=== PATIENT | male | born 1955 | race Caucasian/White ===

== ENCOUNTER → 2019-03-31 | Outpatient (CLI) | payer MEDICARE ==
--- NOTE | 2019-03-31 09:51 | NM ---
EXAMINATION TYPE: NM hepatobiliary w EF DATE OF EXAM: 03/31/2019 COMPARISON: NONE HISTORY: Cholecystitis TECHNIQUE: After the intravenous administration of 4.8 mCi Tc 99m Mebrofenin hepatobiliary scintigrap hy is performed. Immediate images post injection. FINDINGS: There is satisfactory initial accumulation of tracer by the liver. The gallbladder is visualized wit hin 4 minutes. The small bowel activity is noted within 20 minutes. At one hour 8 ounces of oral en sure plus is given to mimic CCK and gallbladder ejection fraction is calculated at 87 %, just above t he upper limit of the normal range. Therefore there is no scintigraphic evidence of cystic or common bile duct obstruction to suggest acute cholecystitis. IMPRESSION: Gallbladder may be slightly hypokinetic.
== END | disposition home or self-care (01) ==
LOC: RADNMMAIN 06:43
PROVIDERS: ATTEND Surgery
DX: K81.9 Cholecystitis, unspecified (principal)
CPT/HCPCS: 78226; A9537

== ENCOUNTER 2021-02-08 06:22 | Day surgery (SDC) | payer MEDICARE ==
[2021-02-05 15:59] VITALS: BMI 34.7
[~2021-02-08 06:22] MED LIST: LACTATED RINGERS 1,000 ML IV SCH; LIDOCAINE 1% (10MG/ML) FOR IV START INTRADERMA PRN
[2021-02-08 06:43] VITALS: RESP 16; TEMP 96.8
[2021-02-08] MEDS ORDERED: PROPOFOL 10 MG/ML 20 ML VIAL IV ONE (07:03)
[2021-02-08] MEDS ORDERED: fentaNYL (PF) 50 MCG/ML 2 ML AMP ONE (07:03)
[2021-02-08 07:50] VITALS: BP 143/83; PULSE 65
[2021-02-08 08:15] LABS: Basophils # (A) 0.1 k/uL (0-0.2); Basophils % (A) 1 %; Eosinophils # (A) 0.3 k/uL (0-0.7); Eosinophils % (A) 5 %; HCT 52.2 % (39.0-53.0); HGB 18.1 gm/dL (13.0-17.5); Lymphocytes # (A) 1.9 k/uL (1.0-4.8); Lymphocytes % (A) 28 %; MCH 31.1 pg (25.0-35.0); MCHC 34.7 g/dL (31.0-37.0); MCV 89.5 fL (80.0-100.0); Mean Platelet Volume 8.7; Monocytes # (A) 0.5 k/uL (0-1.0); Monocytes % (A) 7 %; Neutrophils # (A) 3.8 k/uL (1.3-7.7); Neutrophils % (A) 56 %; Platelet Count 265 k/uL (150-450); RBC 5.83 m/uL (4.30-5.90); RDW 12.8 % (11.5-15.5); WBC 6.8 k/uL (3.8-10.6)
[2021-02-08 08:20] LABS: Reticulocyte % 1.8 % (0.5-2.0)
--- NOTE | 2021-02-08 08:33 | PCN ---
PROCEDURE NOTE DATE OF PROCEDURE: 02/08/2021. PREOPERATIVE DIAGNOSIS: Erythrocytosis. POSTOPERATIVE DIAGNOSIS: Erythrocytosis. PROCEDURE: Bone marrow aspirate and biopsy. SITE: Right iliac crest. ANESTHESIA: Local with IV systemic sedation. DETAILS: The patient was lying in a left lateral position. The skin overlying the right iliac crest was prepared with Betadine and alcohol. After adequate sterile draping, local anesthesia with 1% lidocaine and IV systemic sedation, size 11, 4-inch Jamshidi needle was utilized to access the periosteum with ease. A total of 15 mL of aspirate and 7 mm bone core biopsy were obtained. The patient tolerated the procedure very well. There was no immediate procedure related complication. TOTAL BLOOD LOSS: Less than 1 mL. RESULTS: Pending, DAVID / LAMONTN: [id number] /
== END 2021-02-08 08:07 | disposition home or self-care (01) ==
LOC: OR 06:22
PROVIDERS: ATTEND Internal Medicine Hematology & Oncology
DX: D75.1 Secondary polycythemia (principal); Z79.1 Long term (current) use of non-steroidal anti-inflammatories (NSAID); Z79.891 Long term (current) use of opiate analgesic; Z88.2 Allergy status to sulfonamides; Z80.0 Family history of malignant neoplasm of digestive organs; Z86.19 Personal history of other infectious and parasitic diseases; Z87.891 Personal history of nicotine dependence
CPT/HCPCS: 85025; 85045; 38222; J3010; J2704

== ENCOUNTER 2021-10-26 19:01 | Inpatient (IN) | payer MEDICARE ==
[2021-10-26] MEDS ORDERED: SODIUM CHLORIDE 0.9% 500 ML 500 ML IV STA (19:20)
[2021-10-26] MEDS ORDERED: HYDROmorphone 0.5 MG/0.5 ML SYRINGE IVP STA ×2 (19:20→20:29)
--- NOTE | 2021-10-26 19:32 | ED ---
General Adult HPI - General Chief complaint: Shortness of Breath Stated complaint: Covid+, weakness, SOB Time Seen by Provider: 10/26/21 19:10 Source: patient, RN notes reviewed, old records reviewed Mode of arrival: wheelchair Limitations: no limitations - History of Present Illness Initial comments: This is a 66-year-old male who presents emergency Department complaining of sudden onset of abdominal pain on the right side. Patient states he has been vaccinated against COVID and he started having cold-like symptoms on the he was tested positive for COVID on the first or second hand on the 60 received monoclonal antibodies. states since then he's been getting better and all of a sudden at 4:00 today he started having severe right-sided abdominal pain to the point he asked to go to the emergency department immediately. Patient stat es he does feel somewhat short of breath but mostly he is here because the pain is severe in the right side abdomen. Patient denies any vomiting but states he has been having diarrhea since he's had COVID. Patient denies any chest pain or palpitations. Patient denies any lightheadedness or dizziness. Patient denies any numbness or weakness. Patient denies any back pain. - Related Data Home Medications Medication Instructions Recorded Confirmed Celecoxib [CeleBREX] 200 mg PO BID 02/05/21 10/26/21 HYDROcodone/APAP 5-325MG [[place] 1 tab PO BID PRN 02/05/21 10/26/21 5-325] Ascorbic Acid [Vitamin C] 500 mg PO DAILY 10/26/21 10/26/21 Cholecalciferol [Vitamin D3 (25 25 mcg PO DAILY 10/26/21 10/26/21 Mcg = 1000 Iu)] guaiFENesin [Mucinex] 600 mg PO BID PRN 10/26/21 10/26/21 Allergies Allergy/AdvReac Type Severity Reaction Status Date / Time Sulfa (Sulfonamide Allergy Unknown Verified 10/26/21 20:20 Antibiotics) Review of Systems ROS Statement: Those systems with pertinent positive or pertinent negative responses have been documented in the HPI. ROS Other: All systems not noted in ROS Statement are negative. Past Medical History Past Medical History: Osteoarthritis (OA) Additional Past Medical History / Comment(s): back pain, elevated rbc History of Any Multi-Drug Resistant Organisms: None Reported Past Surgical History: No Surgical Hx Reported Additional Past Surgical History / Comment(s): colonoscopy Past Anesthesia/Blood Transfusion Reactions: No Reported Reaction Past Psychological History: No Psychological Hx Reported Smoking Status: Former smoker Past Alcohol Use History: Rare Past Drug Use History: None Reported General Exam - General Exam Comments Initial Comments: GENERAL: Patient is well-developed and well-nourished. Patient is nontoxic and well- hydrated and is in moderate distress. Patient is diaphoretic ENT: Neck is soft and supple. No significant lymphadenopathy is noted. Oropharynx is clear. Moist mucous membranes. Neck has full range of motion without el iciting any pain. EYES: The sclera were anicteric and conjunctiva were pink and moist. Extraocular movements were intact and pupils were equal round and reactive to light. Eyelids were unremarkable. PULMONARY: Unlabored respirations. Good breath sounds bilaterally. No audible rales rhonchi or wheezing was noted. CARDIOVASCULAR: Patient is tachycardic at 120 beats a minute ABDOMEN: Patient has an acute abdomen. Patient has rebound tenderness in the right mid and upper abdomen SKIN: Skin is clear with no lesions or rashes and otherwise unremarkable. NEUROLOGIC: Patient is alert and oriented x3. Cranial nerves II through XII are grossly intact. Motor and sensory are also intact. Normal speech, volume and content. Symmetrical smile. MUSCULOSKELETAL: Normal extremities with adequate strength and full range of motion. No lower extremity swelling or edema. No calf tenderness. LYMPHATICS: No significant lymphadenopathy is noted PSYCHIATRIC: Normal psychiatric evaluation. Limitations: no limitations Course Vital Signs 10/26/21 10/26/21 10/26/21 19:09 19:27 19:58 Temperature 98.1 F Pulse Rate 116 H 124 H 121 H Respiratory 24 25 H 30 H Rate Blood Pressure 163/83 188/96 172/98 O2 Sat by Pulse 87 L 94 L 93 L Oximetry Medical Decision Making - Medical Decision Making EKG shows sinus tachycardia with occasional PVCs at 125 bpm ID interval 232 QRS is 88 QT interval 342 QTC is 493. Patient's EKG is of poor quality but shows no ST segment elevations. Chest CT showed no pole but extensive infiltrates consistent with clinical pneumonia. Patient received Decadron at this time. CAT scan was read as normal however believed CAT scan had. I started the patient on Zosyn. Patient fluid bolus of 0.9 normal saline 1 L. I then spoke with the radiologist and he agreed that there wasn't any free air. I spoke with Dr. Anni Frank states she will come in and see the patient take the patient to the OR. Patient remains on a nonrebreather secondary to the extensive COVID pneumonia - Lab Data Result diagrams: 10/26/21 19:34 10/26/21 19:34 Lab Results 10/26/21 10/26/21 10/26/21 Range/Units 19:34 19:34 19:34 WBC 13.6 H (3.8-10.6) k/uL RBC 5.12 (4.30-5.90) m/uL Hgb 15.7 (13.0-17.5) gm/dL Hct 45.9 (39.0-53.0) % MCV 89.7 (80.0-100.0) fL MCH 30.8 (25.0-35.0) pg MCHC 34.3 (31.0-37.0) g/dL RDW 13.7 (11.5-15.5) % Plt Count 572 H (150-450) k/uL MPV 8.3 Neutrophils % 82 % Lymphocytes % 10 % Monocytes % 4 % Eosinophils % 1 % Basophils % 1 % Neutrophils # 11.0 H (1.3-7.7) k/uL Lymphocytes # 1.4 (1.0-4.8) k/uL Monocytes # 0.6 (0-1.0) k/uL Eosinophils # 0.2 (0-0.7) k/uL Basophils # 0.1 (0-0.2) k/uL PT 16.9 H (9.0-12.0) sec INR 1.7 H (<1.2) APTT 31.8 H (22.0-30.0) sec Sodium 136 L (137-145) mmol/L Potassium 3.5 (3.5-5.1) mmol/L Chloride 98 (98-107) mmol/L Carbon Dioxide 25 (22-30) mmol/L Anion Gap 13 mmol/L BUN 16 (9-20) mg/dL Creatinine 0.87 (0.66-1.25) mg/dL Est GFR (CKD-EPI)AfAm >90 (>60 ml/min/1.73 sqM) Est GFR (CKD-EPI)NonAf 90 (>60 ml/min/1.73 sqM) Glucose 160 H (74-99) mg/dL Plasma Lactic Acid Demetri (0.7-2.0) mmol/L Calcium 9.8 (8.4-10.2) mg/dL Total Bilirubin 0.8 (0.2-1.3) mg/dL AST 83 H (17-59) U/L ALT 119 H (4-49) U/L Alkaline Phosphatase 136 H (38-126) U/L Total Protein 7.3 (6.3-8.2) g/dL Albumin 3.3 L (3.5-5.0) g/dL Amylase 84 (30-110) U/L Lipase 544 H (23-300) U/L Blood Type Blood Type Recheck Bld Type Recheck Status Antibody Screen Spec Expiration Date 10/26/21 10/26/21 Range/Units 19:34 19:34 WBC (3.8-10.6) k/uL RBC (4.30-5.90) m/uL Hgb (13.0-17.5) gm/dL Hct (39.0-53.0) % MCV (80.0-100.0) fL MCH (25.0-35.0) pg MCHC (31.0-37.0) g/dL RDW (11.5-15.5) % Plt Count (150-450) k/uL MPV Neutrophils % % Lymphocytes % % Monocytes % % Eosinophils % % Basophils % % Neutrophils # (1.3-7.7) k/uL Lymphocytes # (1.0-4.8) k/uL Monocytes # (0-1.0) k/uL Eosinophils # (0-0.7) k/uL Basophils # (0-0.2) k/uL PT (9.0-12.0) sec INR (<1.2) APTT (22.0-30.0) sec Sodium (137-145) mmol/L Potassium (3.5-5.1) mmol/L Chloride (98-107) mmol/L Carbon Dioxide (22-30) mmol/L Anion Gap mmol/L BUN (9-20) mg/dL Creatinine (0.66-1.25) mg/dL Est GFR (CKD-EPI)AfAm (>60 ml/min/1.73 sqM) Est GFR (CKD-EPI)NonAf (>60 ml/min/1.73 sqM) Glucose (74-99) mg/dL Plasma Lactic Acid Demetri 3.0 H* (0.7-2.0) mmol/L Calcium (8.4-10.2) mg/dL Total Bilirubin (0.2-1.3) mg/dL AST (17-59) U/L ALT (4-49) U/L Alkaline Phosphatase (38-126) U/L Total Protein (6.3-8.2) g/dL Albumin (3.5-5.0) g/dL Amylase (30-110) U/L Lipase (23-300) U/L Blood Type B Negative Blood Type Recheck No Previous Record Bld Type Recheck Status CABO Indicated Antibody Screen NEGATIVE Spec Expiration Date 10/29/20212333 Critical Care Time Critical Care Time: Yes Total Critical Care Time: 35 Disposition Clinical Impression: Pneumonia due to COVID-19 virus, Hypoxia, Intra-abdominal free air of unknown etiology Disposition: ADMITTED IP TO THIS HOSP Referrals: Robin Alegria MD [Primary Care Provider] - 1-2 days Time of Disposition: 20:57
[2021-10-26 19:44] LABS: Basophils # (A) 0.1 k/uL (0-0.2); Basophils % (A) 1 %; Eosinophils # (A) 0.2 k/uL (0-0.7); Eosinophils % (A) 1 %; HCT 45.9 % (39.0-53.0); HGB 15.7 gm/dL (13.0-17.5); Lymphocytes # (A) 1.4 k/uL (1.0-4.8); Lymphocytes % (A) 10 %; MCH 30.8 pg (25.0-35.0); MCHC 34.3 g/dL (31.0-37.0); MCV 89.7 fL (80.0-100.0); Mean Platelet Volume 8.3; Monocytes # (A) 0.6 k/uL (0-1.0); Monocytes % (A) 4 %; Neutrophils % (A) 82 %; Platelet Count 572 k/uL (150-450); RBC 5.12 m/uL (4.30-5.90); RDW 13.7 % (11.5-15.5); WBC 13.6 k/uL (3.8-10.6)
[2021-10-26 19:57] LABS: INR 1.7 (<1.2); Partial Thromboplastin Time 31.8 sec (22.0-30.0); Prothrombin Time 16.9 sec (9.0-12.0)
[2021-10-26 19:58] LABS: ALT 119 U/L (4-49); AST 83 U/L (17-59); African American GFR (CKD) >90 (>60 ml/min/1.73 sqM); Albumin 3.3 g/dL (3.5-5.0); Alkaline Phosphatase 136 U/L (38-126); Amylase 84 U/L (30-110); Anion Gap 13 mmol/L; Blood Urea Nitrogen 16 mg/dL (9-20); Calcium 9.8 mg/dL (8.4-10.2); Carbon Dioxide 25 mmol/L (22-30); Chloride 98 mmol/L (98-107); Glucose 160 mg/dL (74-99); Lipase 544 U/L (23-300); Non-African American GFR(CKD) 90 (>60 ml/min/1.73 sqM); Potassium 3.5 mmol/L (3.5-5.1); Sodium 136 mmol/L (137-145); Total Bilirubin 0.8 mg/dL (0.2-1.3); Total Protein 7.3 g/dL (6.3-8.2)
--- NOTE | 2021-10-26 20:17 | CT ---
EXAMINATION TYPE: CT chest angio for PE DATE OF EXAM: 10/26/2021 COMPARISON: None HISTORY: SOB CT DLP: 2695.7 mGycm Automated exposure control for dose reduction was used. CONTRAST: Performed with IV Contrast, patient injected with 100 mL of Isovue 300. There are 3-D post processed images. There is extensive patchy interstitial and airspace infiltrate in both lungs. There is no pneumothora x. Heart size is fairly normal. There is no pericardial effusion. There is no pleural effusion. There are a few bronchial lymph nodes up to 1 cm. I see no evidence of filling defect in the pulmonar y arteries. The thoracic spine is intact. There is no evidence of focal bone destruction. Sternum is intact. Thor acic aorta is intact. There is no aneurysm or dissection. IMPRESSION: Extensive bilateral pulmonary infiltrates consistent with multifocal pneumonia. No evidence of pulmonary embolism.
--- NOTE | 2021-10-26 20:21 | CT ---
EXAMINATION TYPE: CT abdomen pelvis w con DATE OF EXAM: 10/26/2021 COMPARISON: None HISTORY: abd pain CT DLP: mGycm Automated exposure control for dose reduction was used. CONTRAST: Performed with IV Contrast, patient injected with 100 mL of Isovue 300. Images obtained from the diaphragm to the floor the pelvis with IV contrast Isovue 100 mL. There is patchy interstitial and airspace infiltrate in both lower lobes. Stomach is intact. Liver an d spleen are intact. Gallbladder is intact. The bile ducts are not dilated. There is no evidence of p ancreatic mass. There is abdominal ascites with fluid in the paracolic gutters. There is mild ascites fluid in the pe lvis. There is no adrenal mass. Kidneys show satisfactory contrast opacification. There is no hydronephrosi s. Delayed images show normal renal excretion. There is no retroperitoneal adenopathy. There is 3 cm fat-containing umbilical hernia. There is no mesenteric edema. There is no free air. Th ere is no sign of a bowel obstruction. Appendix is medial and posterior and appears normal. The lumbar vertebra have fairly normal alignment. There is 20% anterior wedging of L1 and 15% mild we dging of T12. Fractures appear old. The bony pelvis is intact. There is slight depression of 10% of t he superior endplate of L5. Hip joints are intact. IMPRESSION: There is abdominal ascites. No dilated ducts. Infiltrates in both lower lobes. Mild compression fractures in the spine as above appear old.
[2021-10-26] MEDS ORDERED: PIPERACILLIN-TAZOBACTAM 3.375 GM in SODIUM CHLORIDE 0.9% 100 ML IVPB STA (20:24)
[2021-10-26] MEDS ORDERED: DEXAMETHASONE SOD PHOSPHATE 10 MG/ML 1 ML VIAL IVP STA (20:25)
[2021-10-26] MEDS ORDERED: LORazepam 2 MG/ML INJ IV STA (20:29)
[2021-10-26 21:33] LABS: Appearance,Urine Cloudy (Clear); Bacteria,Urine Rare /hpf; Bilirubin,Urine Negative (Negative); Blood,Urine Trace (Negative); Color,Urine Yellow; Glucose,Urine (UA) Negative (Negative); Hyaline Casts,Urine 9 /lpf (0-2); Ketones,Urine Trace (Negative); Leukocyte Esterase,Urine Negative (Negative); Mucus,Urine Many /hpf; Nitrite,Urine Negative (Negative); Protein,Urine 3+ (Negative); RBC,Urine 5 /hpf (0-5); Specific Gravity,Urine 1.039 (1.001-1.035); Squamous Epithelial Cell,Urine 1 /hpf (0-4); WBC,Urine 10 /hpf (0-5)
--- NOTE | 2021-10-26 21:54 | P.GSHP ---
History of Present Illness H&P Date: 10/26/21 This is a 66-year-old male that presented to the emergency department with significant right upper quadrant pain that began approximately at 4 PM. According to his , she brought a minute 6 PM based on the fact that the pain was not improving. He has recently tested positive for COVID-19 and has had some coughing. She states that he has had an increased amount of coughing this morning and into this afternoon. He has received the COVID-19 vaccine. On workup, patient did have CT of the chest and CT of the abdomen and pelvis. CT of the chest revealed multifocal pneumonia of bilateral lungs. CT of the abdomen and pelvis did reveal pneumoperitoneum of unknown etiology. Patient's denies any history of peptic ulcer disease. He has not had previous abdominal surgery. The patient does have a history of erythrocytosis for which she follows with hematology. He has had bone marrow biopsy for this previously. - Review of Systems All systems: negative Past Medical History Past Medical History: Osteoarthritis (OA) Additional Past Medical History / Comment(s): back pain, elevated rbc History of Any Multi-Drug Resistant Organisms: None Reported Past Surgical History: No Surgical Hx Reported Additional Past Surgical History / Comment(s): colonoscopy Past Anesthesia/Blood Transfusion Reactions: No Reported Reaction Past Psychological History: No Psychological Hx Reported Smoking Status: Former smoker Past Alcohol Use History: Rare Past Drug Use History: None Reported Medications and Allergies Home Medications Medication Instructions Recorded Confirmed Type Celecoxib [CeleBREX] 200 mg PO BID 02/05/21 10/26/21 History HYDROcodone/APAP 5-325MG [[place] 1 tab PO BID PRN 02/05/21 10/26/21 History 5-325] Ascorbic Acid [Vitamin C] 500 mg PO DAILY 10/26/21 10/26/21 History Cholecalciferol [Vitamin D3 (25 25 mcg PO DAILY 10/26/21 10/26/21 History Mcg = 1000 Iu)] guaiFENesin [Mucinex] 600 mg PO BID PRN 10/26/21 10/26/21 History Allergies Allergy/AdvReac Type Severity Reaction Status Date / Time Sulfa (Sulfonamide Allergy Unknown Verified 10/26/21 20:20 Antibiotics) Surgical - Exam Osteopathic Statement: *. No significant issues noted on an osteopathic structural exam other than those noted in the History and Physical/Consult. Vital Signs Temp Pulse Resp BP Pulse Ox 98.1 F 116 H 24 163/83 87 L 10/26/21 19:09 10/26/21 19:09 10/26/21 19:09 10/26/21 19:09 10/26/21 19:09 - General severe distress - Neck trachea midline, no venous distension - Respiratory Patient is on nonrebreather mask with some difficulty with deep inhalation - Abdomen Tender to palpation and distended, positive rebound tenderness - Psychiatric Unable to answer questions at this time due to significant pain and distress Results - Labs 10/26/21 19:34 10/26/21 19:34 Abnormal Lab Results - Last 24 Hours (Table) 10/26/21 10/26/21 10/26/21 Range/Units 19:34 19:34 19:34 WBC 13.6 H (3.8-10.6) k/uL Plt Count 572 H (150-450) k/uL Neutrophils # 11.0 H (1.3-7.7) k/uL PT 16.9 H (9.0-12.0) sec INR 1.7 H (<1.2) APTT 31.8 H (22.0-30.0) sec Sodium 136 L (137-145) mmol/L Glucose 160 H (74-99) mg/dL Plasma Lactic Acid Demetri (0.7-2.0) mmol/L AST 83 H (17-59) U/L ALT 119 H (4-49) U/L Alkaline Phosphatase 136 H (38-126) U/L Albumin 3.3 L (3.5-5.0) g/dL Lipase 544 H (23-300) U/L Ur Specific [place] (1.001-1.035) Urine Protein (Negative) Urine Ketones (Negative) Urine Blood (Negative) Urine WBC (0-5) /hpf Urine Bacteria (None) /hpf Hyaline Casts (0-2) /lpf Urine Mucus (None) /hpf 10/26/21 10/26/21 Range/Units 19:34 21:13 WBC (3.8-10.6) k/uL Plt Count (150-450) k/uL Neutrophils # (1.3-7.7) k/uL PT (9.0-12.0) sec INR (<1.2) APTT (22.0-30.0) sec Sodium (137-145) mmol/L Glucose (74-99) mg/dL Plasma Lactic Acid Demetri 3.0 H* (0.7-2.0) mmol/L AST (17-59) U/L ALT (4-49) U/L Alkaline Phosphatase (38-126) U/L Albumin (3.5-5.0) g/dL Lipase (23-300) U/L Ur Specific [place] 1.039 H (1.001-1.035) Urine Protein 3+ H (Negative) Urine Ketones Trace H (Negative) Urine Blood Trace H (Negative) Urine WBC 10 H (0-5) /hpf Urine Bacteria Rare H (None) /hpf Hyaline Casts 9 H (0-2) /lpf Urine Mucus Many H (None) /hpf Diabetes panel 10/26/21 Range/Units 19:34 Sodium 136 L (137-145) mmol/L Potassium 3.5 (3.5-5.1) mmol/L Chloride 98 (98-107) mmol/L Carbon Dioxide 25 (22-30) mmol/L BUN 16 (9-20) mg/dL Creatinine 0.87 (0.66-1.25) mg/dL Glucose 160 H (74-99) mg/dL Calcium 9.8 (8.4-10.2) mg/dL AST 83 H (17-59) U/L ALT 119 H (4-49) U/L Alkaline Phosphatase 136 H (38-126) U/L Total Protein 7.3 (6.3-8.2) g/dL Albumin 3.3 L (3.5-5.0) g/dL Calcium panel 10/26/21 Range/Units 19:34 Calcium 9.8 (8.4-10.2) mg/dL Albumin 3.3 L (3.5-5.0) g/dL Pituitary panel 10/26/21 Range/Units 19:34 Sodium 136 L (137-145) mmol/L Potassium 3.5 (3.5-5.1) mmol/L Chloride 98 (98-107) mmol/L Carbon Dioxide 25 (22-30) mmol/L BUN 16 (9-20) mg/dL Creatinine 0.87 (0.66-1.25) mg/dL Glucose 160 H (74-99) mg/dL Calcium 9.8 (8.4-10.2) mg/dL Adrenal panel 10/26/21 Range/Units 19:34 Sodium 136 L (137-145) mmol/L Potassium 3.5 (3.5-5.1) mmol/L Chloride 98 (98-107) mmol/L Carbon Dioxide 25 (22-30) mmol/L BUN 16 (9-20) mg/dL Creatinine 0.87 (0.66-1.25) mg/dL Glucose 160 H (74-99) mg/dL Calcium 9.8 (8.4-10.2) mg/dL Total Bilirubin 0.8 (0.2-1.3) mg/dL AST 83 H (17-59) U/L ALT 119 H (4-49) U/L Alkaline Phosphatase 136 H (38-126) U/L Total Protein 7.3 (6.3-8.2) g/dL Albumin 3.3 L (3.5-5.0) g/dL Assessment and Plan Plan: 66-year-old male with pneumoperitoneum and COVID-19 pneumonia. Patient had significant amount of family members at bedside and case was discussed in depth with the family. At this point, patient does have significant signs of sepsis likely multifactorial secondary to covid pneumonia and perforated viscus. The patient's family has stated that they would like all measures taken including life-saving measures for the patient's survival. We will plan for an exploratory laparotomy. Patient's family is aware that patient is unlikely to be extubated after the procedure and will require ICU admission. Prognosis is extremely guarded due to the current presentation and this was explained to the patient's family in depth. We will make further recommendations after procedure.
[2021-10-26] MEDS ORDERED: PROPOFOL 10 MG/ML 20 ML VIAL IV ONE (22:03)
[2021-10-26] MEDS ORDERED: LIDOCAINE 1% INJ 10MG/ML (20 ML MDV) ONE (22:03)
[2021-10-26] MEDS ORDERED: ROCURONIUM 10 MG/ML (5 ML VIAL) IV ONE (22:03)
[2021-10-26] MEDS ORDERED: SUCCINYLCHOLINE CHLORIDE 100 MG/5 ML SYR IV ONE (22:03)
[2021-10-26] MEDS ORDERED: LACTATED RINGERS 1,000 ML IV ONE (22:03)
[2021-10-26] MEDS ORDERED: fentaNYL (PF) 50 MCG/ML 2 ML AMP ONE (22:03)
[2021-10-26] MEDS ORDERED: MIDAZOLAM 2 MG/2 ML VIAL ONE (22:03)
[2021-10-26] MEDS ORDERED: HEPARIN SODIUM,PORCINE 5,000 UNIT/ML 1 ML VIAL ONE (22:03)
--- NOTE | 2021-10-26 22:45 | P.ANPRN ---
Procedure Note - Anesthesia - Invasive Line Right Central Line Time Out Performed: Yes (intraop after induction) Date of Procedure: 10/26/21 Time of Procedure: 10:08 Location of Patient: PreOp Preparation: Sterile Prep, Sterile Dressing Ultrasound Used: Yes Purpose - Visualization and Identification of Vasculature: Yes Needle Guage: 18g angio Image Stored and Saved: No (Emergent procedure. Equipment malfuction.) Narrative: Central line placement per sterile protocol utilized. Sterile protocol. +angio +jwire +cvp +uneventful dilation and introduction right ij tlc
[2021-10-27] MEDS ORDERED: NALOXONE 0.4 MG/ML 1 ML VIAL IV PRN (00:01)
[2021-10-27] MEDS ORDERED: propofoL 100 ML IV ONE ×2 (00:01→03:07)
[2021-10-27] MEDS ORDERED: ONDANSETRON 4 MG/2 ML VIAL IVP PRN (00:01)
--- NOTE | 2021-10-27 00:16 | P.OP ---
Date of Procedure: 10/27/21 Preoperative Diagnosis: Pneumoperitoneum COVID-19 pneumonia Postoperative Diagnosis: Perforated gastric ulcer Pneumoperitoneum COVID-19 pneumonia Procedure(s) Performed: Exploratory laparotomy Partial gastrectomy Billroth II reconstruction Anesthesia: ANDRÉS Surgeon: Sidney Hutton Pathology: other (Partial gastrectomy) Condition: critical Disposition: ICU Indications for Procedure: 66-year-old male presented to the emergency department with complaints of abdominal pain that was quite severe. Patient was noted to be significantly tachycardic, diaphoretic and hypoxic. On workup, he was found to have pneumoperitoneum. He is also found to have Covid pneumonia. Due to pneumoperitoneum and concern for perforated viscus, surgery was consult it. Case was discussed in depth with the patient's family. The patient did have significant number of family members at bedside. They did request that all means were used for survival. Plan is for exploratory laparotomy. Patient's did provide consent for the patient. Operative Findings: 3 cm perforation of gastric ulcer prepyloric Description of Procedure: The patient was brought to the operating suite and placed on the operating table. Sedation was provided by anesthesia and the patient underwent endotracheal intubation. The patient was then prepped and draped in regular sterile fashion. A vertical midline incision was made at the epigastrium beginning at the xiphoid and extending inferiorly. Dissection was carried to the fascia and the fascia was incised along the length of the incision. Immediate turbid fluid was noted. Multiple cultures were taken. Turbid fluid was suctioned. Bookwalter retractor was placed and the stomach was examined. A large 3 cm perforation was noted approximately 6 cm proximal to the pylorus. Initially, attempt was made and a Tevin patch repair, however the tissue surrounding the ulcer site was significantly friable and the sutures were not holding. Secondary to this, decision was made for partial gastrectomy with Billroth II reconstruction. Billroth II reconstruction was decided upon based on the patient's concerning hemodynamics. Window was created into the lesser sac and both proximal and distal points of transection were decided upon a for the stomach. Multiple firings of a black staple load from an Endo CRISTY stapler were fired to transect this portion of the stomach and this was handed off as specimen. The small bowel was run and a loop of small bowel just distal to the ligament of Treitz was elevated towards the stomach. Enterotomy and gastrotomy were created and a stapler was fired to create anastomosis. The resulting enterotomy was closed with a TX 60 loaded stapler. Nasogastric tube was then placed by anesthesia and was guided into the stomach, safely away from the anastomosis site. At this point copious muss irrigation was placed and suctioned from the abdomen. A RUPINDER drain was placed along the anastomosis site and exited the abdomen from the left upper quadrant. This was secured with a 2- 0 nylon suture. Wound was then closed with a running looped PDS suture. Skin josh were placed and sterile dressing was applied. Patient was then transferred to the ICU in critical condition. Case was discussed with the setter out after procedure.
[2021-10-27 00:38] LABS: ABG Base Excess -2.6 mmol/L; ABG HCO3 26 mmol/L (21-25); ABG Oxygen Saturation 95.6 % (94-97); ABG PO2 103 mmHg (83-108); ABG TCO2 28 mmol/L (19-24); Allen Test Performed? Yes
[2021-10-27 00:40] LABS: ABG PCO2 71 mmHg (35-45); ABG PH 7.17 (7.35-7.45)
--- NOTE | 2021-10-27 01:17 | XR ---
EXAMINATION TYPE: XR chest 1V portable DATE OF EXAM: 10/27/2021 COMPARISON: NONE HISTORY: Tube placement TECHNIQUE: Single view FINDINGS: Endotracheal tube is 6 cm from the shaun. There is nasogastric tube in the stomach. There is patchy pulmonary interstitial and airspace edema. There are chest leads. Heart appears enlarged. T here is blunting left costophrenic angle. IMPRESSION: Pulmonary edema. Tubing in fairly good position.
[2021-10-27] MEDS: LACTATED RINGERS 1,000 ML IV SCH ×3 (02:01→17:07)
--- NOTE | 2021-10-27 03:45 | P.CONS ---
History of Present Illness - Reason for Consult Consult date: 10/27/21 - History of Present Illness Patient is a 66-year-old male with no known PMH who presented to the emergency room with complaints of abdominal pain. History obtained from the chart as the patient was intubated at the time of evaluation. The patient was reportedly diagnosed with Covid roughly 10 days ago and had received monoclonal antibodies at that time. He was noted to have been gradually improving until yesterday at 4 PM when he suddenly developed right-sided abdominal pain. In the emergency room, the patient was noted to have pneumoperitoneum on abdominal CT with CT chest angiogram showing multifocal pneumonia. The patient was admitted to the surgery service and was taken to the OR and underwent an exploratory laparotomy where he was noted to have a perforated gastric ulcer. A partial gastrectomy was performed and the patient was admitted to the medical ICU where he was seen and evaluated. The patient's laboratory evaluation was reviewed and was remarkable for leukocytosis of 13.6, INR 1.7, pH 7.17, lactic acid 3.0. Review of systems: Unable to obtain as patient is intubated. Physical examination: General: non toxic, no distress, appears at stated age, obese Derm: no unusual rashes/lesions no unusual ecchymoses, warm, dry Head: atraumatic, normocephalic, symmetric Eyes: Anicteric sclera, pupils equal round reactive to light ENT: Nose and ears atraumatic Neck: No thyromegaly, no cervical lymphadenopathy, trachea midline, supple Mouth: no lip lesion, ET tube in place Cardiovascular: S1S2 reg, no murmur, positive posterior tibial pulse bilateral, no edema, capillary refill less than 2 seconds Lungs: Bilateral rhonchi and rales, no accessory muscle use Abdominal: Firm and distended, hypoactive bowel sounds, drain in place draining serosanguinous material Ext: no gross muscle atrophy Neuro: Unable to assess, unresponsive to stimuli Assessment/plan COVID-19 pneumonia with acute hypoxic respiratory failure -Continue with mechanical ventilation -Continue Decadron -Infectious disease consulted Sepsis secondary to Perforated gastric ulcer status post expiratory laparotomy and gastrectomy -Defer management to the primary surgical service Elevated INR -Suspected due to sepsis upon presentation -Monitor for now Lactic acidosis -Monitor for resolution DVT prophylaxis -Heparin subq Past Medical History Past Medical History: Osteoarthritis (OA) Additional Past Medical History / Comment(s): back pain, elevated rbc History of Any Multi-Drug Resistant Organisms: None Reported Past Surgical History: No Surgical Hx Reported Additional Past Surgical History / Comment(s): colonoscopy Past Anesthesia/Blood Transfusion Reactions: No Reported Reaction Past Psychological History: No Psychological Hx Reported Smoking Status: Former smoker Past Alcohol Use History: Rare Past Drug Use History: None Reported - Past Family History Father Family Medical History: Cancer Additional Family Medical History / Comment(s): Colon Cancer Medications and Allergies Home Medications Medication Instructions Recorded Confirmed Type Celecoxib [CeleBREX] 200 mg PO BID 02/05/21 10/26/21 History HYDROcodone/APAP 5-325MG [[place] 1 tab PO BID PRN 02/05/21 10/26/21 History 5-325] Ascorbic Acid [Vitamin C] 500 mg PO DAILY 10/26/21 10/26/21 History Cholecalciferol [Vitamin D3 (25 25 mcg PO DAILY 10/26/21 10/26/21 History Mcg = 1000 Iu)] guaiFENesin [Mucinex] 600 mg PO BID PRN 10/26/21 10/26/21 History Allergies Allergy/AdvReac Type Severity Reaction Status Date / Time Sulfa (Sulfonamide Allergy Unknown Verified 10/26/21 20:20 Antibiotics) Physical Exam Vitals: Vital Signs Temp Pulse Pulse Resp BP BP Pulse Ox 10/27/21 02:30 80 30 H 125/67 95 10/27/21 02:00 83 30 H 128/72 93 L 10/27/21 01:30 91 30 H 160/84 93 L 10/27/21 01:10 97 30 H 160/84 92 L 10/27/21 01:00 99 30 H 135/61 93 L 10/27/21 00:50 97 22 135/61 96 10/27/21 00:40 94 20 135/61 97 10/27/21 00:30 94 21 135/61 97 10/27/21 00:20 93 20 135/61 97 10/27/21 00:10 95 19 135/61 94 L 10/27/21 00:00 98.7 F 96 18 135/61 96 10/26/21 23:58 97 10/26/21 22:25 133 H 35 H 173/100 94 L 10/26/21 21:53 98.4 F 94 18 135/61 100 10/26/21 21:13 137 H 30 H 183/108 95 10/26/21 19:58 121 H 30 H 172/98 93 L 10/26/21 19:27 124 H 25 H 188/96 94 L 10/26/21 19:09 98.1 F 116 H 24 163/83 87 L Intake and Output 10/26/21 10/26/21 10/27/21 14:59 22:59 06:59 Intake Total 600 500 Output Total 410 Balance 600 90 Intake: IV 600 500 Lactated Ringers 1,000 ml 500 @ 125 mls/hr IV .Q8H [facility] Rx#:[id number] Output: Urine 310 Estimated Blood Loss 100 Other: Weight 104.326 kg Results CBC & Chem 7: 10/26/21 19:34 10/26/21 19:34 Labs: Abnormal Lab Results - Last 24 Hours (Table) 10/26/21 10/26/21 10/26/21 Range/Units 01:53 19:34 19:34 WBC 13.6 H (3.8-10.6) k/uL Plt Count 572 H (150-450) k/uL Neutrophils # 11.0 H (1.3-7.7) k/uL PT 16.9 H (9.0-12.0) sec INR 1.7 H (<1.2) APTT 31.8 H (22.0-30.0) sec ABG pH (7.35-7.45) ABG pCO2 (35-45) mmHg ABG HCO3 (21-25) mmol/L ABG Total CO2 (19-24) mmol/L Sodium (137-145) mmol/L Glucose (74-99) mg/dL Plasma Lactic Acid Demetri 2.3 H* (0.7-2.0) mmol/L AST (17-59) U/L ALT (4-49) U/L Alkaline Phosphatase (38-126) U/L Albumin (3.5-5.0) g/dL Lipase (23-300) U/L Ur Specific [place] (1.001-1.035) Urine Protein (Negative) Urine Ketones (Negative) Urine Blood (Negative) Urine WBC (0-5) /hpf Urine Bacteria (None) /hpf Hyaline Casts (0-2) /lpf Urine Mucus (None) /hpf 1210/26/21 10/26/21 Range/Units 19:34 19:34 21:13 WBC (3.8-10.6) k/uL Plt Count (150-450) k/uL Neutrophils # (1.3-7.7) k/uL PT (9.0-12.0) sec INR (<1.2) APTT (22.0-30.0) sec ABG pH (7.35-7.45) ABG pCO2 (35-45) mmHg ABG HCO3 (21-25) mmol/L ABG Total CO2 (19-24) mmol/L Sodium 136 L (137-145) mmol/L Glucose 160 H (74-99) mg/dL Plasma Lactic Acid Demetri 3.0 H* (0.7-2.0) mmol/L AST 83 H (17-59) U/L ALT 119 H (4-49) U/L Alkaline Phosphatase 136 H (38-126) U/L Albumin 3.3 L (3.5-5.0) g/dL Lipase 544 H (23-300) U/L Ur Specific [place] 1.039 H (1.001-1.035) Urine Protein 3+ H (Negative) Urine Ketones Trace H (Negative) Urine Blood Trace H (Negative) Urine WBC 10 H (0-5) /hpf Urine Bacteria Rare H (None) /hpf Hyaline Casts 9 H (0-2) /lpf Urine Mucus Many H (None) /hpf 10/27/21 Range/Units 00:35 WBC (3.8-10.6) k/uL Plt Count (150-450) k/uL Neutrophils # (1.3-7.7) k/uL PT (9.0-12.0) sec INR (<1.2) APTT (22.0-30.0) sec ABG pH 7.17 L* (7.35-7.45) ABG pCO2 71 H* (35-45) mmHg ABG HCO3 26 H (21-25) mmol/L ABG Total CO2 28 H (19-24) mmol/L Sodium (137-145) mmol/L Glucose (74-99) mg/dL Plasma Lactic Acid Demetri (0.7-2.0) mmol/L AST (17-59) U/L ALT (4-49) U/L Alkaline Phosphatase (38-126) U/L Albumin (3.5-5.0) g/dL Lipase (23-300) U/L Ur Specific [place] (1.001-1.035) Urine Protein (Negative) Urine Ketones (Negative) Urine Blood (Negative) Urine WBC (0-5) /hpf Urine Bacteria (None) /hpf Hyaline Casts (0-2) /lpf Urine Mucus (None) /hpf
[2021-10-27] MEDS: PIPERACILLIN-TAZOBACTAM 3.375 GM in SODIUM CHLORIDE 0.9% 100 ML IVPB SCH ×3 (04:50→20:12)
[2021-10-27 05:50] LABS: HCT 43.1 % (39.0-53.0); HGB 14.3 gm/dL (13.0-17.5); MCH 29.9 pg (25.0-35.0); MCHC 33.1 g/dL (31.0-37.0); MCV 90.3 fL (80.0-100.0); Mean Platelet Volume 8.2; Platelet Count 343 k/uL (150-450); RBC 4.78 m/uL (4.30-5.90); RDW 13.7 % (11.5-15.5); WBC 10.6 k/uL (3.8-10.6)
[2021-10-27 05:58] LABS: INR 1.3 (<1.2); Prothrombin Time 12.9 sec (9.0-12.0)
[2021-10-27 06:02] LABS: Calcium 8.5 mg/dL (8.4-10.2); Potassium 4.3 mmol/L (3.5-5.1)
[2021-10-27 06:18] LABS: ABG Base Excess 0.5 mmol/L; ABG HCO3 26 mmol/L (21-25); ABG Oxygen Saturation 98.7 % (94-97); ABG PCO2 48 mmHg (35-45); ABG PH 7.34 (7.35-7.45); ABG PO2 128 mmHg (83-108); ABG TCO2 28 mmol/L (19-24); Allen Test Performed? Yes
[2021-10-27] MEDS: fentaNYL (PF). 1,000 MCG in SODIUM CHLORIDE 0.9% 80 ML IV SCH ×2 (06:34→18:48)
[2021-10-27] MEDS: CHLORHEXIDINE GLUCONATE 15 ML CUP MUCOUS MEM SCH ×2 (09:51→20:13)
[2021-10-27] MEDS: PANTOPRAZOLE 40 MG/10 ML VIAL IV SCH (09:51)
[2021-10-27] MEDS: dexAMETHasone 2 MG TAB NG-TUBE SCH (09:54)
[2021-10-27] MEDS: FLUCONAZOLE IN NACL,ISO-OSM 200 MG in SALINE 1 100ML.BAG IVPB SCH (10:34)
[2021-10-27] MEDS: HEPARIN SODIUM,PORCINE/PF 5,000 UNIT/0.5 ML SYRINGE SQ SCH ×2 (10:37→17:05)
--- NOTE | 2021-10-27 12:23 | P.PN ---
Subjective Progress Note Date: 10/27/21 Patient seen and examined at bedside with ICU team. Vented and sedated. NG tube in place. Acuna in place. Objective - Vital Signs Vital signs: Vital Signs Temp 98.7 F 10/27/21 00:00 Pulse 57 L 10/27/21 11:30 Resp 32 H 10/27/21 11:30 BP 101/57 10/27/21 11:30 Pulse Ox 97 10/27/21 11:30 Intake & Output 10/26/21 10/27/21 10/27/21 18:59 06:59 18:59 Intake Total 600 1036.514 188.486 Output Total 560 420 Balance 600 476.514 -231.514 Weight 108 kg Intake: IV 600 1000 125 Lactated Ringers 1,000 ml 1000 125 @ 125 mls/hr IV .Q8H [facility] Rx#:[id number] Intake, IV Titration 36.514 63.486 Amount propofoL 1,000 mg In 36.514 63.486 Empty Bag 1 bag @ Titrate IV .Q0M [facility] Rx#: [id number] Output: Gastric Drainage 300 Drainage 20 Medial Abdomen 20 Urine 460 100 Estimated Blood Loss 100 Other: Voiding Method Indwelling Catheter - Constitutional General appearance: Present: no acute distress - Respiratory Details: On vent - Gastrointestinal Gastrointestinal Comment(s): soft, midline incision C/D/I with surgical dressing in place, RUPINDER with serosanguinous output - Labs CBC & Chem 7: 10/27/21 05:19 10/27/21 05:19 Labs: Abnormal Lab Results - Last 24 Hours (Table) 10/26/21 10/26/21 10/26/21 Range/Units 01:53 19:34 19:34 WBC 13.6 H (3.8-10.6) k/uL Plt Count 572 H (150-450) k/uL Neutrophils # 11.0 H (1.3-7.7) k/uL PT 16.9 H (9.0-12.0) sec INR 1.7 H (<1.2) APTT 31.8 H (22.0-30.0) sec ABG pH (7.35-7.45) ABG pCO2 (35-45) mmHg ABG pO2 (83-108) mmHg ABG HCO3 (21-25) mmol/L ABG Total CO2 (19-24) mmol/L ABG O2 Saturation (94-97) % Sodium (137-145) mmol/L Glucose (74-99) mg/dL Plasma Lactic Acid Demetri 2.3 H* (0.7-2.0) mmol/L AST (17-59) U/L ALT (4-49) U/L Alkaline Phosphatase (38-126) U/L Albumin (3.5-5.0) g/dL Lipase (23-300) U/L Ur Specific [place] (1.001-1.035) Urine Protein (Negative) Urine Ketones (Negative) Urine Blood (Negative) Urine WBC (0-5) /hpf Urine Bacteria (None) /hpf Hyaline Casts (0-2) /lpf Urine Mucus (None) /hpf 10/26/21 10/26/21 10/26/21 Range/Units 19:34 19:34 21:13 WBC (3.8-10.6) k/uL Plt Count (150-450) k/uL Neutrophils # (1.3-7.7) k/uL PT (9.0-12.0) sec INR (<1.2) APTT (22.0-30.0) sec ABG pH (7.35-7.45) ABG pCO2 (35-45) mmHg ABG pO2 (83-108) mmHg ABG HCO3 (21-25) mmol/L ABG Total CO2 (19-24) mmol/L ABG O2 Saturation (94-97) % Sodium 136 L (137-145) mmol/L Glucose 160 H (74-99) mg/dL Plasma Lactic Acid Demetri 3.0 H* (0.7-2.0) mmol/L AST 83 H (17-59) U/L ALT 119 H (4-49) U/L Alkaline Phosphatase 136 H (38-126) U/L Albumin 3.3 L (3.5-5.0) g/dL Lipase 544 H (23-300) U/L Ur Specific [place] 1.039 H (1.001-1.035) Urine Protein 3+ H (Negative) Urine Ketones Trace H (Negative) Urine Blood Trace H (Negative) Urine WBC 10 H (0-5) /hpf Urine Bacteria Rare H (None) /hpf Hyaline Casts 9 H (0-2) /lpf Urine Mucus Many H (None) /hpf 10/27/21 10/27/21 10/27/21 Range/Units 00:35 05:19 05:19 WBC (3.8-10.6) k/uL Plt Count (150-450) k/uL Neutrophils # (1.3-7.7) k/uL PT 12.9 H (9.0-12.0) sec INR 1.3 H (<1.2) APTT (22.0-30.0) sec ABG pH 7.17 L* (7.35-7.45) ABG pCO2 71 H* (35-45) mmHg ABG pO2 (83-108) mmHg ABG HCO3 26 H (21-25) mmol/L ABG Total CO2 28 H (19-24) mmol/L ABG O2 Saturation (94-97) % Sodium 136 L (137-145) mmol/L Glucose 150 H (74-99) mg/dL Plasma Lactic Acid Demetri (0.7-2.0) mmol/L AST (17-59) U/L ALT (4-49) U/L Alkaline Phosphatase (38-126) U/L Albumin (3.5-5.0) g/dL Lipase (23-300) U/L Ur Specific [place] (1.001-1.035) Urine Protein (Negative) Urine Ketones (Negative) Urine Blood (Negative) Urine WBC (0-5) /hpf Urine Bacteria (None) /hpf Hyaline Casts (0-2) /lpf Urine Mucus (None) /hpf 10/27/21 Range/Units 06:16 WBC (3.8-10.6) k/uL Plt Count (150-450) k/uL Neutrophils # (1.3-7.7) k/uL PT (9.0-12.0) sec INR (<1.2) APTT (22.0-30.0) sec ABG pH 7.34 L (7.35-7.45) ABG pCO2 48 H (35-45) mmHg ABG pO2 128 H (83-108) mmHg ABG HCO3 26 H (21-25) mmol/L ABG Total CO2 28 H (19-24) mmol/L ABG O2 Saturation 98.7 H (94-97) % Sodium (137-145) mmol/L Glucose (74-99) mg/dL Plasma Lactic Acid Demetri (0.7-2.0) mmol/L AST (17-59) U/L ALT (4-49) U/L Alkaline Phosphatase (38-126) U/L Albumin (3.5-5.0) g/dL Lipase (23-300) U/L Ur Specific [place] (1.001-1.035) Urine Protein (Negative) Urine Ketones (Negative) Urine Blood (Negative) Urine WBC (0-5) /hpf Urine Bacteria (None) /hpf Hyaline Casts (0-2) /lpf Urine Mucus (None) /hpf Assessment and Plan Plan: POD #1, ex lap with Billroth 2 reconstruction for perforated gastric ulcer - Continue vent mgmt per ICU - Currently on zosyn and diflucan, awaiting ID recommendations - Continue RUPINDER drain - Aged Or Disabled Carer consult placed to begin TPN due to anticipated prolonged NPO status - NGT instructions were discussed with nursing. No manipulation of the NGT and no input through the NGT. Continue NGT to LIS. - Case was discussed in depth with family. Patient has a very guarded prognosis.
--- NOTE | 2021-10-27 12:46 | P.CNPUL ---
History of Present Illness Consult date: 10/27/21 Requesting physician: Sidney Hutton Reason for consult: pneumonia, other (Status post expiratory laparotomy, partial gastrectomy and Billroth type II in construction.) Chief complaint: Severe abdominal pain History of present illness: This is a 66-year-old white male presented to the emergency last night with acute onset of abdominal pain. Patient recently tested positive for COVID-19 and he had symptoms of COVID-19 pneumonia. Patient has been experiencing severe cough and according to the chart, the patient did receive COVID-19 vaccination. And apparently when he was initially diagnosed, the patient received monoclonal antibody infusion. Upon presentation to the ER, patient was found to have multifocal pneumonia, and his CT of the abdomen and pelvis revealed area of pneumoperitoneum. Patient has no previous history of peptic ulcer disease, no previous abdominal surgery. Seen by surgery foreign law consultant, and the patient underwent exploratory laparotomy, he was found to have stomach perforation, underwent expiratory laparotomy, Billroth type II reconstruction. Patient was started on antibiotics in the form of Zosyn and on Diflucan. Infectious disease consultation is pending. Patient was brought up to the ICU on mechanical ventilation, he is now on tidal volume 450 rate of 30 FiO2 70% and I cut it down to 50% and PEEP at 10. ABG showed a pO2 of 128 pCO2 of 48 pH of 7.34. Patient is on propofol at 40 mcg/kg/m fentanyl 0.5 mcg/kg/h he is on a lactated Ringer's at 1 25 mL/h, and he will be started on TPN. Patient does have a right IJ central line placed by surgery prior to his exploratory laparotomy. WBC count today is 10.6 hemoglobin 14.3. Electrodes are normal renal profile is normal. Review of Systems ROS unobtainable: due to endotracheal tube Past Medical History Past Medical History: Osteoarthritis (OA) Additional Past Medical History / Comment(s): back pain, elevated rbc History of Any Multi-Drug Resistant Organisms: None Reported Past Surgical History: No Surgical Hx Reported Additional Past Surgical History / Comment(s): colonoscopy Past Anesthesia/Blood Transfusion Reactions: No Reported Reaction Past Psychological History: No Psychological Hx Reported Smoking Status: Former smoker Past Alcohol Use History: Rare Past Drug Use History: None Reported - Past Family History Father Family Medical History: Cancer Additional Family Medical History / Comment(s): Colon Cancer Medications and Allergies Home Medications Medication Instructions Recorded Confirmed Type Celecoxib [CeleBREX] 200 mg PO BID 02/05/21 10/26/21 History HYDROcodone/APAP 5-325MG [[place] 1 tab PO BID PRN 02/05/21 10/26/21 History 5-325] Ascorbic Acid [Vitamin C] 500 mg PO DAILY 10/26/21 10/26/21 History Cholecalciferol [Vitamin D3 (25 25 mcg PO DAILY 10/26/21 10/26/21 History Mcg = 1000 Iu)] guaiFENesin [Mucinex] 600 mg PO BID PRN 10/26/21 10/26/21 History Allergies Allergy/AdvReac Type Severity Reaction Status Date / Time Sulfa (Sulfonamide Allergy Unknown Verified 10/26/21 20:20 Antibiotics) Physical Exam Vitals: Vital Signs Temp Pulse Pulse Resp BP BP Pulse Ox 10/27/21 11:30 57 L 32 H 101/57 97 10/27/21 11:00 57 L 30 H 103/55 96 10/27/21 10:30 58 L 33 H 98/61 95 10/27/21 10:00 59 L 32 H 104/59 95 10/27/21 09:30 60 30 H 102/60 97 10/27/21 09:00 62 26 H 97 10/27/21 08:30 65 32 H 102/63 97 10/27/21 08:00 66 26 H 104/62 97 10/27/21 07:30 68 26 H 107/67 97 10/27/21 07:00 68 26 H 107/86 96 10/27/21 06:30 66 30 H 104/63 94 L 10/27/21 06:00 68 28 H 100/67 97 10/27/21 05:30 71 33 H 106/66 97 10/27/21 05:00 71 30 H 106/66 96 10/27/21 04:30 74 32 H 101/64 97 10/27/21 04:00 74 32 H 107/68 97 10/27/21 03:30 76 30 H 103/64 97 10/27/21 03:00 74 20 110/67 96 10/27/21 02:30 80 30 H 125/67 95 10/27/21 02:00 83 30 H 128/72 93 L 10/27/21 01:30 91 30 H 160/84 93 L 10/27/21 01:10 97 30 H 160/84 92 L 10/27/21 01:00 99 30 H 135/61 93 L 10/27/21 00:50 97 22 135/61 96 10/27/21 00:40 94 20 135/61 97 10/27/21 00:30 94 21 135/61 97 10/27/21 00:20 93 20 135/61 97 10/27/21 00:10 95 19 135/61 94 L 10/27/21 00:00 98.7 F 96 18 135/61 96 10/26/21 23:58 97 10/26/21 22:25 133 H 35 H 173/100 94 L 10/26/21 21:53 98.4 F 94 18 135/61 100 10/26/21 21:13 137 H 30 H 183/108 95 10/26/21 19:58 121 H 30 H 172/98 93 L 10/26/21 19:27 124 H 25 H 188/96 94 L 10/26/21 19:09 98.1 F 116 H 24 163/83 87 L Intake and Output 10/26/21 10/27/21 10/27/21 22:59 06:59 14:59 Intake Total 1036.514 563.486 Output Total 560 535 Balance 476.514 28.486 Intake: IV 1000 500 Lactated Ringers 1,000 ml 1000 500 @ 125 mls/hr IV .Q8H [facility] Rx#:[id number] Intake, IV Titration 36.514 63.486 Amount propofoL 1,000 mg In 36.514 63.486 Empty Bag 1 bag @ Titrate IV .Q0M [facility] Rx#: [id number] Output: Gastric Drainage 300 Drainage 20 Medial Abdomen 20 Urine 460 215 Estimated Blood Loss 100 Other: Voiding Method Indwelling Catheter Weight 104.326 kg 108 kg Physical Exam revealed a 66-year-old white male sedated, intubated, mechanically ventilated, in no distress. Head: Atraumatic normocephalic. Endotracheal tube is intact. HEENT:[Neck is supple.] [No neck masses.] [No thyromegaly.] [No JVD.] Right IJ central line is noted. Chest: Symmetrical chest expansion, crackles at the bases bilaterally.] Cardiac Exam: [Normal S1 and S2, no S3 gallop, no murmur.] Abdomen: Postsurgical soft nontender negative bowel sounds. RUPINDER drains noted. Extremities: [No clubbing, no edema, no cyanosis.] Neurological Exam: Cannot asses patient is fully sedated. Psychiatric: Could not assess patient is sedated. Results - Laboratory Findings CBC and BMP: 10/27/21 05:19 10/27/21 05:19 ABG ABG pH 7.34 (7.35-7.45) L 10/27/21 06:16 ABG pCO2 48 mmHg (35-45) H 10/27/21 06:16 ABG pO2 128 mmHg (83-108) H 10/27/21 06:16 ABG O2 Saturation 98.7 % (94-97) H 10/27/21 06:16 PT/INR, D-dimer PT 12.9 sec (9.0-12.0) H 10/27/21 05:19 INR 1.3 (<1.2) H 10/27/21 05:19 Abnormal lab findings: Abnormal Labs 10/26/21 10/26/21 10/26/21 01:53 19:34 19:34 WBC 13.6 H Plt Count 572 H Neutrophils # 11.0 H PT 16.9 H INR 1.7 H APTT 31.8 H ABG pH ABG pCO2 ABG pO2 ABG HCO3 ABG Total CO2 ABG O2 Saturation Sodium Glucose Plasma Lactic Acid Demetri 2.3 H* AST ALT Alkaline Phosphatase Albumin Lipase Ur Specific [place] Urine Protein Urine Ketones Urine Blood Urine WBC Urine Bacteria Hyaline Casts Urine Mucus 10/26/21 10/26/21 10/26/21 19:34 19:34 21:13 WBC Plt Count Neutrophils # PT INR APTT ABG pH ABG pCO2 ABG pO2 ABG HCO3 ABG Total CO2 ABG O2 Saturation Sodium 136 L Glucose 160 H Plasma Lactic Acid Demetri 3.0 H* AST 83 H ALT 119 H Alkaline Phosphatase 136 H Albumin 3.3 L Lipase 544 H Ur Specific [place] 1.039 H Urine Protein 3+ H Urine Ketones Trace H Urine Blood Trace H Urine WBC 10 H Urine Bacteria Rare H Hyaline Casts 9 H Urine Mucus Many H 10/27/21 10/27/21 10/27/21 00:35 05:19 05:19 WBC Plt Count Neutrophils # PT 12.9 H INR 1.3 H APTT ABG pH 7.17 L* ABG pCO2 71 H* ABG pO2 ABG HCO3 26 H ABG Total CO2 28 H ABG O2 Saturation Sodium 136 L Glucose 150 H Plasma Lactic Acid Demetri AST ALT Alkaline Phosphatase Albumin Lipase Ur Specific [place] Urine Protein Urine Ketones Urine Blood Urine WBC Urine Bacteria Hyaline Casts Urine Mucus 10/27/21 06:16 WBC Plt Count Neutrophils # PT INR APTT ABG pH 7.34 L ABG pCO2 48 H ABG pO2 128 H ABG HCO3 26 H ABG Total CO2 28 H ABG O2 Saturation 98.7 H Sodium Glucose Plasma Lactic Acid Demetri AST ALT Alkaline Phosphatase Albumin Lipase Ur Specific [place] Urine Protein Urine Ketones Urine Blood Urine WBC Urine Bacteria Hyaline Casts Urine Mucus - Diagnostic Findings Chest x-ray: image reviewed (Chest x-ray showed bilateral infiltrates consistent with COVID-19 pneumonia) Assessment and Plan Assessment: Impression: Acute hypoxic respiratory failure secondary to COVID-19 pneumonia and secondary to abdominal sepsis secondary to stomach perforation requiring exploratory laparotomy, Billroth type II and reconstruction, postoperative day #0. Acute abdominal sepsis Lactic acidosis secondary to abdominal sepsis History of degenerative joint disease Recommendation: Continue ventilatory support. Continue COVID-19 cocktail. Patient is not a candidate for remdesivir, not a candidate for baricitinib Will use low-dose Decadron. We continue antibiotics and antifungal, infectious disease consultation is pending. GI and DVT prophylaxis. Prognosis is relatively guarded patient is critically ill. Critical care time is over 30 minutes not including time on procedures Time with Patient: Greater than 30
[2021-10-27 15:46] LABS: Ionized Calcium 4.7 mg/dL (4.5-5.3)
[2021-10-27 15:49] LABS: Albumin 2.5 g/dL (3.5-5.0)
[2021-10-27 17:58] LABS: Glucose,Whole Blood 126 mg/dL (75-99)
[2021-10-27] MEDS ORDERED: PARENTERAL ELECTROLYTES 20 ML, MVI, ADULT NO.4 WITH VIT K 10 ML, TRACE (CONC-1ML/DOSE) ... IV SCH ×4 (18:00)
--- NOTE | 2021-10-27 18:33 | PCN ---
PROCEDURE NOTE OPERATIVE REPORT: Placement of a right radial arterial line. PREOPERATIVE DIAGNOSES: Acute hypoxic respiratory failure secondary to Covid 19 pneumonia and abdominal sepsis. POSTOPERATIVE DIAGNOSES: Acute hypoxic respiratory failure secondary to Covid 19 pneumonia and abdominal sepsis. ANESTHESIA: Used none deployed. PROCEDURE: Patient was placed in a supine position, right wrist was prepared in a sterile fashion and drapes were applied. The right radial artery was palpated, cannulated, a guidewire was placed. A Cook's catheter was inserted over the guidewire, the guidewire was removed. Good blood flow, good waveform, no evidence of complications. The line was secured using 3.0 silk sutures. MMODL / IJN: [id number] /
[2021-10-27] MEDS: INSULIN ASPART (NovoLOG) 100 UNIT/ML VIAL SQ SCH ×2 (18:47→23:41)
[2021-10-27 23:28] LABS: Glucose,Whole Blood 112 mg/dL (75-99)
[2021-10-28] MEDS: LACTATED RINGERS 1,000 ML IV SCH ×4 (00:07→20:03)
[2021-10-28] MEDS: HEPARIN SODIUM,PORCINE/PF 5,000 UNIT/0.5 ML SYRINGE SQ SCH ×3 (00:07→17:05)
[2021-10-28 04:29] LABS: Basophils % (A) 0 %; Eosinophils % (A) 0 %; HCT 39.1 % (39.0-53.0); HGB 12.6 gm/dL (13.0-17.5); Lymphocytes # (A) 0.5 k/uL (1.0-4.8); Lymphocytes % (A) 5 %; MCH 29.5 pg (25.0-35.0); MCHC 32.2 g/dL (31.0-37.0); MCV 91.4 fL (80.0-100.0); Mean Platelet Volume 9.2; Monocytes # (A) 0.5 k/uL (0-1.0); Monocytes % (A) 5 %; Neutrophils # (A) 9.8 k/uL (1.3-7.7); Neutrophils % (A) 87 %; Platelet Count 348 k/uL (150-450); RBC 4.28 m/uL (4.30-5.90); WBC 11.2 k/uL (3.8-10.6)
[2021-10-28 04:42] LABS: Magnesium 2.3 mg/dL (1.6-2.3); Phosphorus 5.7 mg/dL (2.5-4.5)
[2021-10-28 04:57] LABS: Albumin 2.3 g/dL (3.5-5.0); Calcium 7.9 mg/dL (8.4-10.2); Potassium 4.1 mmol/L (3.5-5.1); Total Bilirubin 0.5 mg/dL (0.2-1.3); Total Protein 5.4 g/dL (6.3-8.2)
[2021-10-28] MEDS: PIPERACILLIN-TAZOBACTAM 3.375 GM in SODIUM CHLORIDE 0.9% 100 ML IVPB SCH ×3 (05:00→20:01)
[2021-10-28 05:15] LABS: Glucose,Whole Blood 128 mg/dL (75-99)
[2021-10-28 05:15] LABS: Glucose,Whole Blood 63 mg/dL (75-99)
[2021-10-28] MEDS: INSULIN ASPART (NovoLOG) 100 UNIT/ML VIAL SQ SCH ×3 (05:15→18:55)
[2021-10-28 06:13] LABS: ABG Base Excess -3.6 mmol/L; ABG HCO3 21 mmol/L (21-25); ABG Oxygen Saturation 99.4 % (94-97); ABG PCO2 30 mmHg (35-45); ABG PH 7.44 (7.35-7.45); ABG PO2 150 mmHg (83-108); ABG TCO2 21 mmol/L (19-24)
[2021-10-28 06:38] LABS: Allen Test Performed? No
--- NOTE | 2021-10-28 07:10 | XR ---
EXAMINATION TYPE: XR chest 1V portable DATE OF EXAM: 10/28/2021 5:47 AM COMPARISON:Chest radiograph from one day prior. CLINICAL INDICATION:Male, 66 years old with history of Tube placement; [facility], TECHNIQUE: Portable AP radiograph of the chest.. FINDINGS: Lungs/Pleura: There is no evidence of pleural effusion, focal consolidation, or pneumothorax. Pulmonary vascularity: Unremarkable. Heart/mediastinum: Cardiomediastinal silhouette is unremarkable. Musculoskeletal: No acute osseous pathology. Lines/Tubes: Endotracheal tube with distal tip 7.5 cm above the shaun Nasogastric tube with its distal tip and side-port projecting under the diaphragm. Coiling of the right internal jugular central venous catheter with tip extending towards the right up per extremity laterally layering within the right subclavian vein. IMPRESSION: 1. Persistent abnormal placement of the right IJ central venous catheter now with coiling in the righ t lower neck distal tip extending laterally. 2. Similar multifocal airspace opacities.
[2021-10-28] MEDS: FLUCONAZOLE IN NACL,ISO-OSM 200 MG in SALINE 1 100ML.BAG IVPB SCH (08:48)
[2021-10-28] MEDS: CHLORHEXIDINE GLUCONATE 15 ML CUP MUCOUS MEM SCH ×2 (08:48→20:01)
[2021-10-28] MEDS: dexAMETHasone 2 MG TAB NG-TUBE SCH (08:48)
[2021-10-28] MEDS: PANTOPRAZOLE 40 MG/10 ML VIAL IV SCH (08:48)
--- NOTE | 2021-10-28 09:56 | P.CONS ---
History of Present Illness - Reason for Consult Consult date: 10/27/21 perforated peptic ulcer and covid Requesting physician: Sidney Hutton - Chief Complaint abd pain x 1 day - History of Present Illness History of present illness : Patient is 66-year-old male presenting to the ER last evening for evaluation of sudden onset of right-sided abdominal pain pain has been mostly in the right lower quadrant area sharp and severe in i ntensity no reported history of any vomiting or diarrhea apparently the patient also have a cold symptoms started around 24 September 2021 patient was tested positive on October 17 and has received monoclonal antibody subsequently there is no history of any chest pain palpitations or shortness of breath or cough patient on presentation to the hospital was afebrile did have low-grade fever of 99.8 today patient did have white count of 13.6 down to 10.6 today did have elevated BUN/creatinine ALT mildly elevated patient did have a CT angiogram of the chest extensive bilateral pulmonary infiltrate consistent multifocal pneumonia no evidence of PE patient also have a CT of abdominal pelvis with evidence of pneumoperitoneum air on the anterior upper abdominal anterior to the anterior wall of the stomach patient was subsequently taken to the OR and the patient was noticed to have a perforated gastric ulcer status post exploratory protamine partial gastrectomy and Billroth II reconstruction patient has been in the ICU since surgery on the vent he is hemodynamically stable not any pressor support no significant purulent secretion through the ET or diarrhea and any other change reported by nursing staff most information has been obtained from review the chart as the patient is currently on the vent Review of system: Positive point has been mentioned in HPI complete review could not be obtained because of underlying mental status Past medical history : Reviewed, documented below Past surgical history : Reviewed, documented below Social history: Reviewed, documented below Medications: Reviewed, as documented below EXAMINATION: Vital sigans= Reviewed and documented below GENERAL DESCRIPTION: Elderly male lying in bed, no distress. No tachypnea or accessory muscle of respiration use. HEENT: Shows Pallor , no scleral icterus. Oral mucous membrane is dry. NECK: Trachea central, no thyromegaly. LUNGS: Unlabored breathing. Decrease intensity of breath sounds. No wheeze or crackle. HEART: S1, S2, regular rate and rhythm. ABDOMEN: Soft, no tenderness , guarding or rigidity EXTREMITIES: No edema of feet. SKIN: No rash, no masses palpable. NEUROLOGICAL: The patient is sedated on the vent LABS AND RADIOLOGY: Reviewed results see below Assessment :1-patient presented to hospital with acute abdomen with perforated peptic ulcer disease status post laparotomy and surgical repair of his perforation the likely origin record will be the enteric gram-negative and Annia 2-patient to COVID-19 symptoms started on October 16 and has received monoclonal antibody CT angiogram which shows extensive bilateral pulmonary infiltrate currently out of the therapeutic window for remdesivir Plan: 1-patient is adequately covered with Zosyn and Diflucan which will be continued and antibiotic adjusted further on the basis of culture report 2-Heparin and dexamethasone has been added for the COVID-19 infection 3-gentle IV fluid We will follow on clinical condition and cultures to further adjust medication if needed Thank you for this consultation we will follow the patient along with you Past Medical History Past Medical History: Osteoarthritis (OA) Additional Past Medical History / Comment(s): back pain, elevated rbc History of Any Multi-Drug Resistant Organisms: None Reported Past Surgical History: No Surgical Hx Reported Additional Past Surgical History / Comment(s): colonoscopy Past Anesthesia/Blood Transfusion Reactions: No Reported Reaction Past Psychological History: No Psychological Hx Reported Smoking Status: Former smoker Past Alcohol Use History: Rare Past Drug Use History: None Reported - Past Family History Father Family Medical History: Cancer Additional Family Medical History / Comment(s): Colon Cancer Medications and Allergies Home Medications Medication Instructions Recorded Confirmed Type Celecoxib [CeleBREX] 200 mg PO BID 02/05/21 10/26/21 History HYDROcodone/APAP 5-325MG [[place] 1 tab PO BID PRN 02/05/21 10/26/21 History 5-325] Ascorbic Acid [Vitamin C] 500 mg PO DAILY 10/26/21 10/26/21 History Cholecalciferol [Vitamin D3 (25 25 mcg PO DAILY 10/26/21 10/26/21 History Mcg = 1000 Iu)] guaiFENesin [Mucinex] 600 mg PO BID PRN 10/26/21 10/26/21 History Allergies Allergy/AdvReac Type Severity Reaction Status Date / Time Sulfa (Sulfonamide Allergy Unknown Verified 10/26/21 20:20 Antibiotics) Physical Exam Vitals: Vital Signs Temp Pulse Pulse Resp BP BP Pulse Ox 10/27/21 14:00 58 L 30 H 105/57 96 10/27/21 13:30 59 L 30 H 93/60 95 10/27/21 13:00 56 L 30 H 98/57 96 10/27/21 12:30 57 L 33 H 98/61 96 10/27/21 12:00 56 L 36 H 94/57 97 10/27/21 11:30 57 L 32 H 101/57 97 10/27/21 11:00 57 L 30 H 103/55 96 10/27/21 10:30 58 L 33 H 98/61 95 10/27/21 10:00 59 L 32 H 104/59 95 10/27/21 09:30 60 30 H 102/60 97 10/27/21 09:00 62 26 H 97 10/27/21 08:30 65 32 H 102/63 97 10/27/21 08:00 66 32 H 104/62 97 10/27/21 07:30 68 26 H 107/67 97 10/27/21 07:00 68 26 H 107/86 96 10/27/21 06:30 66 30 H 104/63 94 L 10/27/21 06:00 68 28 H 100/67 97 10/27/21 05:30 71 33 H 106/66 97 10/27/21 05:00 71 30 H 106/66 96 10/27/21 04:30 74 32 H 101/64 97 10/27/21 04:00 74 32 H 107/68 97 10/27/21 03:30 76 30 H 103/64 97 10/27/21 03:00 74 20 110/67 96 10/27/21 02:30 80 30 H 125/67 95 10/27/21 02:00 83 30 H 128/72 93 L 10/27/21 01:30 91 30 H 160/84 93 L 10/27/21 01:10 97 30 H 160/84 92 L 10/27/21 01:00 99 30 H 135/61 93 L 10/27/21 00:50 97 22 135/61 96 10/27/21 00:40 94 20 135/61 97 10/27/21 00:30 94 21 135/61 97 10/27/21 00:20 93 20 135/61 97 10/27/21 00:10 95 19 135/61 94 L 10/27/21 00:00 98.7 F 96 18 135/61 96 10/26/21 23:58 97 10/26/21 22:25 133 H 35 H 173/100 94 L 10/26/21 21:53 98.4 F 94 18 135/61 100 10/26/21 21:13 137 H 30 H 183/108 95 10/26/21 19:58 121 H 30 H 172/98 93 L 10/26/21 19:27 124 H 25 H 188/96 94 L 10/26/21 19:09 98.1 F 116 H 24 163/83 87 L Intake and Output 10/27/21 10/27/21 10/27/21 06:59 14:59 22:59 Intake Total 1036.514 903.342 Output Total 560 625 Balance 476.514 278.342 Intake: IV 1000 750 Lactated Ringers 1,000 ml 1000 750 @ 125 mls/hr IV .Q8H RIANNA Rx#:[id number] Intake, IV Titration 36.514 153.342 Amount propofoL 1,000 mg In 36.514 153.342 Empty Bag 1 bag @ Titrate IV .Q0M RIANNA Rx#: [id number] Output: Gastric Drainage 300 Drainage 20 Medial Abdomen 20 Urine 460 305 Estimated Blood Loss 100 Other: Voiding Method Indwelling Catheter Indwelling Catheter Weight 108 kg 108 kg Results CBC & Chem 7: 10/28/21 04:15 10/28/21 04:15 Labs: Abnormal Lab Results - Last 24 Hours (Table) 10/26/21 10/26/21 10/26/21 Range/Units 01:53 19:34 19:34 WBC 13.6 H (3.8-10.6) k/uL Plt Count 572 H (150-450) k/uL Neutrophils # 11.0 H (1.3-7.7) k/uL PT 16.9 H (9.0-12.0) sec INR 1.7 H (<1.2) APTT 31.8 H (22.0-30.0) sec ABG pH (7.35-7.45) ABG pCO2 (35-45) mmHg ABG pO2 (83-108) mmHg ABG HCO3 (21-25) mmol/L ABG Total CO2 (19-24) mmol/L ABG O2 Saturation (94-97) % Sodium (137-145) mmol/L Glucose (74-99) mg/dL Plasma Lactic Acid Demetri 2.3 H* (0.7-2.0) mmol/L Phosphorus (2.5-4.5) mg/dL AST (17-59) U/L ALT (4-49) U/L Alkaline Phosphatase (38-126) U/L Albumin (3.5-5.0) g/dL Lipase (23-300) U/L Ur Specific Norman (1.001-1.035) Urine Protein (Negative) Urine Ketones (Negative) Urine Blood (Negative) Urine WBC (0-5) /hpf Urine Bacteria (None) /hpf Hyaline Casts (0-2) /lpf Urine Mucus (None) /hpf 10/26/21 10/26/21 10/26/21 Range/Units 19:34 19:34 21:13 WBC (3.8-10.6) k/uL Plt Count (150-450) k/uL Neutrophils # (1.3-7.7) k/uL PT (9.0-12.0) sec INR (<1.2) APTT (22.0-30.0) sec ABG pH (7.35-7.45) ABG pCO2 (35-45) mmHg ABG pO2 (83-108) mmHg ABG HCO3 (21-25) mmol/L ABG Total CO2 (19-24) mmol/L ABG O2 Saturation (94-97) % Sodium 136 L (137-145) mmol/L Glucose 160 H (74-99) mg/dL Plasma Lactic Acid Demetri 3.0 H* (0.7-2.0) mmol/L Phosphorus (2.5-4.5) mg/dL AST 83 H (17-59) U/L ALT 119 H (4-49) U/L Alkaline Phosphatase 136 H (38-126) U/L Albumin 3.3 L (3.5-5.0) g/dL Lipase 544 H (23-300) U/L Ur Specific Norman 1.039 H (1.001-1.035) Urine Protein 3+ H (Negative) Urine Ketones Trace H (Negative) Urine Blood Trace H (Negative) Urine WBC 10 H (0-5) /hpf Urine Bacteria Rare H (None) /hpf Hyaline Casts 9 H (0-2) /lpf Urine Mucus Many H (None) /hpf 12/10/0710/27/21 10/27/21 Range/Units 00:35 05:19 05:19 WBC (3.8-10.6) k/uL Plt Count (150-450) k/uL Neutrophils # (1.3-7.7) k/uL PT 12.9 H (9.0-12.0) sec INR 1.3 H (<1.2) APTT (22.0-30.0) sec ABG pH 7.17 L* (7.35-7.45) ABG pCO2 71 H* (35-45) mmHg ABG pO2 (83-108) mmHg ABG HCO3 26 H (21-25) mmol/L ABG Total CO2 28 H (19-24) mmol/L ABG O2 Saturation (94-97) % Sodium 136 L (137-145) mmol/L Glucose 150 H (74-99) mg/dL Plasma Lactic Acid Demetri (0.7-2.0) mmol/L Phosphorus (2.5-4.5) mg/dL AST (17-59) U/L ALT (4-49) U/L Alkaline Phosphatase (38-126) U/L Albumin (3.5-5.0) g/dL Lipase (23-300) U/L Ur Specific Norman (1.001-1.035) Urine Protein (Negative) Urine Ketones (Negative) Urine Blood (Negative) Urine WBC (0-5) /hpf Urine Bacteria (None) /hpf Hyaline Casts (0-2) /lpf Urine Mucus (None) /hpf 10/27/21 10/27/21 Range/Units 06:16 15:19 WBC (3.8-10.6) k/uL Plt Count (150-450) k/uL Neutrophils # (1.3-7.7) k/uL PT (9.0-12.0) sec INR (<1.2) APTT (22.0-30.0) sec ABG pH 7.34 L (7.35-7.45) ABG pCO2 48 H (35-45) mmHg ABG pO2 128 H (83-108) mmHg ABG HCO3 26 H (21-25) mmol/L ABG Total CO2 28 H (19-24) mmol/L ABG O2 Saturation 98.7 H (94-97) % Sodium (137-145) mmol/L Glucose (74-99) mg/dL Plasma Lactic Acid Demetri (0.7-2.0) mmol/L Phosphorus 7.0 H (2.5-4.5) mg/dL AST (17-59) U/L ALT (4-49) U/L Alkaline Phosphatase (38-126) U/L Albumin 2.5 L (3.5-5.0) g/dL Lipase (23-300) U/L Ur Specific Norman (1.001-1.035) Urine Protein (Negative) Urine Ketones (Negative) Urine Blood (Negative) Urine WBC (0-5) /hpf Urine Bacteria (None) /hpf Hyaline Casts (0-2) /lpf Urine Mucus (None) /hpf
--- NOTE | 2021-10-28 10:30 | P.PN ---
Subjective Progress Note Date: 10/28/21 Patient seen and examined at bedside. No acute events. Currently on vent, with decreased FiO2 after material damage appraiser rounds. Not requiring pressor support. Continued on antibiotics. Continued nasogastric tube. Continued Acuna catheter. Objective - Vital Signs Vital signs: Vital Signs Temp 98.4 F 10/28/21 04:00 Pulse 72 10/28/21 09:00 Resp 30 H 10/28/21 09:00 BP 104/66 10/28/21 09:00 Pulse Ox 94 L 10/28/21 09:00 Intake & Output 10/27/21 10/28/21 10/28/21 18:59 06:59 18:59 Intake Total 3528.784 2182.216 225 Output Total 750 545 60 Balance 757.109 3669.216 165 Weight 108 kg 110 kg Intake: IV 1250 1500 125 Lactated Ringers 1,000 ml 1250 1500 125 @ 125 mls/hr IV .Q8H RIANNA Rx#:[id number] Intake, IV Titration 314.351 381.216 100 Amount Piperacillin-Tazobactam 3 100 .375 gm In Sodium Chloride 0.9% 100 ml @ 25 mls/hr IVPB Q8H RIANNA Rx#: [id number] fentaNYL (PF). 1,000 mcg 63.809 In Sodium Chloride 0.9% 80 ml @ 0.5 MCG/KG/HR 5. 216 mls/hr IV .[id number] RIANNA Rx#:[id number] propofoL 1,000 mg In 250.542 281.216 100 Empty Bag 1 bag @ Titrate IV .Q0M RIANNA Rx#: [id number] Output: Gastric Drainage 300 Drainage 20 20 Medial Abdomen 20 20 Urine 430 525 60 Other: Voiding Method Indwelling Catheter Indwelling Catheter ABP, PAP, CO, CI - Last Documented Arterial Blood Pressure 127/58 - Constitutional Constitutional Comment(s): Vented and sedated - Respiratory Details: Vented - Gastrointestinal Gastrointestinal Comment(s): Soft, incision site with surgical dressing, RUPINDER drain in place with serosanguineous output - Neurologic Neurologic Comment(s): Sedated - Labs CBC & Chem 7: 10/28/21 04:15 10/28/21 04:15 Labs: Abnormal Lab Results - Last 24 Hours (Table) 10/27/21 10/27/21 10/27/21 Range/Units 15:19 17:56 23:26 WBC (3.8-10.6) k/uL RBC (4.30-5.90) m/uL Hgb (13.0-17.5) gm/dL Neutrophils # (1.3-7.7) k/uL Lymphocytes # (1.0-4.8) k/uL ABG pCO2 (35-45) mmHg ABG pO2 (83-108) mmHg ABG O2 Saturation (94-97) % BUN (9-20) mg/dL Creatinine (0.66-1.25) mg/dL Glucose (74-99) mg/dL POC Glucose (mg/dL) 126 H 112 H (75-99) mg/dL Calcium (8.4-10.2) mg/dL Phosphorus 7.0 H (2.5-4.5) mg/dL ALT (4-49) U/L Total Protein (6.3-8.2) g/dL Albumin 2.5 L (3.5-5.0) g/dL 10/28/21 10/28/21 10/28/21 Range/Units 04:15 04:15 04:15 WBC 11.2 H (3.8-10.6) k/uL RBC 4.28 L (4.30-5.90) m/uL Hgb 12.6 L (13.0-17.5) gm/dL Neutrophils # 9.8 H (1.3-7.7) k/uL Lymphocytes # 0.5 L (1.0-4.8) k/uL ABG pCO2 (35-45) mmHg ABG pO2 (83-108) mmHg ABG O2 Saturation (94-97) % BUN 39 H (9-20) mg/dL Creatinine 1.47 H (0.66-1.25) mg/dL Glucose 141 H (74-99) mg/dL POC Glucose (mg/dL) (75-99) mg/dL Calcium 7.9 L (8.4-10.2) mg/dL Phosphorus 5.7 H (2.5-4.5) mg/dL ALT 52 H (4-49) U/L Total Protein 5.4 L (6.3-8.2) g/dL Albumin 2.3 L (3.5-5.0) g/dL 10/28/21 10/28/21 10/28/21 Range/Units 05:10 05:13 05:33 WBC (3.8-10.6) k/uL RBC (4.30-5.90) m/uL Hgb (13.0-17.5) gm/dL Neutrophils # (1.3-7.7) k/uL Lymphocytes # (1.0-4.8) k/uL ABG pCO2 30 L (35-45) mmHg ABG pO2 150 H (83-108) mmHg ABG O2 Saturation 99.4 H (94-97) % BUN (9-20) mg/dL Creatinine (0.66-1.25) mg/dL Glucose (74-99) mg/dL POC Glucose (mg/dL) 63 L 128 H (75-99) mg/dL Calcium (8.4-10.2) mg/dL Phosphorus (2.5-4.5) mg/dL ALT (4-49) U/L Total Protein (6.3-8.2) g/dL Albumin (3.5-5.0) g/dL Microbiology - Last 24 Hours (Table) 10/27/21 16:30 Urine Culture - Preliminary Urine,Catheterized 10/26/21 23:43 Gram Stain - Preliminary Abdomen Wound Culture - Preliminary Annia albicans 10/26/21 23:43 Gram Stain - Preliminary Abdomen Wound Culture - Preliminary Annia albicans 10/26/21 20:48 Blood Culture - Preliminary Blood No Growth after 24 hours 10/26/21 20:48 Blood Culture - Preliminary Blood No Growth after 24 hours 10/26/21 23:43 Anaerobic Culture - Preliminary Abdomen 10/26/21 23:43 Anaerobic Culture - Preliminary Abdomen Assessment and Plan Plan: POD #2, ex lap with Billroth 2 reconstruction for perforated gastric ulcer - Continue vent mgmt per ICU - Currently on zosyn and diflucan, appreciate ID recommendations - Continue RUPINDER drain - Continue TPN due to anticipated prolonged NPO status - NGT instructions were discussed with nursing. No manipulation of the NGT and no input through the NGT. Continue NGT to LIS. - Case was discussed in depth with family. Patient has a very guarded prognosis.
[2021-10-28 12:01] LABS: Glucose,Whole Blood 119 mg/dL (75-99)
[2021-10-28] MEDS: DEXAMETHASONE SOD PHOSPHATE 10 MG/ML 1 ML VIAL IVP SCH (13:01)
[2021-10-28] MEDS: fentaNYL (PF). 1,000 MCG in SODIUM CHLORIDE 0.9% 80 ML IV SCH (13:15)
--- NOTE | 2021-10-28 13:30 | P.PN ---
Subjective Progress Note Date: 10/28/21 Principal diagnosis: Acute hypoxic respiratory failure secondary to COVID-19 pneumonia and abdominal sepsis with gastric perforation. This is a 66-year-old white male presented to the emergency last night with acute onset of abdominal pain. Patient recently tested positive for COVID-19 and he had symptoms of COVID-19 pneumonia. Patient has been experiencing severe cough and according to the chart, the patient did receive COVID-19 vaccination. And apparently when he was initially diagnosed, the patient received monoclonal antibody infusion. Upon presentation to the ER, patient was found to have multifocal pneumonia, and his CT of the abdomen and pelvis revealed area of pneumoperitoneum. Patient has no previous history of peptic ulcer disease, no previous abdominal surgery. 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 Patient was started on antibiotics in the form of Zosyn and on Diflucan. Infectious disease consultation is pending. Patient was brought up to the ICU on mechanical ventilation, he is now on tidal volume 450 rate of 30 FiO2 70% and I cut it down to 50% and PEEP at 10. ABG showed a pO2 of 128 pCO2 of 48 pH of 7.34. Patient is on propofol at 40 mcg/kg/m fentanyl 0.5 mcg/kg/h he is on a lactated Ringer's at 1 25 mL/h, and he will be started on TPN. Patient does have a right IJ central line placed by surgery prior to his exploratory laparotomy. WBC count today is 10.6 hemoglobin 14.3. Electrodes are normal renal profile is normal. Reevaluated today on 10/28/2021, patient remains in the ICU, intubated and mechanically ventilated. Patient is now on assist control rate is 30 tidal volume 450 FiO2 50% PEEP is 10 and I cut it down to 8. ABG earlier today showed a pO2 of 150 pCO2 of 30 pH of 7.44. Patient is on fentanyl at 0.5 mcg/kg/h propofol 40 mcg/kg/m. He is not requiring any paralytics. Patient is on IV fluid at 1 50 mL/h using it lactated Ringer's. He is also on TPN. Renal profi le showed some worsening with a creatinine up to 1.47 from 1.03 on admission. Otherwise his electrolytes are normal. WBC count is 11.2 hemoglobin is 12.6. Endotracheal tube was noted to be sitting proximally in the trachea and this was advanced to 3 cm already. Chest x-ray clearly shows bilateral infiltrates. Consistent with COVID-19 pneumonia. Patient was seen by infectious disease on consultation, and he is now on fluconazole 200 mg IV piggyback daily. He is also on Zosyn. For his COVID-19 infection, patient is on Decadron 6 mg IV push daily, patient is also on Protonix, and subcu heparin 5000 units subcu every 8 hours. Objective - Vital Signs Vital signs: Vital Signs Temp 98.4 F 10/28/21 04:00 Pulse 72 10/28/21 09:00 Resp 30 H 10/28/21 09:00 BP 104/66 10/28/21 09:00 Pulse Ox 94 L 10/28/21 09:00 Intake & Output 10/27/21 10/28/21 10/28/21 18:59 06:59 18:59 Intake Total 9777.617 9068.216 910.555 Output Total 750 545 195 Balance 539.009 1579.216 715.555 Weight 108 kg 110 kg Intake: IV 1250 1500 625 Lactated Ringers 1,000 ml 1250 1500 625 @ 125 mls/hr IV .Q8H RIANNA Rx#:[id number] Intake, IV Titration 314.351 381.216 285.555 Amount Piperacillin-Tazobactam 3 100 .375 gm In Sodium Chloride 0.9% 100 ml @ 25 mls/hr IVPB Q8H RIANNA Rx#: [id number] fentaNYL (PF). 1,000 mcg 63.809 96.235 In Sodium Chloride 0.9% 80 ml @ 0.5 MCG/KG/HR 5. 216 mls/hr IV .[id number] RIANNA Rx#:[id number] propofoL 1,000 mg In 250.542 281.216 189.32 Empty Bag 1 bag @ Titrate IV .Q0M RIANNA Rx#: [id number] Output: Gastric Drainage 300 Drainage 20 20 Medial Abdomen 20 20 Urine 430 525 195 Other: Voiding Method Indwelling Catheter Indwelling Catheter ABP, PAP, CO, CI - Last Documented Arterial Blood Pressure 127/58 - Exam Physical Exam revealed a 66-year-old white male sedated, intubated, mechanically ventilated, in no distress. Head: Atraumatic normocephalic. Endotracheal tube is intact. Orogastric tube is intact. HEENT:[Neck is supple.] [No neck masses.] [No thyromegaly.] [No JVD.] Right IJ central line is noted. Chest: Symmetrical chest expansion, crackles at the bases bilaterally.] Cardiac Exam: [Normal S1 and S2, no S3 gallop, no murmur.] Abdomen: Postsurgical soft nontender negative bowel sounds. RUPINDER drains noted. Extremities: [No clubbing, no edema, no cyanosis.] Neurological Exam: Cannot asses patient is fully sedated. Psychiatric: Could not assess patient is sedated. - Labs CBC & Chem 7: 10/28/21 04:15 10/28/21 04:15 Labs: Abnormal Lab Results - Last 24 Hours (Table) 10/27/21 10/27/21 10/27/21 Range/Units 15:19 17:56 23:26 WBC (3.8-10.6) k/uL RBC (4.30-5.90) m/uL Hgb (13.0-17.5) gm/dL Neutrophils # (1.3-7.7) k/uL Lymphocytes # (1.0-4.8) k/uL ABG pCO2 (35-45) mmHg ABG pO2 (83-108) mmHg ABG O2 Saturation (94-97) % BUN (9-20) mg/dL Creatinine (0.66-1.25) mg/dL Glucose (74-99) mg/dL POC Glucose (mg/dL) 126 H 112 H (75-99) mg/dL Calcium (8.4-10.2) mg/dL Phosphorus 7.0 H (2.5-4.5) mg/dL ALT (4-49) U/L Total Protein (6.3-8.2) g/dL Albumin 2.5 L (3.5-5.0) g/dL 10/28/21 10/28/21 10/28/21 Range/Units 04:15 04:15 04:15 WBC 11.2 H (3.8-10.6) k/uL RBC 4.28 L (4.30-5.90) m/uL Hgb 12.6 L (13.0-17.5) gm/dL Neutrophils # 9.8 H (1.3-7.7) k/uL Lymphocytes # 0.5 L (1.0-4.8) k/uL ABG pCO2 (35-45) mmHg ABG pO2 (83-108) mmHg ABG O2 Saturation (94-97) % BUN 39 H (9-20) mg/dL Creatinine 1.47 H (0.66-1.25) mg/dL Glucose 141 H (74-99) mg/dL POC Glucose (mg/dL) (75-99) mg/dL Calcium 7.9 L (8.4-10.2) mg/dL Phosphorus 5.7 H (2.5-4.5) mg/dL ALT 52 H (4-49) U/L Total Protein 5.4 L (6.3-8.2) g/dL Albumin 2.3 L (3.5-5.0) g/dL 10/28/21 10/28/21 10/28/21 Range/Units 05:10 05:13 05:33 WBC (3.8-10.6) k/uL RBC (4.30-5.90) m/uL Hgb (13.0-17.5) gm/dL Neutrophils # (1.3-7.7) k/uL Lymphocytes # (1.0-4.8) k/uL ABG pCO2 30 L (35-45) mmHg ABG pO2 150 H (83-108) mmHg ABG O2 Saturation 99.4 H (94-97) % BUN (9-20) mg/dL Creatinine (0.66-1.25) mg/dL Glucose (74-99) mg/dL POC Glucose (mg/dL) 63 L 128 H (75-99) mg/dL Calcium (8.4-10.2) mg/dL Phosphorus (2.5-4.5) mg/dL ALT (4-49) U/L Total Protein (6.3-8.2) g/dL Albumin (3.5-5.0) g/dL 10/28/21 Range/Units 11:59 WBC (3.8-10.6) k/uL RBC (4.30-5.90) m/uL Hgb (13.0-17.5) gm/dL Neutrophils # (1.3-7.7) k/uL Lymphocytes # (1.0-4.8) k/uL ABG pCO2 (35-45) mmHg ABG pO2 (83-108) mmHg ABG O2 Saturation (94-97) % BUN (9-20) mg/dL Creatinine (0.66-1.25) mg/dL Glucose (74-99) mg/dL POC Glucose (mg/dL) 119 H (75-99) mg/dL Calcium (8.4-10.2) mg/dL Phosphorus (2.5-4.5) mg/dL ALT (4-49) U/L Total Protein (6.3-8.2) g/dL Albumin (3.5-5.0) g/dL Microbiology - Last 24 Hours (Table) 10/27/21 16:30 Urine Culture - Preliminary Urine,Catheterized 10/26/21 23:43 Gram Stain - Preliminary Abdomen Wound Culture - Preliminary Annia albicans 10/26/21 23:43 Gram Stain - Preliminary Abdomen Wound Culture - Preliminary Annia albicans 10/26/21 20:48 Blood Culture - Preliminary Blood No Growth after 24 hours 10/26/21 20:48 Blood Culture - Preliminary Blood No Growth after 24 hours 10/26/21 23:43 Anaerobic Culture - Preliminary Abdomen 10/26/21 23:43 Anaerobic Culture - Preliminary Abdomen Assessment and Plan Assessment: Impression: Acute hypoxic respiratory failure secondary to COVID-19 pneumonia and secondary to abdominal sepsis secondary to stomach perforation requiring exploratory laparotomy, Billroth type II and reconstruction, postoperative day #1 Acute abdominal sepsis Lactic acidosis secondary to abdominal sepsis History of degenerative joint disease Acute kidney injury could be prerenal/second to intravascular depletion hence we'll continue IV fluids and continue to monitor renal profile on a daily basis. Recommendation: Continue ventilatory support. Tidal volume 450 rate 30 FiO2 50% and I am cutting down the PEEP from 10-8. Continue COVID-19 cocktail. Patient is not a candidate for remdesivir, not a candidate for baricitinib Will use low-dose Decadron. We continue antibiotics and antifungal, infectious disease consultation is pending. GI and DVT prophylaxis. Prognosis is relatively guarded patient is critically ill. If the patient tolerates lower PEEP, could be considered for weaning trials and weaning molds possibly in the next 24 hours. Critical care time is over 30 minutes not including time on procedures Time with Patient: Greater than 30
--- NOTE | 2021-10-28 14:06 | P.PN ---
Subjective Progress Note Date: 10/28/21 Patient's FiO2 remains at 50%, tidal volume remains at 450, PEEP was down titrated from 10-8. NG tube continues to low intermittent suction. Final drip and 0.5, propofol at 50, lactated Ringer's at 150 Objective - Vital Signs Vital signs: Vital Signs Temp 98.4 F 10/28/21 04:00 Pulse 70 10/28/21 13:00 Resp 30 H 10/28/21 13:00 BP 113/64 10/28/21 13:00 Pulse Ox 94 L 10/28/21 13:00 Intake & Output 10/27/21 10/28/21 10/28/21 18:59 06:59 18:59 Intake Total 6092.046 3974.216 1210.555 Output Total 750 545 420 Balance 452.382 4106.216 790.555 Weight 108 kg 110 kg Intake: IV 1250 1500 925 Lactated Ringers 1,000 ml 1250 1500 925 @ 125 mls/hr IV .Q8H [facility] Rx#:[id number] Intake, IV Titration 314.351 381.216 285.555 Amount Piperacillin-Tazobactam 3 100 .375 gm In Sodium Chloride 0.9% 100 ml @ 25 mls/hr IVPB Q8H [facility] Rx#: [id number] fentaNYL (PF). 1,000 mcg 63.809 96.235 In Sodium Chloride 0.9% 80 ml @ 0.5 MCG/KG/HR 5. 216 mls/hr IV .[id number] R[facility] Rx#:[id number] propofoL 1,000 mg In 250.542 281.216 189.32 Empty Bag 1 bag @ Titrate IV .Q0M R[facility]NA Rx#: [id number] Output: Gastric Drainage 300 Drainage 20 20 Medial Abdomen 20 20 Urine 430 525 420 Other: Voiding Method Indwelling Catheter Indwelling Catheter Indwelling Catheter ABP, PAP, CO, CI - Last Documented Arterial Blood Pressure 124/55 - Exam Gen: Intubated, sedated HEENT: normocephalic, atraumatic, good hearing acuity, moist mucous membranes Resp: Ventilator on volume control, FiO2 50%, 450, PEEP of 8, peak pressure is 28 CVS: good distal perfusion x 4, GI: soft, NTTP, ND : no SPT, no CVAT, person catheter is present MSK: Bilateral pitting edema, no clubbing Neuro: non-focal, sedated at the time of my exam - Labs CBC & Chem 7: 10/28/21 04:15 10/28/21 04:15 Labs: Abnormal Lab Results - Last 24 Hours (Table) 10/27/21 10/27/21 10/27/21 Range/Units 15:19 17:56 23:26 WBC (3.8-10.6) k/uL RBC (4.30-5.90) m/uL Hgb (13.0-17.5) gm/dL Neutrophils # (1.3-7.7) k/uL Lymphocytes # (1.0-4.8) k/uL ABG pCO2 (35-45) mmHg ABG pO2 (83-108) mmHg ABG O2 Saturation (94-97) % BUN (9-20) mg/dL Creatinine (0.66-1.25) mg/dL Glucose (74-99) mg/dL POC Glucose (mg/dL) 126 H 112 H (75-99) mg/dL Calcium (8.4-10.2) mg/dL Phosphorus 7.0 H (2.5-4.5) mg/dL ALT (4-49) U/L Total Protein (6.3-8.2) g/dL Albumin 2.5 L (3.5-5.0) g/dL 10/28/21 10/28/21 10/28/21 Range/Units 04:15 04:15 04:15 WBC 11.2 H (3.8-10.6) k/uL RBC 4.28 L (4.30-5.90) m/uL Hgb 12.6 L (13.0-17.5) gm/dL Neutrophils # 9.8 H (1.3-7.7) k/uL Lymphocytes # 0.5 L (1.0-4.8) k/uL ABG pCO2 (35-45) mmHg ABG pO2 (83-108) mmHg ABG O2 Saturation (94-97) % BUN 39 H (9-20) mg/dL Creatinine 1.47 H (0.66-1.25) mg/dL Glucose 141 H (74-99) mg/dL POC Glucose (mg/dL) (75-99) mg/dL Calcium 7.9 L (8.4-10.2) mg/dL Phosphorus 5.7 H (2.5-4.5) mg/dL ALT 52 H (4-49) U/L Total Protein 5.4 L (6.3-8.2) g/dL Albumin 2.3 L (3.5-5.0) g/dL 10/28/21 10/28/21 10/28/21 Range/Units 05:10 05:13 05:33 WBC (3.8-10.6) k/uL RBC (4.30-5.90) m/uL Hgb (13.0-17.5) gm/dL Neutrophils # (1.3-7.7) k/uL Lymphocytes # (1.0-4.8) k/uL ABG pCO2 30 L (35-45) mmHg ABG pO2 150 H (83-108) mmHg ABG O2 Saturation 99.4 H (94-97) % BUN (9-20) mg/dL Creatinine (0.66-1.25) mg/dL Glucose (74-99) mg/dL POC Glucose (mg/dL) 63 L 128 H (75-99) mg/dL Calcium (8.4-10.2) mg/dL Phosphorus (2.5-4.5) mg/dL ALT (4-49) U/L Total Protein (6.3-8.2) g/dL Albumin (3.5-5.0) g/dL 10/28/21 Range/Units 11:59 WBC (3.8-10.6) k/uL RBC (4.30-5.90) m/uL Hgb (13.0-17.5) gm/dL Neutrophils # (1.3-7.7) k/uL Lymphocytes # (1.0-4.8) k/uL ABG pCO2 (35-45) mmHg ABG pO2 (83-108) mmHg ABG O2 Saturation (94-97) % BUN (9-20) mg/dL Creatinine (0.66-1.25) mg/dL Glucose (74-99) mg/dL POC Glucose (mg/dL) 119 H (75-99) mg/dL Calcium (8.4-10.2) mg/dL Phosphorus (2.5-4.5) mg/dL ALT (4-49) U/L Total Protein (6.3-8.2) g/dL Albumin (3.5-5.0) g/dL Microbiology - Last 24 Hours (Table) 10/27/21 16:30 Urine Culture - Preliminary Urine,Catheterized 10/26/21 23:43 Gram Stain - Preliminary Abdomen Wound Culture - Preliminary Annia albicans 10/26/21 23:43 Gram Stain - Preliminary Abdomen Wound Culture - Preliminary Annia albicans 10/26/21 20:48 Blood Culture - Preliminary Blood No Growth after 24 hours 10/26/21 20:48 Blood Culture - Preliminary Blood No Growth after 24 hours 10/26/21 23:43 Anaerobic Culture - Preliminary Abdomen 10/26/21 23:43 Anaerobic Culture - Preliminary Abdomen Assessment and Plan Assessment: COVID-19 pneumonia with acute hypoxic respiratory failure -Continue with mechanical ventilation, propofol, fentanyl, IV fluids -Continue Decadron -Infectious disease consulted: Presently on fluconazole, Zosyn Sepsis secondary to Perforated gastric ulcer status post expiratory laparotomy and gastrectomy -Defer management to the primary surgical service -On TPN, on PPI IV Elevated INR -Suspected due to sepsis upon presentation -Monitor for now Lactic acidosis -Monitor for resolution DVT prophylaxis -Heparin subq
[2021-10-28 18:37] LABS: Glucose,Whole Blood 139 mg/dL (75-99)
[2021-10-28] MEDS: 1: PARENTERAL ELECTROLYTES 20 ML in AMINO ACID 4.25%-D10W 1,000 ML 2: PARENTERAL ELECTR IV SCH ×4 (18:48)
--- NOTE | 2021-10-28 22:31 | PN ---
PROGRESS NOTE DATE OF SERVICE: 10/28/2021 REASON FOR FOLLOWUP: 1. Secondary peritonitis from perforated peptic ulcer disease. 2. COVID-19 infection. INTERVAL HISTORY: The patient is afebrile. The patient is currently hemodynamically stable, not on any pressor support. The patient remains intubated on the vent. FiO2 is currently 50%. No significant purulent secretions in the ET, diarrhea or any other changes reported by nursing staff. PHYSICAL EXAMINATION: Blood pressure 145/57 with a pulse of 69, temperature of 99.3. He is 94% on 50% FiO2. General description is an elderly male intubated on the vent. Respiratory system: Unlabored breathing, decreased intensity of breath sounds. No wheeze. Heart S1, S2. Regular rate and rhythm. Abdomen soft. Mild distention. No guarding or rigidity. LABS: Hemoglobin is 12, white count of 11, creatinine 1.47. Abdominal cultures with Annia albicans. DIAGNOSTIC IMPRESSION AND PLAN: Patient with secondary peritonitis from perforated peptic ulcer disease, status post operative repair. Abdominal culture with Annia. Patient is covered with Zosyn and Diflucan; to continue while monitoring his clinical course closely. Continue with supportive care. MMODL / IJN: [id number] /
[2021-10-28 23:08] LABS: Glucose,Whole Blood 148 mg/dL (75-99)
[2021-10-29] MEDS: INSULIN ASPART (NovoLOG) 100 UNIT/ML VIAL SQ SCH ×5 (00:05→23:18)
[2021-10-29] MEDS: HEPARIN SODIUM,PORCINE/PF 5,000 UNIT/0.5 ML SYRINGE SQ SCH ×4 (00:05→23:18)
[2021-10-29 05:35] LABS: Glucose,Whole Blood 162 mg/dL (75-99)
[2021-10-29] MEDS: LACTATED RINGERS 1,000 ML IV SCH ×2 (05:42→14:09)
[2021-10-29] MEDS: PIPERACILLIN-TAZOBACTAM 3.375 GM in SODIUM CHLORIDE 0.9% 100 ML IVPB SCH ×3 (05:42→20:02)
[2021-10-29 05:49] LABS: Basophils % (A) 0 %; Eosinophils % (A) 0 %; HCT 34.3 % (39.0-53.0); Lymphocytes # (A) 0.5 k/uL (1.0-4.8); Lymphocytes % (A) 4 %; MCH 29.4 pg (25.0-35.0); MCHC 32.1 g/dL (31.0-37.0); MCV 91.7 fL (80.0-100.0); Mean Platelet Volume 8.3; Monocytes # (A) 0.6 k/uL (0-1.0); Monocytes % (A) 6 %; Neutrophils # (A) 9.3 k/uL (1.3-7.7); Neutrophils % (A) 88 %; Platelet Count 415 k/uL (150-450); RBC 3.74 m/uL (4.30-5.90); WBC 10.7 k/uL (3.8-10.6)
[2021-10-29 05:55] LABS: ABG Base Excess 7.1 mmol/L; ABG HCO3 32 mmol/L (21-25); ABG Oxygen Saturation 97.6 % (94-97); ABG PCO2 49 mmHg (35-45); ABG PH 7.42 (7.35-7.45); ABG PO2 92 mmHg (83-108); ABG TCO2 33 mmol/L (19-24)
[2021-10-29 06:04] LABS: Allen Test Performed? No
[2021-10-29 06:07] LABS: ALT 33 U/L (4-49); AST 25 U/L (17-59); African American GFR (CKD) >90 (>60 ml/min/1.73 sqM); Albumin 2.2 g/dL (3.5-5.0); Alkaline Phosphatase 57 U/L (38-126); Anion Gap 6 mmol/L; Bilirubin, Delta 0.2 mg/dL (0.0-0.2); Bilirubin,Unconjugated 0.1 mg/dL (0.0-1.1); Blood Urea Nitrogen 27 mg/dL (9-20); Calcium 7.9 mg/dL (8.4-10.2); Carbon Dioxide 28 mmol/L (22-30); Chloride 103 mmol/L (98-107); Glucose 158 mg/dL (74-99); LDH 539 U/L (313-618); Magnesium 2.6 mg/dL (1.6-2.3); Non-African American GFR(CKD) 90 (>60 ml/min/1.73 sqM); Phosphorus 3.1 mg/dL (2.5-4.5); Potassium 4.2 mmol/L (3.5-5.1); Sodium 137 mmol/L (137-145); Total Bilirubin 0.3 mg/dL (0.2-1.3); Total Protein 5.4 g/dL (6.3-8.2)
[2021-10-29 06:58] LABS: C Reactive Protein 32.6 mg/dL (<1.0)
--- NOTE | 2021-10-29 08:00 | XR ---
EXAMINATION TYPE: XR chest 1V portable DATE OF EXAM: 10/29/2021 COMPARISON: Chest x-ray 10/28/2021 HISTORY: Intubated TECHNIQUE: Single frontal view of the chest is obtained. FINDINGS: Endotracheal tube, NG tube are overlying appropriate positions as on prior exam, patient i s rotated and there are overlying leads. The right jugular central venous catheter shows a stable oliver earance, distal tip is overlying the region of the right axillary or subclavian vein. Bilateral airsp trev disease is present and may progressed in the interval. Cardiac mediastinal silhouette shows a sim ilar appearance accounting for differences in technique. The aorta is dense. No evident pneumothorax or pleural effusion. IMPRESSION: Correlate for pneumonia, ARDS, central venous catheter is described
[2021-10-29] MEDS: fentaNYL (PF). 1,000 MCG in SODIUM CHLORIDE 0.9% 80 ML IV SCH (08:20)
[2021-10-29] MEDS: 1: PARENTERAL ELECTROLYTES 20 ML in AMINO ACID 4.25%-D10W 1,000 ML 2: PARENTERAL ELECTR IV SCH ×4 (08:20)
[2021-10-29] MEDS: DEXAMETHASONE SOD PHOSPHATE 10 MG/ML 1 ML VIAL IVP SCH (08:21)
[2021-10-29] MEDS: FLUCONAZOLE IN NACL,ISO-OSM 200 MG in SALINE 1 100ML.BAG IVPB SCH (08:21)
[2021-10-29] MEDS: CHLORHEXIDINE GLUCONATE 15 ML CUP MUCOUS MEM SCH ×2 (08:21→20:02)
[2021-10-29] MEDS: PANTOPRAZOLE 40 MG/10 ML VIAL IV SCH (08:21)
[2021-10-29] MEDS ORDERED: FUROSEMIDE 10 MG/ML 4 ML VIAL IV STA (09:20)
--- NOTE | 2021-10-29 09:56 | P.PN ---
Subjective Progress Note Date: 10/29/21 Patient seen and examined at bedside. Overnight, approximately 500 cc of bilious material from nasogastric tube. Otherwise, no acute events. Objective - Vital Signs Vital signs: Vital Signs Temp 98.1 F 10/29/21 04:00 Pulse 55 L 10/29/21 09:00 Resp 30 H 10/29/21 09:00 BP 111/61 10/29/21 09:00 Pulse Ox 96 10/29/21 09:00 Intake & Output 10/28/21 10/29/21 10/29/21 18:59 06:59 18:59 Intake Total 2060.555 2179.52 549.539 Output Total 770 1312 195 Balance 1290.555 867.52 354.539 Weight 109.3 kg Intake: IV 1225 Lactated Ringers 1,000 ml 1225 @ 125 mls/hr IV .Q8H [facility] Rx#:[id number] Intake, IV Titration 504.468 2307.52 549.539 Amount Calcium Gluconate 1 gm 300 Sodium Chloride 4Meq/ml Vial 50 meq Potassium Chloride 10 meq Potassium Phosphate 6 mmol In Amino Acid 4.25%-D10w 1, 000 ml @ 70 mls/hr IV .BY DURATION [facility] Rx#: [id number] Lactated Ringers 1,000 ml 450 1800 150 @ 150 mls/hr IV .Q6H40M [facility] Rx#:[id number] Piperacillin-Tazobactam 3 100 .375 gm In Sodium Chloride 0.9% 100 ml @ 25 mls/hr IVPB Q8H [facility] Rx#: [id number] fentaNYL (PF). 1,000 mcg 96.235 99.539 In Sodium Chloride 0.9% 80 ml @ 0.5 MCG/KG/HR 5. 216 mls/hr IV .[id number] [facility] Rx#:[id number] propofoL 1,000 mg In 289.32 279.52 Empty Bag 1 bag @ Titrate IV .Q0M [facility] Rx#: [id number] Output: Gastric Drainage 500 Drainage 7 10 Medial Abdomen 7 10 Urine 770 805 185 Other: Voiding Method Indwelling Catheter Indwelling Catheter ABP, PAP, CO, CI - Last Documented Arterial Blood Pressure 128/55 - Constitutional Constitutional Comment(s): Vented and sedated - Gastrointestinal Gastrointestinal Comment(s): Soft, RUPINDER drain in place, mild distention, midline incision with surgical dressing in place - Labs CBC & Chem 7: 10/29/21 05:30 10/29/21 05:30 Labs: Abnormal Lab Results - Last 24 Hours (Table) 10/28/21 10/28/21 10/28/21 Range/Units 11:59 18:35 23:06 WBC (3.8-10.6) k/uL RBC (4.30-5.90) m/uL Hgb (13.0-17.5) gm/dL Hct (39.0-53.0) % Neutrophils # (1.3-7.7) k/uL Lymphocytes # (1.0-4.8) k/uL ABG pCO2 (35-45) mmHg ABG HCO3 (21-25) mmol/L ABG Total CO2 (19-24) mmol/L ABG O2 Saturation (94-97) % BUN (9-20) mg/dL Glucose (74-99) mg/dL POC Glucose (mg/dL) 119 H 139 H 148 H (75-99) mg/dL Calcium (8.4-10.2) mg/dL Magnesium (1.6-2.3) mg/dL C-Reactive Protein (<1.0) mg/dL Total Protein (6.3-8.2) g/dL Albumin (3.5-5.0) g/dL 10/29/21 10/29/21 10/29/21 Range/Units 05:25 05:30 05:30 WBC 10.7 H (3.8-10.6) k/uL RBC 3.74 L (4.30-5.90) m/uL Hgb 11.0 L (13.0-17.5) gm/dL Hct 34.3 L (39.0-53.0) % Neutrophils # 9.3 H (1.3-7.7) k/uL Lymphocytes # 0.5 L (1.0-4.8) k/uL ABG pCO2 49 H (35-45) mmHg ABG HCO3 32 H (21-25) mmol/L ABG Total CO2 33 H (19-24) mmol/L ABG O2 Saturation 97.6 H (94-97) % BUN 27 H (9-20) mg/dL Glucose 158 H (74-99) mg/dL POC Glucose (mg/dL) (75-99) mg/dL Calcium 7.9 L (8.4-10.2) mg/dL Magnesium 2.6 H (1.6-2.3) mg/dL C-Reactive Protein 32.6 H (<1.0) mg/dL Total Protein 5.4 L (6.3-8.2) g/dL Albumin 2.2 L (3.5-5.0) g/dL 10/29/21 Range/Units 05:33 WBC (3.8-10.6) k/uL RBC (4.30-5.90) m/uL Hgb (13.0-17.5) gm/dL Hct (39.0-53.0) % Neutrophils # (1.3-7.7) k/uL Lymphocytes # (1.0-4.8) k/uL ABG pCO2 (35-45) mmHg ABG HCO3 (21-25) mmol/L ABG Total CO2 (19-24) mmol/L ABG O2 Saturation (94-97) % BUN (9-20) mg/dL Glucose (74-99) mg/dL POC Glucose (mg/dL) 162 H (75-99) mg/dL Calcium (8.4-10.2) mg/dL Magnesium (1.6-2.3) mg/dL C-Reactive Protein (<1.0) mg/dL Total Protein (6.3-8.2) g/dL Albumin (3.5-5.0) g/dL Microbiology - Last 24 Hours (Table) 10/27/21 16:30 Urine Culture - Final Urine,Catheterized 10/26/21 20:48 Blood Culture - Preliminary Blood No Growth after 48 hours 10/26/21 20:48 Blood Culture - Preliminary Blood No Growth after 48 hours 10/26/21 23:43 Gram Stain - Preliminary Abdomen Wound Culture - Preliminary Annia albicans 10/26/21 23:43 Gram Stain - Preliminary Abdomen Wound Culture - Preliminary Annia albicans Assessment and Plan Plan: POD #3, ex lap with Billroth 2 reconstruction for perforated gastric ulcer - Continue vent mgmt per ICU - Currently on zosyn and diflucan, appreciate ID recommendations - COVID Pneumonia, Requiring prolonged ventilation and steroid therapy - Continue RUPINDER drain - Continue TPN due to anticipated prolonged NPO status - NGT instructions were discussed with nursing. No manipulation of the NGT and no input through the NGT. Continue NGT to LIS. - Case was discussed in depth with family. Patient has a very guarded prognosis.
--- NOTE | 2021-10-29 10:11 | P.PN ---
Subjective Progress Note Date: 10/29/21 Patient's FiO2 remains at 50%, tidal volume remains at 450, PEEP remains at 8. NG tube continues to low intermittent suction with approximately 500cc of dark bilious output. Fentanyl gtt 0.5, propofol gtt at 40, lactated Ringer's at 150. BPs and saturation remain stable. Objective - Vital Signs Vital signs: Vital Signs Temp 98.1 F 10/29/21 04:00 Pulse 55 L 10/29/21 09:00 Resp 30 H 10/29/21 09:00 BP 111/61 10/29/21 09:00 Pulse Ox 96 10/29/21 09:00 Intake & Output 10/28/21 10/29/21 10/29/21 18:59 06:59 18:59 Intake Total 2060.555 2179.52 549.539 Output Total 770 1312 195 Balance 1290.555 867.52 354.539 Weight 109.3 kg Intake: IV 1225 Lactated Ringers 1,000 ml 1225 @ 125 mls/hr IV .Q8H [facility] Rx#:[id number] Intake, IV Titration 019.147 4977.52 549.539 Amount Calcium Gluconate 1 gm 300 Sodium Chloride 4Meq/ml Vial 50 meq Potassium Chloride 10 meq Potassium Phosphate 6 mmol In Amino Acid 4.25%-D10w 1, 000 ml @ 70 mls/hr IV .BY DURATION [facility] Rx#: [id number] Lactated Ringers 1,000 ml 450 1800 150 @ 150 mls/hr IV .Q6H40M [facility] Rx#:[id number] Piperacillin-Tazobactam 3 100 .375 gm In Sodium Chloride 0.9% 100 ml @ 25 mls/hr IVPB Q8H [facility] Rx#: [id number] fentaNYL (PF). 1,000 mcg 96.235 99.539 In Sodium Chloride 0.9% 80 ml @ 0.5 MCG/KG/HR 5. 216 mls/hr IV .[id number] [facility] Rx#:[id number] propofoL 1,000 mg In 289.32 279.52 Empty Bag 1 bag @ Titrate IV .Q0M [facility] Rx#: [id number] Output: Gastric Drainage 500 Drainage 7 10 Medial Abdomen 7 10 Urine 770 805 185 Other: Voiding Method Indwelling Catheter Indwelling Catheter ABP, PAP, CO, CI - Last Documented Arterial Blood Pressure 128/55 - Exam Gen: Intubated, sedated HEENT: normocephalic, atraumatic, good hearing acuity, moist mucous membranes Resp: Ventilator on volume control, FiO2 50%, 450, PEEP of 8, peak pressure is 28 CVS: good distal perfusion x 4, GI: soft, NTTP, ND : no SPT, no CVAT, person catheter is present MSK: Bilateral pitting edema, no clubbing Neuro: non-focal, sedated at the time of my exam - Labs CBC & Chem 7: 10/29/21 05:30 10/29/21 05:30 Labs: Abnormal Lab Results - Last 24 Hours (Table) 10/28/21 10/28/21 10/28/21 Range/Units 11:59 18:35 23:06 WBC (3.8-10.6) k/uL RBC (4.30-5.90) m/uL Hgb (13.0-17.5) gm/dL Hct (39.0-53.0) % Neutrophils # (1.3-7.7) k/uL Lymphocytes # (1.0-4.8) k/uL ABG pCO2 (35-45) mmHg ABG HCO3 (21-25) mmol/L ABG Total CO2 (19-24) mmol/L ABG O2 Saturation (94-97) % BUN (9-20) mg/dL Glucose (74-99) mg/dL POC Glucose (mg/dL) 119 H 139 H 148 H (75-99) mg/dL Calcium (8.4-10.2) mg/dL Magnesium (1.6-2.3) mg/dL C-Reactive Protein (<1.0) mg/dL Total Protein (6.3-8.2) g/dL Albumin (3.5-5.0) g/dL 10/29/21 10/29/21 10/29/21 Range/Units 05:25 05:30 05:30 WBC 10.7 H (3.8-10.6) k/uL RBC 3.74 L (4.30-5.90) m/uL Hgb 11.0 L (13.0-17.5) gm/dL Hct 34.3 L (39.0-53.0) % Neutrophils # 9.3 H (1.3-7.7) k/uL Lymphocytes # 0.5 L (1.0-4.8) k/uL ABG pCO2 49 H (35-45) mmHg ABG HCO3 32 H (21-25) mmol/L ABG Total CO2 33 H (19-24) mmol/L ABG O2 Saturation 97.6 H (94-97) % BUN 27 H (9-20) mg/dL Glucose 158 H (74-99) mg/dL POC Glucose (mg/dL) (75-99) mg/dL Calcium 7.9 L (8.4-10.2) mg/dL Magnesium 2.6 H (1.6-2.3) mg/dL C-Reactive Protein 32.6 H (<1.0) mg/dL Total Protein 5.4 L (6.3-8.2) g/dL Albumin 2.2 L (3.5-5.0) g/dL 10/29/21 Range/Units 05:33 WBC (3.8-10.6) k/uL RBC (4.30-5.90) m/uL Hgb (13.0-17.5) gm/dL Hct (39.0-53.0) % Neutrophils # (1.3-7.7) k/uL Lymphocytes # (1.0-4.8) k/uL ABG pCO2 (35-45) mmHg ABG HCO3 (21-25) mmol/L ABG Total CO2 (19-24) mmol/L ABG O2 Saturation (94-97) % BUN (9-20) mg/dL Glucose (74-99) mg/dL POC Glucose (mg/dL) 162 H (75-99) mg/dL Calcium (8.4-10.2) mg/dL Magnesium (1.6-2.3) mg/dL C-Reactive Protein (<1.0) mg/dL Total Protein (6.3-8.2) g/dL Albumin (3.5-5.0) g/dL Microbiology - Last 24 Hours (Table) 10/27/21 16:30 Urine Culture - Final Urine,Catheterized 10/26/21 20:48 Blood Culture - Preliminary Blood No Growth after 48 hours 10/26/21 20:48 Blood Culture - Preliminary Blood No Growth after 48 hours 10/26/21 23:43 Gram Stain - Preliminary Abdomen Wound Culture - Preliminary Annia albicans 10/26/21 23:43 Gram Stain - Preliminary Abdomen Wound Culture - Preliminary Annia albicans Assessment and Plan Assessment: COVID-19 pneumonia with acute hypoxic respiratory failure -Continue with mechanical ventilation, propofol, fentanyl, IV fluids -Continue Decadron -Infectious disease consulted: Presently on fluconazole, Zosyn Sepsis secondary to Perforated gastric ulcer status post expiratory laparotomy and gastrectomy -Defer management to the primary surgical service -On TPN, on PPI IV Elevated INR -Suspected due to sepsis upon presentation -Monitor for now DVT prophylaxis -Heparin subq
[2021-10-29 11:39] LABS: Glucose,Whole Blood 146 mg/dL (75-99)
--- NOTE | 2021-10-29 12:00 | P.PN ---
Subjective Progress Note Date: 10/29/21 Principal diagnosis: Coronavirus associated pneumonia. Acute hypoxic respiratory failure secondary to COVID-19 pneumonia and abdominal sepsis with gastric perforation. This is a 66-year-old white male presented to the emergency last night with acute onset of abdominal pain. Patient recently tested positive for COVID-19 and he had symptoms of COVID-19 pneumonia. Patient has been experiencing severe cough and according to the chart, the patient did receive COVID-19 vaccination. And apparently when he was initially diagnosed, the patient received monoclonal antibody infusion. Upon presentation to the ER, patient was found to have multifocal pneumonia, and his CT of the abdomen and pelvis revealed area of pneumoperitoneum. Patient has no previous history of peptic ulcer disease, no previous abdominal surgery. 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 Patient was started on antibiotics in the form of Zosyn and on Diflucan. Infectious disease consultation is pending. Patient was brought up to the ICU on mechanical venti lation, he is now on tidal volume 450 rate of 30 FiO2 70% and I cut it down to 50% and PEEP at 10. ABG showed a pO2 of 128 pCO2 of 48 pH of 7.34. Patient is on propofol at 40 mcg/kg/m fentanyl 0.5 mcg/kg/h he is on a lactated Ringer's at 1 25 mL/h, and he will be started on TPN. Patient does have a right IJ central line placed by surgery prior to his exploratory laparotomy. WBC count today is 10.6 hemoglobin 14.3. Electrodes are normal renal profile is normal. Reevaluated today on 10/28/2021, patient remains in the ICU, intubated and mechanically ventilated. Patient is now on assist control rate is 30 tidal volume 450 FiO2 50% PEEP is 10 and I cut it down to 8. ABG earlier today showed a pO2 of 150 pCO2 of 30 pH of 7.44. Patient is on fentanyl at 0.5 mcg/kg/h propofol 40 mcg/kg/m. He is not requiring any paralytics. Patient is on IV fluid at 1 50 mL/h using it lactated Ringer's. He is also on TPN. Renal profile showed some worsening with a creatinine up to 1.47 from 1.03 on admission. Otherwise his electrolytes are normal. WBC count is 11.2 hemoglobin is 12.6. Endotracheal tube was noted to be sitting proximally in the trachea and this was advanced to 3 cm already. Chest x-ray clearly shows bilateral infiltrates. Consistent with COVID-19 pneumonia. Patient was seen by infectious disease on consultation, and he is now on fluconazole 200 mg IV piggyback daily. He is also on Zosyn. For his COVID-19 infection, patient is on Decadron 6 mg IV push daily, patient is also on Protonix, and subcu heparin 5000 units subcu every 8 hours. Progress note dated 10/29/2021. This is a 66-year-old gentleman who was admitted to the hospital on October 26. He came in with a diagnosis of abdominal pain, and coronavirus associated pneumonia. The patient came to the intensive care unit on October 26. He was intubated on October 26 after having surgery for perforated gastric ulcer. Currently, he remains on the ventilator. He is on the volume assist control mod e, rate 30, tidal volume 450, FiO2 50%, PEEP of 8. Blood gases show a PaO2 of 92, pCO2 49, and a pH is 7.42. The patient is ahead on fluids, and we will see if some IV Lasix. Currently, he's on propofol at 40 mcg/kg/m and fentanyl at 0.5 mcg/kg per hour. He is getting TPN at 79 mL an hour, and lactated Ringer's at 150 mL an hour. The lactated Ringer's to be turned down to 50 mL an hour. The patient's sedation will be held, and we will attempt a spontaneous breathing trial with a pressure support of 8 and CPAP of 5. White count 10.7, hemoglobin 11, hematocrit 34.3, and platelet count 415,000. Sodium 137, potassium 4.2, chlorides 103, CO2 28, anion gap 6, BUN 27, creatinine 0.86. Albumin is 2.2. Microbiology is only positive for Annia in the wound cultures. Chest x-ray shows diffuse bilateral infiltrates, consistent with coronavirus associated pneumonia. Objective - Vital Signs Vital signs: Vital Signs Temp 98.1 F 10/29/21 04:00 Pulse 55 L 10/29/21 09:00 Resp 30 H 10/29/21 09:00 BP 111/61 10/29/21 09:00 Pulse Ox 96 10/29/21 09:00 Intake & Output 10/28/21 10/29/21 10/29/21 18:59 06:59 18:59 Intake Total 2060.555 2179.52 699.539 Output Total 770 1312 235 Balance 1290.555 867.52 464.539 Weight 109.3 kg Intake: IV 1225 Lactated Ringers 1,000 ml 1225 @ 125 mls/hr IV .Q8H RIANNA Rx#:[id number] Intake, IV Titration 173.577 2435.52 699.539 Amount Calcium Gluconate 1 gm 300 Sodium Chloride 4Meq/ml Vial 50 meq Potassium Chloride 10 meq Potassium Phosphate 6 mmol In Amino Acid 4.25%-D10w 1, 000 ml @ 70 mls/hr IV .BY DURATION RIANNA Rx#: [id number] Lactated Ringers 1,000 ml 450 1800 300 @ 50 mls/hr IV .Q20H RIANNA Rx#:[id number] Piperacillin-Tazobactam 3 100 .375 gm In Sodium Chloride 0.9% 100 ml @ 25 mls/hr IVPB Q8H RIANNA Rx#: [id number] fentaNYL (PF). 1,000 mcg 96.235 99.539 In Sodium Chloride 0.9% 80 ml @ 0.5 MCG/KG/HR 5. 216 mls/hr IV .[id number] RIANNA Rx#:[id number] propofoL 1,000 mg In 289.32 279.52 Empty Bag 1 bag @ Titrate IV .Q0M RIANNA Rx#: [id number] Output: Gastric Drainage 500 Drainage 7 10 Medial Abdomen 7 10 Urine 770 805 225 Other: Voiding Method Indwelling Catheter Indwelling Catheter Indwelling Catheter ABP, PAP, CO, CI - Last Documented Arterial Blood Pressure 128/55 - Exam No acute distress, sedated, currently with an orally placed endotracheal tube and NG tube. HEENT examination is grossly unremarkable. Neck supple. Full range of motion. No adenopathy thyromegaly or neck vein distention. Cardiovascular examination reveals regular rhythm rate. S1-S2 normal. No S3 or S4. No discernible murmur noted. Heart sounds are distant. Heart rate 55 bpm. Lungs reveal bilateral scattered rhonchi. No wheezes or crackles. Breath sounds equal bilaterally. Abdomen soft, without masses. Postsurgical abdomen noted. Drains are noted. Extremities are intact. No cyanosis clubbing or edema. Skin is without rash or lesion. Neurologic examination cannot be adequately assessed as the patient's currently sedated. - Labs CBC & Chem 7: 10/29/21 05:30 10/29/21 05:30 Labs: Abnormal Lab Results - Last 24 Hours (Table) 10/28/21 10/28/21 10/28/21 Range/Units 11:59 18:35 23:06 WBC (3.8-10.6) k/uL RBC (4.30-5.90) m/uL Hgb (13.0-17.5) gm/dL Hct (39.0-53.0) % Neutrophils # (1.3-7.7) k/uL Lymphocytes # (1.0-4.8) k/uL ABG pCO2 (35-45) mmHg ABG HCO3 (21-25) mmol/L ABG Total CO2 (19-24) mmol/L ABG O2 Saturation (94-97) % BUN (9-20) mg/dL Glucose (74-99) mg/dL POC Glucose (mg/dL) 119 H 139 H 148 H (75-99) mg/dL Calcium (8.4-10.2) mg/dL Magnesium (1.6-2.3) mg/dL C-Reactive Protein (<1.0) mg/dL Total Protein (6.3-8.2) g/dL Albumin (3.5-5.0) g/dL 10/29/21 10/29/21 10/29/21 Range/Units 05:25 05:30 05:30 WBC 10.7 H (3.8-10.6) k/uL RBC 3.74 L (4.30-5.90) m/uL Hgb 11.0 L (13.0-17.5) gm/dL Hct 34.3 L (39.0-53.0) % Neutrophils # 9.3 H (1.3-7.7) k/uL Lymphocytes # 0.5 L (1.0-4.8) k/uL ABG pCO2 49 H (35-45) mmHg ABG HCO3 32 H (21-25) mmol/L ABG Total CO2 33 H (19-24) mmol/L ABG O2 Saturation 97.6 H (94-97) % BUN 27 H (9-20) mg/dL Glucose 158 H (74-99) mg/dL POC Glucose (mg/dL) (75-99) mg/dL Calcium 7.9 L (8.4-10.2) mg/dL Magnesium 2.6 H (1.6-2.3) mg/dL C-Reactive Protein 32.6 H (<1.0) mg/dL Total Protein 5.4 L (6.3-8.2) g/dL Albumin 2.2 L (3.5-5.0) g/dL 10/29/21 10/29/21 Range/Units 05:33 11:36 WBC (3.8-10.6) k/uL RBC (4.30-5.90) m/uL Hgb (13.0-17.5) gm/dL Hct (39.0-53.0) % Neutrophils # (1.3-7.7) k/uL Lymphocytes # (1.0-4.8) k/uL ABG pCO2 (35-45) mmHg ABG HCO3 (21-25) mmol/L ABG Total CO2 (19-24) mmol/L ABG O2 Saturation (94-97) % BUN (9-20) mg/dL Glucose (74-99) mg/dL POC Glucose (mg/dL) 162 H 146 H (75-99) mg/dL Calcium (8.4-10.2) mg/dL Magnesium (1.6-2.3) mg/dL C-Reactive Protein (<1.0) mg/dL Total Protein (6.3-8.2) g/dL Albumin (3.5-5.0) g/dL Microbiology - Last 24 Hours (Table) 10/26/21 23:43 Gram Stain - Final Abdomen Wound Culture - Final Annia albicans 10/26/21 23:43 Gram Stain - Final Abdomen Wound Culture - Final Annia albicans 10/27/21 16:30 Urine Culture - Final Urine,Catheterized 10/26/21 20:48 Blood Culture - Preliminary Blood No Growth after 48 hours 10/26/21 20:48 Blood Culture - Preliminary Blood No Growth after 48 hours Assessment and Plan Assessment: Acute hypoxemic respiratory failure secondary to coronavirus associated pneumonia, status post hospital admission on October 26, and surgery for perforated gastric ulcer on October 26. Routine postoperative ventilator management. Postop day #2, status post exploratory laparotomy, Billroth type II, and reconstruction of a gastric perforation. Acute abdominal sepsis. Lactic acidosis secondary to abdominal sepsis. History of degenerative joint disease. Acute kidney injury, likely secondary to sepsis and ATN. Plan: Plan dated 10/29/2021. The patient is way ahead on fluids, will get some Lasix 60 mg IV push. In addition, the lactated Ringer's will be turned back from 150 mL down to 50 mL an hour. Patient continues on propofol and fentanyl. The patient's also receiving TPN. We will attempt a daily interruption of sedation and a spontaneous breathing trial with pressure support of 8 and CPAP of 5. Prognosis is guarded. Additional recommendations and suggestions are coming. We will continue to follow make recommendations where appropriate. The patient continues on fluconazole, and Zosyn. Time with Patient: Greater than 30
--- NOTE | 2021-10-29 12:52 | CDI ---
Documentation Clarification Form Date: 10/29/2021 12:17:15 PM From: Zeenat Corey RN CCDS Admit Date: 10/26/2021 09:15:00 PM Patient Name: Jose Salas Visit Number: [id number] Discharge Date: ATTENTION: The Clinical Documentation Specialists (CDI) and [facility] Coding Staff appreciate your assistance in clarifying documentation. Please respond to the clarification below the line at the bottom and electronically sign. The CDI & [facility] Coding staff will review the response and follow-up if needed. Please note: Queries are made part of the Legal Health Record. If you have any questions, please contact the author of this message via ITS. Dr. Sidney Hutton, Sepsis is documented H&P, 10/26, but is not noted in subsequent documentation by the attending. Clarification is requested. History/Risk Factors: 66-year-old male presents to the ED with significant right upper quadrant abdominal pain. The patient recently tested positive for COVID 19 and has had some coughing. Medical History: Erythrocytosis. Clinical Indicators: VSS: 10/26 B/P163/83, HR 116, Temp 98.1F, RR 24, SpO2 87% room air. CT ABD: 10/26 Pneumoperitoneum of unknown etiology. Labs: 10/26 Wbc 13.6, Neutrophils 11.0 Gram Stain Wound Culture 10/26: Annia albicans. ID Consult: 10/27 acute abdomen with perforated peptic ulcer disease s/p laparotomy and surgical repair of his perforation the likely origin record will be the enteric gram negative and Annia. H&P 10/26 At this point, patient does have significant signs of sepsis likely multifactorial secondary to COVID pneumonia and perforated viscus. Medicine notes 10/27 thru 10/29 Sepsis secondary to perforated gastric ulcer Surgical Note: 10/27 Patient was noted to be significantly tachycardic, diaphoretic and hypoxic. Operative findings: 3cm perforation of gastric ulcer prepyloric. the fascia was incised along the length of the incision. Immediate turbid fluid was noted. Treatment: 10/26 0.9NS 500cc bolus x 1; 10/26 Zosyn 3.75gm IVPB x 1; 10/27 to current Zosyn 3.375gm IVPB Q8HR; 10/27 to current Fluconazole/Sodium Chloride 200mg IVPB daily; 10/27 Exploratory Lap with partial gastrectomy with Billroth II reconstruction. Please clarify if the [insert diagnosis] is: [ x ] Sepsis confirmed, remains under treatment [ ] Sepsis confirmed, resolved [ ] Other condition, please specify [ ] Unable to determine (Template Last Revised: January 2021) MTDD
[2021-10-29 17:44] LABS: Glucose,Whole Blood 156 mg/dL (75-99)
[2021-10-29] MEDS ORDERED: ATROPINE SULFATE 0.1 MG/ML 10ML SYRINGE ONE (19:54)
--- NOTE | 2021-10-29 22:05 | PN ---
PROGRESS NOTE DATE OF SERVICE: 10/29/2021 REASON FOR FOLLOWUP: Secondary peritonitis from perforated peptic ulcer disease. INTERVAL HISTORY: Patient is afebrile. The patient is hemodynamically stable. FiO2 is currently stable. No significant purulent secretions thru the ET, diarrhea or any other changes reported by the nursing staff. PHYSICAL EXAMINATION: Blood pressure is 104/70 with a pulse of 50, temperature 98.9. He is 94% on 50% FiO2. General description is an elderly male intubated on the vent. Respiratory system: Unlabored breathing, decreased intensity of breath sounds. No wheeze. Heart S1, S2. Regular rate and rhythm. Abdomen: Soft, mildly distended. No guarding. No rigidity. LABS: Hemoglobin is 11.9, white count of 10.7, creatinine 0.86. DIAGNOSTIC IMPRESSION AND PLAN: Patient with secondary peritonitis from perforated peptic ulcer disease, status post operative repair in this patient who also has a COVID-19 infection. Abdominal cultures with Annia. The patient is covered with Zosyn and Diflucan; to continue while monitoring clinical course closely. Continue supportive care. MMODL / IJN: [id number] /
[2021-10-29 23:11] LABS: Glucose,Whole Blood 162 mg/dL (75-99)
[2021-10-29] MEDS: CALCIUM GLUCONATE IV SCH ×7 (23:21)
[2021-10-29] MEDS: SODIUM CHLORIDE IV SCH ×7 (23:21)
[2021-10-29] MEDS: [UNRECOGNIZED DRUG - OTHER] IV SCH ×7 (23:21)
[2021-10-30] MEDS: fentaNYL (PF). 1,000 MCG in SODIUM CHLORIDE 0.9% 80 ML IV SCH ×2 (03:27→21:22)
[2021-10-30] MEDS: LACTATED RINGERS 1,000 ML IV SCH (03:27)
[2021-10-30 05:17] LABS: Glucose,Whole Blood 161 mg/dL (75-99)
[2021-10-30] MEDS: PIPERACILLIN-TAZOBACTAM 3.375 GM in SODIUM CHLORIDE 0.9% 100 ML IVPB SCH ×3 (05:23→20:37)
[2021-10-30] MEDS: INSULIN ASPART (NovoLOG) 100 UNIT/ML VIAL SQ SCH ×4 (05:23→23:17)
[2021-10-30 05:51] LABS: ABG Base Excess 10.5 mmol/L; ABG HCO3 34 mmol/L (21-25); ABG Oxygen Saturation 96.7 % (94-97); ABG PCO2 48 mmHg (35-45); ABG PH 7.46 (7.35-7.45); ABG PO2 82 mmHg (83-108); ABG TCO2 36 mmol/L (19-24); Allen Test Performed? Yes
[2021-10-30 06:05] LABS: African American GFR (CKD) >90 (>60 ml/min/1.73 sqM); Anion Gap 5 mmol/L; Blood Urea Nitrogen 32 mg/dL (9-20); Calcium 8.1 mg/dL (8.4-10.2); Carbon Dioxide 31 mmol/L (22-30); Chloride 102 mmol/L (98-107); Glucose 162 mg/dL (74-99); Magnesium 2.4 mg/dL (1.6-2.3); Non-African American GFR(CKD) >90 (>60 ml/min/1.73 sqM); Phosphorus 3.6 mg/dL (2.5-4.5); Potassium 4.5 mmol/L (3.5-5.1); Sodium 138 mmol/L (137-145)
[2021-10-30] MEDS: CHLORHEXIDINE GLUCONATE 15 ML CUP MUCOUS MEM SCH ×2 (07:59→20:37)
[2021-10-30] MEDS: PANTOPRAZOLE 40 MG/10 ML VIAL IV SCH (07:59)
[2021-10-30] MEDS: HEPARIN SODIUM,PORCINE/PF 5,000 UNIT/0.5 ML SYRINGE SQ SCH ×3 (07:59→20:37)
[2021-10-30] MEDS: DEXAMETHASONE SOD PHOSPHATE 10 MG/ML 1 ML VIAL IVP SCH (07:59)
[2021-10-30] MEDS: FLUCONAZOLE IN NACL,ISO-OSM 200 MG in SALINE 1 100ML.BAG IVPB SCH (08:00)
--- NOTE | 2021-10-30 08:57 | XR ---
EXAMINATION TYPE: XR chest 1V portable DATE OF EXAM: 10/30/2021 COMPARISON: Chest x-ray 10/29/2021 HISTORY: Intubated TECHNIQUE: Single frontal view of the chest is obtained. FINDINGS: Endotracheal tube and NG tube, right jugular central venous catheter show a stable appeara nce, distal tip the catheter overlying the right axillary vein in a retrograde fashion as on prior. B ilateral airspace disease is again noted. There are overlying artifacts. Cardiac mediastinal sweat is stable. No evident pneumothorax or sizable effusion. IMPRESSION: Findings consistent with pneumonia, consider Covid infection, ARDS, additional findings above.
--- NOTE | 2021-10-30 09:16 | P.PN ---
Subjective Progress Note Date: 10/30/21 Principal diagnosis: Patient is intubated Physical exam stable on vent Chest no accessory muscle usage Patient is sedated on vent Psych sedated Respiratory necessary muscle usage COVID-19 pneumonia with acute hypoxic respiratory failure -Continue with mechanical ventilation, propofol, fentanyl, IV fluids -Continue Decadron -Infectious disease consulted: Sepsis secondary to Perforated gastric ulcer status post expiratory laparotomy and gastrectomy -Defer management to the primary surgical service -On TPN, on PPI IV Elevated INR -Suspected due to sepsis upon presentation -Monitor for now Continue to wean as better respiratory protocol and pulmonology Objective - Vital Signs Vital signs: Vital Signs Temp 99.2 F 10/30/21 04:00 Pulse 42 L 10/30/21 07:00 Resp 30 H 10/30/21 07:00 BP 135/74 10/30/21 07:00 Pulse Ox 94 L 10/30/21 07:00 Intake & Output 10/29/21 10/30/21 10/30/21 18:59 06:59 18:59 Intake Total 1299.539 974.953 100 Output Total 3520 1344 380 Balance -2220.461 -369.047 -280 Weight 107 kg Intake: IV 50 Lactated Ringers 1,000 ml 50 @ 50 mls/hr IV .Q20H RIANNA Rx#:[id number] Intake, IV Titration 1299.539 974.953 50 Amount Calcium Gluconate 1 gm 300 Sodium Chloride 4Meq/ml Vial 50 meq Potassium Chloride 10 meq Potassium Phosphate 6 mmol In Amino Acid 4.25%-D10w 1, 000 ml @ 70 mls/hr IV .BY DURATION RIANNA Rx#: [id number] Lactated Ringers 1,000 ml 700 600 50 @ 50 mls/hr IV .Q20H RIANNA Rx#:[id number] fentaNYL (PF). 1,000 mcg 99.539 99.713 In Sodium Chloride 0.9% 80 ml @ 0.5 MCG/KG/HR 5. 216 mls/hr IV .[id number] RIANNA Rx#:[id number] propofoL 1,000 mg In 200 275.24 Empty Bag 1 bag @ Titrate IV .Q0M RIANNA Rx#: [id number] Output: Gastric Drainage 500 150 Drainage 10 19 0 Medial Abdomen 10 19 0 Urine 3510 825 230 Other: Voiding Method Indwelling Catheter Indwelling Catheter ABP, PAP, CO, CI - Last Documented Arterial Blood Pressure 150/63 - Labs CBC & Chem 7: 10/29/21 05:30 10/30/21 05:15 Labs: Abnormal Lab Results - Last 24 Hours (Table) 10/29/21 10/29/21 10/29/21 Range/Units 11:36 17:43 23:09 ABG pH (7.35-7.45) ABG pCO2 (35-45) mmHg ABG pO2 (83-108) mmHg ABG HCO3 (21-25) mmol/L ABG Total CO2 (19-24) mmol/L Carbon Dioxide (22-30) mmol/L BUN (9-20) mg/dL Glucose (74-99) mg/dL POC Glucose (mg/dL) 146 H 156 H 162 H (75-99) mg/dL Calcium (8.4-10.2) mg/dL Magnesium (1.6-2.3) mg/dL 10/30/21 10/30/21 10/30/21 Range/Units 04:57 05:15 05:16 ABG pH 7.46 H (7.35-7.45) ABG pCO2 48 H (35-45) mmHg ABG pO2 82 L (83-108) mmHg ABG HCO3 34 H (21-25) mmol/L ABG Total CO2 36 H (19-24) mmol/L Carbon Dioxide 31 H (22-30) mmol/L BUN 32 H (9-20) mg/dL Glucose 162 H (74-99) mg/dL POC Glucose (mg/dL) 161 H (75-99) mg/dL Calcium 8.1 L (8.4-10.2) mg/dL Magnesium 2.4 H (1.6-2.3) mg/dL Microbiology - Last 24 Hours (Table) 10/26/21 20:48 Blood Culture - Preliminary Blood No Growth after 72 hours 10/26/21 20:48 Blood Culture - Preliminary Blood No Growth after 72 hours 10/26/21 23:43 Anaerobic Culture - Preliminary Abdomen 10/26/21 23:43 Gram Stain - Final Abdomen Wound Culture - Final Annia albicans 10/26/21 23:43 Gram Stain - Final Abdomen Wound Culture - Final Annia albicans 10/27/21 16:30 Urine Culture - Final Urine,Catheterized
--- NOTE | 2021-10-30 09:58 | P.PN ---
Subjective Progress Note Date: 10/30/21 Principal diagnosis: Coronavirus associated pneumonia. Acute hypoxic respiratory failure secondary to COVID-19 pneumonia and abdominal sepsis with gastric perforation. This is a 66-year-old white male presented to the emergency last night with acute onset of abdominal pain. Patient recently tested positive for COVID-19 and he had symptoms of COVID-19 pneumonia. Patient has been experiencing severe cough and according to the chart, the patient did receive COVID-19 vaccination. And apparently when he was initially diagnosed, the patient received monoclonal antibody infusion. Upon presentation to the ER, patient was found to have multifocal pneumonia, and his CT of the abdomen and pelvis revealed area of pneumoperitoneum. Patient has no previous history of peptic ulcer disease, no previous abdominal surgery. Seen by surgery inspector outside production, and the patient underwent exploratory laparotomy, he was found to have stomach perforation, underwent expiratory laparotomy, Billroth type II reconstruction. Patient was started on antibiotics in the form of Zosyn and on Diflucan. Infectious disease consultation is pending. Patient was brought up to the ICU on mechanical venti lation, he is now on tidal volume 450 rate of 30 FiO2 70% and I cut it down to 50% and PEEP at 10. ABG showed a pO2 of 128 pCO2 of 48 pH of 7.34. Patient is on propofol at 40 mcg/kg/m fentanyl 0.5 mcg/kg/h he is on a lactated Ringer's at 1 25 mL/h, and he will be started on TPN. Patient does have a right IJ central line placed by surgery prior to his exploratory laparotomy. WBC count today is 10.6 hemoglobin 14.3. Electrodes are normal renal profile is normal. Reevaluated today on 10/28/2021, patient remains in the ICU, intubated and mechanically ventilated. Patient is now on assist control rate is 30 tidal volume 450 FiO2 50% PEEP is 10 and I cut it down to 8. ABG earlier today showed a pO2 of 150 pCO2 of 30 pH of 7.44. Patient is on fentanyl at 0.5 mcg/kg/h propofol 40 mcg/kg/m. He is not requiring any paralytics. Patient is on IV fluid at 1 50 mL/h using it lactated Ringer's. He is also on TPN. Renal profile showed some worsening with a creatinine up to 1.47 from 1.03 on admission. Otherwise his electrolytes are normal. WBC count is 11.2 hemoglobin is 12.6. Endotracheal tube was noted to be sitting proximally in the trachea and this was advanced to 3 cm already. Chest x-ray clearly shows bilateral infiltrates. Consistent with COVID-19 pneumonia. Patient was seen by infectious disease on consultation, and he is now on fluconazole 200 mg IV piggyback daily. He is also on Zosyn. For his COVID-19 infection, patient is on Decadron 6 mg IV push daily, patient is also on Protonix, and subcu heparin 5000 units subcu every 8 hours. Progress note dated 10/29/2021. This is a 66-year-old gentleman who was admitted to the hospital on October 26. He came in with a diagnosis of abdominal pain, and coronavirus associated pneumonia. The patient came to the intensive care unit on October 26. He was intubated on October 26 after having surgery for perforated gastric ulcer. Currently, he remains on the ventilator. He is on the volume assist control mod e, rate 30, tidal volume 450, FiO2 50%, PEEP of 8. Blood gases show a PaO2 of 92, pCO2 49, and a pH is 7.42. The patient is ahead on fluids, and we will see if some IV Lasix. Currently, he's on propofol at 40 mcg/kg/m and fentanyl at 0.5 mcg/kg per hour. He is getting TPN at 79 mL an hour, and lactated Ringer's at 150 mL an hour. The lactated Ringer's to be turned down to 50 mL an hour. The patient's sedation will be held, and we will attempt a spontaneous breathing trial with a pressure support of 8 and CPAP of 5. White count 10.7, hemoglobin 11, hematocrit 34.3, and platelet count 415,000. Sodium 137, potassium 4.2, chlorides 103, CO2 28, anion gap 6, BUN 27, creatinine 0.86. Albumin is 2.2. Microbiology is only positive for Annia in the wound cultures. Chest x-ray shows diffuse bilateral infiltrates, consistent with coronavirus associated pneumonia. Progress note dated 10/30/2021. 66-year-old male, who was admitted to the hospital on October 26. He came in with a diagnosis of abdominal pain, and coronavirus associated pneumonia. He came to the intensive care unit on October 26. He was intubated on October 26, after having surgery for perforated gastric ulcer. He remains on the ventilator. He is on the volume assist control mode, rate 30, tidal volume 450, FiO2 50%, and PEEP of 8. Blood gases show pO2 of 82, a pCO2 of 48, and pH of 7.46. The patient is on TPN at 70 mL an hour, fentanyl 0.5 mcg/kg/h, and propofol at 40 mcg/kg/m. The patient's getting lactated Ringer's at 50 mL an hour. The patient will have a daily interruption of sedation today, and hopefully, a spontaneous breathing trial, on pressure support of 8, and CPAP of 5. I'm hoping we can get the patient extubated today. Current sodium is 138, potassium 4.5, chlorides 102, CO2 31, anion gap 5, BUN 32, and creatinine 0.79. Magnesium is 2.4. Chest x-ray shows diffuse bilateral infiltrates, consistent with coronavirus associated pneumonia. Objective - Vital Signs Vital signs: Vital Signs Temp 98.4 F 10/30/21 08:00 Pulse 40 L 10/30/21 09:00 Resp 30 H 10/30/21 09:00 BP 131/71 10/30/21 09:00 Pulse Ox 95 10/30/21 09:00 Intake & Output 10/29/21 10/30/21 10/30/21 18:59 06:59 18:59 Intake Total 1299.539 974.953 200 Output Total 3520 1344 380 Balance -2220.461 -369.047 -180 Weight 107 kg 107 kg Intake: IV 50 Lactated Ringers 1,000 ml 50 @ 50 mls/hr IV .Q20H RIANNA Rx#:[id number] Intake, IV Titration 1299.539 974.953 150 Amount Calcium Gluconate 1 gm 300 Sodium Chloride 4Meq/ml Vial 50 meq Potassium Chloride 10 meq Potassium Phosphate 6 mmol In Amino Acid 4.25%-D10w 1, 000 ml @ 70 mls/hr IV .BY DURATION RIANNA Rx#: [id number] Lactated Ringers 1,000 ml 700 600 50 @ 50 mls/hr IV .Q20H RIANNA Rx#:[id number] fentaNYL (PF). 1,000 mcg 99.539 99.713 In Sodium Chloride 0.9% 80 ml @ 0.5 MCG/KG/HR 5. 216 mls/hr IV .[id number] RIANNA Rx#:[id number] propofoL 1,000 mg In 200 275.24 100 Empty Bag 1 bag @ Titrate IV .Q0M RIANNA Rx#: [id number] Output: Gastric Drainage 500 150 Drainage 10 19 0 Medial Abdomen 10 19 0 Urine 3510 825 230 Other: Voiding Method Indwelling Catheter Indwelling Catheter Indwelling Catheter ABP, PAP, CO, CI - Last Documented Arterial Blood Pressure 154/66 - Exam No acute distress, sedated, currently with an orally placed endotracheal tube and NG tube. HEENT examination is grossly unremarkable. Neck supple. Full range of motion. No adenopathy thyromegaly or neck vein distention. Cardiovascular examination reveals regular rhythm rate. S1-S2 normal. No S3 or S4. No discernible murmur noted. Heart sounds are distant. Heart rate 40 bpm. Lungs reveal bilateral scattered rhonchi. No wheezes or crackles. Breath sounds equal bilaterally. Abdomen soft, without masses. Postsurgical abdomen noted. Drains are noted. Extremities are intact. No cyanosis clubbing or edema. Skin is without rash or lesion. Neurologic examination cannot be adequately assessed as the patient's currently sedated. - Labs CBC & Chem 7: 10/29/21 05:30 10/30/21 05:15 Labs: Abnormal Lab Results - Last 24 Hours (Table) 10/29/21 10/29/21 10/29/21 Range/Units 11:36 17:43 23:09 ABG pH (7.35-7.45) ABG pCO2 (35-45) mmHg ABG pO2 (83-108) mmHg ABG HCO3 (21-25) mmol/L ABG Total CO2 (19-24) mmol/L Carbon Dioxide (22-30) mmol/L BUN (9-20) mg/dL Glucose (74-99) mg/dL POC Glucose (mg/dL) 146 H 156 H 162 H (75-99) mg/dL Calcium (8.4-10.2) mg/dL Magnesium (1.6-2.3) mg/dL 10/30/21 10/30/21 10/30/21 Range/Units 04:57 05:15 05:16 ABG pH 7.46 H (7.35-7.45) ABG pCO2 48 H (35-45) mmHg ABG pO2 82 L (83-108) mmHg ABG HCO3 34 H (21-25) mmol/L ABG Total CO2 36 H (19-24) mmol/L Carbon Dioxide 31 H (22-30) mmol/L BUN 32 H (9-20) mg/dL Glucose 162 H (74-99) mg/dL POC Glucose (mg/dL) 161 H (75-99) mg/dL Calcium 8.1 L (8.4-10.2) mg/dL Magnesium 2.4 H (1.6-2.3) mg/dL Microbiology - Last 24 Hours (Table) 10/26/21 20:48 Blood Culture - Preliminary Blood No Growth after 72 hours 10/26/21 20:48 Blood Culture - Preliminary Blood No Growth after 72 hours 10/26/21 23:43 Anaerobic Culture - Preliminary Abdomen 10/26/21 23:43 Gram Stain - Final Abdomen Wound Culture - Final Annia albicans 10/26/21 23:43 Gram Stain - Final Abdomen Wound Culture - Final Annia albicans 10/27/21 16:30 Urine Culture - Final Urine,Catheterized Assessment and Plan Assessment: Acute hypoxemic respiratory failure secondary to coronavirus associated pneumonia, status post hospital admission on October 26, and surgery for perforated gastric ulcer on October 26, 2021. Routine postoperative ventilator management. Postop day #2, status post exploratory laparotomy, Billroth type II, and reconstruction of a gastric perforation. Acute abdominal sepsis. Lactic acidosis secondary to abdominal sepsis. History of degenerative joint disease. Acute kidney injury, likely secondary to sepsis and ATN. Plan: Plan dated 10/29/2021. The patient is way ahead on fluids, will get some Lasix 60 mg IV push. In addition, the lactated Ringer's will be turned back from 150 mL down to 50 mL an hour. Patient continues on propofol and fentanyl. The patient's also receiving TPN. We will attempt a daily interruption of sedation and a spontaneous breathing trial with pressure support of 8 and CPAP of 5. Prognosis is guarded. Additional recommendations and suggestions are coming. We will continue to follow make recommendations where appropriate. The patient continues on fluconazole, and Zosyn. Plan dated 10/30/2021. The patient will be given a daily interruption of sedation, and potentially a spontaneous breathing trial today. The patient will be placed on pressure support of 8, and CPAP of 5. The patient remains on fentanyl and propofol. Also be weaned off for the spontaneous breathing trial. Blood gases are reasonable. The patient's getting TPN at 70 mL an hour. Currently, microbiology is negative. The patient remains on Zosyn, and fluconazole. The patient also remains on Decadron, and subcu heparin. Additional recommendations and suggestions are forthcoming. Prognosis is guarded. We will continue to follow the patient make recommendations where appropriate. Time with Patient: Greater than 30
[2021-10-30] MEDS: CLEVIDIPINE BUTYRATE 25 MG in EMPTY BAG 1 BAG IV SCH ×2 (10:34→16:59)
[2021-10-30] MEDS: DEXMEDETOMIDINE/0.9% NACL(PMX) 400 MCG in EMPTY BAG 1 BAG IV SCH (11:30)
[2021-10-30 12:57] LABS: Glucose,Whole Blood 147 mg/dL (75-99)
--- NOTE | 2021-10-30 12:58 | P.PN ---
Subjective Progress Note Date: 10/30/21 Patient seen and examined at bedside. Continues to have nasogastric tube output of bilious material. RUPINDER drain with minimal output. Patient did not tolerate weaning trial yesterday. Attempting to wean patient today per ICU nurse. Objective - Vital Signs Vital signs: Vital Signs Temp 98.4 F 10/30/21 08:00 Pulse 64 10/30/21 11:00 Resp 31 H 10/30/21 11:00 BP 146/81 10/30/21 11:00 Pulse Ox 88 L 10/30/21 11:00 Intake & Output 10/29/21 10/30/21 10/30/21 18:59 06:59 18:59 Intake Total 1299.539 974.953 448.214 Output Total 3520 1344 545 Balance -2220.461 -369.047 -96.786 Weight 107 kg 107 kg Intake: IV 239 .9 NS 39 Lactated Ringers 1,000 ml 200 @ 50 mls/hr IV .Q20H RIANNA Rx#:[id number] Intake, IV Titration 1299.539 974.953 209.214 Amount Calcium Gluconate 1 gm 300 Sodium Chloride 4Meq/ml Vial 50 meq Potassium Chloride 10 meq Potassium Phosphate 6 mmol In Amino Acid 4.25%-D10w 1, 000 ml @ 70 mls/hr IV .BY DURATION RIANNA Rx#: [id number] Clevidipine Butyrate 25 16.467 mg In Empty Bag 1 bag @ 1 MG/HR 2 mls/hr IV .Q24H RIANNA Rx#:[id number] Dexmedetomidine/0.9% NaCl 1.873 (Pmx) 400 mcg In Empty Bag 1 bag @ 0.2 MCG/KG/HR 5.35 mls/hr IV .[id number] RIANNA Rx#:[id number] Lactated Ringers 1,000 ml 700 600 50 @ 50 mls/hr IV .Q20H RIANNA Rx#:[id number] fentaNYL (PF). 1,000 mcg 99.539 99.713 In Sodium Chloride 0.9% 80 ml @ 0.5 MCG/KG/HR 5. 216 mls/hr IV .[id number] RIANNA Rx#:[id number] propofoL 1,000 mg In 200 275.24 140.874 Empty Bag 1 bag @ Titrate IV .Q0M RIANNA Rx#: [id number] Output: Gastric Drainage 500 150 Drainage 10 19 0 Medial Abdomen 10 19 0 Urine 3510 825 395 Other: Voiding Method Indwelling Catheter Indwelling Catheter Indwelling Catheter ABP, PAP, CO, CI - Last Documented Arterial Blood Pressure 137/64 - Constitutional General appearance: Present: no acute distress - Respiratory Details: Vented and sedated - Gastrointestinal Gastrointestinal Comment(s): Soft, midline incision site clean, dry and intact with surgical dressing in place, RUPINDER drain in place with no significant output - Labs CBC & Chem 7: 10/29/21 05:30 10/30/21 05:15 Labs: Abnormal Lab Results - Last 24 Hours (Table) 10/29/21 10/29/21 10/30/21 Range/Units 17:43 23:09 04:57 ABG pH 7.46 H (7.35-7.45) ABG pCO2 48 H (35-45) mmHg ABG pO2 82 L (83-108) mmHg ABG HCO3 34 H (21-25) mmol/L ABG Total CO2 36 H (19-24) mmol/L Carbon Dioxide (22-30) mmol/L BUN (9-20) mg/dL Glucose (74-99) mg/dL POC Glucose (mg/dL) 156 H 162 H (75-99) mg/dL Calcium (8.4-10.2) mg/dL Magnesium (1.6-2.3) mg/dL Triglycerides (0.00-149.00) mg/dL 10/30/21 10/30/21 Range/Units 05:15 05:16 ABG pH (7.35-7.45) ABG pCO2 (35-45) mmHg ABG pO2 (83-108) mmHg ABG HCO3 (21-25) mmol/L ABG Total CO2 (19-24) mmol/L Carbon Dioxide 31 H (22-30) mmol/L BUN 32 H (9-20) mg/dL Glucose 162 H (74-99) mg/dL POC Glucose (mg/dL) 161 H (75-99) mg/dL Calcium 8.1 L (8.4-10.2) mg/dL Magnesium 2.4 H (1.6-2.3) mg/dL Triglycerides 184.00 H (0.00-149.00) mg/dL Microbiology - Last 24 Hours (Table) 10/26/21 20:48 Blood Culture - Preliminary Blood No Growth after 72 hours 10/26/21 20:48 Blood Culture - Preliminary Blood No Growth after 72 hours 10/26/21 23:43 Anaerobic Culture - Preliminary Abdomen 10/26/21 23:43 Gram Stain - Final Abdomen Wound Culture - Final Annia albicans 10/26/21 23:43 Gram Stain - Final Abdomen Wound Culture - Final Annia albicans 10/27/21 16:30 Urine Culture - Final Urine,Catheterized Assessment and Plan Plan: POD #4, ex lap with Billroth 2 reconstruction for perforated gastric ulcer - Continue vent mgmt per ICU, weaning trials per ICU - Currently on zosyn and diflucan, appreciate ID recommendations - COVID Pneumonia, Requiring prolonged ventilation and steroid therapy - Continue RUPINDER drain - Continue TPN due to anticipated prolonged NPO status - NGT instructions were discussed with nursing. No manipulation of the NGT and no input through the NGT. Continue NGT to LIS. - Case was discussed in depth with family. Patient has a very guarded prognosis.
[2021-10-30 13:24] LABS: Hypochromasia Slight; MCH 29.4 pg (25.0-35.0); MCHC 31.4 g/dL (31.0-37.0); MCV 93.9 fL (80.0-100.0); Mean Platelet Volume 9.2; Platelet Count 419 k/uL (150-450); RBC 3.73 m/uL (4.30-5.90); RDW 13.7 % (11.5-15.5); WBC 11.5 k/uL (3.8-10.6)
[2021-10-30] MEDS: SODIUM CHLORIDE IV SCH ×7 (15:03)
[2021-10-30] MEDS: CALCIUM GLUCONATE IV SCH ×7 (15:03)
[2021-10-30] MEDS: [UNRECOGNIZED DRUG - OTHER] IV SCH ×7 (15:03)
[2021-10-30 17:29] LABS: Glucose,Whole Blood 153 mg/dL (75-99)
--- NOTE | 2021-10-30 22:52 | PN ---
PROGRESS NOTE DATE OF SERVICE: 10/30/2021 REASON FOR FOLLOWUP: Secondary peritonitis from perforated peptic ulcer disease. INTERVAL HISTORY: The patient is afebrile. The patient remains intubated on the vent. The patient is hemodynamically stable, not on any pressor support. No significant purulent secretions through the ET or diarrhea reported by the nursing staff. PHYSICAL EXAMINATION: Blood pressure 146/80 with a pulse of 54, temperature 98.4. General description is an elderly male intubated on the vent. Respiratory system: Unlabored breathing, decreased intensity of breath sounds. No wheeze. Heart S1, S2. Regular rate and rhythm. Abdomen soft, mildly distended. No guarding or rigidity. LABS: Hemoglobin is 11, white count 11.5, creatinine 0.59. Abdominal culture with Annia. DIAGNOSTIC IMPRESSION AND PLAN: Patient with secondary peritonitis from perforated peptic ulcer disease, status post surgical repair. Abdominal culture with Annia. Patient is covered with Zosyn and Diflucan; to continue while monitoring his clinical course closely. Continue supportive care. MMODL / IJN: [id number] /
[2021-10-30 23:11] LABS: Glucose,Whole Blood 151 mg/dL (75-99)
[2021-10-31] MEDS: CLEVIDIPINE BUTYRATE 25 MG in EMPTY BAG 1 BAG IV SCH ×6 (00:02→20:44)
[2021-10-31 05:03] LABS: HCT 37.2 % (39.0-53.0); HGB 11.6 gm/dL (13.0-17.5); Hypochromasia Slight; MCH 29.1 pg (25.0-35.0); MCV 93.7 fL (80.0-100.0); Mean Platelet Volume 8.2; Platelet Count 414 k/uL (150-450); RBC 3.97 m/uL (4.30-5.90); RDW 14.3 % (11.5-15.5); WBC 10.3 k/uL (3.8-10.6)
[2021-10-31 05:18] LABS: ALT 50 U/L (4-49); AST 65 U/L (17-59); African American GFR (CKD) >90 (>60 ml/min/1.73 sqM); Albumin 2.3 g/dL (3.5-5.0); Alkaline Phosphatase 65 U/L (38-126); Anion Gap 5 mmol/L; Blood Urea Nitrogen 30 mg/dL (9-20); Carbon Dioxide 31 mmol/L (22-30); Chloride 102 mmol/L (98-107); Glucose 151 mg/dL (74-99); Magnesium 2.1 mg/dL (1.6-2.3); Non-African American GFR(CKD) >90 (>60 ml/min/1.73 sqM); Phosphorus 3.9 mg/dL (2.5-4.5); Potassium 4.3 mmol/L (3.5-5.1); Sodium 138 mmol/L (137-145); Total Bilirubin 0.6 mg/dL (0.2-1.3); Total Protein 5.9 g/dL (6.3-8.2)
[2021-10-31 05:36] LABS: Band Neutrophils % 5 %; Eosinophils # (M) 0.21 k/uL (0-0.7); Lymphocytes # (M) 0.93 k/uL (1.0-4.8); Metamyelocytes # (M) 0.62 k/uL (0); Metamyelocytes % 6 %; Monocytes # (M) 1.13 k/uL (0-1.0); Myelocytes % 1 %; Neutrophils % (M) 66 %; Nucleated Red Blood Cells 0 /100 WBC (0-0); Total Cells Counted 200
[2021-10-31 05:37] LABS: Toxic Granulation Present
[2021-10-31] MEDS: DEXMEDETOMIDINE/0.9% NACL(PMX) 400 MCG in EMPTY BAG 1 BAG IV SCH (05:37)
[2021-10-31] MEDS: SODIUM CHLORIDE IV SCH ×14 (05:44→21:22)
[2021-10-31] MEDS: CALCIUM GLUCONATE IV SCH ×14 (05:44→21:22)
[2021-10-31] MEDS: [UNRECOGNIZED DRUG - OTHER] IV SCH ×14 (05:44→21:22)
[2021-10-31] MEDS: LACTATED RINGERS 1,000 ML IV SCH (05:45)
[2021-10-31 05:58] LABS: Glucose,Whole Blood 136 mg/dL (75-99)
[2021-10-31] MEDS: PIPERACILLIN-TAZOBACTAM 3.375 GM in SODIUM CHLORIDE 0.9% 100 ML IVPB SCH ×3 (06:02→20:32)
[2021-10-31] MEDS: INSULIN ASPART (NovoLOG) 100 UNIT/ML VIAL SQ SCH ×3 (06:02→17:50)
[2021-10-31 06:24] LABS: ABG Base Excess 9.8 mmol/L; ABG HCO3 34 mmol/L (21-25); ABG Oxygen Saturation 90.3 % (94-97); ABG PCO2 49 mmHg (35-45); ABG PH 7.45 (7.35-7.45); ABG TCO2 35 mmol/L (19-24); Allen Test Performed? Yes
[2021-10-31 06:30] LABS: ABG PO2 58 mmHg (83-108)
--- NOTE | 2021-10-31 07:46 | XR ---
EXAMINATION TYPE: XR chest 1V portable DATE OF EXAM: 10/31/2021 COMPARISON: Chest x-ray 10/30/2021 HISTORY: Intubated TECHNIQUE: Single frontal view of the chest is obtained. FINDINGS: Endotracheal tube and NG tube, right jugular central venous catheter are stable. Bilateral pleural-parenchymal changes are also unchanged. Cardiac mediastinal silhouette appears prominently a lthough the patient is rotated. No evident pneumothorax or pleural effusion. There are overlying mabel facts. IMPRESSION: No significant interval change. Correlate for Covid related pneumonia.
[2021-10-31] MEDS ORDERED: RX INFO: IV CONTRAST WAS GIVEN 1 EACH MISC MISCELLANE PRN (09:11)
[2021-10-31] MEDS: PANTOPRAZOLE 40 MG/10 ML VIAL IV SCH (09:22)
[2021-10-31] MEDS: CHLORHEXIDINE GLUCONATE 15 ML CUP MUCOUS MEM SCH ×2 (09:22→20:32)
[2021-10-31] MEDS: HEPARIN SODIUM,PORCINE/PF 5,000 UNIT/0.5 ML SYRINGE SQ SCH ×3 (09:22→20:32)
[2021-10-31] MEDS: DEXAMETHASONE SOD PHOSPHATE 10 MG/ML 1 ML VIAL IVP SCH (09:22)
--- NOTE | 2021-10-31 09:51 | P.PN ---
Subjective Progress Note Date: 10/31/21 Patient seen and examined at bedside. Currently continues to be vented and sedated. Did not tolerate trial weaning yesterday. No other significant changes. Objective - Vital Signs Vital signs: Vital Signs Temp 98.6 F 10/31/21 04:00 Pulse 42 L 10/31/21 07:00 Resp 32 H 10/31/21 07:00 BP 120/66 10/31/21 07:00 Pulse Ox 89 L 10/31/21 07:00 Intake & Output 10/30/21 10/31/21 10/31/21 18:59 06:59 18:59 Intake Total 2722.152 4452.823 169.133 Output Total 1270 1550 50 Balance 692.672 547.823 119.133 Weight 107 kg 109 kg Intake: IV 610 636 53 .9 NS 60 36 3 Lactated Ringers 1,000 ml 550 600 50 @ 50 mls/hr IV .Q20H RIANNA Rx#:[id number] Intake, IV Titration 7841.560 7949.823 116.133 Amount Calcium Gluconate 1 gm 1029.5 1027.833 Sodium Chloride 4Meq/ml Vial 50 meq Potassium Chloride 10 meq Potassium Phosphate 6 mmol In Amino Acid 4.25%-D10w 1, 000 ml @ 70 mls/hr IV .BY DURATION RIANNA Rx#: [id number] Clevidipine Butyrate 25 31.067 50.933 16.133 mg In Empty Bag 1 bag @ 1 MG/HR 2 mls/hr IV .Q24H RIANNA Rx#:[id number] Dexmedetomidine/0.9% NaCl 1.873 (Pmx) 400 mcg In Empty Bag 1 bag @ 0.2 MCG/KG/HR 5.35 mls/hr IV .[id number] RIANNA Rx#:[id number] Lactated Ringers 1,000 ml 50 @ 50 mls/hr IV .Q20H RIANNA Rx#:[id number] fentaNYL (PF). 1,000 mcg 93.453 In Sodium Chloride 0.9% 80 ml @ 0.5 MCG/KG/HR 5. 216 mls/hr IV .[id number] RIANNA Rx#:[id number] propofoL 1,000 mg In 240.232 289.604 100 Empty Bag 1 bag @ Titrate IV .Q0M RIANNA Rx#: [id number] Output: Gastric Drainage 150 350 Drainage 0 Medial Abdomen 0 Urine 1120 1200 50 Other: Voiding Method Indwelling Catheter Indwelling Catheter ABP, PAP, CO, CI - Last Documented Arterial Blood Pressure 148/51 - Constitutional General appearance: Present: no acute distress - Respiratory Details: Vented, sedated - Gastrointestinal Gastrointestinal Comment(s): Soft, midline incision with surgical dressing in place, RUPINDER drain in place - Labs CBC & Chem 7: 10/31/21 06:00 10/31/21 06:00 Labs: Abnormal Lab Results - Last 24 Hours (Table) 10/30/21 10/30/21 10/30/21 Range/Units 05:15 05:15 12:55 WBC 11.5 H (3.8-10.6) k/uL RBC 3.73 L (4.30-5.90) m/uL Hgb 11.0 L (13.0-17.5) gm/dL Hct 35.0 L (39.0-53.0) % Lymphocytes # (Manual) (1.0-4.8) k/uL Monocytes # (Manual) (0-1.0) k/uL Metamyelocytes # (Man) (0) k/uL Myelocytes # (Manual) (0) k/uL ABG pCO2 (35-45) mmHg ABG pO2 (83-108) mmHg ABG HCO3 (21-25) mmol/L ABG Total CO2 (19-24) mmol/L ABG O2 Saturation (94-97) % Carbon Dioxide (22-30) mmol/L BUN (9-20) mg/dL Glucose (74-99) mg/dL POC Glucose (mg/dL) 147 H (75-99) mg/dL Calcium (8.4-10.2) mg/dL AST (17-59) U/L ALT (4-49) U/L Total Protein (6.3-8.2) g/dL Albumin (3.5-5.0) g/dL Triglycerides 184.00 H (0.00-149.00) mg/dL 10/30/21 10/30/21 10/31/21 Range/Units 17:27 23:09 05:57 WBC (3.8-10.6) k/uL RBC (4.30-5.90) m/uL Hgb (13.0-17.5) gm/dL Hct (39.0-53.0) % Lymphocytes # (Manual) (1.0-4.8) k/uL Monocytes # (Manual) (0-1.0) k/uL Metamyelocytes # (Man) (0) k/uL Myelocytes # (Manual) (0) k/uL ABG pCO2 (35-45) mmHg ABG pO2 (83-108) mmHg ABG HCO3 (21-25) mmol/L ABG Total CO2 (19-24) mmol/L ABG O2 Saturation (94-97) % Carbon Dioxide (22-30) mmol/L BUN (9-20) mg/dL Glucose (74-99) mg/dL POC Glucose (mg/dL) 153 H 151 H 136 H (75-99) mg/dL Calcium (8.4-10.2) mg/dL AST (17-59) U/L ALT (4-49) U/L Total Protein (6.3-8.2) g/dL Albumin (3.5-5.0) g/dL Triglycerides (0.00-149.00) mg/dL 10/31/21 10/31/21 10/31/21 Range/Units 06:00 06:00 06:19 WBC (3.8-10.6) k/uL RBC 3.97 L (4.30-5.90) m/uL Hgb 11.6 L (13.0-17.5) gm/dL Hct 37.2 L (39.0-53.0) % Lymphocytes # (Manual) 0.93 L (1.0-4.8) k/uL Monocytes # (Manual) 1.13 H (0-1.0) k/uL Metamyelocytes # (Man) 0.62 H (0) k/uL Myelocytes # (Manual) 0.10 H (0) k/uL ABG pCO2 49 H (35-45) mmHg ABG pO2 58 L* (83-108) mmHg ABG HCO3 34 H (21-25) mmol/L ABG Total CO2 35 H (19-24) mmol/L ABG O2 Saturation 90.3 L (94-97) % Carbon Dioxide 31 H (22-30) mmol/L BUN 30 H (9-20) mg/dL Glucose 151 H (74-99) mg/dL POC Glucose (mg/dL) (75-99) mg/dL Calcium 8.0 L (8.4-10.2) mg/dL AST 65 H (17-59) U/L ALT 50 H (4-49) U/L Total Protein 5.9 L (6.3-8.2) g/dL Albumin 2.3 L (3.5-5.0) g/dL Triglycerides (0.00-149.00) mg/dL Microbiology - Last 24 Hours (Table) 10/26/21 20:48 Blood Culture - Preliminary Blood No Growth after 96 hours 10/26/21 20:48 Blood Culture - Preliminary Blood No Growth after 96 hours 10/26/21 23:43 Anaerobic Culture - Preliminary Abdomen Assessment and Plan Plan: POD #5, ex lap with Billroth 2 reconstruction for perforated gastric ulcer - Continue vent mgmt per ICU, weaning trials per ICU - Currently on zosyn and diflucan, appreciate ID recommendations - COVID Pneumonia, Requiring prolonged ventilation and steroid therapy - Continue RUPINDER drain - Continue TPN due to anticipated prolonged NPO status - NGT instructions were discussed with nursing. No manipulation of the NGT and no input through the NGT. Continue NGT to LIS. - Discussed PICC line placement with ICU nursing staff which will be discussed on ICU rounds - Case was discussed in depth with family. Patient has a very guarded prognosis.
[2021-10-31] MEDS: FLUCONAZOLE IN NACL,ISO-OSM 200 MG in SALINE 1 100ML.BAG IVPB SCH (10:54)
--- NOTE | 2021-10-31 11:29 | P.PN ---
Subjective Progress Note Date: 10/31/21 Patient is still intubated Physical exam stable on vent Chest no accessory muscle usage Patient is sedated on vent Psych sedated Respiratory necessary muscle usage COVID-19 pneumonia with acute hypoxic respiratory failure -Continue with mechanical ventilation, propofol, fentanyl, IV fluids -Continue Decadron -Infectious disease consulted: Sepsis secondary to Perforated gastric ulcer status post expiratory laparotomy and gastrectomy -Defer management to the primary surgical service -On TPN, on PPI IV Elevated INR -Suspected due to sepsis upon presentation -Monitor for now Continue to wean as better respiratory protocol and pulmonology Overall appears to be stable continue management as per ICU team and pulmonary Objective - Vital Signs Vital signs: Vital Signs Temp 98.6 F 10/31/21 04:00 Pulse 42 L 10/31/21 07:00 Resp 32 H 10/31/21 07:00 BP 120/66 10/31/21 07:00 Pulse Ox 89 L 10/31/21 07:00 Intake & Output 10/30/21 10/31/21 10/31/21 18:59 06:59 18:59 Intake Total 8536.208 9696.823 169.133 Output Total 1270 1550 50 Balance 692.672 547.823 119.133 Weight 107 kg 109 kg Intake: IV 610 636 53 .9 NS 60 36 3 Lactated Ringers 1,000 ml 550 600 50 @ 50 mls/hr IV .Q20H [facility] Rx#:[id number] Intake, IV Titration 5847.243 0232.823 116.133 Amount Calcium Gluconate 1 gm 1029.5 1027.833 Sodium Chloride 4Meq/ml Vial 50 meq Potassium Chloride 10 meq Potassium Phosphate 6 mmol In Amino Acid 4.25%-D10w 1, 000 ml @ 70 mls/hr IV .BY DURATION [facility] Rx#: [id number] Clevidipine Butyrate 25 31.067 50.933 16.133 mg In Empty Bag 1 bag @ 1 MG/HR 2 mls/hr IV .Q24H [facility] Rx#:[id number] Dexmedetomidine/0.9% NaCl 1.873 (Pmx) 400 mcg In Empty Bag 1 bag @ 0.2 MCG/KG/HR 5.35 mls/hr IV .[id number] [facility] Rx#:[id number] Lactated Ringers 1,000 ml 50 @ 50 mls/hr IV .Q20H [facility] Rx#:[id number] fentaNYL (PF). 1,000 mcg 93.453 In Sodium Chloride 0.9% 80 ml @ 0.5 MCG/KG/HR 5. 216 mls/hr IV .[id number] [facility] Rx#:[id number] propofoL 1,000 mg In 240.232 289.604 100 Empty Bag 1 bag @ Titrate IV .Q0M [facility] Rx#: [id number] Output: Gastric Drainage 150 350 Drainage 0 Medial Abdomen 0 Urine 1120 1200 50 Other: Voiding Method Indwelling Catheter Indwelling Catheter ABP, PAP, CO, CI - Last Documented Arterial Blood Pressure 148/51 - Labs CBC & Chem 7: 10/31/21 06:00 10/31/21 06:00 Labs: Abnormal Lab Results - Last 24 Hours (Table) 10/30/21 10/30/21 10/30/21 Range/Units 05:15 12:55 17:27 WBC 11.5 H (3.8-10.6) k/uL RBC 3.73 L (4.30-5.90) m/uL Hgb 11.0 L (13.0-17.5) gm/dL Hct 35.0 L (39.0-53.0) % Lymphocytes # (Manual) (1.0-4.8) k/uL Monocytes # (Manual) (0-1.0) k/uL Metamyelocytes # (Man) (0) k/uL Myelocytes # (Manual) (0) k/uL ABG pCO2 (35-45) mmHg ABG pO2 (83-108) mmHg ABG HCO3 (21-25) mmol/L ABG Total CO2 (19-24) mmol/L ABG O2 Saturation (94-97) % Carbon Dioxide (22-30) mmol/L BUN (9-20) mg/dL Glucose (74-99) mg/dL POC Glucose (mg/dL) 147 H 153 H (75-99) mg/dL Calcium (8.4-10.2) mg/dL AST (17-59) U/L ALT (4-49) U/L Total Protein (6.3-8.2) g/dL Albumin (3.5-5.0) g/dL 10/30/21 10/31/2121 Range/Units 23:09 05:57 06:00 WBC (3.8-10.6) k/uL RBC (4.30-5.90) m/uL Hgb (13.0-17.5) gm/dL Hct (39.0-53.0) % Lymphocytes # (Manual) (1.0-4.8) k/uL Monocytes # (Manual) (0-1.0) k/uL Metamyelocytes # (Man) (0) k/uL Myelocytes # (Manual) (0) k/uL ABG pCO2 (35-45) mmHg ABG pO2 (83-108) mmHg ABG HCO3 (21-25) mmol/L ABG Total CO2 (19-24) mmol/L ABG O2 Saturation (94-97) % Carbon Dioxide 31 H (22-30) mmol/L BUN 30 H (9-20) mg/dL Glucose 151 H (74-99) mg/dL POC Glucose (mg/dL) 151 H 136 H (75-99) mg/dL Calcium 8.0 L (8.4-10.2) mg/dL AST 65 H (17-59) U/L ALT 50 H (4-49) U/L Total Protein 5.9 L (6.3-8.2) g/dL Albumin 2.3 L (3.5-5.0) g/dL 10/31/21 10/31/21 Range/Units 06:00 06:19 WBC (3.8-10.6) k/uL RBC 3.97 L (4.30-5.90) m/uL Hgb 11.6 L (13.0-17.5) gm/dL Hct 37.2 L (39.0-53.0) % Lymphocytes # (Manual) 0.93 L (1.0-4.8) k/uL Monocytes # (Manual) 1.13 H (0-1.0) k/uL Metamyelocytes # (Man) 0.62 H (0) k/uL Myelocytes # (Manual) 0.10 H (0) k/uL ABG pCO2 49 H (35-45) mmHg ABG pO2 58 L* (83-108) mmHg ABG HCO3 34 H (21-25) mmol/L ABG Total CO2 35 H (19-24) mmol/L ABG O2 Saturation 90.3 L (94-97) % Carbon Dioxide (22-30) mmol/L BUN (9-20) mg/dL Glucose (74-99) mg/dL POC Glucose (mg/dL) (75-99) mg/dL Calcium (8.4-10.2) mg/dL AST (17-59) U/L ALT (4-49) U/L Total Protein (6.3-8.2) g/dL Albumin (3.5-5.0) g/dL Microbiology - Last 24 Hours (Table) 10/26/21 20:48 Blood Culture - Preliminary Blood No Growth after 96 hours 10/26/21 20:48 Blood Culture - Preliminary Blood No Growth after 96 hours 10/26/21 23:43 Anaerobic Culture - Preliminary Abdomen
--- NOTE | 2021-10-31 11:40 | P.PN ---
Subjective Progress Note Date: 10/31/21 Principal diagnosis: COVID-19 pneumonia On 10/31/2021 patient seen in follow-up in intensive care unit, he remains sedated, and intubated, on assist control mode of ventilation with a rate of 30, tidal volumes 450, FiO2 of 50% and PEEP of 8. This morning's blood gas shows pO2 of 58, pCO2 49, and pH of 7.45. Today's chest x-ray shows ET tube, right jugular central line in stable position, lisinopril pleural parenchymal changes that are stable in appearance, no evident pneumothorax or pleural effusion. Patient is currently on lactated Ringer's at a rate of 50 ML per hour, fentanyl infusion 0.5 mics per kilo per minute, Diprivan and is of 40 mics per kilo per minute, and Cleviprex is at 4 mg per hour. Patient is on TPN at 75 ML per hour. No vasopressors. Today's labs have been reviewed, showing a lot of blood cell count of 10.3, hemoglobin of 11.6, sodium of 138, potassium is 4.3, chloride is 102, CO2 is 31, BUN of 30 creatinine 0.71. Patient remains on a combination of fluconazole and Zosyn for recent history of gastric perforation status post surgical intervention. Yesterday he was given a daily interruption of sedation and the patient was completely unresponsive, and did not follow any commands. However patient required to be placed back on sedation related to unstable vital signs and because he was becoming more agitated. Objective - Vital Signs Vital signs: Vital Signs Temp 98.6 F 10/31/21 04:00 Pulse 42 L 10/31/21 07:00 Resp 32 H 10/31/21 07:00 BP 120/66 10/31/21 07:00 Pulse Ox 89 L 10/31/21 07:00 Intake & Output 10/30/21 10/31/21 10/31/21 18:59 06:59 18:59 Intake Total 5561.474 1874.823 169.133 Output Total 1270 1550 50 Balance 692.672 547.823 119.133 Weight 107 kg 109 kg Intake: IV 610 636 53 .9 NS 60 36 3 Lactated Ringers 1,000 ml 550 600 50 @ 50 mls/hr IV .Q20H [facility] Rx#:[id number] Intake, IV Titration 9653.538 3144.823 116.133 Amount Calcium Gluconate 1 gm 1029.5 1027.833 Sodium Chloride 4Meq/ml Vial 50 meq Potassium Chloride 10 meq Potassium Phosphate 6 mmol In Amino Acid 4.25%-D10w 1, 000 ml @ 70 mls/hr IV .BY DURATION [facility] Rx#: [id number] Clevidipine Butyrate 25 31.067 50.933 16.133 mg In Empty Bag 1 bag @ 1 MG/HR 2 mls/hr IV .Q24H [facility] Rx#:[id number] Dexmedetomidine/0.9% NaCl 1.873 (Pmx) 400 mcg In Empty Bag 1 bag @ 0.2 MCG/KG/HR 5.35 mls/hr IV .[id number] [facility] Rx#:[id number] Lactated Ringers 1,000 ml 50 @ 50 mls/hr IV .Q20H [facility] Rx#:[id number] fentaNYL (PF). 1,000 mcg 93.453 In Sodium Chloride 0.9% 80 ml @ 0.5 MCG/KG/HR 5. 216 mls/hr IV .[id number] [facility] Rx#:[id number] propofoL 1,000 mg In 240.232 289.604 100 Empty Bag 1 bag @ Titrate IV .Q0M [facility] Rx#: [id number] Output: Gastric Drainage 150 350 Drainage 0 Medial Abdomen 0 Urine 1120 1200 50 Other: Voiding Method Indwelling Catheter Indwelling Catheter ABP, PAP, CO, CI - Last Documented Arterial Blood Pressure 148/51 - Exam GENERAL EXAM: 66-year-old white male, intubated, sedated, on assist-control mode of ventilation with a rate of 30, tidal volume is 450, FiO2 50% and PEEP of 8, comfortable in no apparent distress. HEAD: Normocephalic/atraumatic. EYES: Normal reaction of pupils, equal size. Conjunctiva pink, sclera white. NOSE: Clear with pink turbinates. THROAT: No erythema or exudates. NECK: No masses, no JVD, no thyroid enlargement, no adenopathy. CHEST: No chest wall deformity. Symmetrical expansion. LUNGS: Equal air entry with no crackles, wheeze, rhonchi or dullness. CVS: Regular rate and rhythm, normal S1 and S2, no gallops, no murmurs, no rubs ABDOMEN: Soft, nontender. No hepatosplenomegaly, normal bowel sounds, no guarding or rigidity. abdominal incision is not inspected, covered with a dressing EXTREMITIES: No clubbing, no edema, no cyanosis, 2+ pulses and upper and lower extremities. MUSCULOSKELETAL: Muscle strength and tone normal. SPINE: No scoliosis or deformity SKIN: No rashes CENTRAL NERVOUS SYSTEM: No focal deficits, tone is normal in all 4 extremities. - Labs CBC & Chem 7: 10/31/21 06:00 10/31/21 06:00 Labs: Abnormal Lab Results - Last 24 Hours (Table) 10/30/21 10/30/21 10/30/21 Range/Units 05:15 12:55 17:27 WBC 11.5 H (3.8-10.6) k/uL RBC 3.73 L (4.30-5.90) m/uL Hgb 11.0 L (13.0-17.5) gm/dL Hct 35.0 L (39.0-53.0) % Lymphocytes # (Manual) (1.0-4.8) k/uL Monocytes # (Manual) (0-1.0) k/uL Metamyelocytes # (Man) (0) k/uL Myelocytes # (Manual) (0) k/uL ABG pCO2 (35-45) mmHg ABG pO2 (83-108) mmHg ABG HCO3 (21-25) mmol/L ABG Total CO2 (19-24) mmol/L ABG O2 Saturation (94-97) % Carbon Dioxide (22-30) mmol/L BUN (9-20) mg/dL Glucose (74-99) mg/dL POC Glucose (mg/dL) 147 H 153 H (75-99) mg/dL Calcium (8.4-10.2) mg/dL AST (17-59) U/L ALT (4-49) U/L Total Protein (6.3-8.2) g/dL Albumin (3.5-5.0) g/dL 10/30/21 10/31/21 10/31/21 Range/Units 23:09 05:57 06:00 WBC (3.8-10.6) k/uL RBC (4.30-5.90) m/uL Hgb (13.0-17.5) gm/dL Hct (39.0-53.0) % Lymphocytes # (Manual) (1.0-4.8) k/uL Monocytes # (Manual) (0-1.0) k/uL Metamyelocytes # (Man) (0) k/uL Myelocytes # (Manual) (0) k/uL ABG pCO2 (35-45) mmHg ABG pO2 (83-108) mmHg ABG HCO3 (21-25) mmol/L ABG Total CO2 (19-24) mmol/L ABG O2 Saturation (94-97) % Carbon Dioxide 31 H (22-30) mmol/L BUN 30 H (9-20) mg/dL Glucose 151 H (74-99) mg/dL POC Glucose (mg/dL) 151 H 136 H (75-99) mg/dL Calcium 8.0 L (8.4-10.2) mg/dL AST 65 H (17-59) U/L ALT 50 H (4-49) U/L Total Protein 5.9 L (6.3-8.2) g/dL Albumin 2.3 L (3.5-5.0) g/dL 10/31/21 10/31/21 Range/Units 06:00 06:19 WBC (3.8-10.6) k/uL RBC 3.97 L (4.30-5.90) m/uL Hgb 11.6 L (13.0-17.5) gm/dL Hct 37.2 L (39.0-53.0) % Lymphocytes # (Manual) 0.93 L (1.0-4.8) k/uL Monocytes # (Manual) 1.13 H (0-1.0) k/uL Metamyelocytes # (Man) 0.62 H (0) k/uL Myelocytes # (Manual) 0.10 H (0) k/uL ABG pCO2 49 H (35-45) mmHg ABG pO2 58 L* (83-108) mmHg ABG HCO3 34 H (21-25) mmol/L ABG Total CO2 35 H (19-24) mmol/L ABG O2 Saturation 90.3 L (94-97) % Carbon Dioxide (22-30) mmol/L BUN (9-20) mg/dL Glucose (74-99) mg/dL POC Glucose (mg/dL) (75-99) mg/dL Calcium (8.4-10.2) mg/dL AST (17-59) U/L ALT (4-49) U/L Total Protein (6.3-8.2) g/dL Albumin (3.5-5.0) g/dL Microbiology - Last 24 Hours (Table) 10/26/21 20:48 Blood Culture - Preliminary Blood No Growth after 96 hours 10/26/21 20:48 Blood Culture - Preliminary Blood No Growth after 96 hours 10/26/21 23:43 Anaerobic Culture - Preliminary Abdomen Assessment and Plan Plan: Assessment: #1. Acute hypoxic respiratory failure suspected to COVID-19 pneumonia #2. Perforated gastric ulcer, status post surgical intervention with exposure laparotomy, Billroth type II, and reconstruction of a gastric perforation on 10/26/2021 #3. Acute abdominal sepsis, with abdominal wound cultures positive for Annia albicans, currently on a combination of Diflucan and Zosyn #4. Lactic acidosis secondary to abdominal sepsis, resolved with fluid resuscitation #5. Acute kidney injury, resolved #6. Altered mental status, multifactorial, rule out possibility of a central nervous system abnormality possibility of a stroke, CT of the brain is pending Plan: Continue current vent settings Patient failed sedation holiday yesterday, and did not follow any commands, was poorly responsive however was placed back on sedation because of increasing agitation We will obtain brain scan without contrast today Consult Dr. Velásquez from neurology We'll attempt another sedation holiday Continue TPN for nutritional support Antibiotics per general surgery Today's labs and chest x-ray have been reviewed We'll continue to closely follow in the intensive care unit I performed a history & physical examination of the patient and discussed their management with my nurse practitioner, Abiola Abarca. I reviewed the nurse practitioner's note and agree with the documented findings and plan of care. Lung sounds are positive for dim breath sounds throughout the lung hanks. The findings and the impression was discussed with the patient. I attest to the documentation by the nurse practitioner. Time with Patient: Greater than 30
[2021-10-31 12:34] LABS: Glucose,Whole Blood 149 mg/dL (75-99)
[2021-10-31] MEDS: fentaNYL (PF). 1,000 MCG in SODIUM CHLORIDE 0.9% 80 ML IV SCH (13:11)
--- NOTE | 2021-10-31 15:35 | CT ---
EXAMINATION TYPE: CT brain wo con DATE OF EXAM: 10/31/2021 HISTORY: Altered mental status. CT DLP: 1208.4 mGycm. Automated Exposure Control for Dose Reduction was Utilized. TECHNIQUE: CT scan of the head is performed without contrast. COMPARISON: None. FINDINGS: There is no acute intracranial hemorrhage or midline shift identified. There is mild diff use ventricular and sulcal prominence consistent with diffuse age-related cerebral atrophy. Mild Low- attenuation in the deep and periventricular white matter. Mild mucosal thickening involving ethmoid s inuses bilaterally. Left inferior frontal sinus 1.2 cm ossific densities suspicious for focal osteoma axial image 14. Endotracheal and nasogastric tubes partially imaged. IMPRESSION: No acute intracranial hemorrhage or midline shift. There is mild diffuse age-related ce rebral atrophy and chronic small vessel ischemic change noted.
[2021-10-31 17:30] LABS: Glucose,Whole Blood 138 mg/dL (75-99)
--- NOTE | 2021-10-31 22:40 | PN ---
PROGRESS NOTE DATE OF SERVICE: 10/31/2021 REASON FOR FOLLOWUP: Secondary peritonitis from perforated peptic ulcer disease. INTERVAL HISTORY: The patient is afebrile. The patient did have a CT of the brain, as apparently the patient was not waking up. However, the patient seems to be doing well today per the nursing staff. The patient is hemodynamically stable, not on any pressor support. FiO2 is currently stable. No significant purulent secretions in the ET or diarrhea reported. PHYSICAL EXAMINATION: Blood pressure 129/47, pulse of 53, temperature of 99.9. He is on 50% FiO2. General description is an elderly male lying in bed in no distress. Respiratory system: coarse breath sounds bilaterally. No wheeze. Heart S1, S2. Regular rate and rhythm. Abdomen soft, no tenderness. LABS: Hemoglobin is 11.6, white count of 10.3, creatinine 0.71. DIAGNOSTIC IMPRESSION AND PLAN: Patient with secondary peritonitis from perforated peptic ulcer disease, status post repair in this patient covered with Zosyn and Diflucan with abdominal culture positive for Annia albicans. Continue with current antibiotics and monitor his clinical course closely. Continue with supportive care. MMODL / IJN: [id number] /
[2021-10-31 23:40] LABS: Glucose,Whole Blood 131 mg/dL (75-99)
[2021-11-01] MEDS: DEXMEDETOMIDINE/0.9% NACL(PMX) 400 MCG in EMPTY BAG 1 BAG IV SCH ×4 (00:14→22:04)
[2021-11-01] MEDS: fentaNYL (PF). 1,000 MCG in SODIUM CHLORIDE 0.9% 80 ML IV SCH (00:41)
[2021-11-01] MEDS: INSULIN ASPART (NovoLOG) 100 UNIT/ML VIAL SQ SCH ×5 (00:42→23:26)
[2021-11-01] MEDS: LACTATED RINGERS 1,000 ML IV SCH (00:46)
[2021-11-01] MEDS: CLEVIDIPINE BUTYRATE 25 MG in EMPTY BAG 1 BAG IV SCH ×3 (01:57→23:50)
[2021-11-01] MEDS: PIPERACILLIN-TAZOBACTAM 3.375 GM in SODIUM CHLORIDE 0.9% 100 ML IVPB SCH ×3 (04:17→20:27)
[2021-11-01 04:58] LABS: African American GFR (CKD) >90 (>60 ml/min/1.73 sqM); Anion Gap 6 mmol/L; Blood Urea Nitrogen 27 mg/dL (9-20); Calcium 7.9 mg/dL (8.4-10.2); Carbon Dioxide 28 mmol/L (22-30); Chloride 104 mmol/L (98-107); Glucose 137 mg/dL (74-99); Magnesium 1.9 mg/dL (1.6-2.3); Non-African American GFR(CKD) >90 (>60 ml/min/1.73 sqM); Phosphorus 4.5 mg/dL (2.5-4.5); Potassium 4.1 mmol/L (3.5-5.1); Sodium 138 mmol/L (137-145)
[2021-11-01 06:03] LABS: ABG Base Excess 8.3 mmol/L; ABG HCO3 32 mmol/L (21-25); ABG PCO2 46 mmHg (35-45); ABG PH 7.46 (7.35-7.45); ABG PO2 66 mmHg (83-108); ABG TCO2 34 mmol/L (19-24); Allen Test Performed? Yes
[2021-11-01 06:31] LABS: Glucose,Whole Blood 137 mg/dL (75-99)
[2021-11-01] MEDS: HEPARIN SODIUM,PORCINE/PF 5,000 UNIT/0.5 ML SYRINGE SQ SCH ×3 (08:32→23:50)
[2021-11-01] MEDS: DEXAMETHASONE SOD PHOSPHATE 10 MG/ML 1 ML VIAL IVP SCH (08:32)
[2021-11-01] MEDS ORDERED: FUROSEMIDE 10 MG/ML 4 ML VIAL IV STA (08:33)
[2021-11-01] MEDS: CHLORHEXIDINE GLUCONATE 15 ML CUP MUCOUS MEM SCH ×2 (08:33→20:27)
[2021-11-01] MEDS: FLUCONAZOLE IN NACL,ISO-OSM 200 MG in SALINE 1 100ML.BAG IVPB SCH (08:34)
--- NOTE | 2021-11-01 09:06 | XR ---
EXAMINATION TYPE: XR chest 1V portable DATE OF EXAM: 11/01/2021 Comparison: 10/31/2021 Clinical History: 66-year-old male Tube placement Findings: CT to be satisfactory. NG tube sidehole at the GE junction level. Consider slight advancement by 3 cm in to the stomach. Heart borderline enlarged. Hyperinflation. Patchy confluent airspace opacities bi laterally with a peripheral predominance persists. There has been slight improvement on the right. Right IJ CVC is malpositioned, diverting into the right axilla. Impression: 1. Right IJ CVC is malpositioned. The tip is diverging into the right axilla. 2. Advance the NG tube by 3 cm so that the sidehole enters the stomach. 3. COPD with continued patchy an confluent peripheral airspace disease. There has been slight improve ment on the right.
--- NOTE | 2021-11-01 09:51 | P.PN ---
Subjective Progress Note Date: 11/01/21 Principal diagnosis: COVID-19 pneumonia On 10/31/2021 patient seen in follow-up in intensive care unit, he remains sedated, and intubated, on assist control mode of ventilation with a rate of 30, tidal volumes 450, FiO2 of 50% and PEEP of 8. This morning's blood gas shows pO2 of 58, pCO2 49, and pH of 7.45. Today's chest x-ray shows ET tube, right jugular central line in stable position, lisinopril pleural parenchymal changes that are stable in appearance, no evident pneumothorax or pleural effusion. Patient is currently on lactated Ringer's at a rate of 50 ML per hour, fentanyl infusion 0.5 mics per kilo per minute, Diprivan and is of 40 mics per kilo per minute, and Cleviprex is at 4 mg per hour. Patient is on TPN at 75 ML per hour. No vasopressors. Today's labs have been reviewed, showing a lot of blood cell count of 10.3, hemoglobin of 11.6, sodium of 138, potassium is 4.3, chloride is 102, CO2 is 31, BUN of 30 creatinine 0.71. Patient remains on a combination of fluconazole and Zosyn for recent history of gastric perforation status post surgical intervention. Yesterday he was given a daily interruption of sedation and the patient was completely unresponsive, and did not follow any commands. However patient required to be placed back on sedation related to unstable vital signs and because he was becoming more agitated. On 11/01/2021 patient seen in follow-up in intensive care unit, he remains sedated, and intubated on mechanical ventilator with assist-control with a rate of 30, tidal on was 450, FiO2 of 50% and PEEP of 8. His peak airway pressures 23, plateau pressure is 21, today's chest x-ray showing malpositioning of the right IJ CVC diverging into the right axilla, and the recommendation was to advance the NG tube by 3 cm. COPD with continued patchy and confluent perihilar airspace disease with slight improvement on the right. This morning blood gas shows pO2 of 66, pCO2 46, and pH of 7.46 this was done above mentioned events that his, he is on Diprivan at 50 mics per kilo per minute, TPN is a 75 ML per hour, fentanyl is a 0.5 mics per kilo per minute, 0.9 at T ML per hour, Cleviprex is a 4 mg/h. He is hemodynamically stable, not requiring any vasopressor support, he is in sinus mechanism with a rate of 89. Neurologically patient is waking up, he opens eyes to voice, he follows command, he squeezing hands on command. Does not appear to be in any acute distress, still on sedation with Diprivan and Fentanyl. Yesterday patient had CT of the brain without, showing no acute findings. He remains on combination of antibiotics with Zosyn and Diflucan, so far the abdominal wound cultures showed Annia albicans, his blood in urine cultures have been negative. Has not passed any stool, however he has positive bowel sounds, abdomen is soft, mid abdominal incision is clean dry and intact. Today's CBC is still pending, his last white blood cell count from yesterday was 10.3, hemoglobin is 11.6, today's BMP is available, his electrolytes are unremarkable, his BUN is 27 creatinine 0.65. Objective - Vital Signs Vital signs: Vital Signs Temp 99.9 F H 10/31/21 21:00 Pulse 37 L 11/01/21 07:00 Resp 30 H 11/01/21 07:00 BP 135/47 10/31/21 21:00 Pulse Ox 91 L 11/01/21 07:00 Intake & Output 10/31/21 11/01/21 11/01/21 18:59 06:59 18:59 Intake Total 8113.930 2596.447 98.466 Output Total 1350 2450 575 Balance -191.283 -1350.553 -476.534 Weight 111 kg Intake: IV 683 636 53 .9 NS 33 36 3 Lactated Ringers 1,000 ml 500 600 50 @ 50 mls/hr IV .Q20H [facility] Rx#:[id number] Piperacillin-Tazobactam 3 150 .375 gm In Sodium Chloride 0.9% 100 ml @ 25 mls/hr IVPB Q8H [facility] Rx#: [id number] Intake, IV Titration 475.717 463.447 45.466 Amount Clevidipine Butyrate 25 68.466 97.733 mg In Empty Bag 1 bag @ 1 MG/HR 2 mls/hr IV .Q24H [facility] Rx#:[id number] Dexmedetomidine/0.9% NaCl 0 (Pmx) 400 mcg In Empty Bag 1 bag @ 0.2 MCG/KG/HR 5.35 mls/hr IV .[id number] [facility] Rx#:[id number] fentaNYL (PF). 1,000 mcg 82.5 59.984 45.466 In Sodium Chloride 0.9% 80 ml @ 0.5 MCG/KG/HR 5. 216 mls/hr IV .[id number] [facility] Rx#:[id number] propofoL 1,000 mg In 324.751 305.73 Empty Bag 1 bag @ Titrate IV .Q0M [facility] Rx#: [id number] Output: Gastric Drainage 250 1500 500 Urine 1100 950 75 Other: Voiding Method Indwelling Catheter Indwelling Catheter ABP, PAP, CO, CI - Last Documented Arterial Blood Pressure 124/49 - Exam GENERAL EXAM: 66-year-old white male, intubated, sedated, on assist-control mode of ventilation with a rate of 30, tidal volume is 450, FiO2 50% and PEEP of 8, comfortable in no apparent distress. HEAD: Normocephalic/atraumatic. EYES: Normal reaction of pupils, equal size. Conjunctiva pink, sclera white. NOSE: Clear with pink turbinates. THROAT: No erythema or exudates. NECK: No masses, no JVD, no thyroid enlargement, no adenopathy. CHEST: No chest wall deformity. Symmetrical expansion. LUNGS: Equal air entry with no crackles, wheeze, rhonchi or dullness. CVS: Regular rate and rhythm, normal S1 and S2, no gallops, no murmurs, no rubs ABDOMEN: Soft, nontender. No hepatosplenomegaly, normal bowel sounds, no guarding or rigidity. abdominal incision is clean dry and intact, covered with a dressing. Bowel sounds 4 EXTREMITIES: No clubbing, no edema, no cyanosis, 2+ pulses and upper and lower extremities. MUSCULOSKELETAL: Muscle strength and tone normal. SPINE: No scoliosis or deformity SKIN: No rashes CENTRAL NERVOUS SYSTEM: No focal deficits, tone is normal in all 4 extremities. - Labs CBC & Chem 7: 10/31/21 06:00 11/01/21 04:10 Labs: Abnormal Lab Results - Last 24 Hours (Table) 10/31/21 10/31/21 10/31/21 Range/Units 12:31 17:29 23:38 ABG pH (7.35-7.45) ABG pCO2 (35-45) mmHg ABG pO2 (83-108) mmHg ABG HCO3 (21-25) mmol/L ABG Total CO2 (19-24) mmol/L ABG O2 Saturation (94-97) % BUN (9-20) mg/dL Creatinine (0.66-1.25) mg/dL Glucose (74-99) mg/dL POC Glucose (mg/dL) 149 H 138 H 131 H (75-99) mg/dL Calcium (8.4-10.2) mg/dL 11/01/21 11/01/21 11/01/21 Range/Units 04:10 06:00 06:30 ABG pH 7.46 H (7.35-7.45) ABG pCO2 46 H (35-45) mmHg ABG pO2 66 L (83-108) mmHg ABG HCO3 32 H (21-25) mmol/L ABG Total CO2 34 H (19-24) mmol/L ABG O2 Saturation 93.0 L (94-97) % BUN 27 H (9-20) mg/dL Creatinine 0.65 L (0.66-1.25) mg/dL Glucose 137 H (74-99) mg/dL POC Glucose (mg/dL) 137 H (75-99) mg/dL Calcium 7.9 L (8.4-10.2) mg/dL Microbiology - Last 24 Hours (Table) 10/26/21 20:48 Blood Culture - Preliminary Blood No Growth after 120 hours 10/26/21 20:48 Blood Culture - Preliminary Blood No Growth after 120 hours 10/26/21 23:43 Anaerobic Culture - Final Abdomen 10/26/21 23:43 Anaerobic Culture - Final Abdomen Assessment and Plan Plan: Assessment: #1. Acute hypoxic respiratory failure suspected to COVID-19 pneumonia, patient remains on a ventilator today on 11/01/2021 with FiO2 50% and PEEP of 8. #2. Perforated gastric ulcer, status post surgical intervention with exposure laparotomy, Billroth type II, and reconstruction of a gastric perforation on 10/26/2021 #3. Acute abdominal sepsis, with abdominal wound cultures positive for Annia albicans, currently on a combination of Diflucan and Zosyn #4. Lactic acidosis secondary to abdominal sepsis, resolved with fluid resuscitation #5. Acute kidney injury, resolved #6. Altered mental status, multifactorial, rule out possibility of a central nervous system abnormality possibility of a stroke, CT of the brain on 10/31/2021 showed no acute findings Plan: Continue current vent settings Neurologic the patient is improving, he is waking up and following commands We'll stop the sedation, may use Precedex for agitation We'll proceed with pressure support of 8 and CPAP of 5 Yesterday's brain scan was reviewed showing no acute findings Hemodynamically patient is stable, although requiring Cleviprex for high blood pressure Continue TPN for nutritional support We will check with general surgery about continuation of the antibiotics We'll give the patient dose of IV Lasix 40 mg We'll drop the maintenance IV fluids to KVO We'll continue to closely follow in the intensive care unit I performed a history & physical examination of the patient and discussed their management with my nurse practitioner, Abiola Abarca. I reviewed the nurse pr actitioner's note and agree with the documented findings and plan of care. Lung sounds are positive for dim breath sounds throughout the lung hanks. The findings and the impression was discussed with the patient. I attest to the documentation by the nurse practitioner. Time with Patient: Greater than 30
--- NOTE | 2021-11-01 10:13 | P.PN ---
Subjective Progress Note Date: 11/01/21 Principal diagnosis: Patient is still intubated No changes Physical exam stable on vent Chest no accessory muscle usage Patient is sedated on vent Psych sedated Respiratory necessary muscle usage COVID-19 pneumonia with acute hypoxic respiratory failure -Continue with mechanical ventilation, propofol, fentanyl, IV fluids -Continue Decadron -Infectious disease consulted: Sepsis secondary to Perforated gastric ulcer status post expiratory laparotomy and gastrectomy -Defer management to the primary surgical service -On TPN, on PPI IV Elevated INR -Suspected due to sepsis upon presentation -Monitor for now Continue to wean as better respiratory protocol and pulmonology Overall appears to be stable continue management as per ICU team and pulmonary Patient is still intubated and continue current management overall Objective - Vital Signs Vital signs: Vital Signs Temp 99.9 F H 10/31/21 21:00 Pulse 37 L 11/01/21 07:00 Resp 30 H 11/01/21 07:00 BP 135/47 10/31/21 21:00 Pulse Ox 91 L 11/01/21 07:00 Intake & Output 10/31/21 11/01/21 11/01/21 18:59 06:59 18:59 Intake Total 8963.946 4338.447 98.466 Output Total 1350 2450 575 Balance -191.283 -1350.553 -476.534 Weight 111 kg Intake: IV 683 636 53 .9 NS 33 36 3 Lactated Ringers 1,000 ml 500 600 50 @ 50 mls/hr IV .Q20H [facility] Rx#:[id number] Piperacillin-Tazobactam 3 150 .375 gm In Sodium Chloride 0.9% 100 ml @ 25 mls/hr IVPB Q8H [facility] Rx#: [id number] Intake, IV Titration 475.717 463.447 45.466 Amount Clevidipine Butyrate 25 68.466 97.733 mg In Empty Bag 1 bag @ 1 MG/HR 2 mls/hr IV .Q24H [facility] Rx#:[id number] Dexmedetomidine/0.9% NaCl 0 (Pmx) 400 mcg In Empty Bag 1 bag @ 0.2 MCG/KG/HR 5.35 mls/hr IV .[id number] [facility] Rx#:[id number] fentaNYL (PF). 1,000 mcg 82.5 59.984 45.466 In Sodium Chloride 0.9% 80 ml @ 0.5 MCG/KG/HR 5. 216 mls/hr IV .[id number] [facility] Rx#:[id number] propofoL 1,000 mg In 324.751 305.73 Empty Bag 1 bag @ Titrate IV .Q0M [facility] Rx#: [id number] Output: Gastric Drainage 250 1500 500 Urine 1100 950 75 Other: Voiding Method Indwelling Catheter Indwelling Catheter ABP, PAP, CO, CI - Last Documented Arterial Blood Pressure 124/49 - Labs CBC & Chem 7: 10/31/21 06:00 11/01/21 04:10 Labs: Abnormal Lab Results - Last 24 Hours (Table) 10/31/21 10/31/21 10/31/21 Range/Units 12:31 17:29 23:38 ABG pH (7.35-7.45) ABG pCO2 (35-45) mmHg ABG pO2 (83-108) mmHg ABG HCO3 (21-25) mmol/L ABG Total CO2 (19-24) mmol/L ABG O2 Saturation (94-97) % BUN (9-20) mg/dL Creatinine (0.66-1.25) mg/dL Glucose (74-99) mg/dL POC Glucose (mg/dL) 149 H 138 H 131 H (75-99) mg/dL Calcium (8.4-10.2) mg/dL 11/01/21 11/01/21 11/01/21 Range/Units 04:10 06:00 06:30 ABG pH 7.46 H (7.35-7.45) ABG pCO2 46 H (35-45) mmHg ABG pO2 66 L (83-108) mmHg ABG HCO3 32 H (21-25) mmol/L ABG Total CO2 34 H (19-24) mmol/L ABG O2 Saturation 93.0 L (94-97) % BUN 27 H (9-20) mg/dL Creatinine 0.65 L (0.66-1.25) mg/dL Glucose 137 H (74-99) mg/dL POC Glucose (mg/dL) 137 H (75-99) mg/dL Calcium 7.9 L (8.4-10.2) mg/dL Microbiology - Last 24 Hours (Table) 10/26/21 20:48 Blood Culture - Preliminary Blood No Growth after 120 hours 10/26/21 20:48 Blood Culture - Preliminary Blood No Growth after 120 hours 10/26/21 23:43 Anaerobic Culture - Final Abdomen 10/26/21 23:43 Anaerobic Culture - Final Abdomen
[2021-11-01] MEDS: PANTOPRAZOLE 40 MG/10 ML VIAL IV SCH (10:35)
[2021-11-01 11:26] LABS: Glucose,Whole Blood 148 mg/dL (75-99)
[2021-11-01] MEDS: SODIUM CHLORIDE IV SCH ×14 (13:19→23:26)
[2021-11-01] MEDS: [UNRECOGNIZED DRUG - OTHER] IV SCH ×14 (13:19→23:26)
[2021-11-01] MEDS: CALCIUM GLUCONATE IV SCH ×14 (13:19→23:26)
[2021-11-01] MEDS ORDERED: LIDOCAINE 1% INJ 10MG/ML (20 ML MDV) SQ ONE (13:41)
--- NOTE | 2021-11-01 14:00 | XR ---
EXAMINATION TYPE: XR chest 1V portable DATE OF EXAM: 11/01/2021 COMPARISON: 11/01/2021 HISTORY: PICC line placement TECHNIQUE: Single frontal view of the chest is obtained. FINDINGS: Right-sided central line appears to be malpositioned extending into the right axilla. ET a nd NG tube noted. PICC line appears in good position overlying the SVC. Bilateral infiltrates noted. Small bilateral effusions. Biapical pleural thickening. Heart size normal. Atherosclerotic change aor ta. IMPRESSION: 1. PICC line in good position. 2. Central line appears malpositioned with the tip near the right axilla. 3. Stable bilateral infiltrates.
--- NOTE | 2021-11-01 14:19 | IR ---
PICC LINE PLACEMENT: HISTORY: Infection requiring long-term antibiotic therapy PROCEDURE: Ultrasound guidance of PICC line placement. COMPLICATIONS: None ANESTHESIA: 1. 1% Lidocaine locally. FINDINGS/TECHNIQUE: The procedure was explained to the patient. The risks, complications, benefits and alternatives were discussed and any questions were answered. Informed consent was obtained. The patient was placed supine on the fluoroscopic table and prepped and draped in the usual sterile fash ion. Utilizing a 21 gauge needle and sonographic guidance, access in the left basilic vein was achi eved and there is placement of a 0.018 guidewire. The vein is patent. A 5-F. sheath was placed over the guidewire. The guidewire and dilator were removed and a 5-F. Double lumen PICC line was placed through the sheath with the chest x-ray confirming the tip at the level of the SVC. The sheath was r emoved, the catheter was flushed and sutured into position. The patient was stable throughout the pr ocedure and remained stable upon discharge from the Department of Radiology. The vein puncture was patent under ultrasound. A villalobos scale image was obtained to document patency of the vein punctured. All elements of the maximal barrier technique were utilized. IMPRESSION: 1. Successful PICC line placement under ultrasound performed bedside within the ICU.
--- NOTE | 2021-11-01 15:19 | P.PN ---
Subjective Progress Note Date: 11/01/21 Patient seen and examined at bedside. Sedation vacation has been attempted by ICU with the patient beginning to become more responsive. They will be beginning Precedex. Nasogastric tube still in place. Weaning trials planned for today. PICC line was also placed today. Objective - Vital Signs Vital signs: Vital Signs Temp 98.7 F 11/01/21 08:00 Pulse 48 L 11/01/21 13:00 Resp 30 H 11/01/21 13:00 BP 135/47 10/31/21 21:00 Pulse Ox 95 11/01/21 13:00 Intake & Output 10/31/21 11/01/21 11/01/21 18:59 06:59 18:59 Intake Total 3689.927 9035.947 480.272 Output Total 1350 2450 2500 Balance -191.283 -321.053 -2019.728 Weight 111 kg Intake: IV 683 636 283 .9 NS 33 36 3 Lactated Ringers 1,000 ml 500 600 180 @ 50 mls/hr IV .Q20H [facility] Rx#:[id number] Piperacillin-Tazobactam 3 150 100 .375 gm In Sodium Chloride 0.9% 100 ml @ 25 mls/hr IVPB Q8H [facility] Rx#: [id number] Intake, IV Titration 253.150 1714.947 197.272 Amount Calcium Gluconate 1 gm 1029.5 Sodium Chloride 4Meq/ml Vial 50 meq Potassium Chloride 10 meq Potassium Phosphate 6 mmol In Amino Acid 4.25%-D10w 1, 000 ml @ 70 mls/hr IV .BY DURATION [facility] Rx#: [id number] Clevidipine Butyrate 25 68.466 97.733 mg In Empty Bag 1 bag @ 1 MG/HR 2 mls/hr IV .Q24H [facility] Rx#:[id number] Dexmedetomidine/0.9% NaCl 51.806 (Pmx) 400 mcg In Empty Bag 1 bag @ 0.2 MCG/KG/HR 5.35 mls/hr IV .[id number] [facility] Rx#:[id number] fentaNYL (PF). 1,000 mcg 82.5 59.984 45.466 In Sodium Chloride 0.9% 80 ml @ 0.5 MCG/KG/HR 5. 216 mls/hr IV .[id number] [facility] Rx#:[id number] propofoL 1,000 mg In 324.751 305.73 100 Empty Bag 1 bag @ Titrate IV .Q0M [facility] Rx#: [id number] Output: Gastric Drainage 250 1500 500 Urine 7826 730 8074 Other: Voiding Method Indwelling Catheter Indwelling Catheter Indwelling Catheter ABP, PAP, CO, CI - Last Documented Arterial Blood Pressure 146/67 - Constitutional General appearance: Present: no acute distress - Gastrointestinal Gastrointestinal Comment(s): RUPINDER drain in place with serosanguineous output General gastrointestinal: Absent: distended, tenderness - Labs CBC & Chem 7: 10/31/21 06:00 11/01/21 04:10 Labs: Abnormal Lab Results - Last 24 Hours (Table) 10/31/21 10/31/21 11/01/21 Range/Units 17:29 23:38 04:10 ABG pH (7.35-7.45) ABG pCO2 (35-45) mmHg ABG pO2 (83-108) mmHg ABG HCO3 (21-25) mmol/L ABG Total CO2 (19-24) mmol/L ABG O2 Saturation (94-97) % BUN 27 H (9-20) mg/dL Creatinine 0.65 L (0.66-1.25) mg/dL Glucose 137 H (74-99) mg/dL POC Glucose (mg/dL) 138 H 131 H (75-99) mg/dL Calcium 7.9 L (8.4-10.2) mg/dL 11/01/21 11/01/21 11/01/21 Range/Units 06:00 06:30 11:25 ABG pH 7.46 H (7.35-7.45) ABG pCO2 46 H (35-45) mmHg ABG pO2 66 L (83-108) mmHg ABG HCO3 32 H (21-25) mmol/L ABG Total CO2 34 H (19-24) mmol/L ABG O2 Saturation 93.0 L (94-97) % BUN (9-20) mg/dL Creatinine (0.66-1.25) mg/dL Glucose (74-99) mg/dL POC Glucose (mg/dL) 137 H 148 H (75-99) mg/dL Calcium (8.4-10.2) mg/dL Microbiology - Last 24 Hours (Table) 10/26/21 20:48 Blood Culture - Preliminary Blood No Growth after 120 hours 10/26/21 20:48 Blood Culture - Preliminary Blood No Growth after 120 hours 10/26/21 23:43 Anaerobic Culture - Final Abdomen 10/26/21 23:43 Anaerobic Culture - Final Abdomen Assessment and Plan Plan: POD #6, ex lap with Billroth 2 reconstruction for perforated gastric ulcer - Continue vent mgmt per ICU, weaning trials per ICU - Currently on zosyn and diflucan, appreciate ID recommendations - COVID Pneumonia, Requiring prolonged ventilation and steroid therapy - Continue RUPINDER drain - Continue TPN due to anticipated prolonged NPO status - NGT instructions were discussed with nursing. No manipulation of the NGT and no input through the NGT. Continue NGT to LIS. - PICC placed today - Case was discussed in depth with family. Patient has a very guarded prognosis.
[2021-11-01 17:29] LABS: Glucose,Whole Blood 150 mg/dL (75-99)
--- NOTE | 2021-11-01 22:04 | P.CNNES ---
History of Present Illness Consult date: 11/01/21 Requesting physician: Jacky Story Reason for Consult: Failed sedation holiday History of Present Illness: Patient is a 66-year-old male came to the hospital on 10/26/2021 for sudden onset of abdominal pain on the right side. Patient has been vaccinated against Covid and he started having cold-like symptoms on 10/16/2021 and was test is positive for Chong virus. Patient received monoclonal antibodies. He was doi ng better, but all of a sudden at 4 PM on the day of admission he started having severe right-sided abdominal pain. No vomiting or diarrhea. CTA of the chest showed extensive bilateral pulmonary infiltrates consistent with multifocal pneumonia. No evidence of pulmonary embolism. Patient had perforated gastric ulcer, status post surgical intervention with exploratory laparotomy Billroth type II and reconstruction of a gastric perforation on 10/26/2021. Patient had subsequently developed lactic acidosis secondary to abdominal sepsis, acute kidney injury, now resolved. Patient was on sedation. His overall medical conditions improved, but sedation holiday patient did not respond, which pr ompted this neurology consultation. CT head 10/31/2021 showed no acute intracranial hemorrhage or midline shift. There is mild diffuse age-related cerebral atrophy and chronic small vessel ischemic change. Patient's blood test shows normal electrolytes, BUN 27, creatinine 0.65. ABG with pH 7.46, pCO2 46 and O2 66%. Saturation 93%. Patient's last hepatic panel shows AST 65, ALT 50 both mildly elevated. Patient's most recent chest x-ray from today showed stable bilateral infiltrates. Small bilateral effusions. Biapical pleural thickening. Patient apparently today has started showing significant clinical improvement. Patient currently on Precedex 1.4 g. He is off propofol and fentanyl as of 9:51 AM. Patient is following commands despite being on high-dose Precedex. Please refer to examination is below. Review of Systems Patient did nod "no" for having any headaches. ROS unobtainable: due to endotracheal tube, due to mental status Past Medical History Past Medical History: Osteoarthritis (OA) Additional Past Medical History / Comment(s): back pain, elevated rbc History of Any Multi-Drug Resistant Organisms: None Reported Past Surgical History: No Surgical Hx Reported Additional Past Surgical History / Comment(s): colonoscopy Past Anesthesia/Blood Transfusion Reactions: No Reported Reaction Past Psychological History: No Psychological Hx Reported Smoking Status: Former smoker Past Alcohol Use History: Rare Past Drug Use History: None Reported - Past Family History Father Family Medical History: Cancer Additional Family Medical History / Comment(s): Colon Cancer Medications and Allergies Home Medications Medication Instructions Recorded Confirmed Type Celecoxib [CeleBREX] 200 mg PO BID 02/05/21 10/26/21 History HYDROcodone/APAP 5-325MG [[place] 1 tab PO BID PRN 02/05/21 10/26/21 History 5-325] Ascorbic Acid [Vitamin C] 500 mg PO DAILY 10/26/21 10/26/21 History Cholecalciferol [Vitamin D3 (25 25 mcg PO DAILY 10/26/21 10/26/21 History Mcg = 1000 Iu)] guaiFENesin [Mucinex] 600 mg PO BID PRN 10/26/21 10/26/21 History Allergies Allergy/AdvReac Type Severity Reaction Status Date / Time Sulfa (Sulfonamide Allergy Unknown Verified 10/26/21 20:20 Antibiotics) Physical Examination - Vital Signs Vital Signs: Vital Signs Temp Pulse Pulse Resp BP Pulse Ox 11/01/21 13:00 48 L 30 H 95 11/01/21 12:00 75 33 H 94 L 11/01/21 11:00 42 L 32 H 91 L 11/01/21 10:00 47 L 30 H 89 L 11/01/21 09:00 64 31 H 91 L 11/01/21 08:00 98.7 F 67 32 H 94 L 11/01/21 07:00 37 L 30 H 91 L 11/01/21 06:00 40 L 30 H 91 L 11/01/21 05:00 39 L 30 H 90 L 11/01/21 04:00 39 L 30 H 92 L 11/01/21 03:00 40 L 30 H 91 L 11/01/21 02:00 42 L 30 H 92 L 11/01/21 01:00 47 L 30 H 91 L 11/01/21 00:09 41 L 24 91 L 11/01/21 00:00 42 L 30 H 91 L 10/31/21 23:00 39 L 24 92 L 10/31/21 22:00 44 L 24 87 L 10/31/21 21:00 99.9 F H 53 L 53 L 24 135/47 88 L 10/31/21 20:00 56 L 55 L 25 H 116/54 89 L 10/31/21 19:20 57 L 18 88 L 10/31/21 19:00 59 L 31 H 148/52 88 L 10/31/21 18:00 50 L 31 H 140/54 87 L 10/31/21 17:00 53 L 30 H 140/54 89 L 10/31/21 16:00 52 L 30 H 154/60 92 L Intake and Output 11/01/21 11/01/21 11/01/21 06:59 14:59 22:59 Intake Total 680.984 480.272 Output Total 2200 2500 Balance -1519.016 -2019.728 Intake: IV 371 283 .9 NS 21 3 Lactated Ringers 1,000 ml 350 180 @ 50 mls/hr IV .Q20H RIANNA Rx#:[id number] Piperacillin-Tazobactam 3 100 .375 gm In Sodium Chloride 0.9% 100 ml @ 25 mls/hr IVPB Q8H RIANNA Rx#: [id number] Intake, IV Titration 309.984 197.272 Amount Clevidipine Butyrate 25 50 mg In Empty Bag 1 bag @ 1 MG/HR 2 mls/hr IV .Q24H RIANNA Rx#:[id number] Dexmedetomidine/0.9% NaCl 51.806 (Pmx) 400 mcg In Empty Bag 1 bag @ 0.2 MCG/KG/HR 5.35 mls/hr IV .[id number] RIANNA Rx#:[id number] fentaNYL (PF). 1,000 mcg 59.984 45.466 In Sodium Chloride 0.9% 80 ml @ 0.5 MCG/KG/HR 5. 216 mls/hr IV .[id number] RIANNA Rx#:[id number] propofoL 1,000 mg In 200 100 Empty Bag 1 bag @ Titrate IV .Q0M RIANNA Rx#: [id number] Output: Gastric Drainage 1500 500 Urine 700 2000 Other: Voiding Method Indwelling Catheter Indwelling Catheter Weight 111 kg ABP, PAP, CO, CI - Last 8 Hours Arterial Blood Pressure 146/67 Arterial Blood Pressure 166/72 Arterial Blood Pressure 140/53 Arterial Blood Pressure 135/53 Arterial Blood Pressure 155/59 Arterial Blood Pressure 149/60 Patient is an elderly male, who is intubated. Patient is somnolent, but does wake up slightly, on calling his name. Speech and language functions cannot be assessed due to intubation. Attention, concentration is decreased and fund of knowledge cannot be assessed. On cranial examination, pupils are round and reacting to light, visual hanks could not be tested. His extraocular muscles are intact with no nystagmus. Face and lower cranial nerves cannot be assessed. Hearing appears normal. On muscle strength testing, patient does follow commands. 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 Patient able to wiggle his feet fairly well. Deep tendon reflexes are slightly diminished and plantars are flat. Sensory to touch is equal with no neglect. Cerebellar function cannot be assessed. Tone and bulk of muscles normal. Gait cannot be assessed On general examination, there is no carotid bruit or murmur, S1-S2 audible. No cyanosis. Abdomen appears soft. No edema. Results - Laboratory Findings CBC and BMP: 10/31/21 06:00 11/01/21 04:10 Abnormal Lab Findings: Abnormal Labs 10/26/21 10/26/21 10/26/21 01:53 19:34 19:34 WBC 13.6 H RBC Hgb Hct Plt Count 572 H Neutrophils # 11.0 H Lymphocytes # Lymphocytes # (Manual) Monocytes # (Manual) Metamyelocytes # (Man) Myelocytes # (Manual) PT 16.9 H INR 1.7 H APTT 31.8 H ABG pH ABG pCO2 ABG pO2 ABG HCO3 ABG Total CO2 ABG O2 Saturation Sodium Carbon Dioxide BUN Creatinine Glucose POC Glucose (mg/dL) Plasma Lactic Acid Demetri 2.3 H* Calcium Phosphorus Magnesium AST ALT Alkaline Phosphatase C-Reactive Protein Total Protein Albumin Triglycerides Lipase Ur Specific [place] Urine Protein Urine Ketones Urine Blood Urine WBC Urine Bacteria Hyaline Casts Urine Mucus 10/26/21 10/26/21 10/26/21 19:34 19:34 21:13 WBC RBC Hgb Hct Plt Count Neutrophils # Lymphocytes # Lymphocytes # (Manual) Monocytes # (Manual) Metamyelocytes # (Man) Myelocytes # (Manual) PT INR APTT ABG pH ABG pCO2 ABG pO2 ABG HCO3 ABG Total CO2 ABG O2 Saturation Sodium 136 L Carbon Dioxide BUN Creatinine Glucose 160 H POC Glucose (mg/dL) Plasma Lactic Acid Demetri 3.0 H* Calcium Phosphorus Magnesium AST 83 H ALT 119 H Alkaline Phosphatase 136 H C-Reactive Protein Total Protein Albumin 3.3 L Triglycerides Lipase 544 H Ur Specific [place] 1.039 H Urine Protein 3+ H Urine Ketones Trace H Urine Blood Trace H Urine WBC 10 H Urine Bacteria Rare H Hyaline Casts 9 H Urine Mucus Many H 10/27/21 10/27/21 10/27/21 00:35 05:19 05:19 WBC RBC Hgb Hct Plt Count Neutrophils # Lymphocytes # Lymphocytes # (Manual) Monocytes # (Manual) Metamyelocytes # (Man) Myelocytes # (Manual) PT 12.9 H INR 1.3 H APTT ABG pH 7.17 L* ABG pCO2 71 H* ABG pO2 ABG HCO3 26 H ABG Total CO2 28 H ABG O2 Saturation Sodium 136 L Carbon Dioxide BUN Creatinine Glucose 150 H POC Glucose (mg/dL) Plasma Lactic Acid Demetri Calcium Phosphorus Magnesium AST ALT Alkaline Phosphatase C-Reactive Protein Total Protein Albumin Triglycerides Lipase Ur Specific [place] Urine Protein Urine Ketones Urine Blood Urine WBC Urine Bacteria Hyaline Casts Urine Mucus 10/27/21 10/27/21 10/27/21 06:16 15:19 17:56 WBC RBC Hgb Hct Plt Count Neutrophils # Lymphocytes # Lymphocytes # (Manual) Monocytes # (Manual) Metamyelocytes # (Man) Myelocytes # (Manual) PT INR APTT ABG pH 7.34 L ABG pCO2 48 H ABG pO2 128 H ABG HCO3 26 H ABG Total CO2 28 H ABG O2 Saturation 98.7 H Sodium Carbon Dioxide BUN Creatinine Glucose POC Glucose (mg/dL) 126 H Plasma Lactic Acid Demetri Calcium Phosphorus 7.0 H Magnesium AST ALT Alkaline Phosphatase C-Reactive Protein Total Protein Albumin 2.5 L Triglycerides Lipase Ur Specific [place] Urine Protein Urine Ketones Urine Blood Urine WBC Urine Bacteria Hyaline Casts Urine Mucus 10/27/21 10/28/21 10/28/21 23:26 04:15 04:15 WBC 11.2 H RBC 4.28 L Hgb 12.6 L Hct Plt Count Neutrophils # 9.8 H Lymphocytes # 0.5 L Lymphocytes # (Manual) Monocytes # (Manual) Metamyelocytes # (Man) Myelocytes # (Manual) PT INR APTT ABG pH ABG pCO2 ABG pO2 ABG HCO3 ABG Total CO2 ABG O2 Saturation Sodium Carbon Dioxide BUN 39 H Creatinine 1.47 H Glucose 141 H POC Glucose (mg/dL) 112 H Plasma Lactic Acid Demetri Calcium 7.9 L Phosphorus Magnesium AST ALT 52 H Alkaline Phosphatase C-Reactive Protein Total Protein 5.4 L Albumin 2.3 L Triglycerides Lipase Ur Specific [place] Urine Protein Urine Ketones Urine Blood Urine WBC Urine Bacteria Hyaline Casts Urine Mucus 10/28/21 10/28/21 10/28/21 04:15 05:10 05:13 WBC RBC Hgb Hct Plt Count Neutrophils # Lymphocytes # Lymphocytes # (Manual) Monocytes # (Manual) Metamyelocytes # (Man) Myelocytes # (Manual) PT INR APTT ABG pH ABG pCO2 ABG pO2 ABG HCO3 ABG Total CO2 ABG O2 Saturation Sodium Carbon Dioxide BUN Creatinine Glucose POC Glucose (mg/dL) 63 L 128 H Plasma Lactic Acid Demetri Calcium Phosphorus 5.7 H Magnesium AST ALT Alkaline Phosphatase C-Reactive Protein Total Protein Albumin Triglycerides Lipase Ur Specific [place] Urine Protein Urine Ketones Urine Blood Urine WBC Urine Bacteria Hyaline Casts Urine Mucus 10/28/21 10/28/21 10/28/21 05:33 11:59 18:35 WBC RBC Hgb Hct Plt Count Neutrophils # Lymphocytes # Lymphocytes # (Manual) Monocytes # (Manual) Metamyelocytes # (Man) Myelocytes # (Manual) PT INR APTT ABG pH ABG pCO2 30 L ABG pO2 150 H ABG HCO3 ABG Total CO2 ABG O2 Saturation 99.4 H Sodium Carbon Dioxide BUN Creatinine Glucose POC Glucose (mg/dL) 119 H 139 H Plasma Lactic Acid Demetri Calcium Phosphorus Magnesium AST ALT Alkaline Phosphatase C-Reactive Protein Total Protein Albumin Triglycerides Lipase Ur Specific [place] Urine Protein Urine Ketones Urine Blood Urine WBC Urine Bacteria Hyaline Casts Urine Mucus 10/28/21 10/29/21 10/29/21 23:06 05:25 05:30 WBC RBC Hgb Hct Plt Count Neutrophils # Lymphocytes # Lymphocytes # (Manual) Monocytes # (Manual) Metamyelocytes # (Man) Myelocytes # (Manual) PT INR APTT ABG pH ABG pCO2 49 H ABG pO2 ABG HCO3 32 H ABG Total CO2 33 H ABG O2 Saturation 97.6 H Sodium Carbon Dioxide BUN 27 H Creatinine Glucose 158 H POC Glucose (mg/dL) 148 H Plasma Lactic Acid Demetri Calcium 7.9 L Phosphorus Magnesium 2.6 H AST ALT Alkaline Phosphatase C-Reactive Protein 32.6 H Total Protein 5.4 L Albumin 2.2 L Triglycerides Lipase Ur Specific [place] Urine Protein Urine Ketones Urine Blood Urine WBC Urine Bacteria Hyaline Casts Urine Mucus 10/29/21 10/29/21 10/29/21 05:30 05:33 11:36 WBC 10.7 H RBC 3.74 L Hgb 11.0 L Hct 34.3 L Plt Count Neutrophils # 9.3 H Lymphocytes # 0.5 L Lymphocytes # (Manual) Monocytes # (Manual) Metamyelocytes # (Man) Myelocytes # (Manual) PT INR APTT ABG pH ABG pCO2 ABG pO2 ABG HCO3 ABG Total CO2 ABG O2 Saturation Sodium Carbon Dioxide BUN Creatinine Glucose POC Glucose (mg/dL) 162 H 146 H Plasma Lactic Acid Demetri Calcium Phosphorus Magnesium AST ALT Alkaline Phosphatase C-Reactive Protein Total Protein Albumin Triglycerides Lipase Ur Specific [place] Urine Protein Urine Ketones Urine Blood Urine WBC Urine Bacteria Hyaline Casts Urine Mucus 10/29/21 10/29/21 10/30/21 17:43 23:09 04:57 WBC RBC Hgb Hct Plt Count Neutrophils # Lymphocytes # Lymphocytes # (Manual) Monocytes # (Manual) Metamyelocytes # (Man) Myelocytes # (Manual) PT INR APTT ABG pH 7.46 H ABG pCO2 48 H ABG pO2 82 L ABG HCO3 34 H ABG Total CO2 36 H ABG O2 Saturation Sodium Carbon Dioxide BUN Creatinine Glucose POC Glucose (mg/dL) 156 H 162 H Plasma Lactic Acid Demetri Calcium Phosphorus Magnesium AST ALT Alkaline Phosphatase C-Reactive Protein Total Protein Albumin Triglycerides Lipase Ur Specific [place] Urine Protein Urine Ketones Urine Blood Urine WBC Urine Bacteria Hyaline Casts Urine Mucus 10/30/21 10/30/21 10/30/21 05:15 05:15 05:16 WBC 11.5 H RBC 3.73 L Hgb 11.0 L Hct 35.0 L Plt Count Neutrophils # Lymphocytes # Lymphocytes # (Manual) Monocytes # (Manual) Metamyelocytes # (Man) Myelocytes # (Manual) PT INR APTT ABG pH ABG pCO2 ABG pO2 ABG HCO3 ABG Total CO2 ABG O2 Saturation Sodium Carbon Dioxide 31 H BUN 32 H Creatinine Glucose 162 H POC Glucose (mg/dL) 161 H Plasma Lactic Acid Demetri Calcium 8.1 L Phosphorus Magnesium 2.4 H AST ALT Alkaline Phosphatase C-Reactive Protein Total Protein Albumin Triglycerides 184.00 H Lipase Ur Specific [place] Urine Protein Urine Ketones Urine Blood Urine WBC Urine Bacteria Hyaline Casts Urine Mucus 12/14/21 12/14/21 12/14/21 12:55 17:27 23:09 WBC RBC Hgb Hct Plt Count Neutrophils # Lymphocytes # Lymphocytes # (Manual) Monocytes # (Manual) Metamyelocytes # (Man) Myelocytes # (Manual) PT INR APTT ABG pH ABG pCO2 ABG pO2 ABG HCO3 ABG Total CO2 ABG O2 Saturation Sodium Carbon Dioxide BUN Creatinine Glucose POC Glucose (mg/dL) 147 H 153 H 151 H Plasma Lactic Acid Demetri Calcium Phosphorus Magnesium AST ALT Alkaline Phosphatase C-Reactive Protein Total Protein Albumin Triglycerides Lipase Ur Specific [place] Urine Protein Urine Ketones Urine Blood Urine WBC Urine Bacteria Hyaline Casts Urine Mucus 10/31/21 10/31/21 10/31/21 05:57 06:00 06:00 WBC RBC 3.97 L Hgb 11.6 L Hct 37.2 L Plt Count Neutrophils # Lymphocytes # Lymphocytes # (Manual) 0.93 L Monocytes # (Manual) 1.13 H Metamyelocytes # (Man) 0.62 H Myelocytes # (Manual) 0.10 H PT INR APTT ABG pH ABG pCO2 ABG pO2 ABG HCO3 ABG Total CO2 ABG O2 Saturation Sodium Carbon Dioxide 31 H BUN 30 H Creatinine Glucose 151 H POC Glucose (mg/dL) 136 H Plasma Lactic Acid Demetri Calcium 8.0 L Phosphorus Magnesium AST 65 H ALT 50 H Alkaline Phosphatase C-Reactive Protein Total Protein 5.9 L Albumin 2.3 L Triglycerides Lipase Ur Specific [place] Urine Protein Urine Ketones Urine Blood Urine WBC Urine Bacteria Hyaline Casts Urine Mucus 10/31/21 10/31/21 10/31/21 06:19 12:31 17:29 WBC RBC Hgb Hct Plt Count Neutrophils # Lymphocytes # Lymphocytes # (Manual) Monocytes # (Manual) Metamyelocytes # (Man) Myelocytes # (Manual) PT INR APTT ABG pH ABG pCO2 49 H ABG pO2 58 L* ABG HCO3 34 H ABG Total CO2 35 H ABG O2 Saturation 90.3 L Sodium Carbon Dioxide BUN Creatinine Glucose POC Glucose (mg/dL) 149 H 138 H Plasma Lactic Acid Demetri Calcium Phosphorus Magnesium AST ALT Alkaline Phosphatase C-Reactive Protein Total Protein Albumin Triglycerides Lipase Ur Specific [place] Urine Protein Urine Ketones Urine Blood Urine WBC Urine Bacteria Hyaline Casts Urine Mucus 10/31/21 11/01/21 11/01/21 23:38 04:10 06:00 WBC RBC Hgb Hct Plt Count Neutrophils # Lymphocytes # Lymphocytes # (Manual) Monocytes # (Manual) Metamyelocytes # (Man) Myelocytes # (Manual) PT INR APTT ABG pH 7.46 H ABG pCO2 46 H ABG pO2 66 L ABG HCO3 32 H ABG Total CO2 34 H ABG O2 Saturation 93.0 L Sodium Carbon Dioxide BUN 27 H Creatinine 0.65 L Glucose 137 H POC Glucose (mg/dL) 131 H Plasma Lactic Acid Demetri Calcium 7.9 L Phosphorus Magnesium AST ALT Alkaline Phosphatase C-Reactive Protein Total Protein Albumin Triglycerides Lipase Ur Specific [place] Urine Protein Urine Ketones Urine Blood Urine WBC Urine Bacteria Hyaline Casts Urine Mucus 11/01/21 11/01/21 06:30 11:25 WBC RBC Hgb Hct Plt Count Neutrophils # Lymphocytes # Lymphocytes # (Manual) Monocytes # (Manual) Metamyelocytes # (Man) Myelocytes # (Manual) PT INR APTT ABG pH ABG pCO2 ABG pO2 ABG HCO3 ABG Total CO2 ABG O2 Saturation Sodium Carbon Dioxide BUN Creatinine Glucose POC Glucose (mg/dL) 137 H 148 H Plasma Lactic Acid Demetri Calcium Phosphorus Magnesium AST ALT Alkaline Phosphatase C-Reactive Protein Total Protein Albumin Triglycerides Lipase Ur Specific [place] Urine Protein Urine Ketones Urine Blood Urine WBC Urine Bacteria Hyaline Casts Urine Mucus Assessment and Plan Assessment: * Altered mental status, slightly decreased mentation, likely from metabolic encephalopathy. Patient's mentation has much improved, and has started following commands as per examination. * Acute hypoxic respiratory failure suspected to Covid-19 pneumonia * Perforated gastric ulcer, status post surgical intervention with exploratory laparotomy, Billroth type II and reconstruction a gastric perforation on 10/26/2021 * Septicemia, improved * Acute kidney injury, resolved Plan: * Patient is responding clinically. Patient currently on Precedex 1.4 g, but still following commands quite well as mentioned above. Patient's examination is completely nonfocal. * Patient's mentation will further improve, once his other metabolic conditions comes under control. * Medical management as per IM, critical care * Surgical team also on board. * No other neurological workup indicated. * Neurology will follow peripherally. * Thank you for the consult.
--- NOTE | 2021-11-01 22:45 | PN ---
PROGRESS NOTE DATE OF SERVICE: 11/01/2021 REASON FOR FOLLOWUP: Secondary peritonitis from perforated peptic ulcer disease. INTERVAL HISTORY: The patient is afebrile. The patient is hemodynamically stable, not on any pressor support. FiO2 is currently stable. No purulent secretions in the ET, diarrhea or any other changes reported by the nursing staff. PHYSICAL EXAMINATION: Blood pressure is 158/63, pulse of 83, temperature 98. He is 97% on 50% FiO2. General description is an elderly male lying in bed in no distress. Respiratory system: Unlabored breathing, decreased intensity of breath sounds. No wheeze. Heart S1, S2. Regular rate and rhythm. Abdomen soft, mildly distended. No guarding or rigidity. LABS: Hemoglobin is 11.6, white count 10.3, creatinine 0.65. Abdominal cultures with Annia albicans. DIAGNOSTIC IMPRESSION AND PLAN: Patient with secondary peritonitis from perforated peptic ulcer disease in this patient who is status post operative repair. Abdominal cultures with Annia. Patient is covered with Zosyn and Diflucan. White count normalized. Continue supportive care. MMODL / IJN: [id number] /
[2021-11-01 23:26] LABS: Glucose,Whole Blood 116 mg/dL (75-99)
[2021-11-02] MEDS: CLEVIDIPINE BUTYRATE 25 MG in EMPTY BAG 1 BAG IV SCH ×4 (03:37→22:14)
[2021-11-02] MEDS: DEXMEDETOMIDINE/0.9% NACL(PMX) 400 MCG in EMPTY BAG 1 BAG IV SCH (03:37)
[2021-11-02 05:23] LABS: ALT 68 U/L (4-49); AST 52 U/L (17-59); African American GFR (CKD) >90 (>60 ml/min/1.73 sqM); Albumin 2.6 g/dL (3.5-5.0); Alkaline Phosphatase 73 U/L (38-126); Blood Urea Nitrogen 29 mg/dL (9-20); Carbon Dioxide 30 mmol/L (22-30); Chloride 101 mmol/L (98-107); Glucose 108 mg/dL (74-99); Magnesium 1.7 mg/dL (1.6-2.3); Non-African American GFR(CKD) >90 (>60 ml/min/1.73 sqM); Phosphorus 3.8 mg/dL (2.5-4.5); Potassium 3.7 mmol/L (3.5-5.1); Total Bilirubin 0.6 mg/dL (0.2-1.3); Total Protein 6.4 g/dL (6.3-8.2)
[2021-11-02] MEDS: INSULIN ASPART (NovoLOG) 100 UNIT/ML VIAL SQ SCH ×3 (05:34→19:07)
[2021-11-02] MEDS ORDERED: Potassium Replacement Protocol 1 EACH MISC MISCELLANE PRN (05:35)
[2021-11-02] MEDS ORDERED: Magnesium Replacement Protocol 1 EACH MISC MISCELLANE PRN (05:36)
[2021-11-02 05:41] LABS: Anion Gap 7 mmol/L; Sodium 138 mmol/L (137-145)
[2021-11-02] MEDS: PIPERACILLIN-TAZOBACTAM 3.375 GM in SODIUM CHLORIDE 0.9% 100 ML IVPB SCH ×3 (05:54→20:50)
[2021-11-02] MEDS: MAGNESIUM SULFATE-D5W PMX 1 GM in DEXTROSE/WATER 1 100ML.BAG IVPB SCH ×2 (05:55→08:35)
[2021-11-02] MEDS: POTASSIUM CHLORIDE 10 MEQ in WATER FOR INJECTION 1 100ML.BAG IVPB SCH ×2 (05:55→08:35)
[2021-11-02] MEDS: SODIUM CHLORIDE IV SCH ×7 (06:33)
[2021-11-02] MEDS: CALCIUM GLUCONATE IV SCH ×7 (06:33)
[2021-11-02] MEDS: [UNRECOGNIZED DRUG - OTHER] IV SCH ×7 (06:33)
[2021-11-02] MEDS: HEPARIN SODIUM,PORCINE/PF 5,000 UNIT/0.5 ML SYRINGE SQ SCH ×2 (08:35→15:29)
[2021-11-02] MEDS: FLUCONAZOLE IN NACL,ISO-OSM 200 MG in SALINE 1 100ML.BAG IVPB SCH (08:36)
[2021-11-02] MEDS: DEXAMETHASONE SOD PHOSPHATE 10 MG/ML 1 ML VIAL IVP SCH (08:37)
[2021-11-02] MEDS: PANTOPRAZOLE 40 MG/10 ML VIAL IV SCH (08:38)
[2021-11-02] MEDS: HYDROmorphone 0.5 MG/0.5 ML SYRINGE IVP PRN ×3 (09:07→20:56)
--- NOTE | 2021-11-02 09:10 | XR ---
EXAMINATION TYPE: XR chest 1V portable DATE OF EXAM: 11/02/2021 COMPARISON: 11/01/2021 HISTORY: Cough TECHNIQUE: Single frontal view of the chest is obtained. FINDINGS: ET and NG tube have been removed. Left-sided PICC line noted and there are diffuse bilater al infiltrates with small effusion. Heart size stable. Atherosclerotic change aorta. Biapical pleural thickening with no pneumothorax. Diffuse osteopenia. IMPRESSION: Bilateral infiltrates are stable correlate for diffuse pneumonia.
--- NOTE | 2021-11-02 10:30 | P.PN ---
Subjective Progress Note Date: 11/02/21 Principal diagnosis: Patient extubated today still sleepy .Constitutional: No acute distress, conversant, pleasant Eyes: Anicteric sclerae, moist conjunctiva, no lid-lag PERRLA ENMT: NC/AT Oropharynx clear, no erythema, exudates Neck: Supple, FROM, no masses, or JVD No carotid bruits No thyromegaly Lungs: C no major accessory muscle use Cardiovascular: Heart regular in rate and rhythm, No murmurs, gallops, or rubs No peripheral edema Abdominal: Soft Nontender, no guarding, rebound or rigidity Abdomen moving with respiration Normoactive bowel sounds No hepatomegaly, No splenomegaly No palpable mass No abdominal wall hernia noted Skin: Normal temperature, tone, texture, turgor No induration No subcutaneous nodules No rash, lesions No ulcers Extremities: No digital cyanosis No clubbing Pedal pulses intact and symmetrical Radial pulses intact and symmetrical Normal gait and station No calf tenderness Psychiatric:Alert a Neuro: Muscles Strength 5/5 in all 4 extremities Sensation to light touch grossly present throughout Cranial nerves II-XII grossly intact No focal sensory deficits OVID-19 pneumonia with acute hypoxic respiratory failure -Continue with mechanical ventilation, propofol, fentanyl, IV fluids -Continue Decadron -Infectious disease consulted: Sepsis secondary to Perforated gastric ulcer status post expiratory laparotomy and gastrectomy -Defer management to the primary surgical service -On TPN, on PPI IV Elevated INR -Suspected due to sepsis upon presentation -Monitor for now Continue to wean as better respiratory protocol and pulmonology Overall appears to be stable continue management as per ICU team and pulmonary Patient extubated today Continue management as better ICU team overall appears to be stable still has difficulty breathing Objective - Vital Signs Vital signs: Vital Signs Temp 98.9 F 11/02/21 00:00 Pulse 97 11/02/21 09:00 Resp 19 11/02/21 09:00 BP 135/47 10/31/21 21:00 Pulse Ox 92 L 11/02/21 09:00 Intake & Output 11/01/21 11/02/21 11/02/21 18:59 06:59 18:59 Intake Total 427.460 7199.445 55.667 Output Total 3600 1465 100 Balance -2940.424 218.445 -44.333 Weight 111 kg Intake: IV 413 276 23 .9 NS 33 36 3 Lactated Ringers 1,000 ml 280 240 20 @ 50 mls/hr IV .Q20H RIANNA Rx#:[id number] Piperacillin-Tazobactam 3 100 .375 gm In Sodium Chloride 0.9% 100 ml @ 25 mls/hr IVPB Q8H RIANNA Rx#: [id number] Intake, IV Titration 992.271 4978.445 32.667 Amount Calcium Gluconate 1 gm 1029.5 Sodium Chloride 4Meq/ml Vial 50 meq Potassium Chloride 10 meq Potassium Phosphate 6 mmol In Amino Acid 4.25%-D10w 1, 000 ml @ 70 mls/hr IV .BY DURATION RIANNA Rx#: [id number] Clevidipine Butyrate 25 142.100 32.667 mg In Empty Bag 1 bag @ 1 MG/HR 2 mls/hr IV .Q24H RIANNA Rx#:[id number] Dexmedetomidine/0.9% NaCl 100.000 235.845 (Pmx) 400 mcg In Empty Bag 1 bag @ 0.2 MCG/KG/HR 5.35 mls/hr IV .[id number] RIANNA Rx#:[id number] fentaNYL (PF). 1,000 mcg 45.466 In Sodium Chloride 0.9% 80 ml @ 0.5 MCG/KG/HR 5. 216 mls/hr IV .[id number] RIANNA Rx#:[id number] propofoL 1,000 mg In 101.11 Empty Bag 1 bag @ Titrate IV .Q0M RIANNA Rx#: [id number] Output: Gastric Drainage 500 Urine 3100 1465 100 Other: Voiding Method Indwelling Catheter Indwelling Catheter ABP, PAP, CO, CI - Last Documented Arterial Blood Pressure 137/55 - Labs CBC & Chem 7: 10/31/21 06:00 11/02/21 04:15 Labs: Abnormal Lab Results - Last 24 Hours (Table) 11/01/21 11/01/21 11/01/21 Range/Units 11:25 17:28 23:24 BUN (9-20) mg/dL Glucose (74-99) mg/dL POC Glucose (mg/dL) 148 H 150 H 116 H (75-99) mg/dL Calcium (8.4-10.2) mg/dL ALT (4-49) U/L Albumin (3.5-5.0) g/dL 11/02/21 Range/Units 04:15 BUN 29 H (9-20) mg/dL Glucose 108 H (74-99) mg/dL POC Glucose (mg/dL) (75-99) mg/dL Calcium 8.0 L (8.4-10.2) mg/dL ALT 68 H (4-49) U/L Albumin 2.6 L (3.5-5.0) g/dL Microbiology - Last 24 Hours (Table) 10/26/21 20:48 Blood Culture - Final Blood No Growth after 144 hours 10/26/21 20:48 Blood Culture - Final Blood No Growth after 144 hours
--- NOTE | 2021-11-02 11:09 | P.PN ---
Subjective Progress Note Date: 11/02/21 Principal diagnosis: COVID-19 pneumonia On 10/31/2021 patient seen in follow-up in intensive care unit, he remains sedated, and intubated, on assist control mode of ventilation with a rate of 30, tidal volumes 450, FiO2 of 50% and PEEP of 8. This morning's blood gas shows pO2 of 58, pCO2 49, and pH of 7.45. Today's chest x-ray shows ET tube, right jugular central line in stable position, lisinopril pleural parenchymal changes that are stable in appearance, no evident pneumothorax or pleural effusion. Patient is currently on lactated Ringer's at a rate of 50 ML per hour, fentanyl infusion 0.5 mics per kilo per minute, Diprivan and is of 40 mics per kilo per minute, and Cleviprex is at 4 mg per hour. Patient is on TPN at 75 ML per hour. No vasopressors. Today's labs have been reviewed, showing a lot of blood cell count of 10.3, hemoglobin of 11.6, sodium of 138, potassium is 4.3, chloride is 102, CO2 is 31, BUN of 30 creatinine 0.71. Patient remains on a combination of fluconazole and Zosyn for recent history of gastric perforation status post surgical intervention. Yesterday he was given a daily interruption of sedation and the patient was completely unresponsive, and did not follow any commands. However patient required to be placed back on sedation related to unstable vital signs and because he was becoming more agitated. On 11/01/2021 patient seen in follow-up in intensive care unit, he remains sedated, and intubated on mechanical ventilator with assist-control with a rate of 30, tidal on was 450, FiO2 of 50% and PEEP of 8. His peak airway pressures 23, plateau pressure is 21, today's chest x-ray showing malpositioning of the right IJ CVC diverging into the right axilla, and the recommendation was to advance the NG tube by 3 cm. COPD with continued patchy and confluent perihilar airspace disease with slight improvement on the right. This morning blood gas shows pO2 of 66, pCO2 46, and pH of 7.46 this was done above mentioned events that his, he is on Diprivan at 50 mics per kilo per minute, TPN is a 75 ML per hour, fentanyl is a 0.5 mics per kilo per minute, 0.9 at T ML per hour, Cleviprex is a 4 mg/h. He is hemodynamically stable, not requiring any vasopressor support, he is in sinus mechanism with a rate of 89. Neurologically patient is waking up, he opens eyes to voice, he follows command, he squeezing hands on command. Does not appear to be in any acute distress, still on sedation with Diprivan and Fentanyl. Yesterday patient had CT of the brain without, showing no acute findings. He remains on combination of antibiotics with Zosyn and Diflucan, so far the abdominal wound cultures showed Annia albicans, his blood in urine cultures have been negative. Has not passed any stool, however he has positive bowel sounds, abdomen is soft, mid abdominal incision is clean dry and intact. Today's CBC is still pending, his last white blood cell count from yesterday was 10.3, hemoglobin is 11.6, today's BMP is available, his electrolytes are unremarkable, his BUN is 27 creatinine 0.65. On 11/02/2021 patient is seen in follow-up in intensive care unit, yesterday he was given a sedation holiday, his sedation was switched to Precedex to help him with restlessness and agitation, he actually did quite well with the sedation holiday, he woke up, he was appropriate following command. However he managed to self extubate himself at 2030 last night. He also pulled out his NG tube. He is tolerating extubation well so far, he is currently on 11 L of oxygen his pulse ox is 92-95%, he does have a effective cough, he is able to expectorate some yellowish colored phlegm. He is awake and alert, he is following simple command, he is trying to is her questions, he is appropriate, but he is generally weak, and his voice is slightly hoarse. He is in sinus mechanism with a rate of 87, he is on Cleviprex at the 4 mg per hour, and his blood pressure is in the 130s and 150 systolic in the 50s diastolic. Precedex is currently off, and he is still getting TPN at 70 ML per hour. He has positive bowel sounds, and he did pass a normal bowel movement last night. Abdomen is soft, slightly tender with coughing, no nausea or vomiting, surgery has decided to keep the NG tube out. Patient is still nothing by mouth. His been afebrile overnight, he remains on Zosyn and Diflucan for antibiotic coverage, no new growth on his cultures, just some Annia in his abdominal wound cultures. His blood and urine were negative. His urine output is in the order of 100-175 ML per hour. He received a single dose of IV Lasix yesterday, he produced over 5 L in the urine output, he is in -2.7 L over the last 24 hours. Today's chest x-ray still showing bilateral infiltrates there is stable as read by Dr. Ledesma, there may be a slight improvement in the appearance of right lung infiltrates. Today's labs have been reviewed, his CBC still pending, electrolytes are unremarkable, his potassium 3.7, sodium is 138, chloride is 101, CO2 is 20, BUN is 29 creatinine 0.68. Patient is follows simple commands, denies any acute distress, he does become short of breath with any exertion even repositioning in bed and cleaning up, and he'll be placed on BiPAP support at 12 and 6 and FiO2 of 60%. Objective - Vital Signs Vital signs: Vital Signs Temp 98.9 F 11/02/21 00:00 Pulse 97 11/02/21 09:00 Resp 19 11/02/21 09:00 BP 135/47 10/31/21 21:00 Pulse Ox 92 L 11/02/21 09:00 Intake & Output 11/01/21 11/02/21 11/02/21 18:59 06:59 18:59 Intake Total 502.607 5918.445 55.667 Output Total 3600 1465 100 Balance -2940.424 218.445 -44.333 Weight 111 kg Intake: IV 413 276 23 .9 NS 33 36 3 Lactated Ringers 1,000 ml 280 240 20 @ 50 mls/hr IV .Q20H [facility] Rx#:[id number] Piperacillin-Tazobactam 3 100 .375 gm In Sodium Chloride 0.9% 100 ml @ 25 mls/hr IVPB Q8H [facility] Rx#: [id number] Intake, IV Titration 485.984 3443.445 32.667 Amount Calcium Gluconate 1 gm 1029.5 Sodium Chloride 4Meq/ml Vial 50 meq Potassium Chloride 10 meq Potassium Phosphate 6 mmol In Amino Acid 4.25%-D10w 1, 000 ml @ 70 mls/hr IV .BY DURATION [facility] Rx#: [id number] Clevidipine Butyrate 25 142.100 32.667 mg In Empty Bag 1 bag @ 1 MG/HR 2 mls/hr IV .Q24H [facility] Rx#:[id number] Dexmedetomidine/0.9% NaCl 100.000 235.845 (Pmx) 400 mcg In Empty Bag 1 bag @ 0.2 MCG/KG/HR 5.35 mls/hr IV .[id number] [facility] Rx#:[id number] fentaNYL (PF). 1,000 mcg 45.466 In Sodium Chloride 0.9% 80 ml @ 0.5 MCG/KG/HR 5. 216 mls/hr IV .[id number] [facility] Rx#:[id number] propofoL 1,000 mg In 101.11 Empty Bag 1 bag @ Titrate IV .Q0M [facility] Rx#: [id number] Output: Gastric Drainage 500 Urine 3100 1465 100 Other: Voiding Method Indwelling Catheter Indwelling Catheter ABP, PAP, CO, CI - Last Documented Arterial Blood Pressure 137/55 - Exam GENERAL EXAM: 66-year-old white male, awake and alert, follows simple command, trying to answer verbally but his voice is weak and hoarse, currently on 11 L with a pulse ox of 92-95% HEAD: Normocephalic/atraumatic. EYES: Normal reaction of pupils, equal size. Conjunctiva pink, sclera white. NOSE: Clear with pink turbinates. THROAT: No erythema or exudates. NECK: No masses, no JVD, no thyroid enlargement, no adenopathy. CHEST: No chest wall deformity. Symmetrical expansion. LUNGS: Equal air entry with no crackles, wheeze, rhonchi or dullness. CVS: Regular rate and rhythm, normal S1 and S2, no gallops, no murmurs, no rubs ABDOMEN: Soft, nontender. No hepatosplenomegaly, normal bowel sounds, no guarding or rigidity. abdominal incision is clean dry and intact, covered with a dressing. Bowel sounds 4 EXTREMITIES: No clubbing, no edema, no cyanosis, 2+ pulses and upper and lower extremities. MUSCULOSKELETAL: Muscle strength and tone normal. SPINE: No scoliosis or deformity SKIN: No rashes CENTRAL NERVOUS SYSTEM: No focal deficits, tone is normal in all 4 extremities. - Labs CBC & Chem 7: 10/31/21 06:00 11/02/21 04:15 Labs: Abnormal Lab Results - Last 24 Hours (Table) 11/01/21 11/01/21 11/01/21 Range/Units 11:25 17:28 23:24 BUN (9-20) mg/dL Glucose (74-99) mg/dL POC Glucose (mg/dL) 148 H 150 H 116 H (75-99) mg/dL Calcium (8.4-10.2) mg/dL ALT (4-49) U/L Albumin (3.5-5.0) g/dL 11/02/21 Range/Units 04:15 BUN 29 H (9-20) mg/dL Glucose 108 H (74-99) mg/dL POC Glucose (mg/dL) (75-99) mg/dL Calcium 8.0 L (8.4-10.2) mg/dL ALT 68 H (4-49) U/L Albumin 2.6 L (3.5-5.0) g/dL Microbiology - Last 24 Hours (Table) 10/26/21 20:48 Blood Culture - Final Blood No Growth after 144 hours 10/26/21 20:48 Blood Culture - Final Blood No Growth after 144 hours Assessment and Plan Plan: Assessment: #1. Acute hypoxic respiratory failure suspected to COVID-19 pneumonia, patient remains on a ventilator today on 11/01/2021 with FiO2 50% and PEEP of 8. Patient self extubated on 11/01/2021, today on 11/02/2021, tolerating extubation well so far. We will be placed on BiPAP support intermittently for respiratory fatigue related to generalized weakness. #2. Perforated gastric ulcer, status post surgical intervention with exposure laparotomy, Billroth type II, and reconstruction of a gastric perforation on 10/26/2021 #3. Acute abdominal sepsis, with abdominal wound cultures positive for Annia albicans, currently on a combination of Diflucan and Zosyn #4. Lactic acidosis secondary to abdominal sepsis, resolved with fluid resuscitation #5. Acute kidney injury, resolved #6. Altered mental status, multifactorial, rule out possibility of a central nervous system abnormality possibility of a stroke, CT of the brain on 10/31/2021 showed no acute findings. His mentation has improved, his following simple commands, he is answering appropriately Plan: Patient tolerating extubation well so far He has a effective cough Neurologically she is awake and alert, and following commands He is requiring high flow oxygen at 11 L Generally he is weak, and becomes short of breath with any exertion, and even repositioning We will utilize BiPAP at 12 and 6 and FiO2 of 60%, and may alternate this with high flow oxygen Maintain aspiration precautions Keep nothing by mouth Continue TPN for nutritional support We'll check with the general surgery about the timing of possible oral feedings Patient was able to pass a bowel movement, abdomen is soft Vital signs are stable Continue antibiotics per general surgery Continue close monitoring We will hold on the Lasix for today We'll continue to follow I performed a history & physical examination of the patient and discussed their management with my nurse practitioner, Abiola Abarca. I reviewed the nurse practitioner's note and agree with the documented findings and plan of care. Lung sounds are positive for dim breath sounds throughout the lung hanks. The findings and the impression was discussed with the patient. I attest to the documentation by the nurse practitioner. Time with Patient: Greater than 30
[2021-11-02 11:30] LABS: Glucose,Whole Blood 148 mg/dL (75-99)
[2021-11-02 11:44] LABS: Glucose,Whole Blood 136 mg/dL (75-99)
--- NOTE | 2021-11-02 12:08 | P.PN ---
Subjective Progress Note Date: 11/02/21 Patient seen and examined at bedside. Self extubated overnight. He also did remove his nasogastric tube. According to nursing, patient did have a bowel movement this morning. No significant drainage from RUPINDER drain. He is on BiPAP currently. Objective - Vital Signs Vital signs: Vital Signs Temp 98.9 F 11/02/21 00:00 Pulse 97 11/02/21 09:00 Resp 19 11/02/21 09:00 BP 135/47 10/31/21 21:00 Pulse Ox 92 L 11/02/21 09:00 Intake & Output 11/01/21 11/02/21 11/02/21 18:59 06:59 18:59 Intake Total 433.000 3126.445 55.667 Output Total 3600 1465 100 Balance -2940.424 218.445 -44.333 Weight 111 kg Intake: IV 413 276 23 .9 NS 33 36 3 Lactated Ringers 1,000 ml 280 240 20 @ 50 mls/hr IV .Q20H [facility] Rx#:[id number] Piperacillin-Tazobactam 3 100 .375 gm In Sodium Chloride 0.9% 100 ml @ 25 mls/hr IVPB Q8H [facility] Rx#: [id number] Intake, IV Titration 483.245 9798.445 32.667 Amount Calcium Gluconate 1 gm 1029.5 Sodium Chloride 4Meq/ml Vial 50 meq Potassium Chloride 10 meq Potassium Phosphate 6 mmol In Amino Acid 4.25%-D10w 1, 000 ml @ 70 mls/hr IV .BY DURATION [facility] Rx#: [id number] Clevidipine Butyrate 25 142.100 32.667 mg In Empty Bag 1 bag @ 1 MG/HR 2 mls/hr IV .Q24H [facility] Rx#:[id number] Dexmedetomidine/0.9% NaCl 100.000 235.845 (Pmx) 400 mcg In Empty Bag 1 bag @ 0.2 MCG/KG/HR 5.35 mls/hr IV .[id number] [facility] Rx#:[id number] fentaNYL (PF). 1,000 mcg 45.466 In Sodium Chloride 0.9% 80 ml @ 0.5 MCG/KG/HR 5. 216 mls/hr IV .[id number] [facility] Rx#:[id number] propofoL 1,000 mg In 101.11 Empty Bag 1 bag @ Titrate IV .Q0M [facility] Rx#: [id number] Output: Gastric Drainage 500 Urine 3100 1465 100 Other: Voiding Method Indwelling Catheter Indwelling Catheter ABP, PAP, CO, CI - Last Documented Arterial Blood Pressure 137/55 - Constitutional General appearance: Present: no acute distress - Gastrointestinal Gastrointestinal Comment(s): Soft, no significant tenderness, nondistended, no rebound, no guarding, midline incision site clean, dry and intact with josh in place, RUPINDER drain in place with minimal output - Musculoskeletal Musculoskeletal: Present: generalized weakness - Labs CBC & Chem 7: 10/31/21 06:00 11/02/21 04:15 Labs: Abnormal Lab Results - Last 24 Hours (Table) 11/01/21 11/01/21 11/02/21 Range/Units 17:28 23:24 04:15 BUN 29 H (9-20) mg/dL Glucose 108 H (74-99) mg/dL POC Glucose (mg/dL) 150 H 116 H (75-99) mg/dL Calcium 8.0 L (8.4-10.2) mg/dL ALT 68 H (4-49) U/L Albumin 2.6 L (3.5-5.0) g/dL 11/02/21 11/02/21 Range/Units 11:28 11:43 BUN (9-20) mg/dL Glucose (74-99) mg/dL POC Glucose (mg/dL) 148 H 136 H (75-99) mg/dL Calcium (8.4-10.2) mg/dL ALT (4-49) U/L Albumin (3.5-5.0) g/dL Microbiology - Last 24 Hours (Table) 10/26/21 20:48 Blood Culture - Final Blood No Growth after 144 hours 10/26/21 20:48 Blood Culture - Final Blood No Growth after 144 hours Assessment and Plan Plan: POD #7, ex lap with Billroth 2 reconstruction for perforated gastric ulcer - Patient did self extubate last night and also did remove his nasogastric tube. He is currently on BiPAP - Currently on zosyn and diflucan, appreciate ID recommendations on antibiotic therapy - With extubation and due to nasogastric tube removal, I have discussed with nursing not to replace the nasogastric tube at this time due to risk of damage to the gastrojejunal anastomosis. Patient has required prolonged intubation and has also been on steroid therapy secondary to his Covid pneumonia and will require upper GI to evaluate for leak prior to beginning any oral or enteral feeding. Order for upper GI has been placed, to be performed after ICU clears patient to have study performed. - Continue RUPINDER drain - Continue TPN - Continue picc - Case was discussed in depth with family. Patient has a very guarded prognosis.
[2021-11-02 12:09] LABS: HCT 46.3 % (39.0-53.0); MCH 29.9 pg (25.0-35.0); MCHC 32.9 g/dL (31.0-37.0); Mean Platelet Volume 8.4; Platelet Count 473 k/uL (150-450); RBC 5.08 m/uL (4.30-5.90); RDW 14.2 % (11.5-15.5); WBC 20.3 k/uL (3.8-10.6)
[2021-11-02 12:10] LABS: HGB 15.2 gm/dL (13.0-17.5)
[2021-11-02 13:43] LABS: Band Neutrophils % 2 %; Eosinophils # (M) 0.41 k/uL (0-0.7); Lymphocytes # (M) 1.62 k/uL (1.0-4.8); Metamyelocytes # (M) 0.61 k/uL (0); Metamyelocytes % 3 %; Monocytes # (M) 2.23 k/uL (0-1.0); Myelocytes # (M) 0.61 k/uL (0); Myelocytes % 3 %; Neutrophils % (M) 73 %; Nucleated Red Blood Cells 0 /100 WBC (0-0); Total Cells Counted 200
[2021-11-02 13:45] LABS: Toxic Granulation Present
[2021-11-02] MEDS: 1: AMINO ACID 5%-D20W+LYTES*E* 1,000 ML 2: MVI, ADULT NO.4 WITH VIT K 10 ML, TRACE (CON IV SCH ×3 (15:40)
[2021-11-02 17:36] LABS: Glucose,Whole Blood 173 mg/dL (75-99)
--- NOTE | 2021-11-02 18:03 | P.PN ---
Subjective Progress Note Date: 11/02/21 Patient was seen for a follow-up. Patient self extubated last night. He was on nasal cannula, but developed some respiratory distress, now on BiPAP. Patient is alert and oriented. Off sedation. Patient is speaking moving all 4 extremities. Objective - Vital Signs Vital signs: Vital Signs Temp 98.9 F 11/02/21 00:00 Pulse 99 11/02/21 17:00 Resp 26 H 11/02/21 17:00 BP 135/47 10/31/21 21:00 Pulse Ox 95 11/02/21 17:00 Intake & Output 11/01/21 11/02/21 11/02/21 18:59 06:59 18:59 Intake Total 301.470 8266.445 365.667 Output Total 3600 1465 800 Balance -2940.424 218.445 -434.333 Weight 111 kg Intake: IV 413 276 283 .9 NS 33 36 82 0.9 81 Lactated Ringers 1,000 ml 280 240 20 @ 50 mls/hr IV .Q20H [facility] Rx#:[id number] Piperacillin-Tazobactam 3 100 100 .375 gm In Sodium Chloride 0.9% 100 ml @ 25 mls/hr IVPB Q8H [facility] Rx#: [id number] Intake, IV Titration 869.182 6905.445 82.667 Amount Calcium Gluconate 1 gm 1029.5 Sodium Chloride 4Meq/ml Vial 50 meq Potassium Chloride 10 meq Potassium Phosphate 6 mmol In Amino Acid 4.25%-D10w 1, 000 ml @ 70 mls/hr IV .BY DURATION [facility] Rx#: [id number] Clevidipine Butyrate 25 142.100 82.667 mg In Empty Bag 1 bag @ 1 MG/HR 2 mls/hr IV .Q24H [facility] Rx#:[id number] Dexmedetomidine/0.9% NaCl 100.000 235.845 (Pmx) 400 mcg In Empty Bag 1 bag @ 0.2 MCG/KG/HR 5.35 mls/hr IV .[id number] [facility] Rx#:[id number] fentaNYL (PF). 1,000 mcg 45.466 In Sodium Chloride 0.9% 80 ml @ 0.5 MCG/KG/HR 5. 216 mls/hr IV .[id number] [facility] Rx#:[id number] propofoL 1,000 mg In 101.11 Empty Bag 1 bag @ Titrate IV .Q0M [facility] Rx#: [id number] Output: Gastric Drainage 500 Urine 3100 1465 800 Other: Voiding Method Indwelling Catheter Indwelling Catheter Indwelling Catheter ABP, PAP, CO, CI - Last Documented Arterial Blood Pressure 158/66 - Exam Patient is extubated. Patient is mildly groggy, but wakes up and is alert and awake. Patient speaks, fairly well oriented. Patient strength appears normal. - Labs CBC & Chem 7: 11/02/21 11:29 11/02/21 04:15 Labs: Abnormal Lab Results - Last 24 Hours (Table) 11/01/21 11/02/21 11/02/21 Range/Units 23:24 04:15 11:28 WBC (3.8-10.6) k/uL Plt Count (150-450) k/uL Neutrophils # (Manual) (1.3-7.7) k/uL Monocytes # (Manual) (0-1.0) k/uL Metamyelocytes # (Man) (0) k/uL Myelocytes # (Manual) (0) k/uL BUN 29 H (9-20) mg/dL Glucose 108 H (74-99) mg/dL POC Glucose (mg/dL) 116 H 148 H (75-99) mg/dL Calcium 8.0 L (8.4-10.2) mg/dL ALT 68 H (4-49) U/L Albumin 2.6 L (3.5-5.0) g/dL 11/02/21 11/02/21 11/02/21 Range/Units 11:29 11:43 17:34 WBC 20.3 H (3.8-10.6) k/uL Plt Count 473 H (150-450) k/uL Neutrophils # (Manual) 15.20 H (1.3-7.7) k/uL Monocytes # (Manual) 2.23 H (0-1.0) k/uL Metamyelocytes # (Man) 0.61 H (0) k/uL Myelocytes # (Manual) 0.61 H (0) k/uL BUN (9-20) mg/dL Glucose (74-99) mg/dL POC Glucose (mg/dL) 136 H 173 H (75-99) mg/dL Calcium (8.4-10.2) mg/dL ALT (4-49) U/L Albumin (3.5-5.0) g/dL Microbiology - Last 24 Hours (Table) 10/26/21 20:48 Blood Culture - Final Blood No Growth after 144 hours 10/26/21 20:48 Blood Culture - Final Blood No Growth after 144 hours Assessment and Plan Assessment: * Altered mental status, likely from metabolic encephalopathy, remarkably improved. Patient is now extubated, awake, following commands. * Status post Acute hypoxic respiratory failure suspected to Covid-19 pneumonia * Perforated gastric ulcer, status post surgical intervention with exploratory laparotomy, Billroth type II and reconstruction a gastric perforation on 10/26/2021 * Septicemia, improved * Acute kidney injury, resolved Plan: * Patient is extubated, following commands. Mentation appears fairly normal. * Medical management as per IM, critical care * Surgical team also on board. * No other neurological workup indicated. * Neurology will sign off. Please reconsult neurology if any other concerns.
[2021-11-02 23:46] LABS: Glucose,Whole Blood 174 mg/dL (75-99)
[2021-11-03] MEDS: INSULIN ASPART (NovoLOG) 100 UNIT/ML VIAL SQ SCH ×4 (01:10→17:38)
[2021-11-03] MEDS: HEPARIN SODIUM,PORCINE/PF 5,000 UNIT/0.5 ML SYRINGE SQ SCH ×3 (01:10→15:42)
--- NOTE | 2021-11-03 01:22 | PN ---
PROGRESS NOTE DATE OF SERVICE: 11/02/2021 REASON FOR FOLLOW UP: Secondary peritonitis from perforated peptic ulcer disease. INTERVAL HISTORY: The patient is afebrile. The patient is currently ( ): The patient is currently on a BiPAP. The patient is hemodynamically stable, not on any pressor support. No abdominal pain, diarrhea or other changes reported by nursing staff. The patient was not able to provide history. PHYSICAL EXAMINATION: Blood pressure 152/64, pulse of 92, temperature 98.9. He is 96% on BiPAP. General description is an elderly male lying in bed in no distress. Respiratory system: Unlabored breathing, coarse breath sounds bilaterally, no wheeze. Heart S1, S2. Regular rate and rhythm. Abdomen soft, no tenderness. LAB: Hemoglobin is 15, white count 20,000 and creatinine 0.68. DIAGNOSTIC IMPRESSION AND PLAN: Patient with secondary peritonitis from perforated peptic ulcer disease status post repair, now with complicated infection. Patient ( ) jump in white count and running a low-grade fever. I will repeat his cultures. He is currently covered with Zosyn and Diflucan, to continue. Will monitor clinical course closely. Continue supportive care. MMODL / IJN: [id number] /
[2021-11-03] MEDS: CLEVIDIPINE BUTYRATE 25 MG in EMPTY BAG 1 BAG IV SCH ×4 (02:51→15:42)
[2021-11-03 05:04] LABS: Basophils # (A) 0.1 k/uL (0-0.2); Basophils % (A) 1 %; Eosinophils # (A) 0.3 k/uL (0-0.7); Eosinophils % (A) 1 %; HCT 45.3 % (39.0-53.0); HGB 14.5 gm/dL (13.0-17.5); Lymphocytes # (A) 0.8 k/uL (1.0-4.8); Lymphocytes % (A) 4 %; MCH 29.2 pg (25.0-35.0); MCHC 32.1 g/dL (31.0-37.0); MCV 90.9 fL (80.0-100.0); Monocytes # (A) 1.5 k/uL (0-1.0); Monocytes % (A) 7 %; Neutrophils # (A) 18.1 k/uL (1.3-7.7); Neutrophils % (A) 86 %; Platelet Count 381 k/uL (150-450); RBC 4.98 m/uL (4.30-5.90); WBC 21.1 k/uL (3.8-10.6)
[2021-11-03 05:23] LABS: ALT 60 U/L (4-49); AST 40 U/L (17-59); African American GFR (CKD) >90 (>60 ml/min/1.73 sqM); Albumin 2.4 g/dL (3.5-5.0); Alkaline Phosphatase 73 U/L (38-126); Anion Gap 7 mmol/L; Blood Urea Nitrogen 33 mg/dL (9-20); Calcium 7.7 mg/dL (8.4-10.2); Carbon Dioxide 28 mmol/L (22-30); Chloride 104 mmol/L (98-107); Glucose 195 mg/dL (74-99); Magnesium 2.1 mg/dL (1.6-2.3); Non-African American GFR(CKD) >90 (>60 ml/min/1.73 sqM); Phosphorus 4.2 mg/dL (2.5-4.5); Potassium 3.8 mmol/L (3.5-5.1); Sodium 139 mmol/L (137-145); Total Bilirubin 0.7 mg/dL (0.2-1.3); Total Protein 6.1 g/dL (6.3-8.2)
[2021-11-03 05:36] LABS: Glucose,Whole Blood 162 mg/dL (75-99)
[2021-11-03] MEDS: POTASSIUM CHLORIDE 10 MEQ in WATER FOR INJECTION 1 100ML.BAG IVPB SCH ×2 (05:57→08:46)
[2021-11-03] MEDS: PIPERACILLIN-TAZOBACTAM 3.375 GM in SODIUM CHLORIDE 0.9% 100 ML IVPB SCH ×3 (05:58→20:31)
--- NOTE | 2021-11-03 08:45 | P.PN ---
Subjective Progress Note Date: 11/03/21 Patient extubated Patient more alert today coughing not answering questions at this time .Constitutional: No acute distress, conversant, pleasant Eyes: Anicteric sclerae, moist conjunctiva, no lid-lag PERRLA ENMT: NC/AT Oropharynx clear, no erythema, exudates Neck: Supple, FROM, no masses, or JVD No carotid bruits No thyromegaly Lungs: C no major accessory muscle use Cardiovascular: Heart regular in rate and rhythm, No murmurs, gallops, or rubs No peripheral edema Abdominal: Soft Nontender, no guarding, rebound or rigidity Abdomen moving with respiration Normoactive bowel sounds No hepatomegaly, No splenomegaly No palpable mass No abdominal wall hernia noted Skin: Normal temperature, tone, texture, turgor No induration No subcutaneous nodules No rash, lesions No ulcers Extremities: No digital cyanosis No clubbing Pedal pulses intact and symmetrical Radial pulses intact and symmetrical Normal gait and station No calf tenderness Psychiatric:Alert a Neuro: Muscles Strength 5/5 in all 4 extremities Sensation to light touch grossly present throughout Cranial nerves II-XII grossly intact No focal sensory deficits OVID-19 pneumonia with acute hypoxic respiratory failure -Continue with mechanical ventilation, propofol, fentanyl, IV fluids -Continue Decadron -Infectious disease consulted: Sepsis secondary to Perforated gastric ulcer status post expiratory laparotomy and gastrectomy -Defer management to the primary surgical service -On TPN, on PPI IV Elevated INR -Suspected due to sepsis upon presentation -Monitor for now Continue to wean as better respiratory protocol and pulmonology Overall appears to be stable continue management as per ICU team and pulmonary Patient extubated Appears in no distress at this time continue management as per ICU team Continue management as better ICU team overall appears to be stable still has difficulty breathing Objective - Vital Signs Vital signs: Vital Signs Temp 98.9 F 11/02/21 20:00 Pulse 93 11/03/21 07:00 Resp 24 11/03/21 07:00 BP 135/47 10/31/21 21:00 Pulse Ox 93 L 11/03/21 07:00 Intake & Output 11/02/21 11/03/21 11/03/21 18:59 06:59 18:59 Intake Total 556.742 2426.133 88 Output Total 830 815 60 Balance -451.333 217.133 28 Weight 111 kg Intake: IV 296 906 88 .9 NS 92 120 10 0.9 84 36 3 Lactated Ringers 1,000 ml 20 @ 50 mls/hr IV .Q20H R[facility]NA Rx#:[id number] Mvi, Adult No.4 with Vit 750 75 K 10 ml Trace (Conc-1Ml/ Dose) 1 ml In Amino Acid 5%-D20w+Lytes*E* 1,000 ml @ 75 mls/hr IV .BY DURATION RIANNA Rx#: [id number] Piperacillin-Tazobactam 3 100 .375 gm In Sodium Chloride 0.9% 100 ml @ 25 mls/hr IVPB Q8H R[facility]NA Rx#: [id number] Intake, IV Titration 82.667 126.133 Amount Clevidipine Butyrate 25 82.667 126.133 mg In Empty Bag 1 bag @ 1 MG/HR 2 mls/hr IV .Q24H RIANNA Rx#:[id number] Output: Urine 830 815 60 Other: Voiding Method Indwelling Catheter Indwelling Catheter ABP, PAP, CO, CI - Last Documented Arterial Blood Pressure 155/62 - Labs CBC & Chem 7: 11/03/21 04:35 11/03/21 04:35 Labs: Abnormal Lab Results - Last 24 Hours (Table) 11/02/21 11/02/21 11/02/21 Range/Units 11:28 11:29 11:43 WBC 20.3 H (3.8-10.6) k/uL Plt Count 473 H (150-450) k/uL Neutrophils # (1.3-7.7) k/uL Neutrophils # (Manual) 15.20 H (1.3-7.7) k/uL Lymphocytes # (1.0-4.8) k/uL Monocytes # (0-1.0) k/uL Monocytes # (Manual) 2.23 H (0-1.0) k/uL Metamyelocytes # (Man) 0.61 H (0) k/uL Myelocytes # (Manual) 0.61 H (0) k/uL BUN (9-20) mg/dL Glucose (74-99) mg/dL POC Glucose (mg/dL) 148 H 136 H (75-99) mg/dL Calcium (8.4-10.2) mg/dL ALT (4-49) U/L Total Protein (6.3-8.2) g/dL Albumin (3.5-5.0) g/dL 11/02/21 11/02/21 11/03/21 Range/Units 17:34 23:43 04:35 WBC (3.8-10.6) k/uL Plt Count (150-450) k/uL Neutrophils # (1.3-7.7) k/uL Neutrophils # (Manual) (1.3-7.7) k/uL Lymphocytes # (1.0-4.8) k/uL Monocytes # (0-1.0) k/uL Monocytes # (Manual) (0-1.0) k/uL Metamyelocytes # (Man) (0) k/uL Myelocytes # (Manual) (0) k/uL BUN 33 H (9-20) mg/dL Glucose 195 H (74-99) mg/dL POC Glucose (mg/dL) 173 H 174 H (75-99) mg/dL Calcium 7.7 L (8.4-10.2) mg/dL ALT 60 H (4-49) U/L Total Protein 6.1 L (6.3-8.2) g/dL Albumin 2.4 L (3.5-5.0) g/dL 11/03/21 11/03/21 Range/Units 04:35 05:34 WBC 21.1 H (3.8-10.6) k/uL Plt Count (150-450) k/uL Neutrophils # 18.1 H (1.3-7.7) k/uL Neutrophils # (Manual) (1.3-7.7) k/uL Lymphocytes # 0.8 L (1.0-4.8) k/uL Monocytes # 1.5 H (0-1.0) k/uL Monocytes # (Manual) (0-1.0) k/uL Metamyelocytes # (Man) (0) k/uL Myelocytes # (Manual) (0) k/uL BUN (9-20) mg/dL Glucose (74-99) mg/dL POC Glucose (mg/dL) 162 H (75-99) mg/dL Calcium (8.4-10.2) mg/dL ALT (4-49) U/L Total Protein (6.3-8.2) g/dL Albumin (3.5-5.0) g/dL
[2021-11-03] MEDS: 1: AMINO ACID 5%-D20W+LYTES*E* 1,000 ML 2: MVI, ADULT NO.4 WITH VIT K 10 ML, TRACE (CON IV SCH ×3 (08:46)
[2021-11-03] MEDS: DEXAMETHASONE SOD PHOSPHATE 10 MG/ML 1 ML VIAL IVP SCH (08:47)
[2021-11-03] MEDS: PANTOPRAZOLE 40 MG/10 ML VIAL IV SCH (08:47)
[2021-11-03] MEDS: FLUCONAZOLE IN NACL,ISO-OSM 200 MG in SALINE 1 100ML.BAG IVPB SCH (08:47)
[2021-11-03] MEDS: HYDROmorphone 0.5 MG/0.5 ML SYRINGE IVP PRN (08:53)
--- NOTE | 2021-11-03 10:47 | P.PN ---
Subjective Progress Note Date: 11/03/21 On 11/02/2021 patient is seen in follow-up in intensive care unit, yesterday he was given a sedation holiday, his sedation was switched to Precedex to help him with restlessness and agitation, he actually did quite well with the sedation holiday, he woke up, he was appropriate following command. However he managed to self extubate himself at 2030 last night. He also pulled out his NG tube. He is tolerating extubation well so far, he is currently on 11 L of oxygen his pulse ox is 92-95%, he does have a effective cough, he is able to expectorate some yellowish colored phlegm. He is awake and alert, he is following simple command, he is trying to is her questions, he is appropriate, but he is gen erally weak, and his voice is slightly hoarse. He is in sinus mechanism with a rate of 87, he is on Cleviprex at the 4 mg per hour, and his blood pressure is in the 130s and 150 systolic in the 50s diastolic. Precedex is currently off, and he is still getting TPN at 70 ML per hour. He has positive bowel sounds, and he did pass a normal bowel movement last night. Abdomen is soft, slightly tender with coughing, no nausea or vomiting, surgery has decided to keep the NG tube out. Patient is still nothing by mouth. His been afebrile overnight, he remains on Zosyn and Diflucan for antibiotic coverage, no new growth on his cultures, just some Annia in his abdominal wound cultures. His blood and urine were negative. His urine output is in the order of 100-175 ML per hour. He received a single dose of IV Lasix yesterday, he produced over 5 L in the urine output, he is in -2.7 L over the last 24 hours. Today's chest x-ray still showing bilateral infiltrates there is stable as read by Dr. Ledesma, there may be a slight improvement in the appearance of right lung infiltrates. Today's labs have been reviewed, his CBC still pending, electrolytes are unremarkable, his potassium 3.7, sodium is 138, chloride is 101, CO2 is 20, BUN is 29 creatinine 0.68. Patient is follows simple commands, denies any acute distress, he does become short of breath with any exertion even repositioning in bed and cleaning up, and he'll be placed on BiPAP support at 12 and 6 and FiO2 of 60%. The patient is seen today 11/03/2021 in follow-up in the intensive care unit. He self extubated on 11/01/2021. He remains on 11 L high flow nasal cannula to maintain O2 saturations in the low 90s. He is currently awake and alert. He is asking for pain medications. He is on clevidipine at 4 mg per hour. TPN at 75 ML's per hour. 0.9 normal saline at KVO. Temperature 100.3. Slightly tachycardic. White count 21.1. Hemoglobin 14.5. Lymphocytes 0.8. Sodium 139. Potassium 3.8. Creatinine 0.70. Glucose 195. AST 40. ALT 60. He remains on Zosyn and fluconazole. Continued on Decadron and heparin for DVT prophylaxis. Objective - Vital Signs Vital signs: Vital Signs Temp 100.3 F H 11/03/21 08:00 Pulse 101 H 11/03/21 09:00 Resp 17 11/03/21 09:00 BP 135/47 10/31/21 21:00 Pulse Ox 92 L 11/03/21 09:00 Intake & Output 11/02/21 11/03/21 11/03/21 18:59 06:59 18:59 Intake Total 617.085 2748.133 290.133 Output Total 830 815 235 Balance -545.684 4698.133 55.133 Weight 111 kg Intake: IV 296 906 264 .9 NS 92 120 30 0.9 84 36 9 Lactated Ringers 1,000 ml 20 @ 50 mls/hr IV .Q20H [facility] Rx#:[id number] Mvi, Adult No.4 with Vit 750 225 K 10 ml Trace (Conc-1Ml/ Dose) 1 ml In Amino Acid 5%-D20w+Lytes*E* 1,000 ml @ 75 mls/hr IV .BY DURATION R[facility]NA Rx#: [id number] Piperacillin-Tazobactam 3 100 .375 gm In Sodium Chloride 0.9% 100 ml @ 25 mls/hr IVPB Q8H [facility] Rx#: [id number] Intake, IV Titration 82.667 1126.133 26.133 Amount Amino Acid 5%-D20w+Lytes* 1000 E* 1,000 ml @ 75 mls/hr IV .BY DURATION RIANNA Rx#: [id number] Clevidipine Butyrate 25 82.667 126.133 26.133 mg In Empty Bag 1 bag @ 1 MG/HR 2 mls/hr IV .Q24H [facility] Rx#:[id number] Output: Urine 830 815 235 Other: Voiding Method Indwelling Catheter Indwelling Catheter Indwelling Catheter ABP, PAP, CO, CI - Last Documented Arterial Blood Pressure 162/79 - Exam GENERAL EXAM: 66-year-old male patient, awake and alert, follows simple command, currently on 11 L with a pulse ox of 92-93% HEAD: Normocephalic/atraumatic. EYES: Normal reaction of pupils, equal size. Conjunctiva pink, sclera white. NOSE: Clear with pink turbinates. THROAT: No erythema or exudates. NECK: No masses, no JVD, no thyroid enlargement, no adenopathy. CHEST: No chest wall deformity. Symmetrical expansion. LUNGS: Equal air entry with crackles in the bilateral bases CVS: Regular rate and rhythm, normal S1 and S2, no gallops, no murmurs, no rubs ABDOMEN: Soft, nontender. No hepatosplenomegaly, normal bowel sounds, no guarding or rigidity. abdominal incision is clean dry and intact, covered with a dressing. Bowel sounds 4 EXTREMITIES: No clubbing, no edema, no cyanosis, 2+ pulses and upper and lower extremities. MUSCULOSKELETAL: Muscle strength and tone normal. SPINE: No scoliosis or deformity SKIN: No rashes CENTRAL NERVOUS SYSTEM: No focal deficits, tone is normal in all 4 extremities. - Labs CBC & Chem 7: 11/03/21 04:35 11/03/21 04:35 Labs: Abnormal Lab Results - Last 24 Hours (Table) 11/02/21 11/02/21 11/02/21 Range/Units 11:28 11:29 11:43 WBC 20.3 H (3.8-10.6) k/uL Plt Count 473 H (150-450) k/uL Neutrophils # (1.3-7.7) k/uL Neutrophils # (Manual) 15.20 H (1.3-7.7) k/uL Lymphocytes # (1.0-4.8) k/uL Monocytes # (0-1.0) k/uL Monocytes # (Manual) 2.23 H (0-1.0) k/uL Metamyelocytes # (Man) 0.61 H (0) k/uL Myelocytes # (Manual) 0.61 H (0) k/uL BUN (9-20) mg/dL Glucose (74-99) mg/dL POC Glucose (mg/dL) 148 H 136 H (75-99) mg/dL Calcium (8.4-10.2) mg/dL ALT (4-49) U/L Total Protein (6.3-8.2) g/dL Albumin (3.5-5.0) g/dL 11/02/21 11/02/21 11/03/21 Range/Units 17:34 23:43 04:35 WBC (3.8-10.6) k/uL Plt Count (150-450) k/uL Neutrophils # (1.3-7.7) k/uL Neutrophils # (Manual) (1.3-7.7) k/uL Lymphocytes # (1.0-4.8) k/uL Monocytes # (0-1.0) k/uL Monocytes # (Manual) (0-1.0) k/uL Metamyelocytes # (Man) (0) k/uL Myelocytes # (Manual) (0) k/uL BUN 33 H (9-20) mg/dL Glucose 195 H (74-99) mg/dL POC Glucose (mg/dL) 173 H 174 H (75-99) mg/dL Calcium 7.7 L (8.4-10.2) mg/dL ALT 60 H (4-49) U/L Total Protein 6.1 L (6.3-8.2) g/dL Albumin 2.4 L (3.5-5.0) g/dL 11/03/21 11/03/21 Range/Units 04:35 05:34 WBC 21.1 H (3.8-10.6) k/uL Plt Count (150-450) k/uL Neutrophils # 18.1 H (1.3-7.7) k/uL Neutrophils # (Manual) (1.3-7.7) k/uL Lymphocytes # 0.8 L (1.0-4.8) k/uL Monocytes # 1.5 H (0-1.0) k/uL Monocytes # (Manual) (0-1.0) k/uL Metamyelocytes # (Man) (0) k/uL Myelocytes # (Manual) (0) k/uL BUN (9-20) mg/dL Glucose (74-99) mg/dL POC Glucose (mg/dL) 162 H (75-99) mg/dL Calcium (8.4-10.2) mg/dL ALT (4-49) U/L Total Protein (6.3-8.2) g/dL Albumin (3.5-5.0) g/dL Assessment and Plan Assessment: 1 Acute hypoxic respiratory failure suspected to COVID-19 pneumonia, patient was on a ventilator and self extubated on 11/01/2021, currently on 11 L high brooke w nasal cannula. 2 Perforated gastric ulcer, status post surgical intervention with exposure laparotomy, Billroth type II, and reconstruction of a gastric perforation on 10/26/2021 3 Acute abdominal sepsis, with abdominal wound cultures positive for Annia albicans, currently on a combination of Diflucan and Zosyn 4 Lactic acidosis secondary to abdominal sepsis, resolved with fluid resusci tation 5 Acute kidney injury, resolved 6 Altered mental status, multifactorial, rule out possibility of a central nervous system abnormality possibility of a stroke, CT of the brain on 10/31/2021 showed no acute findings. His mentation has improved, his following simple commands, he is answering appropriately 7 Hypertension requiring clevidipine Plan: The patient was seen and evaluated Awake and alert Currently on 11 L high flow nasal cannula Titrate the FiO2 as tolerated Remains on TPN, currently nothing by mouth Remains on Decadron Heparin for DVT prophylaxis Currently on Zosyn and fluconazole Follow-up chest x-ray and labs in a.m. We will continue to follow I, the cosigning physician, performed a history & physical examination of the patient. Lungs sounds coarse crackles in the posterior bases Maintaining O2 saturations in the 90s on 11 L high flow nasal cannula. I discussed the assessment and plan of care with my nurse practitioner, Julee Salazar. I attest to the above note as dictated by her.
[2021-11-03 11:40] LABS: Glucose,Whole Blood 187 mg/dL (75-99)
--- NOTE | 2021-11-03 14:20 | P.PN ---
Subjective Progress Note Date: 11/03/21 Patient is awake minimally responsive. Patient did have a bowel movement. No nausea vomiting reported. RUPINDER drain is serosanguineous. Objective - Vital Signs Vital signs: Vital Signs Temp 98.6 F 11/03/21 12:00 Pulse 96 11/03/21 13:00 Resp 23 11/03/21 13:00 BP 135/47 10/31/21 21:00 Pulse Ox 93 L 11/03/21 13:00 Intake & Output 11/02/21 11/03/21 11/03/21 18:59 06:59 18:59 Intake Total 353.197 3292.133 642.133 Output Total 830 815 445 Balance -940.038 5089.133 197.133 Weight 111 kg Intake: IV 296 906 616 .9 NS 92 120 70 0.9 84 36 21 Lactated Ringers 1,000 ml 20 @ 50 mls/hr IV .Q20H [facility] Rx#:[id number] Mvi, Adult No.4 with Vit 750 525 K 10 ml Trace (Conc-1Ml/ Dose) 1 ml In Amino Acid 5%-D20w+Lytes*E* 1,000 ml @ 75 mls/hr IV .BY DURATION RIANNA Rx#: [id number] Piperacillin-Tazobactam 3 100 .375 gm In Sodium Chloride 0.9% 100 ml @ 25 mls/hr IVPB Q8H [facility] Rx#: [id number] Intake, IV Titration 82.667 1126.133 26.133 Amount Amino Acid 5%-D20w+Lytes* 1000 E* 1,000 ml @ 75 mls/hr IV .BY DURATION RIANNA Rx#: [id number] Clevidipine Butyrate 25 82.667 126.133 26.133 mg In Empty Bag 1 bag @ 1 MG/HR 2 mls/hr IV .Q24H [facility] Rx#:[id number] Output: Urine 830 815 445 Other: Voiding Method Indwelling Catheter Indwelling Catheter Indwelling Catheter ABP, PAP, CO, CI - Last Documented Arterial Blood Pressure 171/69 - Constitutional General appearance: Present: no acute distress - Cardiovascular Rhythm: regular - Gastrointestinal Gastrointestinal Comment(s): Soft nondistended minimal tenderness palpation incision clean dry and intact - Labs CBC & Chem 7: 11/03/21 04:35 11/03/21 04:35 Labs: Abnormal Lab Results - Last 24 Hours (Table) 11/02/21 11/02/21 11/03/21 Range/Units 17:34 23:43 04:35 WBC (3.8-10.6) k/uL Neutrophils # (1.3-7.7) k/uL Lymphocytes # (1.0-4.8) k/uL Monocytes # (0-1.0) k/uL BUN 33 H (9-20) mg/dL Glucose 195 H (74-99) mg/dL POC Glucose (mg/dL) 173 H 174 H (75-99) mg/dL Calcium 7.7 L (8.4-10.2) mg/dL ALT 60 H (4-49) U/L Total Protein 6.1 L (6.3-8.2) g/dL Albumin 2.4 L (3.5-5.0) g/dL 11/03/21 11/03/21 11/03/21 Range/Units 04:35 05:34 11:38 WBC 21.1 H (3.8-10.6) k/uL Neutrophils # 18.1 H (1.3-7.7) k/uL Lymphocytes # 0.8 L (1.0-4.8) k/uL Monocytes # 1.5 H (0-1.0) k/uL BUN (9-20) mg/dL Glucose (74-99) mg/dL POC Glucose (mg/dL) 162 H 187 H (75-99) mg/dL Calcium (8.4-10.2) mg/dL ALT (4-49) U/L Total Protein (6.3-8.2) g/dL Albumin (3.5-5.0) g/dL Assessment and Plan Assessment: Status post expiratory laparotomy and Billroth II reconstruction secondary to perforated gastric ulcer Covid pneumonia Plan: Patient is having bowel movements no nausea vomiting. Patient's doing well from a general surgery standpoint however his mentation is still very poor he likely could not participate safely for upper GI study at this time. When his mentation improves he can go for contrast upper GI study to confirm patent anastomosis with no leakage. Continue TPN until then. The patient is higher than normal risk for anastomotic disruption secondary to the COVID pneumonia and high-dose steroids he has been on.
[2021-11-03 17:35] LABS: Glucose,Whole Blood 196 mg/dL (75-99)
--- NOTE | 2021-11-03 23:14 | PN ---
PROGRESS NOTE DATE OF SERVICE: 11/03/2021 REASON FOR FOLLOWUP: peritonitis from perforated peptic ulcer disease. INTERVAL HISTORY: Patient is afebrile. The patient is hemodynamically stable. Currently on nasal cannula. The patient remains to be slightly slow to respond per the nursing staff. Did not answer any questions. No vomiting or any diarrhea has been reported. PHYSICAL EXAMINATION: Blood pressure is 159/70 with a pulse of 92, temperature of 98. He is 93% on 11 L nasal cannula. General description is an elderly male lying in bed in no distress. Respiratory system: Unlabored breathing, decreased intensity of breath sounds. No wheeze. Heart S1-S2 regular rate and rhythm. Abdomen: Soft, mildly distended. No guarding. No rigidity. LABS: Hemoglobin is 14.5, white count 21,000, creatinine 0.70. DIAGNOSTIC IMPRESSION AND PLAN: Patient with secondary peritonitis from perforated peptic ulcer disease status post repair in this patient currently covered with Zosyn and Diflucan, slight worsening of the white count and low-grade fever. Cultures will be repeated. Antibiotic will be adjusted on the basis of culture report. Continue supportive care. MMODL / IJN: [id number] /
[2021-11-04] MEDS: 1: AMINO ACID 5%-D20W+LYTES*E* 1,000 ML 2: MVI, ADULT NO.4 WITH VIT K 10 ML, TRACE (CON IV SCH ×9 (00:01→16:13)
[2021-11-04] MEDS: HYDROmorphone 0.5 MG/0.5 ML SYRINGE IVP PRN ×4 (00:41→23:36)
[2021-11-04 00:47] LABS: Glucose,Whole Blood 116 mg/dL (75-99)
[2021-11-04] MEDS: INSULIN ASPART (NovoLOG) 100 UNIT/ML VIAL SQ SCH ×5 (01:13→23:54)
[2021-11-04] MEDS: HEPARIN SODIUM,PORCINE/PF 5,000 UNIT/0.5 ML SYRINGE SQ SCH (01:14)
[2021-11-04 01:56] LABS: Magnesium 2.2 mg/dL (1.6-2.3)
[2021-11-04] MEDS ORDERED: DEXTROSE 5% IN WATER 100 ML with AMIODARONE 150 MG IV ONE (02:09)
[2021-11-04] MEDS ORDERED: HEPARIN SODIUM 1,000 UN/ML (10ML VL) IV ONE (02:10)
[2021-11-04] MEDS ORDERED: AMIODARONE 360 MG in DEXTROSE 5% IN WATER 200 ML IV ONE ×2 (02:30)
[2021-11-04] MEDS ORDERED: AMIODARONE IN DEXTROSE,ISO-OSM 150 MG/100 ML PLAST..BAG IV ONE (02:34)
[2021-11-04] MEDS ORDERED: AMIODARONE IN DEXTROSE,ISO-OSM 360 MG/200 ML PLAST..BAG IV ONE (02:34)
[2021-11-04] MEDS: HEPARIN SOD,PORK IN 0.45% NACL 25,000 UNIT in 0.45% NACL 1 250ML.BAG IV SCH ×2 (02:35→23:34)
[2021-11-04 03:17] LABS: Basophils # (A) 0.1 k/uL (0-0.2); Basophils % (A) 0 %; Eosinophils # (A) 0.1 k/uL (0-0.7); Eosinophils % (A) 1 %; HCT 43.7 % (39.0-53.0); HGB 13.8 gm/dL (13.0-17.5); Hypochromasia Slight; Lymphocytes % (A) 6 %; MCH 29.5 pg (25.0-35.0); MCHC 31.6 g/dL (31.0-37.0); MCV 93.3 fL (80.0-100.0); Mean Platelet Volume 9.5; Monocytes % (A) 6 %; Neutrophils # (A) 15.2 k/uL (1.3-7.7); Neutrophils % (A) 85 %; Platelet Count 375 k/uL (150-450); RBC 4.68 m/uL (4.30-5.90); RDW 14.4 % (11.5-15.5); WBC 17.8 k/uL (3.8-10.6)
[2021-11-04 03:38] LABS: ALT 43 U/L (4-49); AST 28 U/L (17-59); African American GFR (CKD) >90 (>60 ml/min/1.73 sqM); Albumin 2.4 g/dL (3.5-5.0); Alkaline Phosphatase 70 U/L (38-126); Anion Gap 6 mmol/L; Blood Urea Nitrogen 31 mg/dL (9-20); Calcium 7.9 mg/dL (8.4-10.2); Carbon Dioxide 30 mmol/L (22-30); Chloride 104 mmol/L (98-107); Glucose 212 mg/dL (74-99); Magnesium 2.1 mg/dL (1.6-2.3); Non-African American GFR(CKD) >90 (>60 ml/min/1.73 sqM); Phosphorus 3.3 mg/dL (2.5-4.5); Potassium 3.9 mmol/L (3.5-5.1); Sodium 140 mmol/L (137-145); Total Bilirubin 0.6 mg/dL (0.2-1.3); Total Protein 6.1 g/dL (6.3-8.2)
[2021-11-04 03:40] LABS: INR 1.2 (<1.2); Partial Thromboplastin Time 23.2 sec (22.0-30.0)
[2021-11-04 03:49] LABS: C Reactive Protein 19.6 mg/dL (<1.0)
[2021-11-04 06:31] LABS: Glucose,Whole Blood 186 mg/dL (75-99)
[2021-11-04] MEDS: PIPERACILLIN-TAZOBACTAM 3.375 GM in SODIUM CHLORIDE 0.9% 100 ML IVPB SCH ×3 (06:41→19:54)
--- NOTE | 2021-11-04 06:41 | XR ---
EXAMINATION TYPE: XR chest 1V DATE OF EXAM: 11/04/2021 COMPARISON: 11/02/2021 HISTORY: Covid TECHNIQUE: Single frontal view of the chest is obtained. FINDINGS: There are diffuse scattered partially consolidative opacities unchanged when compared to p revious. The heart size is within normal limits. There is no large pleural effusion and no pneumothorax. The o sseous structures are intact IMPRESSION: No interval change in the acute cardiopulmonary disease.
[2021-11-04] MEDS ORDERED: Potassium Replacement Protocol 1 EACH MISC MISCELLANE PRN (08:21)
[2021-11-04] MEDS: AMIODARONE 450 MG in DEXTROSE 5% IN WATER 250 ML IV SCH ×6 (08:56→23:35)
[2021-11-04] MEDS: HEPARIN SODIUM 1,000 UN/ML (10ML VL) IV PRN ×2 (09:49→18:50)
[2021-11-04] MEDS: POTASSIUM CHLORIDE 10 MEQ in WATER FOR INJECTION 1 100ML.BAG IVPB SCH ×2 (09:53→10:54)
[2021-11-04] MEDS: FLUCONAZOLE IN NACL,ISO-OSM 200 MG in SALINE 1 100ML.BAG IVPB SCH (09:54)
[2021-11-04] MEDS: DEXAMETHASONE SOD PHOSPHATE 10 MG/ML 1 ML VIAL IVP SCH (09:54)
[2021-11-04] MEDS: PANTOPRAZOLE 40 MG/10 ML VIAL IV SCH (09:55)
--- NOTE | 2021-11-04 09:56 | P.PN ---
Subjective Progress Note Date: 11/04/21 Patient is more talkative today still poor historian Patient extubated .Constitutional: No acute distress, conversant, pleasant Eyes: Anicteric sclerae, moist conjunctiva, no lid-lag PERRLA ENMT: NC/AT Oropharynx clear, no erythema, exudates Neck: Supple, FROM, no masses, or JVD No carotid bruits No thyromegaly Lungs: C no major accessory muscle use Cardiovascular: Heart regular in rate and rhythm, No murmurs, gallops, or rubs No peripheral edema Abdominal: Soft Nontender, no guarding, rebound or rigidity Abdomen moving with respiration Normoactive bowel sounds No hepatomegaly, No splenomegaly No palpable mass No abdominal wall hernia noted Skin: Normal temperature, tone, texture, turgor No induration No subcutaneous nodules No rash, lesions No ulcers Extremities: No digital cyanosis No clubbing Pedal pulses intact and symmetrical Radial pulses intact and symmetrical Normal gait and station No calf tenderness Psychiatric:Alert a Neuro: Muscles Strength 5/5 in all 4 extremities Sensation to light touch grossly present throughout Cranial nerves II-XII grossly intact No focal sensory deficits OVID-19 pneumonia with acute hypoxic respiratory failure -Continue with mechanical ventilation, propofol, fentanyl, IV fluids -Continue Decadron -Infectious disease consulted: Sepsis secondary to Perforated gastric ulcer status post expiratory laparotomy and gastrectomy -Defer management to the primary surgical service -On TPN, on PPI IV Elevated INR -Suspected due to sepsis upon presentation -Monitor for now Continue to wean as better respiratory protocol and pulmonology Overall appears to be stable continue management as per ICU team and pulmonary Patient extubated Appears in no distress at this time continue management as per ICU team Status post perforated peptic ulcer gastric ulcer post exploratory laparotomy continue management as per surgery Continue management as better ICU team overall appears to be stable still has difficulty breathing Objective - Vital Signs Vital signs: Vital Signs Temp 98.9 F 11/04/21 04:00 Pulse 109 H 11/04/21 07:00 Resp 23 11/04/21 07:00 BP 135/47 10/31/21 21:00 Pulse Ox 93 L 11/04/21 07:00 Intake & Output 11/03/21 11/04/21 11/04/21 18:59 06:59 18:59 Intake Total 8945.467 8982 160.5 Output Total 800 595 60 Balance 615.637 6228 100.5 Intake: IV 1144 968 88 .9 NS 130 110 10 0.9 39 33 3 Mvi, Adult No.4 with Vit 975 825 75 K 10 ml Trace (Conc-1Ml/ Dose) 1 ml In Amino Acid 5%-D20w+Lytes*E* 1,000 ml @ 75 mls/hr IV .BY DURATION RIANNA Rx#: [id number] Intake, IV Titration 76.133 1000 72.5 Amount Amino Acid 5%-D20w+Lytes* 1000 E* 1,000 ml @ 75 mls/hr IV .BY DURATION RIANNA Rx#: [id number] Clevidipine Butyrate 25 76.133 mg In Empty Bag 1 bag @ 1 MG/HR 2 mls/hr IV .Q24H [facility]NA Rx#:[id number] Heparin Sod,Pork in 0.45% 72.5 NaCl 25,000 unit In 0.45 % NaCl 1 250ml.bag @ 9. 009 UNITS/KG/HR 10 mls/hr IV .Q24H RIANNA Rx#: [id number] Output: Urine 800 595 60 Other: Voiding Method Indwelling Catheter Indwelling Catheter ABP, PAP, CO, CI - Last Documented Arterial Blood Pressure 161/66 - Labs CBC & Chem 7: 11/04/21 03:00 11/04/21 03:00 Labs: Abnormal Lab Results - Last 24 Hours (Table) 11/03/21 11/03/21 11/04/21 Range/Units 11:38 17:33 00:45 WBC (3.8-10.6) k/uL Neutrophils # (1.3-7.7) k/uL INR (<1.2) BUN (9-20) mg/dL Glucose (74-99) mg/dL POC Glucose (mg/dL) 187 H 196 H 116 H (75-99) mg/dL Calcium (8.4-10.2) mg/dL C-Reactive Protein (<1.0) mg/dL Total Protein (6.3-8.2) g/dL Albumin (3.5-5.0) g/dL 11/04/21 11/04/21 11/04/21 Range/Units 03:00 03:00 03:00 WBC 17.8 H (3.8-10.6) k/uL Neutrophils # 15.2 H (1.3-7.7) k/uL INR 1.2 H (<1.2) BUN 31 H (9-20) mg/dL Glucose 212 H (74-99) mg/dL POC Glucose (mg/dL) (75-99) mg/dL Calcium 7.9 L (8.4-10.2) mg/dL C-Reactive Protein 19.6 H (<1.0) mg/dL Total Protein 6.1 L (6.3-8.2) g/dL Albumin 2.4 L (3.5-5.0) g/dL 11/04/21 Range/Units 06:30 WBC (3.8-10.6) k/uL Neutrophils # (1.3-7.7) k/uL INR (<1.2) BUN (9-20) mg/dL Glucose (74-99) mg/dL POC Glucose (mg/dL) 186 H (75-99) mg/dL Calcium (8.4-10.2) mg/dL C-Reactive Protein (<1.0) mg/dL Total Protein (6.3-8.2) g/dL Albumin (3.5-5.0) g/dL
[2021-11-04] MEDS: CLEVIDIPINE BUTYRATE 25 MG in EMPTY BAG 1 BAG IV SCH ×2 (10:51→13:37)
[2021-11-04] MEDS: METOPROLOL TARTRATE 5 MG/5 ML VIAL IVP SCH ×3 (10:54→23:39)
[2021-11-04 11:17] LABS: Glucose,Whole Blood 161 mg/dL (75-99)
--- NOTE | 2021-11-04 11:18 | P.PN ---
Subjective Progress Note Date: 11/04/21 Principal diagnosis: COVID-19 pneumonia On 10/31/2021 patient seen in follow-up in intensive care unit, he remains sedated, and intubated, on assist control mode of ventilation with a rate of 30, tidal volumes 450, FiO2 of 50% and PEEP of 8. This morning's blood gas shows pO2 of 58, pCO2 49, and pH of 7.45. Today's chest x-ray shows ET tube, right jugular central line in stable position, lisinopril pleural parenchymal changes that are stable in appearance, no evident pneumothorax or pleural effusion. Patient is currently on lactated Ringer's at a rate of 50 ML per hour, fentanyl infusion 0.5 mics per kilo per minute, Diprivan and is of 40 mics per kilo per minute, and Cleviprex is at 4 mg per hour. Patient is on TPN at 75 ML per hour. No vasopressors. Today's labs have been reviewed, showing a lot of blood cell count of 10.3, hemoglobin of 11.6, sodium of 138, potassium is 4.3, chloride is 102, CO2 is 31, BUN of 30 creatinine 0.71. Patient remains on a combination of fluconazole and Zosyn for recent history of gastric perforation status post surgical intervention. Yesterday he was given a daily interruption of sedation and the patient was completely unresponsive, and did not follow any commands. However patient required to be placed back on sedation related to unstable vital signs and because he was becoming more agitated. On 11/01/2021 patient seen in follow-up in intensive care unit, he remains sedated, and intubated on mechanical ventilator with assist-control with a rate of 30, tidal on was 450, FiO2 of 50% and PEEP of 8. His peak airway pressures 23, plateau pressure is 21, today's chest x-ray showing malpositioning of the right IJ CVC diverging into the right axilla, and the recommendation was to advance the NG tube by 3 cm. COPD with continued patchy and confluent perihilar airspace disease with slight improvement on the right. This morning blood gas shows pO2 of 66, pCO2 46, and pH of 7.46 this was done above mentioned events that his, he is on Diprivan at 50 mics per kilo per minute, TPN is a 75 ML per hour, fentanyl is a 0.5 mics per kilo per minute, 0.9 at T ML per hour, Cleviprex is a 4 mg/h. He is hemodynamically stable, not requiring any vasopressor support, he is in sinus mechanism with a rate of 89. Neurologically patient is waking up, he opens eyes to voice, he follows command, he squeezing hands on command. Does not appear to be in any acute distress, still on sedation with Diprivan and Fentanyl. Yesterday patient had CT of the brain without, showing no acute findings. He remains on combination of antibiotics with Zosyn and Diflucan, so far the abdominal wound cultures showed Annia albicans, his blood in urine cultures have been negative. Has not passed any stool, however he has positive bowel sounds, abdomen is soft, mid abdominal incision is clean dry and intact. Today's CBC is still pending, his last white blood cell count from yesterday was 10.3, hemoglobin is 11.6, today's BMP is available, his electrolytes are unremarkable, his BUN is 27 creatinine 0.65. On 11/02/2021 patient is seen in follow-up in intensive care unit, yesterday he was given a sedation holiday, his sedation was switched to Precedex to help him with restlessness and agitation, he actually did quite well with the sedation holiday, he woke up, he was appropriate following command. However he managed to self extubate himself at 2030 last night. He also pulled out his NG tube. He is tolerating extubation well so far, he is currently on 11 L of oxygen his pulse ox is 92-95%, he does have a effective cough, he is able to expectorate some yellowish colored phlegm. He is awake and alert, he is following simple command, he is trying to is her questions, he is appropriate, but he is generally weak, and his voice is slightly hoarse. He is in sinus mechanism with a rate of 87, he is on Cleviprex at the 4 mg per hour, and his blood pressure is in the 130s and 150 systolic in the 50s diastolic. Precedex is currently off, and he is still getting TPN at 70 ML per hour. He has positive bowel sounds, and he did pass a normal bowel movement last night. Abdomen is soft, slightly tender with coughing, no nausea or vomiting, surgery has decided to keep the NG tube out. Patient is still nothing by mouth. His been afebrile overnight, he remains on Zosyn and Diflucan for antibiotic coverage, no new growth on his cultures, just some Annia in his abdominal wound cultures. His blood and urine were negative. His urine output is in the order of 100-175 ML per hour. He received a single dose of IV Lasix yesterday, he produced over 5 L in the urine output, he is in -2.7 L over the last 24 hours. Today's chest x-ray still showing bilateral infiltrates there is stable as read by Dr. Ledesma, there may be a slight improvement in the appearance of right lung infiltrates. Today's labs have been reviewed, his CBC still pending, electrolytes are unremarkable, his potassium 3.7, sodium is 138, chloride is 101, CO2 is 20, BUN is 29 creatinine 0.68. Patient is follows simple commands, denies any acute distress, he does become short of breath with any exertion even repositioning in bed and cleaning up, and he'll be placed on BiPAP support at 12 and 6 and FiO2 of 60%. On 11/04/2021 patient seen in follow-up in the intensive care unit. Patient has tolerated extubation quite well so far, has remained extubated for the past 48 hours, did require BiPAP support the day before yesterday, however did not require BiPAP support last night. He is currently on 11 L of oxygen pulse ox is 93%, breathing comfortably, does have a effective and productive cough, at times she is able to clear some yellow colored phlegm. He is awake, and oriented 3. He is in atrial fibrillation, with a rate of 109-120 BPM, is currently on Cleviprex a 4 mg per hour, and TPN at 74 ML per hour, he remains nothing by mouth. Lung sounds reveal a few scattered rhonchi, no wheezing. Patient remains on Decadron 6 mg daily, he is on antibiotics in the form of Zosyn and fluconazole for intra-abdominal sepsis. He is been started on amiodarone at 0.5 mg/m by cardiology for better rate control. Today's chest x-ray shows no interval change in the diffuse scattered partial consolidative opacities. Today's labs have been reviewed his white blood cell count is improving and is down to 17.8, hemoglobin is 13.8, his INR today is 1.2, electrolytes are within normal limits, BUN is 31 creatinine 0.74. His last LDH from 10/29/2021 was within normal at 539, CRP level was also improving and was down to 19.6. Sputum culture showed Annia albicans, his blood and urine cultures have been negative. Patient has been started on heparin infusion for A. fib with RVR by cardiology. Clinically patient looks comfortable, his mentation is appropriate, he denies any acute distress. He states he is very thirsty. He was offered some wet swabs. Objective - Vital Signs Vital signs: Vital Signs Temp 98.9 F 11/04/21 04:00 Pulse 109 H 11/04/21 07:00 Resp 23 11/04/21 07:00 BP 135/47 10/31/21 21:00 Pulse Ox 93 L 11/04/21 07:00 Intake & Output 11/03/21 11/04/21 11/04/21 18:59 06:59 18:59 Intake Total 6907.520 1670 160.5 Output Total 800 595 60 Balance 613.838 2564 100.5 Intake: IV 1144 968 88 .9 NS 130 110 10 0.9 39 33 3 Mvi, Adult No.4 with Vit 975 825 75 K 10 ml Trace (Conc-1Ml/ Dose) 1 ml In Amino Acid 5%-D20w+Lytes*E* 1,000 ml @ 75 mls/hr IV .BY DURATION RIANNA Rx#: [id number] Intake, IV Titration 76.133 1050 72.5 Amount Amino Acid 5%-D20w+Lytes* 1000 E* 1,000 ml @ 75 mls/hr IV .BY DURATION RIANNA Rx#: [id number] Clevidipine Butyrate 25 76.133 50 mg In Empty Bag 1 bag @ 1 MG/HR 2 mls/hr IV .Q24H RIANNA Rx#:[id number] Heparin Sod,Pork in 0.45% 72.5 NaCl 25,000 unit In 0.45 % NaCl 1 250ml.bag @ 9. 009 UNITS/KG/HR 10 mls/hr IV .Q24H RIANNA Rx#: [id number] Output: Urine 800 595 60 Other: Voiding Method Indwelling Catheter Indwelling Catheter ABP, PAP, CO, CI - Last Documented Arterial Blood Pressure 161/66 - Exam GENERAL EXAM: 66-year-old white male, awake and alert, follows simple command, responds appropriately, he is oriented 3, currently on 11 L with a pulse ox of 92-95% HEAD: Normocephalic/atraumatic. EYES: Normal reaction of pupils, equal size. Conjunctiva pink, sclera white. NOSE: Clear with pink turbinates. THROAT: No erythema or exudates. NECK: No masses, no JVD, no thyroid enlargement, no adenopathy. CHEST: No chest wall deformity. Symmetrical expansion. LUNGS: Equal air entry with no crackles, wheeze, rhonchi or dullness. CVS: Regular rate and rhythm, normal S1 and S2, no gallops, no murmurs, no rubs ABDOMEN: Soft, nontender. No hepatosplenomegaly, normal bowel sounds, no guarding or rigidity. abdominal incision is clean dry and intact, covered with a dressing. Bowel sounds 4 EXTREMITIES: No clubbing, generalized edema, mild no cyanosis, 2+ pulses and upper and lower extremities. MUSCULOSKELETAL: Muscle strength and tone normal. SPINE: No scoliosis or deformity SKIN: No rashes CENTRAL NERVOUS SYSTEM: No focal deficits, tone is normal in all 4 extremities. - Labs CBC & Chem 7: 11/04/21 03:00 11/04/21 03:00 Labs: Abnormal Lab Results - Last 24 Hours (Table) 11/03/21 11/03/21 11/04/21 Range/Units 11:38 17:33 00:45 WBC (3.8-10.6) k/uL Neutrophils # (1.3-7.7) k/uL INR (<1.2) BUN (9-20) mg/dL Glucose (74-99) mg/dL POC Glucose (mg/dL) 187 H 196 H 116 H (75-99) mg/dL Calcium (8.4-10.2) mg/dL C-Reactive Protein (<1.0) mg/dL Total Protein (6.3-8.2) g/dL Albumin (3.5-5.0) g/dL 11/04/21 11/04/21 11/04/21 Range/Units 03:00 03:00 03:00 WBC 17.8 H (3.8-10.6) k/uL Neutrophils # 15.2 H (1.3-7.7) k/uL INR 1.2 H (<1.2) BUN 31 H (9-20) mg/dL Glucose 212 H (74-99) mg/dL POC Glucose (mg/dL) (75-99) mg/dL Calcium 7.9 L (8.4-10.2) mg/dL C-Reactive Protein 19.6 H (<1.0) mg/dL Total Protein 6.1 L (6.3-8.2) g/dL Albumin 2.4 L (3.5-5.0) g/dL 11/04/21 Range/Units 06:30 WBC (3.8-10.6) k/uL Neutrophils # (1.3-7.7) k/uL INR (<1.2) BUN (9-20) mg/dL Glucose (74-99) mg/dL POC Glucose (mg/dL) 186 H (75-99) mg/dL Calcium (8.4-10.2) mg/dL C-Reactive Protein (<1.0) mg/dL Total Protein (6.3-8.2) g/dL Albumin (3.5-5.0) g/dL Assessment and Plan Plan: Assessment: #1. Acute hypoxic respiratory failure suspected to COVID-19 pneumonia, patient remains on a ventilator today on 11/01/2021 with FiO2 50% and PEEP of 8. Nilda ent self extubated on 11/01/2021, today on 11/02/2021, tolerating extubation well so far. We will be placed on BiPAP support intermittently for respiratory fatigue related to generalized weakness. #2. Perforated gastric ulcer, status post surgical intervention with exposure laparotomy, Billroth type II, and reconstruction of a gastric perforation on 10/26/2021 #3. Acute abdominal sepsis, with abdominal wound cultures positive for Annia albicans, currently on a combination of Diflucan and Zosyn #4. Lactic acidosis secondary to abdominal sepsis, resolved with fluid resuscitation #5. Acute kidney injury, resolved #6. Altered mental status, multifactorial, rule out possibility of a central nervous system abnormality possibility of a stroke, CT of the brain on 10/31/2021 showed no acute findings. His mentation has improved, patient is oriented 3, answering questions appropriately #7. A. fib with RVR, has been started on amiodarone and heparin infusion Plan: Continue weaning FiO2, Patient did not require BiPAP support last night Maintaining stable O2 saturations on 11 L We will give the patient on a dose of IV Lasix 40 mg She still ahead on his fluids Provide incentive spirometer Maintain aspiration precautions Continue antibiotics per surgery Vital signs are stable, no fever or chills Remains on TPN, patient is going to have upper GI studies tomorrow Abdomen is soft, incision is clean dry and intact We'll continue IV Decadron, Patient is being started on heparin infusion for A. fib with RVR and IV amiodarone Daily labs including CBC and CMP, repeat inflammatory markers We'll continue to follow May consider for transfer out of intensive care unit later on today remains stable and if the bed is needed I performed a history & physical examination of the patient and discussed their management with my nurse practitioner, Abiola Abarca. I reviewed the nurse practitioner's note and agree with the documented findings and plan of care. Lung sounds are positive for dim breath sounds throughout the lung hanks. The findings and the impression was discussed with the patient. I attest to the documentation by the nurse practitioner. Time with Patient: Greater than 30
--- NOTE | 2021-11-04 11:30 | CONS ---
CONSULTATION Mr. Salas is a 66-year-old male who presented with progressive dyspnea, was found to have COVID-19 pneumonia in addition to a perforated gastric ulcer. He underwent Billroth type 2 surgery. Cardiology consultation was requested because of atrial fibrillation. Patient was in sinus mechanism on presentation. He self-extubated on 11/01 and continues to require oxygenation. He is awake, alert, slow in responding. He denies any knowledge of the arrhythmia. He does not feel the palpitations. He continues to feel dyspneic. He denies any chest discomfort. He cannot recall that he has a prior history of arrhythmia, myocardial infarction or congestive heart failure. He is unclear if he follows with Cardiology on a regular basis. On the electronic records, there is no documentation of prior cardiac history. Patient hemodynamically stable. He was started yesterday on full anticoagulation in addition to IV amiodarone. He continues to have episodes of atrial fibrillation with rapid ventricular response. He has no history of PND, orthopnea or peripheral edema. Prior to the admission, his medication included Mucinex and vitamin C and hydrocodone. REVIEW OF SYSTEMS: RESPIRATORY SYSTEM: He had dyspnea on exertion on presentation, the cough. GI SYSTEM: He had the abdominal pain, the perforated ulcer. SYSTEM: No dysuria or hematuria. NERVOUS SYSTEM: No history of stroke or seizure. PHYSICAL EXAMINATION: Blood pressure running in the 140s to 160 with a heart rate in the 100s to 110s. Afebrile. No physical examination was done to limit the exposure. LAB DATA: Lab data revealed BUN and creatinine of 31 and 0.74, potassium 3.9, hemoglobin of 13.8. His white blood cells of 17.8, which is improved compared to yesterday. He continues to be n.p.o. after his abdominal surgery. His initial EKG on admission revealed sinus tachycardia with poor R-wave progression and nonspecific ST-T wave changes and rare PVCs. IMPRESSION: 1. Atrial fibrillation, new onset, not documented during his admission until yesterday. 2. Status post perforated ulcer, status post surgery. 3. COVID-19 pneumonia with respiratory failure, self-extubated on 11/01. 4. Episode of hypertension. 5. Acute renal injury. RECOMMENDATIONS: From the cardiac standpoint, patient will be continued on IV amiodarone and IV heparin. I will add to his regimen beta jad intravenously. I will obtain echocardiogram with Doppler. His thyroid function tests will be followed. Depending on his progress, further recommendations will be made. Thank you for this consult. Will follow with you. DAVID / IJN: [id number] /
--- NOTE | 2021-11-04 12:27 | P.PN ---
Subjective Progress Note Date: 11/04/21 Patient is awake minimally responsive. Patient did have a bowel movement. No nausea vomiting reported. RUPINDER drain is serosanguineous. Objective - Vital Signs Vital signs: Vital Signs Temp 98.5 F 11/04/21 08:00 Pulse 112 H 11/04/21 11:00 Resp 20 11/04/21 11:00 BP 135/47 10/31/21 21:00 Pulse Ox 94 L 11/04/21 11:00 Intake & Output 11/03/21 11/04/21 11/04/21 18:59 06:59 18:59 Intake Total 6426.358 0029 424.5 Output Total 800 595 270 Balance 290.461 9433 154.5 Intake: IV 1144 968 352 .9 NS 130 110 40 0.9 39 33 12 Mvi, Adult No.4 with Vit 975 825 300 K 10 ml Trace (Conc-1Ml/ Dose) 1 ml In Amino Acid 5%-D20w+Lytes*E* 1,000 ml @ 75 mls/hr IV .BY DURATION RIANNA Rx#: [id number] Intake, IV Titration 76.133 1050 72.5 Amount Amino Acid 5%-D20w+Lytes* 1000 E* 1,000 ml @ 75 mls/hr IV .BY DURATION RIANNA Rx#: [id number] Clevidipine Butyrate 25 76.133 50 mg In Empty Bag 1 bag @ 1 MG/HR 2 mls/hr IV .Q24H RIANNA Rx#:[id number] Heparin Sod,Pork in 0.45% 72.5 NaCl 25,000 unit In 0.45 % NaCl 1 250ml.bag @ 9. 009 UNITS/KG/HR 10 mls/hr IV .Q24H RIANNA Rx#: [id number] Output: Urine 800 595 270 Other: Voiding Method Indwelling Catheter Indwelling Catheter Indwelling Catheter ABP, PAP, CO, CI - Last Documented Arterial Blood Pressure 169/74 - Constitutional General appearance: Present: cooperative - Gastrointestinal Gastrointestinal Comment(s): S/NT/ND Incision CDI RUPINDER serosang - Labs CBC & Chem 7: 11/04/21 03:00 11/04/21 03:00 Labs: Abnormal Lab Results - Last 24 Hours (Table) 11/03/21 11/04/21 11/04/21 Range/Units 17:33 00:45 03:00 WBC (3.8-10.6) k/uL Neutrophils # (1.3-7.7) k/uL INR (<1.2) BUN 31 H (9-20) mg/dL Glucose 212 H (74-99) mg/dL POC Glucose (mg/dL) 196 H 116 H (75-99) mg/dL Calcium 7.9 L (8.4-10.2) mg/dL C-Reactive Protein 19.6 H (<1.0) mg/dL Total Protein 6.1 L (6.3-8.2) g/dL Albumin 2.4 L (3.5-5.0) g/dL 11/04/21 11/04/21 11/04/21 Range/Units 03:00 03:00 06:30 WBC 17.8 H (3.8-10.6) k/uL Neutrophils # 15.2 H (1.3-7.7) k/uL INR 1.2 H (<1.2) BUN (9-20) mg/dL Glucose (74-99) mg/dL POC Glucose (mg/dL) 186 H (75-99) mg/dL Calcium (8.4-10.2) mg/dL C-Reactive Protein (<1.0) mg/dL Total Protein (6.3-8.2) g/dL Albumin (3.5-5.0) g/dL 11/04/21 Range/Units 11:15 WBC (3.8-10.6) k/uL Neutrophils # (1.3-7.7) k/uL INR (<1.2) BUN (9-20) mg/dL Glucose (74-99) mg/dL POC Glucose (mg/dL) 161 H (75-99) mg/dL Calcium (8.4-10.2) mg/dL C-Reactive Protein (<1.0) mg/dL Total Protein (6.3-8.2) g/dL Albumin (3.5-5.0) g/dL Assessment and Plan Assessment: Status post expiratory laparotomy and Billroth II reconstruction secondary to perforated gastric ulcer Covid pneumonia Plan: Patient is having bowel movements no nausea vomiting. Patient's doing well from a general surgery standpoint however his mentation is still very poor he likely could not participate safely for upper GI study at this time. When his mentation improves he can go for contrast upper GI study to confirm patent anastomosis with no leakage. Continue TPN until then. The patient is higher th an normal risk for anastomotic disruption secondary to the COVID pneumonia and high-dose steroids he has been on. Overall patient is stable from a surgical standpoint, his primary issues now are related to COVID pneumonia.
[2021-11-04] MEDS ORDERED: CLEVIDIPINE BUTYRATE 25 MG/50 ML VIAL IV ONE ×2 (13:37→17:54)
--- NOTE | 2021-11-04 17:30 | PN ---
PROGRESS NOTE DATE OF SERVICE: 11/04/2021 REASON FOR FOLLOWUP: Secondary peritonitis from perforated peptic ulcer disease. INTERVAL HISTORY: The patient is afebrile. Today the patient is slightly more awake and alert. Has been complaining of some abdominal pain. No nausea, no vomiting, though. No chest pain, shortness of breath or cough. PHYSICAL EXAMINATION: Blood pressure is 114/66, pulse 91, temperature 98.9. He is 93% on 11 L high-flow oxygen. General description is an elderly male lying in bed in no distress. Respiratory system: Unlabored breathing, decreased intensity of breath sounds. No wheeze. Heart S1, S2. Regular rate and rhythm. Abdomen soft, mildly distended. No guarding or rigidity. LABS: Hemoglobin is 13.8, white count 17.8, down from yesterday of 21.1. Creatinine 0.74. DIAGNOSTIC IMPRESSION AND PLAN: Patient with secondary peritonitis from perforated peptic ulcer disease, status post operative repair. Abdominal culture positive for Annia albicans. Patient is covered with Zosyn and Diflucan. He did have some elevated white count yesterday. Cultures have been obtained. Those are currently pending. Continue current antibiotics and monitor his clinical course closely. MMODL / IJN: [id number] /
[2021-11-04 18:48] LABS: Glucose,Whole Blood 186 mg/dL (75-99)
[2021-11-04 23:51] LABS: Glucose,Whole Blood 142 mg/dL (75-99)
[2021-11-05] MEDS: HEPARIN SOD,PORK IN 0.45% NACL 25,000 UNIT in 0.45% NACL 1 250ML.BAG IV SCH ×2 (02:28→14:10)
[2021-11-05] MEDS: HEPARIN SODIUM 1,000 UN/ML (10ML VL) IV PRN ×2 (02:32→14:15)
[2021-11-05] MEDS: 1: AMINO ACID 5%-D20W+LYTES*E* 1,000 ML 2: MVI, ADULT NO.4 WITH VIT K 10 ML, TRACE (CON IV SCH ×12 (03:40→22:25)
[2021-11-05 05:17] LABS: Basophils % (A) 0 %; Eosinophils # (A) 0.1 k/uL (0-0.7); Eosinophils % (A) 0 %; HCT 38.4 % (39.0-53.0); Hypochromasia Slight; Lymphocytes # (A) 0.8 k/uL (1.0-4.8); Lymphocytes % (A) 6 %; MCH 29.1 pg (25.0-35.0); MCHC 31.3 g/dL (31.0-37.0); MCV 93.1 fL (80.0-100.0); Mean Platelet Volume 9.5; Monocytes % (A) 8 %; Neutrophils # (A) 11.3 k/uL (1.3-7.7); Neutrophils % (A) 84 %; Platelet Count 386 k/uL (150-450); RBC 4.13 m/uL (4.30-5.90); RDW 13.9 % (11.5-15.5); WBC 13.5 k/uL (3.8-10.6)
[2021-11-05] MEDS: PIPERACILLIN-TAZOBACTAM 3.375 GM in SODIUM CHLORIDE 0.9% 100 ML IVPB SCH ×3 (05:32→20:33)
[2021-11-05] MEDS: CLEVIDIPINE BUTYRATE 25 MG in EMPTY BAG 1 BAG IV SCH ×2 (05:39→11:00)
[2021-11-05 05:45] LABS: Chloride 106 mmol/L (98-107)
[2021-11-05 05:47] LABS: ALT 38 U/L (4-49); AST 34 U/L (17-59); African American GFR (CKD) >90 (>60 ml/min/1.73 sqM); Albumin 2.1 g/dL (3.5-5.0); Alkaline Phosphatase 58 U/L (38-126); Anion Gap 3 mmol/L; Blood Urea Nitrogen 31 mg/dL (9-20); Calcium 7.7 mg/dL (8.4-10.2); Carbon Dioxide 31 mmol/L (22-30); Glucose 196 mg/dL (74-99); Magnesium 2.1 mg/dL (1.6-2.3); Non-African American GFR(CKD) >90 (>60 ml/min/1.73 sqM); Phosphorus 3.9 mg/dL (2.5-4.5); Potassium 3.7 mmol/L (3.5-5.1); Sodium 140 mmol/L (137-145); Total Bilirubin 0.6 mg/dL (0.2-1.3); Total Protein 5.6 g/dL (6.3-8.2)
[2021-11-05 05:49] LABS: C Reactive Protein 6.1 mg/dL (<1.0)
[2021-11-05 06:01] LABS: Glucose,Whole Blood 142 mg/dL (75-99)
[2021-11-05] MEDS: INSULIN ASPART (NovoLOG) 100 UNIT/ML VIAL SQ SCH ×3 (06:09→18:32)
[2021-11-05] MEDS ORDERED: Potassium Replacement Protocol 1 EACH MISC MISCELLANE PRN (07:26)
[2021-11-05] MEDS ORDERED: CLEVIDIPINE BUTYRATE 25 MG/50 ML VIAL IV ONE (08:16)
[2021-11-05] MEDS: DEXAMETHASONE SOD PHOSPHATE 10 MG/ML 1 ML VIAL IVP SCH (08:29)
--- NOTE | 2021-11-05 08:29 | P.PN ---
Subjective Progress Note Date: 11/05/21 This is a 66-year-old white male presented to the emergency last night with acute onset of abdominal pain. Patient recently tested positive for COVID-19 and he had symptoms of COVID-19 pneumonia. Patient has been experiencing severe cough and according to the chart, the patient did receive COVID-19 vaccination. And apparently when he was initially diagnosed, the patient received monoclonal antibody infusion. Upon presentation to the ER, patient was found to have multifocal pneumonia, and his CT of the abdomen and pelvis revealed area of pneumoperitoneum. Patient has no previous history of peptic ulcer disease, no previous abdominal surgery. 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 Patient was started on antibiotics in the form of Zosyn and on Diflucan. Following the surgery, the patient was kept on a mechanical ventilator. On 11/01/2021, in the evening, the patient self extubated himself. He was not intubated. The patient remained extubated and he was requiring BiPAP on and off for respiratory support. Subsequently was weaned down to high flow oxygen at 11 L per minute nasal cannula. He is awake, and oriented 3. He is in atrial fibrillation, and he is currently on Cleviprex a 4 mg per hour, and TPN at 74 ML per hour, he remai ns nothing by mouth. Lung sounds reveal a few scattered rhonchi, no wheezing. Patient remains on Decadron 6 mg daily, he is on antibiotics in the form of Zosyn and fluconazole for intra-abdominal sepsis. He is been started on amiodarone at 0.5 mg/m by cardiology for better rate control. Today's chest x- ray shows no interval change in the diffuse scattered partial consolidative opacities. His last LDH from 10/29/2021 was within normal at 539, CRP level was also improving and was down to 19.6. Sputum culture showed Annia albicans, his blood and urine cultures have been negative. Patient has been started on heparin infusion for A. fib with RVR by cardiology. This morning, the patient is being seen for a follow-up. The patient is currently on a BiPAP for respiratory support. Most recent chest x-ray still showing bilateral pulmonary infiltrates, peripheral distribution and some background cardiomegaly without any significant interval change. The BiPAP setting currently is at 16/8 cm of water with an FiO2 of 70%. The patient is awake and alert. He is lethargic. He follows commands. He remains on amiodarone drip at 0.5 mg per minute and his also on IV heparin. His cardiac rhythm is converted into sinus. He remains on Cleviprex for blood pressure control. He is still receiving TPN for nutritional support.. Have a loose bowel movements. Bowel sounds are remaining quite sluggish. Surgical wound site is dry clean and intact. RUPINDER output is minimal at this point in time. He is postop day number 10 Objective - Vital Signs Vital signs: Vital Signs Temp 98.0 F 11/04/21 20:00 Pulse 56 L 11/05/21 07:00 Resp 20 11/05/21 07:00 BP 135/47 10/31/21 21:00 Pulse Ox 98 11/05/21 07:42 Intake & Output 11/04/21 11/05/21 11/05/21 18:59 06:59 18:59 Intake Total 5207.254 1157.405 23 Output Total 1005 790 110 Balance 324.804 923.405 -87 Weight 105 kg Intake: IV 1056 416 23 .9 NS 120 230 20 0.9 36 36 3 Mvi, Adult No.4 with Vit 900 150 K 10 ml Trace (Conc-1Ml/ Dose) 1 ml In Amino Acid 5%-D20w+Lytes*E* 1,000 ml @ 75 mls/hr IV .BY DURATION [facility] Rx#: [id number] Intake, IV Titration 486.459 7605.405 Amount Amino Acid 5%-D20w+Lytes* 1000 E* 1,000 ml @ 75 mls/hr IV .BY DURATION R[facility]NA Rx#: [id number] Amiodarone 450 mg In 188.337 Dextrose 5% in Water 250 ml @ 0.5 MG/MIN 16.667 mls/hr IV .Q15H [facility] Rx#: [id number] Clevidipine Butyrate 25 83.2 mg In Empty Bag 1 bag @ 1 MG/HR 2 mls/hr IV .Q24H [facility] Rx#:[id number] Heparin Sod,Pork in 0.45% 190.604 109.068 NaCl 25,000 unit In 0.45 % NaCl 1 250ml.bag @ 9. 009 UNITS/KG/HR 10 mls/hr IV .Q24H [facility] Rx#: [id number] Output: Drainage 10 Medial Abdomen 10 Urine 1005 790 100 Other: Voiding Method Indwelling Catheter Indwelling Catheter Indwelling Catheter ABP, PAP, CO, CI - Last Documented Arterial Blood Pressure 167/69 - Exam GENERAL EXAM: 66-year-old white male, awake and alert, follows simple command, responds appropriately, he is oriented 3, currently on 15 L with a pulse ox of 92-95% HEAD: Normocephalic/atraumatic. EYES: Normal reaction of pupils, equal size. Conjunctiva pink, sclera white. NOSE: Clear with pink turbinates. THROAT: No erythema or exudates. NECK: No masses, no JVD, no thyroid enlargement, no adenopathy. CHEST: No chest wall deformity. Symmetrical expansion. LUNGS: Equal air entry with no crackles, wheeze, rhonchi or dullness. CVS: Regular rate and rhythm, normal S1 and S2, no gallops, no murmurs, no rubs ABDOMEN: Soft, nontender. No hepatosplenomegaly, normal bowel sounds, no guard ing or rigidity. abdominal incision is clean dry and intact, covered with a dressing. Bowel sounds are very sluggish at this point in time. RUPINDER drain is in place. No direct tenderness. No rebound tenderness. No guarding. EXTREMITIES: No clubbing, generalized edema, mild no cyanosis, 2+ pulses and upper and lower extremities. MUSCULOSKELETAL: Muscle strength and tone normal. SPINE: No scoliosis or deformity SKIN: No rashes CENTRAL NERVOUS SYSTEM: No focal deficits, tone is normal in all 4 extremities. - Labs CBC & Chem 7: 11/05/21 05:00 11/05/21 05:00 Labs: Abnormal Lab Results - Last 24 Hours (Table) 11/04/21 11/04/21 11/04/21 Range/Units 03:00 11:15 18:47 WBC (3.8-10.6) k/uL RBC (4.30-5.90) m/uL Hgb (13.0-17.5) gm/dL Hct (39.0-53.0) % Neutrophils # (1.3-7.7) k/uL Lymphocytes # (1.0-4.8) k/uL Carbon Dioxide (22-30) mmol/L BUN (9-20) mg/dL Creatinine (0.66-1.25) mg/dL Glucose (74-99) mg/dL POC Glucose (mg/dL) 161 H 186 H (75-99) mg/dL Calcium (8.4-10.2) mg/dL Lactate Dehydrogenase (313-618) U/L C-Reactive Protein (<1.0) mg/dL Total Protein (6.3-8.2) g/dL Albumin (3.5-5.0) g/dL Procalcitonin 0.37 H (0.02-0.09) ng/mL 11/04/21 11/05/21 11/05/21 Range/Units 23:50 05:00 05:00 WBC (3.8-10.6) k/uL RBC (4.30-5.90) m/uL Hgb (13.0-17.5) gm/dL Hct (39.0-53.0) % Neutrophils # (1.3-7.7) k/uL Lymphocytes # (1.0-4.8) k/uL Carbon Dioxide 31 H (22-30) mmol/L BUN 31 H (9-20) mg/dL Creatinine 0.63 L (0.66-1.25) mg/dL Glucose 196 H (74-99) mg/dL POC Glucose (mg/dL) 142 H (75-99) mg/dL Calcium 7.7 L (8.4-10.2) mg/dL Lactate Dehydrogenase 864 H (313-618) U/L C-Reactive Protein 6.1 H (<1.0) mg/dL Total Protein 5.6 L (6.3-8.2) g/dL Albumin 2.1 L (3.5-5.0) g/dL Procalcitonin (0.02-0.09) ng/mL 11/05/21 11/05/21 Range/Units 05:00 06:00 WBC 13.5 H (3.8-10.6) k/uL RBC 4.13 L (4.30-5.90) m/uL Hgb 12.0 L (13.0-17.5) gm/dL Hct 38.4 L (39.0-53.0) % Neutrophils # 11.3 H (1.3-7.7) k/uL Lymphocytes # 0.8 L (1.0-4.8) k/uL Carbon Dioxide (22-30) mmol/L BUN (9-20) mg/dL Creatinine (0.66-1.25) mg/dL Glucose (74-99) mg/dL POC Glucose (mg/dL) 142 H (75-99) mg/dL Calcium (8.4-10.2) mg/dL Lactate Dehydrogenase (313-618) U/L C-Reactive Protein (<1.0) mg/dL Total Protein (6.3-8.2) g/dL Albumin (3.5-5.0) g/dL Procalcitonin (0.02-0.09) ng/mL Assessment and Plan Plan: #1. Acute hypoxic respiratory failure suspected to COVID-19 pneumonia. Patient self extubated on 11/01/2021, today on 11/02/2021, tolerating extubation well so far. We will be placed on BiPAP support intermittently for respiratory fatigue related to generalized weakness. Patient is essentially transitioning between a BiPAP and high flow oxygen. This morning he was on a BiPAP. I dropped down to 50% BiPAP at a pressure of 16/80 later on switched him to a high flow nasal oxygen at 15 L. He may benefit from airvo the chest x-ray is showing diffuse bilateral pulmonary infiltrates. If he desaturates, the patient will be switched to Airvo and the flow to be determined based on his oxygen saturation. #2. Perforated gastric ulcer, status post surgical intervention with exposure laparotomy, Billroth type II, and reconstruction of a gastric perforation on 10/26/2021, the patient is postop day #10. The patient remains on CPAP with oxygen support. Surgical wound site is dry clean and intact. RUPINDER drain is still in place. #3. Acute abdominal sepsis, with abdominal wound cultures positive for Annia albicans, currently on a combination of Diflucan and Zosyn #4. Lactic acidosis secondary to abdominal sepsis, resolved with fluid resu scitation #5. Acute kidney injury, resolved #6. Altered mental status, multifactorial, rule out possibility of a central nervous system abnormality possibility of a stroke, CT of the brain on 10/17 showed no acute findings. His mentation has improved, patient is oriented 3, answering questions appropriately #7. A. fib with RVR, has been started on amiodarone and heparin infusion, card iac rhythm is back to sinus and the patient remains on amiodarone maintenance of 0.5 mg per minute in addition to IV heparin. Plan: Continue weaning FiO2, discontinue the BiPAP and switch this patient to Airvo and the flow to be determined based on his oxygen desaturation. We can start him at 40 L with an FiO2 of 50%. May continue use BiPAP as needed We will give the patient on a dose of IV Lasix 40 mg She still ahead on his fluids Provide incentive spirometer Maintain aspiration precautions Continue antibiotics per surgery Vital signs are stable, no fever or chills Remains on TPN, patient is going to have upper GI studies tomorrow Abdomen is soft, incision is clean dry and intact We'll continue IV Decadron, Continue amiodarone drip and IV heparin and the echo of the heart to be done today Daily labs including CBC and CMP, repeat inflammatory markers We'll continue to follow Continue FU in the ICU and there is a critically care evaluation that was on a more than 30 minutes. Time with Patient: Greater than 30
[2021-11-05] MEDS: FLUCONAZOLE IN NACL,ISO-OSM 200 MG in SALINE 1 100ML.BAG IVPB SCH (09:25)
[2021-11-05] MEDS: POTASSIUM CHLORIDE 10 MEQ in WATER FOR INJECTION 1 100ML.BAG IVPB SCH ×2 (09:25→10:56)
[2021-11-05] MEDS: PANTOPRAZOLE 40 MG/10 ML VIAL IV SCH (09:25)
[2021-11-05] MEDS: FUROSEMIDE 10 MG/ML 4 ML VIAL IV SCH (09:25)
[2021-11-05] MEDS: HYDROmorphone 0.5 MG/0.5 ML SYRINGE IVP PRN (10:04)
--- NOTE | 2021-11-05 10:20 | P.PN ---
Subjective Progress Note Date: 11/05/21 Patient is more talkative today still poor historian Patient extubated patient feels okay Appears to be less short of breath .Constitutional: No acute distress, conversant, pleasant Eyes: Anicteric sclerae, moist conjunctiva, no lid-lag PERRLA ENMT: NC/AT Oropharynx clear, no erythema, exudates Neck: Supple, FROM, no masses, or JVD No carotid bruits No thyromegaly Lungs: C no major accessory muscle use Cardiovascular: Heart regular in rate and rhythm, No murmurs, gallops, or rubs No peripheral edema Abdominal: Soft Nontender, no guarding, rebound or rigidity Abdomen moving with respiration Normoactive bowel sounds No hepatomegaly, No splenomegaly No palpable mass No abdominal wall hernia noted Skin: Normal temperature, tone, texture, turgor No induration No subcutaneous nodules No rash, lesions No ulcers Extremities: No digital cyanosis No clubbing Pedal pulses intact and symmetrical Radial pulses intact and symmetrical Normal gait and station No calf tenderness Psychiatric:Alert a Neuro: Muscles Strength 5/5 in all 4 extremities Sensation to light touch grossly present throughout Cranial nerves II-XII grossly intact No focal sensory deficits OVID-19 pneumonia with acute hypoxic respiratory failure -Continue with mechanical ventilation, propofol, fentanyl, IV fluids -Continue Decadron -Infectious disease consulted: Sepsis secondary to Perforated gastric ulcer status post expiratory laparotomy and gastrectomy -Defer management to the primary surgical service -On TPN, on PPI IV Elevated INR -Suspected due to sepsis upon presentation -Monitor for now Continue to wean as better respiratory protocol and pulmonology Overall appears to be stable continue management as per ICU team and pulmonary Patient extubated Appears in no distress at this time continue management as per ICU team Status post perforated peptic ulcer gastric ulcer post exploratory laparotomy continue management as per surgery Continue management as better ICU team overall appears to be stable still has difficulty breathing Continue complete management as per ICU team Objective - Vital Signs Vital signs: Vital Signs Temp 98.0 F 11/04/21 20:00 Pulse 56 L 11/05/21 07:00 Resp 20 11/05/21 07:00 BP 135/47 10/31/21 21:00 Pulse Ox 97 11/05/21 08:56 Intake & Output 11/04/21 11/05/21 11/05/21 18:59 06:59 18:59 Intake Total 1753.847 2456.405 23 Output Total 1005 790 110 Balance 324.804 923.405 -87 Weight 105 kg Intake: IV 1056 416 23 .9 NS 120 230 20 0.9 36 36 3 Mvi, Adult No.4 with Vit 900 150 K 10 ml Trace (Conc-1Ml/ Dose) 1 ml In Amino Acid 5%-D20w+Lytes*E* 1,000 ml @ 75 mls/hr IV .BY DURATION [facility]NA Rx#: [id number] Intake, IV Titration 715.536 3783.405 Amount Amino Acid 5%-D20w+Lytes* 1000 E* 1,000 ml @ 75 mls/hr IV .BY DURATION [facility]NA Rx#: [id number] Amiodarone 450 mg In 188.337 Dextrose 5% in Water 250 ml @ 0.5 MG/MIN 16.667 mls/hr IV .Q15H [facility] Rx#: [id number] Clevidipine Butyrate 25 83.2 mg In Empty Bag 1 bag @ 1 MG/HR 2 mls/hr IV .Q24H [facility] Rx#:[id number] Heparin Sod,Pork in 0.45% 190.604 109.068 NaCl 25,000 unit In 0.45 % NaCl 1 250ml.bag @ 9. 009 UNITS/KG/HR 10 mls/hr IV .Q24H [facility] Rx#: [id number] Output: Drainage 10 Medial Abdomen 10 Urine 1005 790 100 Other: Voiding Method Indwelling Catheter Indwelling Catheter Indwelling Catheter ABP, PAP, CO, CI - Last Documented Arterial Blood Pressure 167/69 - Labs CBC & Chem 7: 11/05/21 05:00 11/05/21 05:00 Labs: Abnormal Lab Results - Last 24 Hours (Table) 11/04/21 11/04/21 11/04/21 Range/Units 03:00 11:15 18:47 WBC (3.8-10.6) k/uL RBC (4.30-5.90) m/uL Hgb (13.0-17.5) gm/dL Hct (39.0-53.0) % Neutrophils # (1.3-7.7) k/uL Lymphocytes # (1.0-4.8) k/uL Carbon Dioxide (22-30) mmol/L BUN (9-20) mg/dL Creatinine (0.66-1.25) mg/dL Glucose (74-99) mg/dL POC Glucose (mg/dL) 161 H 186 H (75-99) mg/dL Calcium (8.4-10.2) mg/dL Lactate Dehydrogenase (313-618) U/L C-Reactive Protein (<1.0) mg/dL Total Protein (6.3-8.2) g/dL Albumin (3.5-5.0) g/dL Procalcitonin 0.37 H (0.02-0.09) ng/mL 11/04/21 11/05/21 11/05/21 Range/Units 23:50 05:00 05:00 WBC (3.8-10.6) k/uL RBC (4.30-5.90) m/uL Hgb (13.0-17.5) gm/dL Hct (39.0-53.0) % Neutrophils # (1.3-7.7) k/uL Lymphocytes # (1.0-4.8) k/uL Carbon Dioxide 31 H (22-30) mmol/L BUN 31 H (9-20) mg/dL Creatinine 0.63 L (0.66-1.25) mg/dL Glucose 196 H (74-99) mg/dL POC Glucose (mg/dL) 142 H (75-99) mg/dL Calcium 7.7 L (8.4-10.2) mg/dL Lactate Dehydrogenase 864 H (313-618) U/L C-Reactive Protein 6.1 H (<1.0) mg/dL Total Protein 5.6 L (6.3-8.2) g/dL Albumin 2.1 L (3.5-5.0) g/dL Procalcitonin (0.02-0.09) ng/mL 11/05/21 11/05/21 Range/Units 05:00 06:00 WBC 13.5 H (3.8-10.6) k/uL RBC 4.13 L (4.30-5.90) m/uL Hgb 12.0 L (13.0-17.5) gm/dL Hct 38.4 L (39.0-53.0) % Neutrophils # 11.3 H (1.3-7.7) k/uL Lymphocytes # 0.8 L (1.0-4.8) k/uL Carbon Dioxide (22-30) mmol/L BUN (9-20) mg/dL Creatinine (0.66-1.25) mg/dL Glucose (74-99) mg/dL POC Glucose (mg/dL) 142 H (75-99) mg/dL Calcium (8.4-10.2) mg/dL Lactate Dehydrogenase (313-618) U/L C-Reactive Protein (<1.0) mg/dL Total Protein (6.3-8.2) g/dL Albumin (3.5-5.0) g/dL Procalcitonin (0.02-0.09) ng/mL
--- NOTE | 2021-11-05 11:00 | ECHOF ---
Referral Reason:afib MEASUREMENTS -------- HEIGHT: 175.3 cm WEIGHT: 104.8 kg BP: 167/69 RVIDd: 3.3 cm (< 3.3) IVSd: 1.5 cm (0.6 - 1.1) LVIDd: 4.0 cm (3.9 - 5.3) LVPWd: 1.5 cm (0.6 - 1.1) IVSs: 2.3 cm LVIDs: 2.4 cm LVPWs: 1.9 cm LAESV Index (A-L): 31.20 ml/m Ao Diam: 3.1 cm (2.0 - 3.7) AV Cusp: 1.9 cm (1.5 - 2.6) LA Diam: 3.2 cm (2.7 - 3.8) MV EXCURSION: 15.946 mm (> 18.000) MV EF SLOPE: 55 mm/s (70 - 150) EPSS: 0.7 cm MV E Tone: 1.08 m/s MV DecT: 286 ms MV A Tone: 0.82 m/s MV E/A Ratio: 1.31 AV maxP.32 mmHg AV meanP.29 mmHg FINDINGS -------- Sinus rhythm. This was a technically difficult study with suboptimal apical views. The left ventricular size is normal. There is moderate concentric left ventricular hypertrophy. O verall left ventricular systolic function is normal with, an EF between 55 - 60 %. Possible LVOT Ob struction. The right ventricle is mildly enlarged. LA is midly dilated 29-33ml/m2. The right atrium was not well visualized. 4.0mg of Lumason was utilized for enhancement of images Interatrial and interventricular septum intact. There is mild aortic valve sclerosis. There is no evidence of aortic regurgitation. There is mild aortic stenosis present. The maximum velocity across the aortic valve is 2.02m/s. Peak/mean grad ient across the Aortic Valve is 16.32mmHg / 7.29mmHg. Mild mitral regurgitation is present. Mild tricuspid regurgitation present. Unable to estimate RVSP due to inadequate TR jet spectral dop pler profile. There is no pulmonic regurgitation present. The aortic root size is normal. IVC Not well visulized. There is no pericardial effusion. CONCLUSIONS -------- 1. The left ventricular size is normal. 2. There is moderate concentric left ventricular hypertrophy. 3. Overall left ventricular systolic function is normal with, an EF between 55 - 60 %. 4. Possible LVOT Obstruction. 5. The right ventricle is mildly enlarged. 6. LA is midly dilated 29-33ml/m2. 7. There is mild aortic valve sclerosis. 8. There is mild aortic stenosis present. 9. The maximum velocity across the aortic valve is 2.02m/s. 10. Peak/mean gradient across the Aortic Valve is 16.32mmHg / 7.29mmHg. 11. Mild mitral regurgitation is present. 12. Mild tricuspid regurgitation present. SOFTWARE SUPPORT ENGINEER: Shira May RDCS
[2021-11-05 11:04] LABS: Glucose,Whole Blood 187 mg/dL (75-99)
[2021-11-05] MEDS: AMIODARONE 450 MG in DEXTROSE 5% IN WATER 250 ML IV SCH ×2 (11:33)
--- NOTE | 2021-11-05 12:13 | PN ---
PROGRESS NOTE FOLLOW-UP NOTE: Jose is a 66-year-old gentleman who is admitted to hospital with COVID pneumonia and also had a perforated gastric ulcer. He underwent surgery for the same. He is currently extubated, not able to swallow anything, has had atrial fibrillation, currently in sinus rhythm with a heart rate of 56. He is currently on IV heparin and intravenous beta blockers. His IV amiodarone had been discontinued. On exam, heart rate is 56 beats per minute. Blood pressure is 147/50, respiratory rate is 17. He is on BiPAP, saturating at 96%. Labs show a hemoglobin of 12, platelet count is 386, potassium is 3.7, creatinine is 0.6. ASSESSMENT: 1. Paroxysmal atrial fibrillation. 2. COVID pneumonia. 3. Perforated gastric ulcer. PLAN: Echocardiogram is pending. Will follow the results. I will continue IV Lopressor and the IV heparin that he is currently on. MMODL / IJN: [id number] /
[2021-11-05 12:29] LABS: INR 1.1 (<1.2); Prothrombin Time 11.6 sec (9.0-12.0)
[2021-11-05] MEDS: METOPROLOL TARTRATE 5 MG/5 ML VIAL IVP SCH ×2 (14:09→18:26)
[2021-11-05 18:10] LABS: Glucose,Whole Blood 345 mg/dL (75-99)
--- NOTE | 2021-11-05 20:41 | P.PN ---
Subjective Progress Note Date: 11/05/21 Patient is awake minimally responsive. Patient did have a bowel movement. No nausea vomiting reported. RUPINDER drain is serosanguineous. Objective - Vital Signs Vital signs: Vital Signs Temp 98.9 F 11/05/21 16:00 Pulse 60 11/05/21 19:00 Resp 22 11/05/21 19:00 BP 135/47 10/31/21 21:00 Pulse Ox 93 L 11/05/21 19:00 Intake & Output 11/05/21 11/05/21 11/06/21 06:59 18:59 06:59 Intake Total 0055.085 4928.578 Output Total 790 2205 Balance 923.405 310.578 Weight 105 kg 105 kg Intake: IV 416 1299 .9 NS 230 260 0.9 36 39 Mvi, Adult No.4 with Vit 150 900 K 10 ml Trace (Conc-1Ml/ Dose) 1 ml In Amino Acid 5%-D20w+Lytes*E* 1,000 ml @ 75 mls/hr IV .BY DURATION [facility] Rx#: [id number] Piperacillin-Tazobactam 3 100 .375 gm In Sodium Chloride 0.9% 100 ml @ 25 mls/hr IVPB Q8H [facility] Rx#: [id number] Intake, IV Titration 1477.139 5465.578 Amount Amino Acid 5%-D20w+Lytes* 1000 966.25 E* 1,000 ml @ 75 mls/hr IV .BY DURATION [facility] Rx#: [id number] Amiodarone 450 mg In 188.337 Dextrose 5% in Water 250 ml @ 0.5 MG/MIN 16.667 mls/hr IV .Q15H [facility] Rx#: [id number] Clevidipine Butyrate 25 50 mg In Empty Bag 1 bag @ 1 MG/HR 2 mls/hr IV .Q24H [facility] Rx#:[id number] Heparin Sod,Pork in 0.45% 109.068 200.328 NaCl 25,000 unit In 0.45 % NaCl 1 250ml.bag @ 9. 009 UNITS/KG/HR 10 mls/hr IV .Q24H [facility] Rx#: [id number] Output: Drainage 10 Medial Abdomen 10 Urine 790 2195 Other: Voiding Method Indwelling Catheter Indwelling Catheter ABP, PAP, CO, CI - Last Documented Arterial Blood Pressure 119/50 - Labs CBC & Chem 7: 11/05/21 05:00 11/05/21 05:00 Labs: Abnormal Lab Results - Last 24 Hours (Table) 11/04/21 11/05/21 11/05/21 Range/Units 23:50 05:00 05:00 WBC (3.8-10.6) k/uL RBC (4.30-5.90) m/uL Hgb (13.0-17.5) gm/dL Hct (39.0-53.0) % Neutrophils # (1.3-7.7) k/uL Lymphocytes # (1.0-4.8) k/uL APTT (22.0-30.0) sec Carbon Dioxide 31 H (22-30) mmol/L BUN 31 H (9-20) mg/dL Creatinine 0.63 L (0.66-1.25) mg/dL Glucose 196 H (74-99) mg/dL POC Glucose (mg/dL) 142 H (75-99) mg/dL Calcium 7.7 L (8.4-10.2) mg/dL Lactate Dehydrogenase 864 H (313-618) U/L C-Reactive Protein 6.1 H (<1.0) mg/dL Total Protein 5.6 L (6.3-8.2) g/dL Albumin 2.1 L (3.5-5.0) g/dL 11/05/21 11/05/21 11/05/21 Range/Units 05:00 06:00 11:03 WBC 13.5 H (3.8-10.6) k/uL RBC 4.13 L (4.30-5.90) m/uL Hgb 12.0 L (13.0-17.5) gm/dL Hct 38.4 L (39.0-53.0) % Neutrophils # 11.3 H (1.3-7.7) k/uL Lymphocytes # 0.8 L (1.0-4.8) k/uL APTT (22.0-30.0) sec Carbon Dioxide (22-30) mmol/L BUN (9-20) mg/dL Creatinine (0.66-1.25) mg/dL Glucose (74-99) mg/dL POC Glucose (mg/dL) 142 H 187 H (75-99) mg/dL Calcium (8.4-10.2) mg/dL Lactate Dehydrogenase (313-618) U/L C-Reactive Protein (<1.0) mg/dL Total Protein (6.3-8.2) g/dL Albumin (3.5-5.0) g/dL 11/05/21 11/05/21 Range/Units 13:36 18:09 WBC (3.8-10.6) k/uL RBC (4.30-5.90) m/uL Hgb (13.0-17.5) gm/dL Hct (39.0-53.0) % Neutrophils # (1.3-7.7) k/uL Lymphocytes # (1.0-4.8) k/uL APTT 32.4 H (22.0-30.0) sec Carbon Dioxide (22-30) mmol/L BUN (9-20) mg/dL Creatinine (0.66-1.25) mg/dL Glucose (74-99) mg/dL POC Glucose (mg/dL) 345 H (75-99) mg/dL Calcium (8.4-10.2) mg/dL Lactate Dehydrogenase (313-618) U/L C-Reactive Protein (<1.0) mg/dL Total Protein (6.3-8.2) g/dL Albumin (3.5-5.0) g/dL Assessment and Plan Assessment: Status post expiratory laparotomy and Billroth II reconstruction secondary to perforated gastric ulcer Covid pneumonia Plan: Patient is having bowel movements no nausea vomiting. Patient's doing well from a general surgery standpoint however his mentation is still very poor he likely could not participate safely for upper GI study at this time. When his mentation improves he can go for contrast upper GI study to confirm patent anastomosis with no leakage. Continue TPN until then. The patient is higher than normal risk for anastomotic disruption secondary to the COVID pneumonia and high-dose steroids he has been on. Overall patient is stable from a surgical standpoint, his primary issues now are related to COVID pneumonia.
--- NOTE | 2021-11-05 22:49 | PN ---
PROGRESS NOTE DATE OF SERVICE: 11/05/2021 REASON FOR FOLLOWUP: 1. Secondary peritonitis from perforated peptic ulcer disease. 2. Elevated white count. 3. COVID-19 pneumonia. INTERVAL HISTORY: The patient is afebrile. The patient is breathing comfortably. Still requiring high- flow oxygen, though. The patient denies having any chest pain or worsening cough or sputum production. Abdominal pain is currently controlled. No vomiting or diarrhea. PHYSICAL EXAMINATION: Blood pressure 120/58 with a pulse of , temperature .8. He is 94% on 60% FiO2. General description is an elderly male up in the bed in no distress. Respiratory system: Unlabored breathing, decreased intensity of breath sounds. No wheeze. Heart S1, S2. Regular rate and rhythm. Abdomen soft, no tenderness. LABS: Hemoglobin is 12, white count 15.5, creatinine 0.63. Repeat culture so far negative. DIAGNOSTIC IMPRESSION AND PLAN: 1. Patient with secondary peritonitis from ruptured peptic ulcer disease, status post operative repair and laparotomy. Abdominal cultures with Annia, covered with diflucan and Zosyn; to continue. 2. Patient with positive COVID-19 infection with initial testing positive on October 20 with illness for more than 20 days. Patient can be taken off per guidelines. MMODL / IJN: [id number] /
[2021-11-06 00:17] LABS: Glucose,Whole Blood 122 mg/dL (75-99)
[2021-11-06] MEDS: HYDROmorphone 0.5 MG/0.5 ML SYRINGE IVP PRN ×2 (00:18→04:57)
[2021-11-06] MEDS: 1: AMINO ACID 5%-D20W+LYTES*E* 1,000 ML 2: MVI, ADULT NO.4 WITH VIT K 10 ML, TRACE (CON IV SCH ×6 (00:19→14:03)
[2021-11-06] MEDS: INSULIN ASPART (NovoLOG) 100 UNIT/ML VIAL SQ SCH ×5 (00:20→23:34)
[2021-11-06] MEDS: METOPROLOL TARTRATE 5 MG/5 ML VIAL IVP SCH ×2 (00:24→08:36)
[2021-11-06 00:39] LABS: Glucose,Whole Blood 141 mg/dL (75-99)
[2021-11-06] MEDS: AMIODARONE 450 MG in DEXTROSE 5% IN WATER 250 ML IV SCH ×2 (02:28)
[2021-11-06] MEDS: HEPARIN SOD,PORK IN 0.45% NACL 25,000 UNIT in 0.45% NACL 1 250ML.BAG IV SCH ×2 (04:58→17:42)
[2021-11-06] MEDS: PIPERACILLIN-TAZOBACTAM 3.375 GM in SODIUM CHLORIDE 0.9% 100 ML IVPB SCH ×3 (04:58→20:55)
[2021-11-06 05:38] LABS: Basophils # (A) 0.1 k/uL (0-0.2); Basophils % (A) 0 %; Eosinophils % (A) 0 %; HCT 41.1 % (39.0-53.0); HGB 12.9 gm/dL (13.0-17.5); Lymphocytes % (A) 7 %; MCH 29.1 pg (25.0-35.0); MCHC 31.5 g/dL (31.0-37.0); MCV 92.5 fL (80.0-100.0); Mean Platelet Volume 9.7; Monocytes % (A) 7 %; Neutrophils # (A) 11.9 k/uL (1.3-7.7); Neutrophils % (A) 84 %; Platelet Count 421 k/uL (150-450); RBC 4.44 m/uL (4.30-5.90); RDW 13.9 % (11.5-15.5); WBC 14.2 k/uL (3.8-10.6)
[2021-11-06 05:46] LABS: Glucose,Whole Blood 162 mg/dL (75-99)
[2021-11-06 05:47] LABS: ALT 55 U/L (4-49); AST 35 U/L (17-59); African American GFR (CKD) >90 (>60 ml/min/1.73 sqM); Albumin 2.4 g/dL (3.5-5.0); Alkaline Phosphatase 70 U/L (38-126); Anion Gap 5 mmol/L; Blood Urea Nitrogen 35 mg/dL (9-20); Calcium 8.2 mg/dL (8.4-10.2); Carbon Dioxide 29 mmol/L (22-30); Chloride 104 mmol/L (98-107); Glucose 183 mg/dL (74-99); Non-African American GFR(CKD) >90 (>60 ml/min/1.73 sqM); Phosphorus 4.3 mg/dL (2.5-4.5); Potassium 3.8 mmol/L (3.5-5.1); Sodium 138 mmol/L (137-145); Total Bilirubin 0.8 mg/dL (0.2-1.3); Total Protein 6.2 g/dL (6.3-8.2)
--- NOTE | 2021-11-06 08:47 | P.PN ---
Subjective Progress Note Date: 11/06/21 This is a 66-year-old white male presented to the emergency last night with acute onset of abdominal pain. Patient recently tested positive for COVID-19 and he had symptoms of COVID-19 pneumonia. Patient has been experiencing severe cough and according to the chart, the patient did receive COVID-19 vaccination. And apparently when he was initially diagnosed, the patient received monoclonal antibody infusion. Upon presentation to the ER, patient was found to have multifocal pneumonia, and his CT of the abdomen and pelvis revealed area of pneumoperitoneum. Patient has no previous history of peptic ulcer disease, no previous abdominal surgery. 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 Patient was started on antibiotics in the form of Zosyn and on Diflucan. Following the surgery, the patient was kept on a mechanical ventilator. On 11/01/2021, in the evening, the patient self extubated himself. He was not intubated. The patient remained extubated and he was requiring BiPAP on and off for respiratory support. Subsequently was weaned down to high flow oxygen at 11 L per minute nasal cannula. He is awake, and oriented 3. He is in atrial fibrillation, and he is currently on Cleviprex a 4 mg per hour, and TPN at 74 ML per hour, he gisele ins nothing by mouth. Lung sounds reveal a few scattered rhonchi, no wheezing. Patient remains on Decadron 6 mg daily, he is on antibiotics in the form of Zosyn and fluconazole for intra-abdominal sepsis. He is been started on amiodarone at 0.5 mg/m by cardiology for better rate control. Today's chest x- ray shows no interval change in the diffuse scattered partial consolidative opacities. His last LDH from 10/29/2021 was within normal at 539, CRP level was also improving and was down to 19.6. Sputum culture showed Annia albicans, his blood and urine cultures have been negative. Patient has been started on heparin infusion for A. fib with RVR by cardiology. This morning, the patient is being seen for a follow-up. The patient is currently on a BiPAP for respiratory support. Most recent chest x-ray still showing bilateral pulmonary infiltrates, peripheral distribution and some background cardiomegaly without any significant interval change. The BiPAP setting currently is at 16/8 cm of water with an FiO2 of 70%. The patient is awake and alert. He is lethargic. He follows commands. He remains on amiodarone drip at 0.5 mg per minute and his also on IV heparin. His cardiac rhythm is converted into sinus. He remains on Cleviprex for blood pressure control. He is still receiving TPN for nutritional support.. Have a loose bowel movements. Bowel sounds are remaining quite sluggish. Surgical wound site is dry clean and intact. RUPINDER output is minimal at this point in time. He is postop day number 10 On today's evaluation of 11/06/2021, the patient is postop day #11. He remains nothing by mouth. He remains on TPN for nutritional support. He remains on examination of Zosyn and Diflucan following his surgery that included a Billroth type II reconstruction along with exp laparotomy. The patient underwent surgery for a perforated stomach. The patient was also found to be possible COVID 19 and the patient with hypoxic respiratory failure. He was intubated and subsequently self extubated, in fact the patient self extubated and the patient is currently on high flow oxygen and the following interval with a flow of 4 L with an FiO2 of 60%. He is quite comfortable with his breathing. His current pulse ox is around 96% and there is some more room for FiO2 wean. He remains nothing by mouth. Pain is under adequate control for now. He is hemodynamically stable. He remains in atrial fibrillation at a low rate and his heart is in the mid 50s. He is on a combination of amiodarone running at 0.5 mg per minute and the patient is also on Lopressor IV which she has not been receiving. The patient is also on IV heparin drip regarding his .In terms of his blood pressure control, has been maintained on Cleviprex and this has been discontinued as of midnight. He is awake and alert. He is following commands. He remains on Decadron 6 mg IV every 24 hours. Antibiotic coverage remains unchanged. He is afebrile. Surgical wound site is dry clean and intact. RUPINDER drain output is minimal at this point in time. Has bowel movement was on 11/03/2021. He has not had any bowel movement since on a bowel sounds are sounding good for now. He is going to have an upper GI series today. Coagulation Objective - Vital Signs Vital signs: Vital Signs Temp 98.8 F 11/05/21 20:00 Pulse 56 L 11/06/21 03:00 Resp 17 11/06/21 03:00 BP 155/88 11/06/21 03:00 Pulse Ox 94 L 11/06/21 07:43 Intake & Output 11/05/21 11/06/21 11/06/21 18:59 06:59 18:59 Intake Total 2515.578 1618.683 193 Output Total 2205 995 235 Balance 310.578 623.683 -42 Weight 105 kg 105.5 kg Intake: IV 1299 1078 193 .9 NS 260 220 40 0.9 39 33 3 Amino Acid 5%-D20w+Lytes* 825 150 E* 1,000 ml @ 75 mls/hr IV .BY DURATION RIANNA Rx#: [id number] Mvi, Adult No.4 with Vit 900 K 10 ml Trace (Conc-1Ml/ Dose) 1 ml In Amino Acid 5%-D20w+Lytes*E* 1,000 ml @ 75 mls/hr IV .BY DURATION RIANNA Rx#: [id number] Piperacillin-Tazobactam 3 100 .375 gm In Sodium Chloride 0.9% 100 ml @ 25 mls/hr IVPB Q8H RIANNA Rx#: [id number] Intake, IV Titration 1216.578 540.683 Amount Amino Acid 5%-D20w+Lytes* 966.25 E* 1,000 ml @ 75 mls/hr IV .BY DURATION RIANNA Rx#: [id number] Amiodarone 450 mg In 248.616 Dextrose 5% in Water 250 ml @ 0.5 MG/MIN 16.667 mls/hr IV .Q15H RIANNA Rx#: [id number] Clevidipine Butyrate 25 50 42.067 mg In Empty Bag 1 bag @ 1 MG/HR 2 mls/hr IV .Q24H RIANNA Rx#:[id number] Heparin Sod,Pork in 0.45% 200.328 250 NaCl 25,000 unit In 0.45 % NaCl 1 250ml.bag @ 9. 009 UNITS/KG/HR 10 mls/hr IV .Q24H RIANNA Rx#: [id number] Output: Drainage 10 Medial Abdomen 10 Urine 2195 995 235 Other: Voiding Method Indwelling Catheter Indwelling Catheter Indwelling Catheter ABP, PAP, CO, CI - Last Documented Arterial Blood Pressure 152/67 - Exam GENERAL EXAM: 66-year-old white male, awake and alert, follows simple command, responds appropriately, he is oriented 3, currently on 40L with a pulse ox of 92-95% minor patient has an FiO2 of 60% HEAD: Normocephalic/atraumatic. EYES: Normal reaction of pupils, equal size. Conjunctiva pink, sclera white. NOSE: Clear with pink turbinates. THROAT: No erythema or exudates. NECK: No masses, no JVD, no thyroid enlargement, no adenopathy. CHEST: No chest wall deformity. Symmetrical expansion. LUNGS: Equal air entry with no crackles, wheeze, rhonchi or dullness. CVS: Regular rate and rhythm, normal S1 and S2, no gallops, no murmurs, no rubs ABDOMEN: Soft, nontender. No hepatosplenomegaly, normal bowel sounds, no guarding or rigidity. abdominal incision is clean dry and intact, covered with a dressing. Bowel sounds are very sluggish at this point in time. RUPINDER drain is in place. No direct tenderness. No rebound tenderness. No guarding. EXTREMITIES: No clubbing, generalized edema, mild no cyanosis, 2+ pulses and upper and lower extremities. MUSCULOSKELETAL: Muscle strength and tone normal. SPINE: No scoliosis or deformity SKIN: No rashes CENTRAL NERVOUS SYSTEM: No focal deficits, tone is normal in all 4 extremities. - Labs CBC & Chem 7: 11/06/21 04:55 11/06/21 04:55 Labs: Abnormal Lab Results - Last 24 Hours (Table) 11/05/21 11/05/21 11/05/21 Range/Units 11:03 13:36 18:09 WBC (3.8-10.6) k/uL Hgb (13.0-17.5) gm/dL Neutrophils # (1.3-7.7) k/uL APTT 32.4 H (22.0-30.0) sec BUN (9-20) mg/dL Glucose (74-99) mg/dL POC Glucose (mg/dL) 187 H 345 H (75-99) mg/dL Calcium (8.4-10.2) mg/dL ALT (4-49) U/L Total Protein (6.3-8.2) g/dL Albumin (3.5-5.0) g/dL 11/05/21 11/06/21 11/06/21 Range/Units 20:35 00:15 00:37 WBC (3.8-10.6) k/uL Hgb (13.0-17.5) gm/dL Neutrophils # (1.3-7.7) k/uL APTT 45.1 H (22.0-30.0) sec BUN (9-20) mg/dL Glucose (74-99) mg/dL POC Glucose (mg/dL) 122 H 141 H (75-99) mg/dL Calcium (8.4-10.2) mg/dL ALT (4-49) U/L Total Protein (6.3-8.2) g/dL Albumin (3.5-5.0) g/dL 11/06/21 11/06/21 11/06/21 Range/Units 04:55 04:55 05:44 WBC 14.2 H (3.8-10.6) k/uL Hgb 12.9 L (13.0-17.5) gm/dL Neutrophils # 11.9 H (1.3-7.7) k/uL APTT (22.0-30.0) sec BUN 35 H (9-20) mg/dL Glucose 183 H (74-99) mg/dL POC Glucose (mg/dL) 162 H (75-99) mg/dL Calcium 8.2 L (8.4-10.2) mg/dL ALT 55 H (4-49) U/L Total Protein 6.2 L (6.3-8.2) g/dL Albumin 2.4 L (3.5-5.0) g/dL 11/06/21 Range/Units 07:12 WBC (3.8-10.6) k/uL Hgb (13.0-17.5) gm/dL Neutrophils # (1.3-7.7) k/uL APTT 44.1 H (22.0-30.0) sec BUN (9-20) mg/dL Glucose (74-99) mg/dL POC Glucose (mg/dL) (75-99) mg/dL Calcium (8.4-10.2) mg/dL ALT (4-49) U/L Total Protein (6.3-8.2) g/dL Albumin (3.5-5.0) g/dL Microbiology - Last 24 Hours (Table) 11/05/21 05:00 Blood Culture - Preliminary Blood No Growth after 24 hours Assessment and Plan Plan: #1. Acute hypoxic respiratory failure suspected to COVID-19 pneumonia. Patient self extubated on 11/01/2021, today on 11/02/2021, tolerating extubation well so far. We will be placed on BiPAP support intermittently for respiratory fatigue related to generalized weakness. The patient continues to have diffuse bilateral pulmonary infiltrates. He is currently off the BiPAP and he is on an Airvo with a 4 L flow and FiO2 of 60%. No signs of any respiratory distress. Pulse ox is 97% and there is some room for his FiO2 to be weaned down further. He is using incentive spirometer. He remains on Decadron. He is also on the correlation with IV heparin regarding afib #2. Perforated gastric ulcer, status post surgical intervention with exposure laparotomy, Billroth type II, and reconstruction of a gastric perforation on 10/26/2021, the patient is postop day #11. The patient remains on CPAP with o xygen support. Surgical wound site is dry clean and intact. RUPINDER drain is still in place. #3. Acute abdominal sepsis, with abdominal wound cultures positive for Annia albicans, currently on a combination of Diflucan and Zosyn #4. Lactic acidosis secondary to abdominal sepsis, resolved with fluid resuscitation #5. Acute kidney injury, resolved #6. Altered mental status, multifactorial, rule out possibility of a central nervous system abnormality possibility of a stroke, CT of the brain on 10/31/2021 showed no acute findings. His mentation has improved, patient is oriented 3, answering questions appropriately #7. A. fib with RVR, has been started on amiodarone and heparin infusion, cardiac rhythm is back to sinus and the patient remains on amiodarone maintenance of 0.5 mg per minute in addition to IV heparin. the patient is bradycardic for now. Plan: Continue Airvo 40 L with an FiO2 of 60%. May continue use BiPAP as needed Lasix IV Lasix 40 mg IV daily Provide incentive spirometer Maintain aspiration precautions Continue antibiotics per surgery Vital signs are stable, no fever or chills Remains on TPN, patient is going to have upper GI studies today Abdomen is soft, incision is clean dry and intact We'll continue IV Decadron, DC amiodarone drip and and keep IV heparin Echo reviewed, normal EF Daily labs including CBC and CMP, repeat inflammatory markers We'll continue to follow Continue FU in the ICU and there is a critically care evaluation that was on a more than 30 minutes. Time with Patient: Greater than 30 Time with Patient: Greater than 30
[2021-11-06] MEDS ORDERED: POTASSIUM CHLORIDE 10 MEQ in WATER FOR INJECTION 1 100ML.BAG IVPB SCH (09:00)
--- NOTE | 2021-11-06 09:08 | XR ---
EXAMINATION TYPE: XR chest 1V portable DATE OF EXAM: 11/06/2021 COMPARISON: 11/04/2021 HISTORY: Shortness of breath TECHNIQUE: Single frontal view of the chest is obtained. FINDINGS: Patchy bilateral areas of infiltrate. Underlying COPD and chronic interstitial lung disease suspected . Small bilateral pleural effusions. PICC line stable. Heart size is enlarged. No pneumothorax. Biapi jaun pleural thickening. Arthropathy of the shoulders. IMPRESSION: COPD with stable patchy bilateral areas of infiltrate. Correlate for pneumonia
[2021-11-06] MEDS: FUROSEMIDE 10 MG/ML 4 ML VIAL IV SCH (09:42)
[2021-11-06] MEDS: DEXAMETHASONE SOD PHOSPHATE 10 MG/ML 1 ML VIAL IVP SCH (09:43)
[2021-11-06] MEDS: PANTOPRAZOLE 40 MG/10 ML VIAL IV SCH (09:43)
[2021-11-06] MEDS: FLUCONAZOLE IN NACL,ISO-OSM 200 MG in SALINE 1 100ML.BAG IVPB SCH (09:43)
[2021-11-06] MEDS: POTASSIUM CHLORIDE 10 MEQ in WATER FOR INJECTION 1 100ML.BAG IVPB SCH ×2 (09:51→10:56)
--- NOTE | 2021-11-06 10:45 | P.PN ---
Subjective Progress Note Date: 11/06/21 Principal diagnosis: No complaints of chest pain or vomiting or overall appears to be stable .Constitutional: No acute distress, conversant, pleasant Eyes: Anicteric sclerae, moist conjunctiva, no lid-lag PERRLA ENMT: NC/AT Oropharynx clear, no erythema, exudates Neck: Supple, FROM, no masses, or JVD No carotid bruits No thyromegaly Lungs: C no major accessory muscle use Cardiovascular: Heart regular in rate and rhythm, No murmurs, gallops, or rubs No peripheral edema Abdominal: Soft Nontender, no guarding, rebound or rigidity Abdomen moving with respiration Normoactive bowel sounds No hepatomegaly, No splenomegaly No palpable mass No abdominal wall hernia noted Skin: Normal temperature, tone, texture, turgor No induration No subcutaneous nodules No rash, lesions No ulcers Extremities: No digital cyanosis No clubbing Pedal pulses intact and symmetrical Radial pulses intact and symmetrical Normal gait and station No calf tenderness Psychiatric:Alert a Neuro: Muscles Strength 5/5 in all 4 extremities Sensation to light touch grossly present throughout Cranial nerves II-XII grossly intact No focal sensory deficits OVID-19 pneumonia with acute hypoxic respiratory failure -Continue with mechanical ventilation, propofol, fentanyl, IV fluids -Continue Decadron -Infectious disease consulted: Sepsis secondary to Perforated gastric ulcer status post expiratory laparotomy and gastrectomy -Defer management to the primary surgical service -On TPN, on PPI IV Elevated INR -Suspected due to sepsis upon presentation -Monitor for now Continue to wean as better respiratory protocol and pulmonology Overall appears to be stable continue management as per ICU team and pulmonary Patient extubated Appears in no distress at this time continue management as per ICU team Status post perforated peptic ulcer gastric ulcer post exploratory laparotomy continue management as per surgery Continue high flow oxygen and monitor management as per ICU Objective - Vital Signs Vital signs: Vital Signs Temp 98.1 F 11/06/21 08:00 Pulse 54 L 11/06/21 10:00 Resp 19 11/06/21 10:00 BP 145/81 11/06/21 10:00 Pulse Ox 96 11/06/21 10:00 Intake & Output 11/05/21 11/06/21 11/06/21 18:59 06:59 18:59 Intake Total 2515.578 1618.683 193 Output Total 2205 995 235 Balance 310.578 623.683 -42 Weight 105 kg 105.5 kg Intake: IV 1299 1078 193 .9 NS 260 220 40 0.9 39 33 3 Amino Acid 5%-D20w+Lytes* 825 150 E* 1,000 ml @ 75 mls/hr IV .BY DURATION RIANNA Rx#: [id number] Mvi, Adult No.4 with Vit 900 K 10 ml Trace (Conc-1Ml/ Dose) 1 ml In Amino Acid 5%-D20w+Lytes*E* 1,000 ml @ 75 mls/hr IV .BY DURATION RIANNA Rx#: [id number] Piperacillin-Tazobactam 3 100 .375 gm In Sodium Chloride 0.9% 100 ml @ 25 mls/hr IVPB Q8H RIANNA Rx#: [id number] Intake, IV Titration 1216.578 540.683 Amount Amino Acid 5%-D20w+Lytes* 966.25 E* 1,000 ml @ 75 mls/hr IV .BY DURATION RIANNA Rx#: [id number] Amiodarone 450 mg In 248.616 Dextrose 5% in Water 250 ml @ 0.5 MG/MIN 16.667 mls/hr IV .Q15H RIANNA Rx#: [id number] Clevidipine Butyrate 25 50 42.067 mg In Empty Bag 1 bag @ 1 MG/HR 2 mls/hr IV .Q24H RIANNA Rx#:[id number] Heparin Sod,Pork in 0.45% 200.328 250 NaCl 25,000 unit In 0.45 % NaCl 1 250ml.bag @ 9. 009 UNITS/KG/HR 10 mls/hr IV .Q24H RIANNA Rx#: [id number] Output: Drainage 10 Medial Abdomen 10 Urine 2195 995 235 Other: Voiding Method Indwelling Catheter Indwelling Catheter Indwelling Catheter ABP, PAP, CO, CI - Last Documented Arterial Blood Pressure 152/67 - Labs CBC & Chem 7: 11/06/21 04:55 11/06/21 04:55 Labs: Abnormal Lab Results - Last 24 Hours (Table) 11/05/21 11/05/21 11/05/21 Range/Units 11:03 13:36 18:09 WBC (3.8-10.6) k/uL Hgb (13.0-17.5) gm/dL Neutrophils # (1.3-7.7) k/uL APTT 32.4 H (22.0-30.0) sec BUN (9-20) mg/dL Glucose (74-99) mg/dL POC Glucose (mg/dL) 187 H 345 H (75-99) mg/dL Calcium (8.4-10.2) mg/dL ALT (4-49) U/L Total Protein (6.3-8.2) g/dL Albumin (3.5-5.0) g/dL 11/05/21 11/06/21 11/06/21 Range/Units 20:35 00:15 00:37 WBC (3.8-10.6) k/uL Hgb (13.0-17.5) gm/dL Neutrophils # (1.3-7.7) k/uL APTT 45.1 H (22.0-30.0) sec BUN (9-20) mg/dL Glucose (74-99) mg/dL POC Glucose (mg/dL) 122 H 141 H (75-99) mg/dL Calcium (8.4-10.2) mg/dL ALT (4-49) U/L Total Protein (6.3-8.2) g/dL Albumin (3.5-5.0) g/dL 11/06/21 11/06/21 11/06/21 Range/Units 04:55 04:55 05:44 WBC 14.2 H (3.8-10.6) k/uL Hgb 12.9 L (13.0-17.5) gm/dL Neutrophils # 11.9 H (1.3-7.7) k/uL APTT (22.0-30.0) sec BUN 35 H (9-20) mg/dL Glucose 183 H (74-99) mg/dL POC Glucose (mg/dL) 162 H (75-99) mg/dL Calcium 8.2 L (8.4-10.2) mg/dL ALT 55 H (4-49) U/L Total Protein 6.2 L (6.3-8.2) g/dL Albumin 2.4 L (3.5-5.0) g/dL 11/06/21 Range/Units 07:12 WBC (3.8-10.6) k/uL Hgb (13.0-17.5) gm/dL Neutrophils # (1.3-7.7) k/uL APTT 44.1 H (22.0-30.0) sec BUN (9-20) mg/dL Glucose (74-99) mg/dL POC Glucose (mg/dL) (75-99) mg/dL Calcium (8.4-10.2) mg/dL ALT (4-49) U/L Total Protein (6.3-8.2) g/dL Albumin (3.5-5.0) g/dL Microbiology - Last 24 Hours (Table) 11/05/21 05:00 Blood Culture - Preliminary Blood No Growth after 24 hours
--- NOTE | 2021-11-06 11:14 | P.PN ---
Subjective Progress Note Date: 11/06/21 Patient is a 66-year-old gentleman who was admitted to the hospital with COVID pneumonia and also founf to have a perforated gastric ulcer. He underwent Billroth type 2 surgery. Patient is currently on airvo and unable to swallow at this time. He remains on all IV medications. Patient is to undergo an upper GI today to evaluate swallowing. Patient's echocardiogram revealed a normal LV function, with an ejection fraction of 55-60%, mild aortic stenosis and mild mitral and tricuspid regurgitation. He had an episode of proximal atrial fibrillation he is currently remains in sinus rhythm with regular rate in the 50s. Patient IV amiodarone has been discontinued. Patient's IV Lopressor has also been discontinued due to bradycardia. He continues on IV Lasix and IV heparin. Patient's blood pressure is 145/81, heart rate 54, oxygen 96 on airvo. Labs today show hemoglobin at 12.9, potassium 3.8, creatinine 0.75, AST 35, ALP 55, magnesium 2. Objective - Vital Signs Vital signs: Vital Signs Temp 98.1 F 11/06/21 08:00 Pulse 54 L 11/06/21 10:00 Resp 19 11/06/21 10:00 BP 145/81 11/06/21 10:00 Pulse Ox 96 11/06/21 10:00 Intake & Output 11/05/21 11/06/21 11/06/21 18:59 06:59 18:59 Intake Total 2515.578 1618.683 193 Output Total 2205 995 235 Balance 310.578 623.683 -42 Weight 105 kg 105.5 kg Intake: IV 1299 1078 193 .9 NS 260 220 40 0.9 39 33 3 Amino Acid 5%-D20w+Lytes* 825 150 E* 1,000 ml @ 75 mls/hr IV .BY DURATION RIANNA Rx#: [id number] Mvi, Adult No.4 with Vit 900 K 10 ml Trace (Conc-1Ml/ Dose) 1 ml In Amino Acid 5%-D20w+Lytes*E* 1,000 ml @ 75 mls/hr IV .BY DURATION RIANNA Rx#: [id number] Piperacillin-Tazobactam 3 100 .375 gm In Sodium Chloride 0.9% 100 ml @ 25 mls/hr IVPB Q8H RIANNA Rx#: [id number] Intake, IV Titration 1216.578 540.683 Amount Amino Acid 5%-D20w+Lytes* 966.25 E* 1,000 ml @ 75 mls/hr IV .BY DURATION RIANNA Rx#: [id number] Amiodarone 450 mg In 248.616 Dextrose 5% in Water 250 ml @ 0.5 MG/MIN 16.667 mls/hr IV .Q15H RIANNA Rx#: [id number] Clevidipine Butyrate 25 50 42.067 mg In Empty Bag 1 bag @ 1 MG/HR 2 mls/hr IV .Q24H RIANNA Rx#:[id number] Heparin Sod,Pork in 0.45% 200.328 250 NaCl 25,000 unit In 0.45 % NaCl 1 250ml.bag @ 9. 009 UNITS/KG/HR 10 mls/hr IV .Q24H RIANNA Rx#: [id number] Output: Drainage 10 Medial Abdomen 10 Urine 2195 995 235 Other: Voiding Method Indwelling Catheter Indwelling Catheter Indwelling Catheter ABP, PAP, CO, CI - Last Documented Arterial Blood Pressure 152/67 - Exam Limited physical exam due to COVID positive. PHYSICAL EXAM: VITAL SIGNS: Reviewed. GENERAL: Well-developed in no acute distress. RESPIRATORY: Respirations even and unlabored. EXTREMITIES: Normal range of motion. NEURO: Orientated to person, time, mood is appropriate, - Labs CBC & Chem 7: 11/06/21 04:55 11/06/21 04:55 Labs: Abnormal Lab Results - Last 24 Hours (Table) 11/05/21 11/05/21 11/05/21 Range/Units 11:03 13:36 18:09 WBC (3.8-10.6) k/uL Hgb (13.0-17.5) gm/dL Neutrophils # (1.3-7.7) k/uL APTT 32.4 H (22.0-30.0) sec BUN (9-20) mg/dL Glucose (74-99) mg/dL POC Glucose (mg/dL) 187 H 345 H (75-99) mg/dL Calcium (8.4-10.2) mg/dL ALT (4-49) U/L Total Protein (6.3-8.2) g/dL Albumin (3.5-5.0) g/dL 11/05/21 11/06/21 11/06/21 Range/Units 20:35 00:15 00:37 WBC (3.8-10.6) k/uL Hgb (13.0-17.5) gm/dL Neutrophils # (1.3-7.7) k/uL APTT 45.1 H (22.0-30.0) sec BUN (9-20) mg/dL Glucose (74-99) mg/dL POC Glucose (mg/dL) 122 H 141 H (75-99) mg/dL Calcium (8.4-10.2) mg/dL ALT (4-49) U/L Total Protein (6.3-8.2) g/dL Albumin (3.5-5.0) g/dL 11/06/21 11/06/21 11/06/21 Range/Units 04:55 04:55 05:44 WBC 14.2 H (3.8-10.6) k/uL Hgb 12.9 L (13.0-17.5) gm/dL Neutrophils # 11.9 H (1.3-7.7) k/uL APTT (22.0-30.0) sec BUN 35 H (9-20) mg/dL Glucose 183 H (74-99) mg/dL POC Glucose (mg/dL) 162 H (75-99) mg/dL Calcium 8.2 L (8.4-10.2) mg/dL ALT 55 H (4-49) U/L Total Protein 6.2 L (6.3-8.2) g/dL Albumin 2.4 L (3.5-5.0) g/dL 11/06/21 Range/Units 07:12 WBC (3.8-10.6) k/uL Hgb (13.0-17.5) gm/dL Neutrophils # (1.3-7.7) k/uL APTT 44.1 H (22.0-30.0) sec BUN (9-20) mg/dL Glucose (74-99) mg/dL POC Glucose (mg/dL) (75-99) mg/dL Calcium (8.4-10.2) mg/dL ALT (4-49) U/L Total Protein (6.3-8.2) g/dL Albumin (3.5-5.0) g/dL Microbiology - Last 24 Hours (Table) 11/05/21 05:00 Blood Culture - Preliminary Blood No Growth after 24 hours Assessment and Plan Assessment: Proximal atrial fibrillation Bradycardia Covid pneumonia Perforated gastric ulcer Plan: Discontinue IV amiodarone Discontinue IV Lopressor Continue current cardiac medications Will consider switching patient to by mouth medications based on EGD today
[2021-11-06 11:50] LABS: Glucose,Whole Blood 161 mg/dL (75-99)
--- NOTE | 2021-11-06 12:51 | P.PN ---
Subjective Progress Note Date: 11/06/21 Patient is awake much more responsive today. Patient did have a bowel movement. No nausea vomiting reported. RUPINDER drain is serosanguineous. Objective - Vital Signs Vital signs: Vital Signs Temp 98.1 F 11/06/21 08:00 Pulse 54 L 11/06/21 10:00 Resp 19 11/06/21 10:00 BP 145/81 11/06/21 10:00 Pulse Ox 92 L 11/06/21 11:34 Intake & Output 11/05/21 11/06/21 11/06/21 18:59 06:59 18:59 Intake Total 2515.578 1618.683 193 Output Total 2205 995 235 Balance 310.578 623.683 -42 Weight 105 kg 105.5 kg Intake: IV 1299 1078 193 .9 NS 260 220 40 0.9 39 33 3 Amino Acid 5%-D20w+Lytes* 825 150 E* 1,000 ml @ 75 mls/hr IV .BY DURATION [facility] Rx#: [id number] Mvi, Adult No.4 with Vit 900 K 10 ml Trace (Conc-1Ml/ Dose) 1 ml In Amino Acid 5%-D20w+Lytes*E* 1,000 ml @ 75 mls/hr IV .BY DURATION [facility] Rx#: [id number] Piperacillin-Tazobactam 3 100 .375 gm In Sodium Chloride 0.9% 100 ml @ 25 mls/hr IVPB Q8H [facility] Rx#: [id number] Intake, IV Titration 1216.578 540.683 Amount Amino Acid 5%-D20w+Lytes* 966.25 E* 1,000 ml @ 75 mls/hr IV .BY DURATION [facility] Rx#: [id number] Amiodarone 450 mg In 248.616 Dextrose 5% in Water 250 ml @ 0.5 MG/MIN 16.667 mls/hr IV .Q15H [facility] Rx#: [id number] Clevidipine Butyrate 25 50 42.067 mg In Empty Bag 1 bag @ 1 MG/HR 2 mls/hr IV .Q24H [facility] Rx#:[id number] Heparin Sod,Pork in 0.45% 200.328 250 NaCl 25,000 unit In 0.45 % NaCl 1 250ml.bag @ 9. 009 UNITS/KG/HR 10 mls/hr IV .Q24H [facility] Rx#: [id number] Output: Drainage 10 Medial Abdomen 10 Urine 2195 995 235 Other: Voiding Method Indwelling Catheter Indwelling Catheter Indwelling Catheter ABP, PAP, CO, CI - Last Documented Arterial Blood Pressure 152/67 - Constitutional General appearance: Present: cooperative - Gastrointestinal Gastrointestinal Comment(s): s/nt/nd - Labs CBC & Chem 7: 11/06/21 04:55 11/06/21 04:55 Labs: Abnormal Lab Results - Last 24 Hours (Table) 11/05/21 11/05/21 11/05/21 Range/Units 13:36 18:09 20:35 WBC (3.8-10.6) k/uL Hgb (13.0-17.5) gm/dL Neutrophils # (1.3-7.7) k/uL APTT 32.4 H 45.1 H (22.0-30.0) sec BUN (9-20) mg/dL Glucose (74-99) mg/dL POC Glucose (mg/dL) 345 H (75-99) mg/dL Calcium (8.4-10.2) mg/dL ALT (4-49) U/L Total Protein (6.3-8.2) g/dL Albumin (3.5-5.0) g/dL 11/06/21 11/06/21 11/06/21 Range/Units 00:15 00:37 04:55 WBC (3.8-10.6) k/uL Hgb (13.0-17.5) gm/dL Neutrophils # (1.3-7.7) k/uL APTT (22.0-30.0) sec BUN 35 H (9-20) mg/dL Glucose 183 H (74-99) mg/dL POC Glucose (mg/dL) 122 H 141 H (75-99) mg/dL Calcium 8.2 L (8.4-10.2) mg/dL ALT 55 H (4-49) U/L Total Protein 6.2 L (6.3-8.2) g/dL Albumin 2.4 L (3.5-5.0) g/dL 11/06/21 11/06/21 11/06/21 Range/Units 04:55 05:44 07:12 WBC 14.2 H (3.8-10.6) k/uL Hgb 12.9 L (13.0-17.5) gm/dL Neutrophils # 11.9 H (1.3-7.7) k/uL APTT 44.1 H (22.0-30.0) sec BUN (9-20) mg/dL Glucose (74-99) mg/dL POC Glucose (mg/dL) 162 H (75-99) mg/dL Calcium (8.4-10.2) mg/dL ALT (4-49) U/L Total Protein (6.3-8.2) g/dL Albumin (3.5-5.0) g/dL 11/06/21 Range/Units 11:48 WBC (3.8-10.6) k/uL Hgb (13.0-17.5) gm/dL Neutrophils # (1.3-7.7) k/uL APTT (22.0-30.0) sec BUN (9-20) mg/dL Glucose (74-99) mg/dL POC Glucose (mg/dL) 161 H (75-99) mg/dL Calcium (8.4-10.2) mg/dL ALT (4-49) U/L Total Protein (6.3-8.2) g/dL Albumin (3.5-5.0) g/dL Microbiology - Last 24 Hours (Table) 11/05/21 05:00 Blood Culture - Preliminary Blood No Growth after 24 hours Assessment and Plan Assessment: Status post expiratory laparotomy and Billroth II reconstruction secondary to perforated gastric ulcer Covid pneumonia Plan: UGI scheduled for tomorrow, further recs to follow Overall patient is stable from a surgical standpoint, his primary issues now are related to COVID pneumonia.
[2021-11-06 17:46] LABS: Glucose,Whole Blood 188 mg/dL (75-99)
--- NOTE | 2021-11-06 22:17 | PN ---
PROGRESS NOTE DATE OF SERVICE: 11/06/2021 REASON FOR FOLLOWUP: Secondary peritonitis from perforated peptic ulcer disease. INTERVAL HISTORY: The patient is afebrile. The patient is breathing comfortably, still requiring high- flow nasal cannula oxygen. Denies having any chest pain. No worsening cough or sputum production. Abdominal pain is currently controlled. PHYSICAL EXAMINATION: Blood pressure is 138/77 with a pulse of 56, temperature 98.9. He is 96% on 10 L high- flow oxygen. General description is an elderly male up in the chair in no distress. Respiratory system: Unlabored breathing, decreased intensity of breath sounds. No wheeze. Heart S1, S2. Regular rate and rhythm. Abdomen soft, no tenderness. LABS: Hemoglobin is 12.1, white count 14.2, creatinine 0.75. DIAGNOSTIC IMPRESSION AND PLAN: Patient with secondary peritonitis from perforated peptic ulcer disease, status post repair. Abdominal cultures with Annia. Patient is covered with Zosyn and Diflucan; to continue while monitoring his clinical course closely. Continue with supportive care. MMODL / IJN: [id number] /
[2021-11-06 23:32] LABS: Glucose,Whole Blood 160 mg/dL (75-99)
[2021-11-07] MEDS: HYDROmorphone 0.5 MG/0.5 ML SYRINGE IVP PRN
[2021-11-07] MEDS: 1: AMINO ACID 5%-D20W+LYTES*E* 1,000 ML 2: MVI, ADULT NO.4 WITH VIT K 10 ML, TRACE (CON IV SCH ×3 (03:23)
[2021-11-07] MEDS: PIPERACILLIN-TAZOBACTAM 3.375 GM in SODIUM CHLORIDE 0.9% 100 ML IVPB SCH ×2 (05:23→16:02)
[2021-11-07] MEDS: HEPARIN SOD,PORK IN 0.45% NACL 25,000 UNIT in 0.45% NACL 1 250ML.BAG IV SCH ×2 (05:31→16:57)
[2021-11-07 05:58] LABS: Glucose,Whole Blood 117 mg/dL (75-99)
[2021-11-07] MEDS: INSULIN ASPART (NovoLOG) 100 UNIT/ML VIAL SQ SCH ×3 (06:39→19:39)
[2021-11-07 08:38] LABS: African American GFR (CKD) >90 (>60 ml/min/1.73 sqM); Anion Gap 3 mmol/L; Blood Urea Nitrogen 32 mg/dL (9-20); Calcium 7.9 mg/dL (8.4-10.2); Carbon Dioxide 31 mmol/L (22-30); Chloride 104 mmol/L (98-107); Glucose 132 mg/dL (74-99); Non-African American GFR(CKD) >90 (>60 ml/min/1.73 sqM); Potassium 3.7 mmol/L (3.5-5.1); Sodium 138 mmol/L (137-145)
--- NOTE | 2021-11-07 10:12 | XR ---
EXAMINATION TYPE: XR chest 1V portable DATE OF EXAM: 11/07/2021 COMPARISON: Chest x-ray 11/06/2021 HISTORY: Covid pneumonia TECHNIQUE: Single frontal view of the chest is obtained. FINDINGS: Bilateral airspace disease is again seen. No evident pneumothorax or pleural effusion. Lef t-sided PICC line is stable, distal tip is overlying superior vena cava. There are overlying artifact s. IMPRESSION: Similar findings, findings consistent with Covid pneumonia.
[2021-11-07 11:45] LABS: Glucose,Whole Blood 126 mg/dL (75-99)
--- NOTE | 2021-11-07 13:37 | P.PN ---
Subjective This is a 66 year old male with a past medical history of former nicotine dependence. 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 No prior cardiac history. We were consulted for new onset atrial fibrillation with RVR. Patient presented to the emergency department on 10/27/2021 with complaints of abdominal pain and did have some shortness of breath. He was diagnosed with covid-19 about 10 days prior to this admission. He was found to have multifocal covid-19 pneumonia as well as perforated gastric ulcer. He is status post expiratory laparotomy, par tial gastrectomy and Billroth II reconstruction on 10/27/2021. He initially went into atrial fibrillation with RVR in the ICU and patient was initially on IV amiodarone and started on IV heparin. Patient's echocardiogram revealed a normal LV function, with an ejection fraction of 55-60%, mild aortic stenosis and mild mitral and tricuspid regurgitation. He is also being treated for secondary peritonitis from perforated ulcer with Zosyn and Diflucan. Patient seen and examined at bedside, he is alert and oriented x 4. No acute distress. He is NPO today for an upper GI to evaluate his swallowing. Telemetry reviewed, patient maintaining sinus mechanism HR 50s-60s, no further episodes of atrial fibrillation since 11/05. His IV amiodarone has been discontinued. His IV Lopressor was discontinued due to bradycardia. He is maintained on IV heparin and IV Lasix. Eliquis is being checked for coverage. Labs, sodium 138, K 3.7, BUN 32, sCr 0.77. GENERAL: Well-appearing, well-nourished and in no acute distress. NECK: Supple without JVD or thyromegaly. LUNGS: Breath sounds clear to auscultation bilaterally. Respiration equal and unlabored. No wheezes, rales or rhonchi. HEART: Regular rate and rhythm without murmurs, rubs or gallops. S1 and S2 heard. EXTREMITIES: Normal range of motion, no edema. No clubbing or cyanosis. Peripheral pulses intact. ASSESSMENT: New onset paroxysmal atrial fibrillation [id number] score 2 Hypertension Bradycardia COVID-19 pneumonia Perforated gastric ulcer status post expiratory laparotomy and gastrectomy Billroth II reconstruction on 10/27/2021 PLAN: -We will continue IV heparin for anticoagulation at this time. Pending Upper GI today we will switch patient to PO anticoagulation. -Eliquis 5mg BID sent to pharmacy, Case management consulted for coverage. -Further recommendations based on clinical course Objective - Vital Signs Vital signs: Vital Signs Temp 97.8 F 11/07/21 04:00 Pulse 63 11/07/21 04:00 Resp 20 11/07/21 04:00 BP 131/67 11/07/21 04:00 Pulse Ox 95 11/07/21 04:00 Intake & Output 11/06/21 11/07/21 11/07/21 18:59 06:59 18:59 Intake Total 2488 1250 Output Total 1185 700 Balance 1303 550 Intake: IV 1238 .9 NS 260 0.9 3 Amino Acid 5%-D20w+Lytes* 975 E* 1,000 ml @ 75 mls/hr IV .BY DURATION [facility] Rx#: [id number] Intake, IV Titration 1250 1250 Amount Amino Acid 5%-D20w+Lytes* 1000 1000 E* 1,000 ml @ 75 mls/hr IV .BY DURATION [facility] Rx#: [id number] Heparin Sod,Pork in 0.45% 250 250 NaCl 25,000 unit In 0.45 % NaCl 1 250ml.bag @ 9. 009 UNITS/KG/HR 10 mls/hr IV .Q24H [facility] Rx#: [id number] Output: Urine 1185 700 Other: Voiding Method Indwelling Catheter Indwelling Catheter # Bowel Movements 1 ABP, PAP, CO, CI - Last Documented Arterial Blood Pressure 152/67 - Labs CBC & Chem 7: 11/06/21 04:55 11/07/21 06:50 Labs: Abnormal Lab Results - Last 24 Hours (Table) 11/06/21 11/06/21 11/07/21 Range/Units 17:45 23:31 05:57 APTT (22.0-30.0) sec Carbon Dioxide (22-30) mmol/L BUN (9-20) mg/dL Glucose (74-99) mg/dL POC Glucose (mg/dL) 188 H 160 H 117 H (75-99) mg/dL Calcium (8.4-10.2) mg/dL 11/07/21 11/07/21 11/07/21 Range/Units 06:50 06:50 11:41 APTT 55.2 H (22.0-30.0) sec Carbon Dioxide 31 H (22-30) mmol/L BUN 32 H (9-20) mg/dL Glucose 132 H (74-99) mg/dL POC Glucose (mg/dL) 126 H (75-99) mg/dL Calcium 7.9 L (8.4-10.2) mg/dL Microbiology - Last 24 Hours (Table) 11/05/21 05:00 Blood Culture - Preliminary Blood No Growth after 48 hours
--- NOTE | 2021-11-07 13:43 | P.PN ---
Subjective Progress Note Date: 11/07/21 This is a 66-year-old white male presented to the emergency last night with acute onset of abdominal pain. Patient recently tested positive for COVID-19 and he had symptoms of COVID-19 pneumonia. Patient has been experiencing severe cough and according to the chart, the patient did receive COVID-19 vaccination. And apparently when he was initially diagnosed, the patient received monoclonal antibody infusion. Upon presentation to the ER, patient was found to have multifocal pneumonia, and his CT of the abdomen and pelvis revealed area of pneumoperitoneum. Patient has no previous history of peptic ulcer disease, no previous abdominal surgery. Seen by surgery window/distribution clerk, and the patient underwent exploratory laparotomy, he was found to have stomach perforation, underwent expiratory laparotomy, Billroth type II reconstruction. Patient was started on antibiotics in the form of Zosyn and on Diflucan. Following the surgery, the patient was kept on a mechanical ventilator. On 11/01/2021, in the evening, the patient self extubated himself. He was not intubated. The patient remained extubated and he was requiring BiPAP on and off for respiratory support. Subsequently was weaned down to high flow oxygen at 11 L per minute nasal cannula. He is awake, and oriented 3. He is in atrial fibrillation, and he is currently on Cleviprex a 4 mg per hour, and TPN at 74 ML per hour, he gisele ins nothing by mouth. Lung sounds reveal a few scattered rhonchi, no wheezing. Patient remains on Decadron 6 mg daily, he is on antibiotics in the form of Zosyn and fluconazole for intra-abdominal sepsis. He is been started on amiodarone at 0.5 mg/m by cardiology for better rate control. Today's chest x- ray shows no interval change in the diffuse scattered partial consolidative opacities. His last LDH from 10/29/2021 was within normal at 539, CRP level was also improving and was down to 19.6. Sputum culture showed Annia albicans, his blood and urine cultures have been negative. Patient has been started on heparin infusion for A. fib with RVR by cardiology. This morning, the patient is being seen for a follow-up. The patient is currently on a BiPAP for respiratory support. Most recent chest x-ray still showing bilateral pulmonary infiltrates, peripheral distribution and some background cardiomegaly without any significant interval change. The BiPAP setting currently is at 16/8 cm of water with an FiO2 of 70%. The patient is awake and alert. He is lethargic. He follows commands. He remains on amiodarone drip at 0.5 mg per minute and his also on IV heparin. His cardiac rhythm is converted into sinus. He remains on Cleviprex for blood pressure control. He is still receiving TPN for nutritional support.. Have a loose bowel movements. Bowel sounds are remaining quite sluggish. Surgical wound site is dry clean and intact. RUPINDER output is minimal at this point in time. He is postop day number 10 On today's evaluation of 11/06/2021, the patient is postop day #11. He remains nothing by mouth. He remains on TPN for nutritional support. He remains on examination of Zosyn and Diflucan following his surgery that included a Billroth type II reconstruction along with exp laparotomy. The patient underwent surgery for a perforated stomach. The patient was also found to be possible COVID 19 and the patient with hypoxic respiratory failure. He was intubated and subsequently self extubated, in fact the patient self extubated and the patient is currently on high flow oxygen and the following interval with a flow of 40 L with an FiO2 of 60%. He is quite comfortable with his breathing. His current pulse ox is around 96% and there is some more room for FiO2 wean. He remains nothing by mouth. Pain is under adequate control for now. He is hemodynamically stable. He remains in atrial fibrillation at a low rate and his heart is in the mid 50s. He is on a combination of amiodarone running at 0.5 mg per minute and the patient is also on Lopressor IV which she has not been receiving. The patient is also on IV heparin drip regarding his .In terms of his blood pressure control, has been maintained on Cleviprex and this has been discontinued as of midnight. He is awake and alert. He is following commands. He remains on Decadron 6 mg IV every 24 hours. Antibiotic coverage remains unchanged. He is afebrile. Surgical wound site is dry clean and intact. RUPINDER drain output is minimal at this point in time. Has bowel movement was on 11/03/2021. He has not had any bowel movement since on a bowel sounds are sounding good for now. He is going to have an upper GI series today. 11/07/2021, the patient is postop day #12. The patient was in the intensive care unit and the patient was transferred out to a medical floor for further recuperation and monitoring. In general, the patient is Doing well. No new complaints otherwise for now. Supposed to undergo a upper GI series postsurgery. Remains on examination Zosyn and Diflucan. Remains on IV heparin. His oxygenation is stable for now. The patient is currently on 9 L about 2 by nasal cannula high flow oxygen and therefore has been discontinued yesterday. His cardiac rhythm is back to sinus. He had a bowel movement. Surgical wound site is dry clean and intact a RUPINDER drain is in place. He is still receiving TPN for nutritional support. Altered mentation. No cough sputum production chest answer wheezing. He remains on Decadron 6 mg IV every 24 hours. On today's evaluation, vallecula all within normal limits. PPD level is therapeutic. Objective - Vital Signs Vital signs: Vital Signs Temp 97.8 F 11/07/21 04:00 Pulse 63 11/07/21 04:00 Resp 20 11/07/21 04:00 BP 131/67 11/07/21 04:00 Pulse Ox 95 11/07/21 04:00 Intake & Output 11/06/21 11/07/21 11/07/21 18:59 06:59 18:59 Intake Total 2488 1250 Output Total 1185 700 Balance 1303 550 Intake: IV 1238 .9 NS 260 0.9 3 Amino Acid 5%-D20w+Lytes* 975 E* 1,000 ml @ 75 mls/hr IV .BY DURATION [facility] Rx#: [id number] Intake, IV Titration 1250 1250 Amount Amino Acid 5%-D20w+Lytes* 1000 1000 E* 1,000 ml @ 75 mls/hr IV .BY DURATION [facility] Rx#: [id number] Heparin Sod,Pork in 0.45% 250 250 NaCl 25,000 unit In 0.45 % NaCl 1 250ml.bag @ 9. 009 UNITS/KG/HR 10 mls/hr IV .Q24H [facility] Rx#: [id number] Output: Urine 1185 700 Other: Voiding Method Indwelling Catheter Indwelling Catheter # Bowel Movements 1 ABP, PAP, CO, CI - Last Documented Arterial Blood Pressure 152/67 - Exam GENERAL EXAM: 66-year-old white male, awake and alert, follows simple command, responds appropriately, he is oriented 3, currently on 40L with a pulse ox of 92-95% currently on 9 L of oxygen by nasal cannula HEAD: Normocephalic/atraumatic. EYES: Normal reaction of pupils, equal size. Conjunctiva pink, sclera white. NOSE: Clear with pink turbinates. THROAT: No erythema or exudates. NECK: No masses, no JVD, no thyroid enlargement, no adenopathy. CHEST: No chest wall deformity. Symmetrical expansion. LUNGS: Equal air entry with no crackles, wheeze, rhonchi or dullness. CVS: Regular rate and rhythm, normal S1 and S2, no gallops, no murmurs, no rubs ABDOMEN: Soft, nontender. No hepatosplenomegaly, normal bowel sounds, no gua rding or rigidity. abdominal incision is clean dry and intact, covered with a dressing. Bowel sounds are very sluggish at this point in time. RUPINDER drain is in place. No direct tenderness. No rebound tenderness. No guarding. EXTREMITIES: No clubbing, generalized edema, mild no cyanosis, 2+ pulses and upper and lower extremities. MUSCULOSKELETAL: Muscle strength and tone normal. SPINE: No scoliosis or deformity SKIN: No rashes CENTRAL NERVOUS SYSTEM: No focal deficits, tone is normal in all 4 extremities. - Labs CBC & Chem 7: 11/06/21 04:55 11/07/21 06:50 Labs: Abnormal Lab Results - Last 24 Hours (Table) 11/06/21 11/06/21 11/07/21 Range/Units 17:45 23:31 05:57 APTT (22.0-30.0) sec Carbon Dioxide (22-30) mmol/L BUN (9-20) mg/dL Glucose (74-99) mg/dL POC Glucose (mg/dL) 188 H 160 H 117 H (75-99) mg/dL Calcium (8.4-10.2) mg/dL 11/07/21 11/07/21 11/07/21 Range/Units 06:50 06:50 11:41 APTT 55.2 H (22.0-30.0) sec Carbon Dioxide 31 H (22-30) mmol/L BUN 32 H (9-20) mg/dL Glucose 132 H (74-99) mg/dL POC Glucose (mg/dL) 126 H (75-99) mg/dL Calcium 7.9 L (8.4-10.2) mg/dL Microbiology - Last 24 Hours (Table) 11/05/21 05:00 Blood Culture - Preliminary Blood No Growth after 48 hours Assessment and Plan Plan: #1. Acute hypoxic respiratory failure suspected to COVID-19 pneumonia. Patient self extubated on 11/01/2021, today on 11/02/2021, tolerating extubation well so far. We will be placed on BiPAP support intermittently for respiratory fatigue related to generalized weakness. The patient continues to have diffuse bilateral pulmonary infiltrates. Oxygenation is improved and the patient is currently weaned down to 9 L of oxygen by nasal cannula. It was then discontinued #2. Perforated gastric ulcer, status post surgical intervention with exposure laparotomy, Billroth type II, and reconstruction of a gastric perforation on 10/26/2021, the patient is postop day #12. The patient remains on CPAP with oxygen support. Surgical wound site is dry clean and intact. RUPINDER drain is still in place. The patient is passing flatus. awaiting a upper GI series prior to initiating oral feeds. #3. Acute abdominal sepsis, with abdominal wound cultures positive for Annia albicans, currently on a combination of Diflucan and Zosyn #4. Lactic acidosis secondary to abdominal sepsis, resolved with fluid resuscitation #5. Acute kidney injury, resolved #6. Altered mental status, multifactorial, rule out possibility of a central nervous system abnormality possibility of a stroke, CT of the brain on 10/31/2021 showed no acute findings. His mentation has improved, patient is oriented 3, answering questions appropriately #7. A. fib with RVR, has been started on amiodarone and heparin infusion, cardiac rhythm is back to sinus and the patient on IV heparin. Amiodarone has been discontinued. Plan: Keep oxygen at 9 L and gradually wean it down to maintain a saturation above 90%. Lasix IV Lasix 40 mg IV daily Provide incentive spirometer Maintain aspiration precautions Continue antibiotics per surgery Vital signs are stable, no fever or chills Remains on TPN, patient is going to have upper GI studies today Abdomen is soft, incision is clean dry and intact We'll continue IV Decadron, Echo reviewed, normal EF We'll continue to follow, transferred out of the intensive care unit. Awaiting upper GI series and if it's normal and the patient be able to get some oral intake. Still on TPN for now.
[2021-11-07 14:09] LABS: Magnesium 1.9 mg/dL (1.6-2.3); Phosphorus 3.8 mg/dL (2.5-4.5)
--- NOTE | 2021-11-07 14:12 | P.PN ---
Subjective Progress Note Date: 11/07/21 Principal diagnosis: Covid pneumonia Feeling better today, has been ambulating according to the nursing staff. Denied pain or sob. No fevers. Objective - Vital Signs Vital signs: Vital Signs Temp 97.8 F 11/07/21 04:00 Pulse 63 11/07/21 04:00 Resp 20 11/07/21 04:00 BP 131/67 11/07/21 04:00 Pulse Ox 95 11/07/21 04:00 Intake & Output 11/06/21 11/07/21 11/07/21 18:59 06:59 18:59 Intake Total 2488 1250 Output Total 1185 700 Balance 1303 550 Intake: IV 1238 .9 NS 260 0.9 3 Amino Acid 5%-D20w+Lytes* 975 E* 1,000 ml @ 75 mls/hr IV .BY DURATION [facility] Rx#: [id number] Intake, IV Titration 1250 1250 Amount Amino Acid 5%-D20w+Lytes* 1000 1000 E* 1,000 ml @ 75 mls/hr IV .BY DURATION [facility] Rx#: [id number] Heparin Sod,Pork in 0.45% 250 250 NaCl 25,000 unit In 0.45 % NaCl 1 250ml.bag @ 9. 009 UNITS/KG/HR 10 mls/hr IV .Q24H [facility] Rx#: [id number] Output: Urine 1185 700 Other: Voiding Method Indwelling Catheter Indwelling Catheter # Bowel Movements 1 ABP, PAP, CO, CI - Last Documented Arterial Blood Pressure 152/67 - Exam Constitutional: No acute distress, conversant, pleasant Eyes: Anicteric sclerae, moist conjunctiva, no lid-lag PERRLA ENMT: NC/AT Oropharynx clear, no erythema, exudates Neck: Supple, FROM, no masses, or JVD No carotid bruits No thyromegaly Lungs: C no major accessory muscle use Cardiovascular: Heart regular in rate and rhythm, No murmurs, gallops, or rubs No peripheral edema Abdominal: Soft Nontender, no guarding, rebound or rigidity Abdomen moving with respiration Normoactive bowel sounds No hepatomegaly, No splenomegaly No palpable mass No abdominal wall hernia noted Skin: Normal temperature, tone, texture, turgor No induration No subcutaneous nodules No rash, lesions No ulcers Extremities: No digital cyanosis No clubbing Pedal pulses intact and symmetrical Radial pulses intact and symmetrical Normal gait and station No calf tenderness Psychiatric:Alert a Neuro: Muscles Strength 5/5 in all 4 extremities Sensation to light touch grossly present throughout Cranial nerves II-XII grossly intact No focal sensory deficits - Labs CBC & Chem 7: 11/06/21 04:55 11/07/21 06:50 Labs: Abnormal Lab Results - Last 24 Hours (Table) 11/06/21 11/06/21 11/07/21 Range/Units 17:45 23:31 05:57 APTT (22.0-30.0) sec Carbon Dioxide (22-30) mmol/L BUN (9-20) mg/dL Glucose (74-99) mg/dL POC Glucose (mg/dL) 188 H 160 H 117 H (75-99) mg/dL Calcium (8.4-10.2) mg/dL 11/07/21 11/07/21 11/07/21 Range/Units 06:50 06:50 11:41 APTT 55.2 H (22.0-30.0) sec Carbon Dioxide 31 H (22-30) mmol/L BUN 32 H (9-20) mg/dL Glucose 132 H (74-99) mg/dL POC Glucose (mg/dL) 126 H (75-99) mg/dL Calcium 7.9 L (8.4-10.2) mg/dL Microbiology - Last 24 Hours (Table) 11/05/21 05:00 Blood Culture - Preliminary Blood No Growth after 48 hours Assessment and Plan Plan: COVID-19 pneumonia with acute hypoxic respiratory failure -Currently on 9L -Was on mechanical ventilation currently extubated -Continue Decadron -Pulm following Sepsis secondary to Perforated gastric ulcer status post expiratory laparotomy and gastrectomy -Being followed by surgical service -Abdominal cx with ila, on zosyn and diflucan per ID. -On TPN, -Getting upper GI series today to evaluate for oral intake Elevated INR -Suspected due to sepsis upon presentation -Resolved Anticipated discharge: 4-5 days Disposition: Likely will need rehab
--- NOTE | 2021-11-07 15:49 | P.PN ---
Subjective Progress Note Date: 11/07/21 Patient is awake much more responsive today. Patient did have a bowel movement. No nausea vomiting reported. RUPINDER drain is serosanguineous. Objective - Vital Signs Vital signs: Vital Signs Temp 97.8 F 11/07/21 04:00 Pulse 63 11/07/21 04:00 Resp 20 11/07/21 04:00 BP 131/67 11/07/21 04:00 Pulse Ox 95 11/07/21 04:00 Intake & Output 11/06/21 11/07/21 11/07/21 18:59 06:59 18:59 Intake Total 2488 1250 Output Total 1185 700 Balance 1303 550 Intake: IV 1238 .9 NS 260 0.9 3 Amino Acid 5%-D20w+Lytes* 975 E* 1,000 ml @ 75 mls/hr IV .BY DURATION [facility] Rx#: [id number] Intake, IV Titration 1250 1250 Amount Amino Acid 5%-D20w+Lytes* 1000 1000 E* 1,000 ml @ 75 mls/hr IV .BY DURATION [facility] Rx#: [id number] Heparin Sod,Pork in 0.45% 250 250 NaCl 25,000 unit In 0.45 % NaCl 1 250ml.bag @ 9. 009 UNITS/KG/HR 10 mls/hr IV .Q24H [facility] Rx#: [id number] Output: Urine 1185 700 Other: Voiding Method Indwelling Catheter Indwelling Catheter # Bowel Movements 1 ABP, PAP, CO, CI - Last Documented Arterial Blood Pressure 152/67 - Constitutional General appearance: Present: cooperative - Gastrointestinal Gastrointestinal Comment(s): s/nt/nd - Labs CBC & Chem 7: 11/06/21 04:55 11/07/21 06:50 Labs: Abnormal Lab Results - Last 24 Hours (Table) 11/06/21 11/06/21 11/07/21 Range/Units 17:45 23:31 05:57 APTT (22.0-30.0) sec Carbon Dioxide (22-30) mmol/L BUN (9-20) mg/dL Glucose (74-99) mg/dL POC Glucose (mg/dL) 188 H 160 H 117 H (75-99) mg/dL Calcium (8.4-10.2) mg/dL 11/07/21 11/07/21 11/07/21 Range/Units 06:50 06:50 11:41 APTT 55.2 H (22.0-30.0) sec Carbon Dioxide 31 H (22-30) mmol/L BUN 32 H (9-20) mg/dL Glucose 132 H (74-99) mg/dL POC Glucose (mg/dL) 126 H (75-99) mg/dL Calcium 7.9 L (8.4-10.2) mg/dL Microbiology - Last 24 Hours (Table) 11/05/21 05:00 Blood Culture - Preliminary Blood No Growth after 48 hours Assessment and Plan Assessment: Status post expiratory laparotomy and Billroth II reconstruction secondary to perforated gastric ulcer Covid pneumonia Plan: Await UGI results, further recs to follow Overall patient is stable from a surgical standpoint, his primary issues now are related to COVID pneumonia.
[2021-11-07] MEDS: FUROSEMIDE 10 MG/ML 4 ML VIAL IV SCH (16:00)
[2021-11-07] MEDS: PANTOPRAZOLE 40 MG/10 ML VIAL IV SCH (16:00)
[2021-11-07] MEDS: DEXAMETHASONE SOD PHOSPHATE 10 MG/ML 1 ML VIAL IVP SCH (16:01)
[2021-11-07 18:06] LABS: Glucose,Whole Blood 107 mg/dL (75-99)
--- NOTE | 2021-11-07 19:34 | FL ---
SINGLE CONTRAST UPPER GI EXAM: CLINICAL HISTORY: 66-year-old male evaluated for leak after repair of gastric ulcer perforation. TECHNIQUE: Single contrast exam performed with 100 ml Isovue-370 contrast. Total fluoroscopy time: 2 minutes 22 seconds. Total images: 33. FINDINGS: The patient had limited mobility. The table was brought up to 45 degrees. The patient swallowed oral contrast through a straw without difficulty or delay. Mild tertiary peristalsis is demonstrated. Ther e is prompt passage from the esophagus into the stomach and gradual distention of the stomach. Patien t had to be brought to a right decubitus position in order to promote passage and filling of the dist al stomach. There is eventual passage into the duodenum. Of note, there is a sliding small to moderat e size hiatal hernia and some spontaneous gastroesophageal reflux encountered. No extravasation of contrast is seen to suggest a leak. Indwelling surgical drain as well as anterior skin josh noted. IMPRESSION: 1. Exam limited by patient mobility. No gastric leak is identified. 2. Incidental small to moderate-sized sliding hiatal hernia with spontaneous gastroesophageal reflux.
[2021-11-07] MEDS: FLUCONAZOLE IN NACL,ISO-OSM 200 MG in SALINE 1 100ML.BAG IVPB SCH (19:38)
--- NOTE | 2021-11-07 23:06 | PN ---
PROGRESS NOTE DATE OF SERVICE: 11/07/2021 REASON FOR FOLLOWUP: Secondary peritonitis from perforated peptic ulcer disease. INTERVAL HISTORY: The patient is afebrile. The patient is breathing comfortably. The patient denies having any chest pain. Did have minimal cough, not bringing up any sputum. No vomiting. No abdominal pain or diarrhea. PHYSICAL EXAMINATION: Blood pressure is 124/76, pulse of 73, temperature 97.3. He is 94% on 9 L nasal cannula. General description is an elderly male up in the bed in no distress. Respiratory system: Unlabored breathing, decreased intensity of breath sounds. No wheeze. Heart S1, S2. Regular rate and rhythm. Abdomen soft, no tenderness. Extremities: No edema of the feet. LABS: BUN of 32, creatinine 0.77. DIAGNOSTIC IMPRESSION AND PLAN: Patient with secondary peritonitis from perforated peptic ulcer disease, status post repair. Abdominal culture positive for Annia. Patient is covered with Zosyn and Diflucan; to continue. Hopefully transition to oral antibiotic on discharge once his oral intake has improved. Continue with supportive care. MMODL / IJN: [id number] /
[2021-11-08 00:07] LABS: Glucose,Whole Blood 115 mg/dL (75-99)
[2021-11-08] MEDS: PIPERACILLIN-TAZOBACTAM 3.375 GM in SODIUM CHLORIDE 0.9% 100 ML IVPB SCH ×4 (00:09→21:18)
[2021-11-08] MEDS: INSULIN ASPART (NovoLOG) 100 UNIT/ML VIAL SQ SCH ×4 (00:11→18:04)
[2021-11-08] MEDS: 1: AMINO ACID 5%-D20W+LYTES*E* 1,000 ML 2: MVI, ADULT NO.4 WITH VIT K 10 ML, TRACE (CON IV SCH ×9 (02:12→18:07)
[2021-11-08] MEDS: HEPARIN SOD,PORK IN 0.45% NACL 25,000 UNIT in 0.45% NACL 1 250ML.BAG IV SCH ×2 (04:43→15:58)
--- NOTE | 2021-11-08 05:30 | P.CONS ---
History of Present Illness - Chief Complaint Medical debility - History of Present Illness I had the opportunity to see patient for inpatient rehab consultation with regard to medical debility. He was admitted to [facility] October 26 with right- sided abdominal pain and Covid pneumonia. Seen by Dr. Hutton who did perform exploratory laparotomy with eventual partial gastrectomy. Seen medically by Dr. Stallings. Seen by Dr. Stockton for acute respiratory failure and Dr. Partida for the Covid pneumonia. Some a neurology, Dr. Velásquez, who diagnosed encephalopathy. Chest x-rays followed for the Covid pneumonia. No negative test of chest CTA and CT of abdomen and pelvis. Has started therapies. PT reports moderate to maximal assistance for bed mobility, maximal assistance to sit and stand and minimal assist to person 10 feet roller walker. Endurance and balance poor. OT reports moderate assistance for upper dressing and total assistance for lower dressing and toileting maximal assistance for bathing. Minimal assist functional mobility and transfers. Previous functional history as elicited from patient: 66-year-old ambidextrous white male who is lives in one floor home with . Retired. They share cooking, laundry, driving. Patient independent with standing shower and gait without device. States PCP Dr. Adkins. Denies tobacco and has rare drink. Review of Systems Review of systems: ENT: Denies sneezes or discharge. Eyes: Denies discharge or photophobia. Cardiac: Denies chest pain or palpitation. Pulmonary: Mild shortness of breath. Gastrointestinal: Denies nausea, emesis, constipation, diarrhea. Genitourinary: Denies discharge or frequency. Musculoskeletal: Denies muscle or bone aches. Neurologic: Generalized weakness. Endocrine: Denies shakes or sweats. Oncology: Denies cancers. Dermatologic: Denies rash, itching, pruritus. ALLERGY/immunology: Denies sneezes, rashes. Past Medical History Past Medical History: Osteoarthritis (OA) Additional Past Medical History / Comment(s): back pain, elevated rbc History of Any Multi-Drug Resistant Organisms: None Reported Past Surgical History: No Surgical Hx Reported Additional Past Surgical History / Comment(s): colonoscopy Past Anesthesia/Blood Transfusion Reactions: No Reported Reaction Past Psychological History: No Psychological Hx Reported Smoking Status: Former smoker Past Alcohol Use History: Rare Past Drug Use History: None Reported - Past Family History Father Family Medical History: Cancer Additional Family Medical History / Comment(s): Colon Cancer Medications and Allergies Home Medications Medication Instructions Recorded Confirmed Type Celecoxib [CeleBREX] 200 mg PO BID 02/05/21 10/26/21 History HYDROcodone/APAP 5-325MG [[place] 1 tab PO BID PRN 02/05/21 10/26/21 History 5-325] Ascorbic Acid [Vitamin C] 500 mg PO DAILY 10/26/21 10/26/21 History Cholecalciferol [Vitamin D3 (25 25 mcg PO DAILY 10/26/21 10/26/21 History Mcg = 1000 Iu)] guaiFENesin [Mucinex] 600 mg PO BID PRN 10/26/21 10/26/21 History Apixaban [Eliquis] 5 mg PO BID 30 Days #60 tab 11/07/21 Rx Allergies Allergy/AdvReac Type Severity Reaction Status Date / Time Sulfa (Sulfonamide Allergy Unknown Verified 10/26/21 20:20 Antibiotics) Physical Exam Vitals: Vital Signs Temp Pulse Resp BP Pulse Ox 11/08/21 02:00 68 18 11/08/21 00:00 98.1 F 68 18 135/78 95 11/07/21 20:00 98.3 F 72 18 130/74 93 L 11/07/21 16:00 97.3 F L 73 18 124/76 94 L 11/07/21 14:00 73 18 11/07/21 08:00 73 18 Intake and Output 11/07/21 11/07/21 11/08/21 14:59 22:59 06:59 Intake Total 250 250 Output Total 1200 625 Balance -950 -375 Intake: Intake, IV Titration 250 250 Amount Heparin Sod,Pork in 0.45% 250 250 NaCl 25,000 unit In 0.45 % NaCl 1 250ml.bag @ 9. 009 UNITS/KG/HR 10 mls/hr IV .Q24H [facility] Rx#: [id number] Output: Urine 1200 625 Other: Voiding Method Indwelling Catheter Indwelling Catheter Indwelling Catheter # Bowel Movements 1 1 Skin: Good color, texture, turgor. General: Overweight build and comfortable appearance. Head: Normocephalic, atraumatic. Eyes: Symmetric. Pupils equal round. Ears: Symmetric. Hearing within normal limits. Mouth: Clear. Neck: Supple. Carotid without bruit. Cardiac: Regular rate and rhythm. Lungs: Clear anteriorly and posteriorly. Abdomen: Soft active nontender. Extremities: Normal tone. Neurological: Mental status: Alert, cooperative, pleasant. Cranial nerves: Symmetric facial tone and trapezius. Motor: Active movement all 4 limbs. Arms about antigravity in legs less than antigravity. Sensation: Intact throughout. DTRs: Symmetric and equal throughout. Mobility: Requires physical assist for bed mobility. Results CBC & Chem 7: 11/06/21 04:55 11/07/21 06:50 Labs: Abnormal Lab Results - Last 24 Hours (Table) 11/07/21 11/07/21 11/07/21 Range/Units 05:57 06:50 06:50 APTT 55.2 H (22.0-30.0) sec Carbon Dioxide 31 H (22-30) mmol/L BUN 32 H (9-20) mg/dL Glucose 132 H (74-99) mg/dL POC Glucose (mg/dL) 117 H (75-99) mg/dL Calcium 7.9 L (8.4-10.2) mg/dL 11/07/21 11/07/21 11/08/21 Range/Units 11:41 18:01 00:05 APTT (22.0-30.0) sec Carbon Dioxide (22-30) mmol/L BUN (9-20) mg/dL Glucose (74-99) mg/dL POC Glucose (mg/dL) 126 H 107 H 115 H (75-99) mg/dL Calcium (8.4-10.2) mg/dL Microbiology - Last 24 Hours (Table) 11/05/21 05:00 Blood Culture - Preliminary Blood No Growth after 48 hours Assessment and Plan (1) Perforated gastric ulcer Current Visit: Yes Status: Acute Code(s): K25.5 - CHRONIC OR UNSPECIFIED GASTRIC ULCER WITH PERFORATION SNOMED Code(s): 1000319 (2) Pneumonia due to COVID-19 virus Current Visit: Yes Status: Acute Code(s): U07.1 - COVID-19; J12.82 - PNEUMONIA DUE TO CORONAVIRUS DISEASE 2019 SNOMED Code(s): 220224411632224935 Plan: Comments and plan: At this time PT and OT are ongoing. Safety concerns noted. Discussed inpatient rehab with patient and he seems to understand reasons.
[2021-11-08 05:57] LABS: Glucose,Whole Blood 162 mg/dL (75-99)
[2021-11-08 06:32] LABS: HGB 12.6 gm/dL (13.0-17.5); MCH 29.2 pg (25.0-35.0); MCHC 31.6 g/dL (31.0-37.0); MCV 92.5 fL (80.0-100.0); Mean Platelet Volume 9.5; Platelet Count 413 k/uL (150-450); RBC 4.32 m/uL (4.30-5.90); RDW 14.1 % (11.5-15.5); WBC 14.1 k/uL (3.8-10.6)
[2021-11-08 07:39] LABS: African American GFR (CKD) >90 (>60 ml/min/1.73 sqM); Anion Gap 6 mmol/L; Blood Urea Nitrogen 34 mg/dL (9-20); Calcium 7.9 mg/dL (8.4-10.2); Carbon Dioxide 30 mmol/L (22-30); Chloride 105 mmol/L (98-107); Glucose 181 mg/dL (74-99); Non-African American GFR(CKD) >90 (>60 ml/min/1.73 sqM); Sodium 141 mmol/L (137-145)
[2021-11-08 07:40] LABS: Magnesium 2.1 mg/dL (1.6-2.3); Phosphorus 4.7 mg/dL (2.5-4.5)
--- NOTE | 2021-11-08 08:44 | XR ---
EXAMINATION TYPE: XR chest 1V portable DATE OF EXAM: 11/08/2021 COMPARISON: 11/07/2021 HISTORY: Shortness of breath TECHNIQUE: Single frontal view of the chest is obtained. FINDINGS: Patchy bilateral areas of infiltrate. Underlying COPD and chronic interstitial lung diseas e suspected. Small bilateral pleural effusions. PICC line stable. Heart size is enlarged. No pneumoth orax. Biapical pleural thickening. Arthropathy of the shoulders. Surgical josh overlying the left abdomen. Hypertrophic changes spine. IMPRESSION: Bilateral areas of infiltrate are stable.
--- NOTE | 2021-11-08 09:53 | P.PN ---
Subjective Progress Note Date: 11/08/21 Principal diagnosis: Covid pneumonia Patient feeling better overall. He is sitting in the chair. States that he did not have problems with urination in the past. Still has a person. No fevers or chills. No pain. Objective - Vital Signs Vital signs: Vital Signs Temp 97.9 F 11/08/21 04:00 Pulse 63 11/08/21 04:00 Resp 18 11/08/21 04:00 BP 137/84 11/08/21 04:00 Pulse Ox 94 L 11/08/21 04:00 Intake & Output 11/07/21 11/08/21 11/08/21 18:59 06:59 18:59 Intake Total 250 250 0 Output Total 1200 625 Balance -950 -375 0 Intake: Intake, IV Titration 250 250 Amount Heparin Sod,Pork in 0.45% 250 250 NaCl 25,000 unit In 0.45 % NaCl 1 250ml.bag @ 9. 009 UNITS/KG/HR 10 mls/hr IV .Q24H [facility] Rx#: [id number] Oral 0 Output: Urine 1200 625 Other: Voiding Method Indwelling Catheter Indwelling Catheter # Bowel Movements 1 1 ABP, PAP, CO, CI - Last Documented Arterial Blood Pressure 152/67 - Exam Constitutional: No acute distress, conversant, pleasant Eyes: Anicteric sclerae, moist conjunctiva, no lid-lag PERRLA ENMT: NC/AT Oropharynx clear, no erythema, exudates Neck: Supple, FROM, no masses, or JVD No carotid bruits No thyromegaly Lungs: C no major accessory muscle use Cardiovascular: Heart regular in rate and rhythm, No murmurs, gallops, or rubs No peripheral edema Abdominal: Soft Nontender, no guarding, rebound or rigidity Abdomen moving with respiration Normoactive bowel sounds No hepatomegaly, No splenomegaly No palpable mass No abdominal wall hernia noted Skin: Normal temperature, tone, texture, turgor No induration No subcutaneous nodules No rash, lesions No ulcers Extremities: No digital cyanosis No clubbing Pedal pulses intact and symmetrical Radial pulses intact and symmetrical Normal gait and station No calf tenderness Psychiatric:Alert a Neuro: Muscles Strength 5/5 in all 4 extremities Sensation to light touch grossly present throughout Cranial nerves II-XII grossly intact No focal sensory deficits - Labs CBC & Chem 7: 11/08/21 05:40 11/08/21 05:40 Labs: Abnormal Lab Results - Last 24 Hours (Table) 11/07/21 11/07/21 11/08/21 Range/Units 11:41 18:01 00:05 WBC (3.8-10.6) k/uL Hgb (13.0-17.5) gm/dL BUN (9-20) mg/dL Glucose (74-99) mg/dL POC Glucose (mg/dL) 126 H 107 H 115 H (75-99) mg/dL Calcium (8.4-10.2) mg/dL Phosphorus (2.5-4.5) mg/dL 11/08/21 11/08/21 11/08/21 Range/Units 05:40 05:40 05:40 WBC 14.1 H (3.8-10.6) k/uL Hgb 12.6 L (13.0-17.5) gm/dL BUN 34 H (9-20) mg/dL Glucose 181 H (74-99) mg/dL POC Glucose (mg/dL) (75-99) mg/dL Calcium 7.9 L (8.4-10.2) mg/dL Phosphorus 4.7 H (2.5-4.5) mg/dL 11/08/21 Range/Units 05:55 WBC (3.8-10.6) k/uL Hgb (13.0-17.5) gm/dL BUN (9-20) mg/dL Glucose (74-99) mg/dL POC Glucose (mg/dL) 162 H (75-99) mg/dL Calcium (8.4-10.2) mg/dL Phosphorus (2.5-4.5) mg/dL Microbiology - Last 24 Hours (Table) 11/05/21 05:00 Blood Culture - Preliminary Blood No Growth after 72 hours Assessment and Plan Plan: COVID-19 pneumonia with acute hypoxic respiratory failure -Currently on 9L, try to wean down -Was on mechanical ventilation currently extubated -Continue Decadron -Pulm following Sepsis secondary to Perforated gastric ulcer status post expiratory laparotomy and gastrectomy -Being followed by surgical service -Abdominal cx with ila, on zosyn and diflucan per ID. -On TPN, -Upper GI series showed no leaks, will d/w surgery to see if oral feeds can be started. Urinary retention -Will d/c person today Elevated INR -Suspected due to sepsis upon presentation -Resolved Anticipated discharge: 4-5 days Disposition: Likely will need rehab
[2021-11-08] MEDS: PANTOPRAZOLE 40 MG/10 ML VIAL IV SCH (10:28)
[2021-11-08] MEDS: FLUCONAZOLE IN NACL,ISO-OSM 200 MG in SALINE 1 100ML.BAG IVPB SCH (10:29)
[2021-11-08] MEDS: DEXAMETHASONE SOD PHOSPHATE 10 MG/ML 1 ML VIAL IVP SCH (10:29)
[2021-11-08] MEDS: FUROSEMIDE 10 MG/ML 4 ML VIAL IV SCH (10:29)
--- NOTE | 2021-11-08 10:51 | P.PN ---
Subjective Progress Note Date: 11/08/21 On 11/02/2021 patient is seen in follow-up in intensive care unit, yesterday he was given a sedation holiday, his sedation was switched to Precedex to help him with restlessness and agitation, he actually did quite well with the sedation holiday, he woke up, he was appropriate following command. However he managed to self extubate himself at 2030 last night. He also pulled out his NG tube. He is tolerating extubation well so far, he is currently on 11 L of oxygen his pulse ox is 92-95%, he does have a effective cough, he is able to expectorate some yellowish colored phlegm. He is awake and alert, he is following simple command, he is trying to is her questions, he is appropriate, but he is gen erally weak, and his voice is slightly hoarse. He is in sinus mechanism with a rate of 87, he is on Cleviprex at the 4 mg per hour, and his blood pressure is in the 130s and 150 systolic in the 50s diastolic. Precedex is currently off, and he is still getting TPN at 70 ML per hour. He has positive bowel sounds, and he did pass a normal bowel movement last night. Abdomen is soft, slightly tender with coughing, no nausea or vomiting, surgery has decided to keep the NG tube out. Patient is still nothing by mouth. His been afebrile overnight, he remains on Zosyn and Diflucan for antibiotic coverage, no new growth on his cultures, just some Annia in his abdominal wound cultures. His blood and urine were negative. His urine output is in the order of 100-175 ML per hour. He received a single dose of IV Lasix yesterday, he produced over 5 L in the urine output, he is in -2.7 L over the last 24 hours. Today's chest x-ray still showing bilateral infiltrates there is stable as read by Dr. Ledesma, there may be a slight improvement in the appearance of right lung infiltrates. Today's labs have been reviewed, his CBC still pending, electrolytes are unremarkable, his potassium 3.7, sodium is 138, chloride is 101, CO2 is 20, BUN is 29 creatinine 0.68. Patient is follows simple commands, denies any acute distress, he does become short of breath with any exertion even repositioning in bed and cleaning up, and he'll be placed on BiPAP support at 12 and 6 and FiO2 of 60%. The patient is seen today 11/03/2021 in follow-up in the intensive care unit. He self extubated on 11/01/2021. He remains on 11 L high flow nasal cannula to maintain O2 saturations in the low 90s. He is currently awake and alert. He is asking for pain medications. He is on clevidipine at 4 mg per hour. TPN at 75 ML's per hour. 0.9 normal saline at KVO. Temperature 100.3. Slightly tachycardic. White count 21.1. Hemoglobin 14.5. Lymphocytes 0.8. Sodium 139. Potassium 3.8. Creatinine 0.70. Glucose 195. AST 40. ALT 60. He remains on Zosyn and fluconazole. Continued on Decadron and heparin for DVT prophylaxis. 11/07/2021, the patient is postop day #12. The patient was in the intensive care unit and the patient was transferred out to a medical floor for further recuperation and monitoring. In general, the patient is Doing well. No new complaints otherwise for now. Supposed to undergo a upper GI series postsurgery. Remains on examination Zosyn and Diflucan. Remains on IV heparin. His oxygenation is stable for now. The patient is currently on 9 L about 2 by nasal cannula high flow oxygen and therefore has been discontinued yesterday. His cardiac rhythm is back to sinus. He had a bowel movement. Surgical wound site is dry clean and intact a RUPINDER drain is in place. He is still receiving TPN for nutritional support. Altered mentation. No cough sputum production chest answer wheezing. He remains on Decadron 6 mg IV every 24 hours. On today's evaluation, vallecula all within normal limits. PPD level is therapeutic. The patient is seen today 11/08/2021 in follow-up on the selective care unit. Postoperative day #13. He is currently sitting up in a chair at the bedside. Awake and alert in no acute distress. Maintaining good O2 saturations in the 90s on 10 L high flow nasal cannula. Chest x-ray continues to revealed bilateral patchy infiltrates. Stable. PICC line in place. He remains nothing by mouth. GI series yesterday revealed no evidence of gastric leak. The cultures revealed no growth. White count 14.1. Hemoglobin 12.6. Sodium 141 potassium 4.0. Creatinine 0.76. Glucose 181. He remains in a negative balance. Continued on IV diuretics, Decadron, Zosyn and fluconazole. Being nourished with TPN and lipids. Abdominal wounds are clean dry well approximated. Remains on heparin drip. Remains in atrial fibrillation with a controlled ventricular response. Objective - Vital Signs Vital signs: Vital Signs Temp 97.9 F 11/08/21 04:00 Pulse 63 11/08/21 04:00 Resp 18 11/08/21 04:00 BP 137/84 11/08/21 04:00 Pulse Ox 94 L 11/08/21 04:00 Intake & Output 11/07/21 11/08/21 11/08/21 18:59 06:59 18:59 Intake Total 250 250 0 Output Total 1200 625 Balance -950 -375 0 Intake: Intake, IV Titration 250 250 Amount Heparin Sod,Pork in 0.45% 250 250 NaCl 25,000 unit In 0.45 % NaCl 1 250ml.bag @ 9. 009 UNITS/KG/HR 10 mls/hr IV .Q24H [facility] Rx#: [id number] Oral 0 Output: Urine 1200 625 Other: Voiding Method Indwelling Catheter Indwelling Catheter # Bowel Movements 1 1 ABP, PAP, CO, CI - Last Documented Arterial Blood Pressure 152/67 - Exam GENERAL EXAM: 66-year-old male patient, awake and alert, follows simple command, currently on 10 L high flow nasal cannula HEAD: Normocephalic/atraumatic. EYES: Normal reaction of pupils, equal size. Conjunctiva pink, sclera white. NOSE: Clear with pink turbinates. THROAT: No erythema or exudates. NECK: No masses, no JVD, no thyroid enlargement, no adenopathy. CHEST: No chest wall deformity. Symmetrical expansion. LUNGS: Equal air entry with crackles in the bilateral bases CVS: Regular rate and rhythm, normal S1 and S2, no gallops, no murmurs, no rubs ABDOMEN: Soft, nontender. Abdominal incision is clean dry and intact, covered with a dressing. Bowel sounds 4 EXTREMITIES: No clubbing, no edema, no cyanosis, 2+ pulses and upper and lower extremities. MUSCULOSKELETAL: Muscle strength and tone normal. SPINE: No scoliosis or deformity SKIN: No rashes CENTRAL NERVOUS SYSTEM: No focal deficits, tone is normal in all 4 extremities. - Labs CBC & Chem 7: 11/08/21 05:40 11/08/21 05:40 Labs: Abnormal Lab Results - Last 24 Hours (Table) 11/07/21 11/07/21 11/08/21 Range/Units 11:41 18:01 00:05 WBC (3.8-10.6) k/uL Hgb (13.0-17.5) gm/dL BUN (9-20) mg/dL Glucose (74-99) mg/dL POC Glucose (mg/dL) 126 H 107 H 115 H (75-99) mg/dL Calcium (8.4-10.2) mg/dL Phosphorus (2.5-4.5) mg/dL 11/08/21 11/08/21 11/08/21 Range/Units 05:40 05:40 05:40 WBC 14.1 H (3.8-10.6) k/uL Hgb 12.6 L (13.0-17.5) gm/dL BUN 34 H (9-20) mg/dL Glucose 181 H (74-99) mg/dL POC Glucose (mg/dL) (75-99) mg/dL Calcium 7.9 L (8.4-10.2) mg/dL Phosphorus 4.7 H (2.5-4.5) mg/dL 11/08/21 Range/Units 05:55 WBC (3.8-10.6) k/uL Hgb (13.0-17.5) gm/dL BUN (9-20) mg/dL Glucose (74-99) mg/dL POC Glucose (mg/dL) 162 H (75-99) mg/dL Calcium (8.4-10.2) mg/dL Phosphorus (2.5-4.5) mg/dL Microbiology - Last 24 Hours (Table) 11/05/21 05:00 Blood Culture - Preliminary Blood No Growth after 72 hours Assessment and Plan Assessment: 1 Acute hypoxic respiratory failure suspected to COVID-19 pneumonia, patient was on a ventilator and self extubated on 11/01/2021, currently on 10 L high flow nasal cannula. 2 Perforated gastric ulcer, status post surgical intervention with exposure laparotomy, Billroth type II, and reconstruction of a gastric perforation on 10/26/2021. GI series on 11/07/2021 revealed no evidence of gastric leak. 3 Acute abdominal sepsis, with abdominal wound cultures positive for Annia albicans, currently on a combination of Diflucan and Zosyn 4 Lactic acidosis secondary to abdominal sepsis, resolved with fluid resuscitation 5 Acute kidney injury, resolved 6 Altered mental status, multifactorial, rule out possibility of a central nervous system abnormality possibility of a stroke, CT of the brain on 10/31/2021 showed no acute findings. His mentation has improved, his following simple commands, he is answering appropriately 7 Hypertension requiring clevidipine Plan: The patient was seen and evaluated Currently up in a chair at the bedside Currently on 10 L high flow nasal cannula Titrate the FiO2 as tolerated Remains on TPN, currently nothing by mouth GI series revealed no evidence of gastric leak Currently on Zosyn and fluconazole We will continue to follow I, the cosigning physician, performed a history & physical examination of the patient. Lungs sounds coarse crackles in the posterior bases Maintaining O2 saturations in the 90s on 10 L high flow nasal cannula. I discussed the assessment and plan of care with my nurse practitioner, Julee Salazar. I attest to the above note as dictated by her.
[2021-11-08 11:50] LABS: Glucose,Whole Blood 152 mg/dL (75-99)
--- NOTE | 2021-11-08 12:06 | P.PN ---
Subjective This is a 66 year old male with a past medical history of former nicotine dependence. He does not follow with a em physician. No prior cardiac history. We were consulted for new onset atrial fibrillation with RVR. Patient presented to the emergency department on 10/27/2021 with complaints of abdominal pain and did have some shortness of breath. He was diagnosed with covid-19 about 10 days prior to this admission. He was found to have multifocal covid-19 pneumonia as well as perforated gastric ulcer. He is status post expiratory laparotomy, par tial gastrectomy and Billroth II reconstruction on 10/27/2021. He initially went into atrial fibrillation with RVR in the ICU and patient was initially on IV amiodarone and started on IV heparin. Patient's echocardiogram revealed a normal LV function, with an ejection fraction of 55-60%, mild aortic stenosis and mild mitral and tricuspid regurgitation. He is also being treated for secondary peritonitis from perforated ulcer with Zosyn and Diflucan. 11/08/21 Patient seen and examined at bedside, he is alert and oriented x 4. No acute distress. He continues to be nothing mouth. He underwent Upper GI Series with no gastric leak. Telemetry reviewed, patient maintaining sinus mechanism HR 50s- 60s, no further episodes of atrial fibrillation since 11/05. His IV amiodarone has been discontinued. His IV Lopressor was discontinued due to bradycardia. He is maintained on IV heparin and IV Lasix. Eliquis is being checked for coverage, however, patient my be discharged to inpatient rehab. He is currently on TPN. PICC line in place. Labs, WBC 14.1, Hgb 12.6, Plt 413, Sodium 141 K 4.0, BUN 34, sCr 0.76. Mag 2.1 GENERAL: Well-appearing, well-nourished and in no acute distress. NECK: Supple without JVD or thyromegaly. LUNGS: Breath sounds clear to auscultation bilaterally. Respiration equal and unlabored. No wheezes, rales or rhonchi. HEART: Regular rate and rhythm without murmurs, rubs or gallops. S1 and S2 heard. EXTREMITIES: Normal range of motion, no edema. No clubbing or cyanosis. Peripheral pulses intact. ASSESSMENT: New onset paroxysmal atrial fibrillation [id number] score 2 Hypertension Bradycardia, IV amiodarone and IV Lopressor held COVID-19 pneumonia Perforated gastric ulcer status post expiratory laparotomy and gastrectomy Billroth II reconstruction on 10/27/2021 PLAN: -We will continue IV heparin for anticoagulation at this time, due to continued NPO Status. Pending GI/surgery recommendations to start PO medications -When patient is able to take PO, switch to Eliquis 5mg BID -On discharge patient to follow up with Dr. Salgado. -Further recommendations based on clinical course Objective - Vital Signs Vital signs: Vital Signs Temp 98.5 F 11/08/21 08:00 Pulse 61 11/08/21 08:00 Resp 18 11/08/21 08:00 BP 147/78 11/08/21 08:00 Pulse Ox 94 L 11/08/21 08:00 Intake & Output 11/07/21 11/08/21 11/08/21 18:59 06:59 18:59 Intake Total 250 250 0 Output Total 1200 625 Balance -950 -375 0 Intake: Intake, IV Titration 250 250 Amount Heparin Sod,Pork in 0.45% 250 250 NaCl 25,000 unit In 0.45 % NaCl 1 250ml.bag @ 9. 009 UNITS/KG/HR 10 mls/hr IV .Q24H [facility] Rx#: [id number] Oral 0 Output: Urine 1200 625 Other: Voiding Method Indwelling Catheter Indwelling Catheter Indwelling Catheter # Bowel Movements 1 1 ABP, PAP, CO, CI - Last Documented Arterial Blood Pressure 152/67 - Labs CBC & Chem 7: 11/08/21 05:40 11/08/21 05:40 Labs: Abnormal Lab Results - Last 24 Hours (Table) 11/07/21 11/08/21 11/08/21 Range/Units 18:01 00:05 05:40 WBC (3.8-10.6) k/uL Hgb (13.0-17.5) gm/dL BUN (9-20) mg/dL Glucose (74-99) mg/dL POC Glucose (mg/dL) 107 H 115 H (75-99) mg/dL Calcium (8.4-10.2) mg/dL Phosphorus 4.7 H (2.5-4.5) mg/dL 11/08/21 11/08/21 11/08/21 Range/Units 05:40 05:40 05:55 WBC 14.1 H (3.8-10.6) k/uL Hgb 12.6 L (13.0-17.5) gm/dL BUN 34 H (9-20) mg/dL Glucose 181 H (74-99) mg/dL POC Glucose (mg/dL) 162 H (75-99) mg/dL Calcium 7.9 L (8.4-10.2) mg/dL Phosphorus (2.5-4.5) mg/dL 11/08/21 Range/Units 11:48 WBC (3.8-10.6) k/uL Hgb (13.0-17.5) gm/dL BUN (9-20) mg/dL Glucose (74-99) mg/dL POC Glucose (mg/dL) 152 H (75-99) mg/dL Calcium (8.4-10.2) mg/dL Phosphorus (2.5-4.5) mg/dL Microbiology - Last 24 Hours (Table) 11/05/21 05:00 Blood Culture - Preliminary Blood No Growth after 72 hours
[2021-11-08] MEDS ORDERED: 1: AMINO ACID 5%-D20W+LYTES*E* 1,000 ML 2: MVI, ADULT NO.4 WITH VIT K 10 ML, TRACE (CON IV SCH ×6 (16:00)
[2021-11-08 16:57] LABS: Glucose,Whole Blood 172 mg/dL (75-99)
[2021-11-08] MEDS: APIXABAN 5 MG TAB PO SCH (21:11)
--- NOTE | 2021-11-08 22:43 | PN ---
PROGRESS NOTE DATE OF SERVICE: 11/08/2021 REASON FOR FOLLOWUP: Secondary peritonitis from perforated peptic ulcer disease. INTERVAL HISTORY: The patient is afebrile. The patient is breathing more comfortably. The patient denies having any chest pain or shortness of breath. Occasional cough. Abdominal pain is currently controlled. No vomiting or diarrhea. PHYSICAL EXAMINATION: Blood pressure 145/80 with a pulse of 68, temperature 98.2. He is 97% on 7 L nasal cannula. General description is an elderly male lying in bed in no distress. Respiratory system: Unlabored breathing. Coarse breath sounds bilaterally. No wheeze. Heart S1, S2. Regular rate and rhythm. Abdomen soft, no tenderness. LABS: Hemoglobin is 12.6, white count 14.1, creatinine 0.76. DIAGNOSTIC IMPRESSION AND PLAN: Patient with secondary peritonitis from perforated peptic ulcer disease, status post repair. Abdominal culture positive for Annia. Patient is covered with fluconazole, Zosyn, waiting for the oral intake to improve to transition to oral antibiotics. Continue with supportive care. MMODL / IJN: [id number] /
[2021-11-08 23:47] LABS: Glucose,Whole Blood 148 mg/dL (75-99)
[2021-11-09] MEDS: INSULIN ASPART (NovoLOG) 100 UNIT/ML VIAL SQ SCH ×4 (00:16→18:30)
[2021-11-09] MEDS: PIPERACILLIN-TAZOBACTAM 3.375 GM in SODIUM CHLORIDE 0.9% 100 ML IVPB SCH ×3 (06:02→20:48)
[2021-11-09 06:13] LABS: African American GFR (CKD) >90 (>60 ml/min/1.73 sqM); Anion Gap 2 mmol/L; Blood Urea Nitrogen 27 mg/dL (9-20); Calcium 8.1 mg/dL (8.4-10.2); Carbon Dioxide 32 mmol/L (22-30); Chloride 101 mmol/L (98-107); Glucose 151 mg/dL (74-99); Magnesium 2.1 mg/dL (1.6-2.3); Non-African American GFR(CKD) >90 (>60 ml/min/1.73 sqM); Phosphorus 3.8 mg/dL (2.5-4.5); Potassium 3.8 mmol/L (3.5-5.1); Sodium 135 mmol/L (137-145)
[2021-11-09 06:16] LABS: Glucose,Whole Blood 153 mg/dL (75-99)
[2021-11-09] MEDS: APIXABAN 5 MG TAB PO SCH ×2 (09:37→20:44)
[2021-11-09] MEDS: FUROSEMIDE 10 MG/ML 4 ML VIAL IV SCH (09:38)
[2021-11-09] MEDS: PANTOPRAZOLE 40 MG/10 ML VIAL IV SCH (09:39)
[2021-11-09] MEDS: DEXAMETHASONE SOD PHOSPHATE 10 MG/ML 1 ML VIAL IVP SCH (10:37)
[2021-11-09] MEDS: FLUCONAZOLE IN NACL,ISO-OSM 200 MG in SALINE 1 100ML.BAG IVPB SCH (10:42)
--- NOTE | 2021-11-09 10:42 | P.PN ---
Subjective Progress Note Date: 11/09/21 This is a 66-year-old male who was admitted to the hospital with Coban pneumonia and perforated viscus requiring surgery. We have seen this patient for management of atrial fibrillation. Patient was started on amiodarone and converted back to sinus rhythm. Patient actually developed a sinus bradycardia. He is taken off the beta jad and also amiodarone. Patient is Eliquis 5 mg by mouth twice a day. Blood pressure is about 130/60. Pulse is about 80. Respirations are 20. We'll continue with current medical therapy. We'll follow him as needed Objective - Vital Signs Vital signs: Vital Signs Temp 97.8 F 11/09/21 08:30 Pulse 80 11/09/21 08:30 Resp 22 11/09/21 08:30 BP 130/61 11/09/21 08:30 Pulse Ox 96 11/09/21 08:30 Intake & Output 11/08/21 11/09/21 11/09/21 18:59 06:59 18:59 Intake Total 730 520 118 Output Total 2250 350 Balance -1520 170 118 Weight 105.5 kg Intake: IV 100 Piperacillin-Tazobactam 3 100 .375 gm In Sodium Chloride 0.9% 100 ml @ 25 mls/hr IVPB Q8H [facility] Rx#: [id number] Intake, IV Titration 250 300 Amount Heparin Sod,Pork in 0.45% 250 NaCl 25,000 unit In 0.45 % NaCl 1 250ml.bag @ 9. 009 UNITS/KG/HR 10 mls/hr IV .Q24H [facility] Rx#: [id number] Parenteral Electrolytes 300 20 ml Potassium Chloride 10 meq In Amino Acids 5 % /Dextrose 20 % 1,000 ml @ 75 mls/hr IV .BY DURATION [facility] Rx#: [id number] Oral 480 120 118 Output: Urine 2250 350 Other: Voiding Method Indwelling Catheter Urinal # Voids 1 # Bowel Movements 1 ABP, PAP, CO, CI - Last Documented Arterial Blood Pressure 152/67 - Exam Patient is not personally examined. Information is gathered from the consultants notes and the nurses input - Labs CBC & Chem 7: 11/08/21 05:40 11/09/21 04:52 Labs: Abnormal Lab Results - Last 24 Hours (Table) 11/08/21 11/08/21 11/08/21 Range/Units 11:48 16:56 23:45 Sodium (137-145) mmol/L Carbon Dioxide (22-30) mmol/L BUN (9-20) mg/dL Glucose (74-99) mg/dL POC Glucose (mg/dL) 152 H 172 H 148 H (75-99) mg/dL Calcium (8.4-10.2) mg/dL 11/09/21 11/09/21 Range/Units 04:52 06:06 Sodium 135 L (137-145) mmol/L Carbon Dioxide 32 H (22-30) mmol/L BUN 27 H (9-20) mg/dL Glucose 151 H (74-99) mg/dL POC Glucose (mg/dL) 153 H (75-99) mg/dL Calcium 8.1 L (8.4-10.2) mg/dL Microbiology - Last 24 Hours (Table) 11/05/21 05:00 Blood Culture - Preliminary Blood No Growth after 96 hours Assessment and Plan (1) Persistent atrial fibrillation Current Visit: Yes Status: Acute Code(s): I48.19 - OTHER PERSISTENT ATRIAL FIBRILLATION SNOMED Code(s): 437030792 (2) Perforated gastric ulcer Current Visit: Yes Status: Acute Code(s): K25.5 - CHRONIC OR UNSPECIFIED GASTRIC ULCER WITH PERFORATION SNOMED Code(s): 8948103 (3) Pneumonia due to COVID-19 virus Current Visit: Yes Status: Acute Code(s): U07.1 - COVID-19; J12.82 - PNEUMONIA DUE TO CORONAVIRUS DISEASE 2019 SNOMED Code(s): 747838110563503507 Plan: Patient is maintaining sinus rhythm. Heart rate is in the 60-80 range. Off amiodarone and beta jad. On anticoagulation. We'll follow him as needed
--- NOTE | 2021-11-09 11:08 | P.PN ---
Subjective Progress Note Date: 11/09/21 Patient is awake much more responsive today. Patient did have a bowel movement. No nausea vomiting reported. RUPINDER drain is serosanguineous. tolerating clears Objective - Vital Signs Vital signs: Vital Signs Temp 97.8 F 11/09/21 08:30 Pulse 80 11/09/21 08:30 Resp 22 11/09/21 08:30 BP 130/61 11/09/21 08:30 Pulse Ox 96 11/09/21 08:30 Intake & Output 11/08/21 11/09/21 11/09/21 18:59 06:59 18:59 Intake Total 730 520 118 Output Total 2250 350 Balance -1520 170 118 Weight 105.5 kg Intake: IV 100 Piperacillin-Tazobactam 3 100 .375 gm In Sodium Chloride 0.9% 100 ml @ 25 mls/hr IVPB Q8H [facility] Rx#: [id number] Intake, IV Titration 250 300 Amount Heparin Sod,Pork in 0.45% 250 NaCl 25,000 unit In 0.45 % NaCl 1 250ml.bag @ 9. 009 UNITS/KG/HR 10 mls/hr IV .Q24H [facility] Rx#: [id number] Parenteral Electrolytes 300 20 ml Potassium Chloride 10 meq In Amino Acids 5 % /Dextrose 20 % 1,000 ml @ 75 mls/hr IV .BY DURATION [facility] Rx#: [id number] Oral 480 120 118 Output: Urine 2250 350 Other: Voiding Method Indwelling Catheter Urinal # Voids 1 # Bowel Movements 1 ABP, PAP, CO, CI - Last Documented Arterial Blood Pressure 152/67 - Constitutional General appearance: Present: cooperative - Gastrointestinal Gastrointestinal Comment(s): s/nt/nd incision CDI - Labs CBC & Chem 7: 11/08/21 05:40 11/09/21 04:52 Labs: Abnormal Lab Results - Last 24 Hours (Table) 11/08/21 11/08/21 11/08/21 Range/Units 11:48 16:56 23:45 Sodium (137-145) mmol/L Carbon Dioxide (22-30) mmol/L BUN (9-20) mg/dL Glucose (74-99) mg/dL POC Glucose (mg/dL) 152 H 172 H 148 H (75-99) mg/dL Calcium (8.4-10.2) mg/dL 11/09/21 11/09/21 Range/Units 04:52 06:06 Sodium 135 L (137-145) mmol/L Carbon Dioxide 32 H (22-30) mmol/L BUN 27 H (9-20) mg/dL Glucose 151 H (74-99) mg/dL POC Glucose (mg/dL) 153 H (75-99) mg/dL Calcium 8.1 L (8.4-10.2) mg/dL Microbiology - Last 24 Hours (Table) 11/05/21 05:00 Blood Culture - Preliminary Blood No Growth after 96 hours Assessment and Plan Assessment: Status post exlaparotomy and Billroth II reconstruction secondary to perforated gastric ulcer Covid pneumonia Plan: Advance diet as tolerated to fulls then soft foods. Once tolerating diet patient is cleared from surgical perspective
--- NOTE | 2021-11-09 11:45 | P.PN ---
Subjective Progress Note Date: 11/09/21 On 11/02/2021 patient is seen in follow-up in intensive care unit, yesterday he was given a sedation holiday, his sedation was switched to Precedex to help him with restlessness and agitation, he actually did quite well with the sedation holiday, he woke up, he was appropriate following command. However he managed to self extubate himself at 2030 last night. He also pulled out his NG tube. He is tolerating extubation well so far, he is currently on 11 L of oxygen his pulse ox is 92-95%, he does have a effective cough, he is able to expectorate some yellowish colored phlegm. He is awake and alert, he is following simple command, he is trying to is her questions, he is appropriate, but he is gen erally weak, and his voice is slightly hoarse. He is in sinus mechanism with a rate of 87, he is on Cleviprex at the 4 mg per hour, and his blood pressure is in the 130s and 150 systolic in the 50s diastolic. Precedex is currently off, and he is still getting TPN at 70 ML per hour. He has positive bowel sounds, and he did pass a normal bowel movement last night. Abdomen is soft, slightly tender with coughing, no nausea or vomiting, surgery has decided to keep the NG tube out. Patient is still nothing by mouth. His been afebrile overnight, he remains on Zosyn and Diflucan for antibiotic coverage, no new growth on his cultures, just some Annia in his abdominal wound cultures. His blood and urine were negative. His urine output is in the order of 100-175 ML per hour. He received a single dose of IV Lasix yesterday, he produced over 5 L in the urine output, he is in -2.7 L over the last 24 hours. Today's chest x-ray still showing bilateral infiltrates there is stable as read by Dr. Ledesma, there may be a slight improvement in the appearance of right lung infiltrates. Today's labs have been reviewed, his CBC still pending, electrolytes are unremarkable, his potassium 3.7, sodium is 138, chloride is 101, CO2 is 20, BUN is 29 creatinine 0.68. Patient is follows simple commands, denies any acute distress, he does become short of breath with any exertion even repositioning in bed and cleaning up, and he'll be placed on BiPAP support at 12 and 6 and FiO2 of 60%. The patient is seen today 11/03/2021 in follow-up in the intensive care unit. He self extubated on 11/01/2021. He remains on 11 L high flow nasal cannula to maintain O2 saturations in the low 90s. He is currently awake and alert. He is asking for pain medications. He is on clevidipine at 4 mg per hour. TPN at 75 ML's per hour. 0.9 normal saline at KVO. Temperature 100.3. Slightly tachycardic. White count 21.1. Hemoglobin 14.5. Lymphocytes 0.8. Sodium 139. Potassium 3.8. Creatinine 0.70. Glucose 195. AST 40. ALT 60. He remains on Zosyn and fluconazole. Continued on Decadron and heparin for DVT prophylaxis. 11/07/2021, the patient is postop day #12. The patient was in the intensive care unit and the patient was transferred out to a medical floor for further recuperation and monitoring. In general, the patient is Doing well. No new complaints otherwise for now. Supposed to undergo a upper GI series postsurgery. Remains on examination Zosyn and Diflucan. Remains on IV heparin. His oxygenation is stable for now. The patient is currently on 9 L about 2 by nasal cannula high flow oxygen and therefore has been discontinued yesterday. His cardiac rhythm is back to sinus. He had a bowel movement. Surgical wound site is dry clean and intact a RUPINDER drain is in place. He is still receiving TPN for nutritional support. Altered mentation. No cough sputum production chest answer wheezing. He remains on Decadron 6 mg IV every 24 hours. On today's evaluation, vallecula all within normal limits. PPD level is therapeutic. The patient is seen today 11/08/2021 in follow-up on the selective care unit. Postoperative day #13. He is currently sitting up in a chair at the bedside. Awake and alert in no acute distress. Maintaining good O2 saturations in the 90s on 10 L high flow nasal cannula. Chest x-ray continues to revealed bilateral patchy infiltrates. Stable. PICC line in place. He remains nothing by mouth. GI series yesterday revealed no evidence of gastric leak. The cultures revealed no growth. White count 14.1. Hemoglobin 12.6. Sodium 141 potassium 4.0. Creatinine 0.76. Glucose 181. He remains in a negative balance. Continued on IV diuretics, Decadron, Zosyn and fluconazole. Being nourished with TPN and lipids. Abdominal wounds are clean dry well approximated. Remains on heparin drip. Remains in atrial fibrillation with a controlled ventricular response. The patient is seen today 11/09/2021 in follow-up on the selective care unit. He is currently up ambulating in his room. Awake and alert in no acute distress. Currently on 7 L high flow nasal cannula. Chest x-ray continues to show bilateral infiltrates. He continues to work with the incentive spirometer. Follow-up blood cultures revealed no growth. Sodium 135. Potassium 3.8. Creatinine 0.75. Currently in a -1.3 L balance. He is currently tolerating a clear liquid diet. Advancing diet per surgical services. Continued on TPN and lipids. RUPINDER drain remains in place with serosanguineous drainage. He did have a bowel movement. No nausea or vomiting. Currently in sinus rhythm. He has been transitioned to Eliquis. Remains on IV diuretics. Continued on Decadron. remains on Zosyn and fluconazole. Objective - Vital Signs Vital signs: Vital Signs Temp 97.8 F 11/09/21 08:30 Pulse 80 11/09/21 08:30 Resp 22 11/09/21 08:30 BP 130/61 11/09/21 08:30 Pulse Ox 96 11/09/21 08:30 Intake & Output 11/08/21 11/09/21 11/09/21 18:59 06:59 18:59 Intake Total 730 520 118 Output Total 2250 350 Balance -1520 170 118 Weight 105.5 kg 105.5 kg Intake: IV 100 Piperacillin-Tazobactam 3 100 .375 gm In Sodium Chloride 0.9% 100 ml @ 25 mls/hr IVPB Q8H [facility] Rx#: [id number] Intake, IV Titration 250 300 Amount Heparin Sod,Pork in 0.45% 250 NaCl 25,000 unit In 0.45 % NaCl 1 250ml.bag @ 9. 009 UNITS/KG/HR 10 mls/hr IV .Q24H [facility] Rx#: [id number] Parenteral Electrolytes 300 20 ml Potassium Chloride 10 meq In Amino Acids 5 % /Dextrose 20 % 1,000 ml @ 75 mls/hr IV .BY DURATION [facility] Rx#: [id number] Oral 480 120 118 Output: Urine 2250 350 Other: Voiding Method Indwelling Catheter Urinal # Voids 1 # Bowel Movements 1 ABP, PAP, CO, CI - Last Documented Arterial Blood Pressure 152/67 - Exam GENERAL EXAM: 66-year-old male patient, awake and alert, follows simple command, currently on 7 L high flow nasal cannula HEAD: Normocephalic/atraumatic. EYES: Normal reaction of pupils, equal size. Conjunctiva pink, sclera white. NOSE: Clear with pink turbinates. THROAT: No erythema or exudates. NECK: No masses, no JVD, no thyroid enlargement, no adenopathy. CHEST: No chest wall deformity. Symmetrical expansion. LUNGS: Equal air entry with crackles in the bilateral bases CVS: Regular rate and rhythm, normal S1 and S2, no gallops, no murmurs, no rubs ABDOMEN: Soft, nontender. Abdominal incision is clean dry and intact, covered with a dressing. Bowel sounds 4 EXTREMITIES: No clubbing, no edema, no cyanosis, 2+ pulses and upper and lower extremities. MUSCULOSKELETAL: Muscle strength and tone normal. SPINE: No scoliosis or deformity SKIN: No rashes CENTRAL NERVOUS SYSTEM: No focal deficits, tone is normal in all 4 extremities. - Labs CBC & Chem 7: 11/08/21 05:40 11/09/21 04:52 Labs: Abnormal Lab Results - Last 24 Hours (Table) 11/08/21 11/08/21 11/08/21 Range/Units 11:48 16:56 23:45 Sodium (137-145) mmol/L Carbon Dioxide (22-30) mmol/L BUN (9-20) mg/dL Glucose (74-99) mg/dL POC Glucose (mg/dL) 152 H 172 H 148 H (75-99) mg/dL Calcium (8.4-10.2) mg/dL 11/09/21 11/09/21 Range/Units 04:52 06:06 Sodium 135 L (137-145) mmol/L Carbon Dioxide 32 H (22-30) mmol/L BUN 27 H (9-20) mg/dL Glucose 151 H (74-99) mg/dL POC Glucose (mg/dL) 153 H (75-99) mg/dL Calcium 8.1 L (8.4-10.2) mg/dL Microbiology - Last 24 Hours (Table) 11/05/21 05:00 Blood Culture - Preliminary Blood No Growth after 96 hours Assessment and Plan Assessment: 1 Acute hypoxic respiratory failure suspected to COVID-19 pneumonia, patient w as on a ventilator and self extubated on 11/01/2021, currently on 7 L high flow nasal cannula. 2 Perforated gastric ulcer, status post surgical intervention with exposure laparotomy, Billroth type II, and reconstruction of a gastric perforation on 10/26/2021. GI series on 11/07/2021 revealed no evidence of gastric leak. 3 Acute abdominal sepsis, with abdominal wound cultures positive for Annia albicans, currently on a combination of Diflucan and Zosyn 4 Lactic acidosis secondary to abdominal sepsis, resolved with fluid resuscitation 5 Acute kidney injury, resolved 6 Altered mental status, multifactorial, rule out possibility of a central nervous system abnormality possibility of a stroke, CT of the brain on 10/31/2021 showed no acute findings. His mentation has improved, his following simple commands, he is answering appropriately 7 Hypertension requiring clevidipine Plan: The patient was seen and evaluated Currently up ambulating in the room Currently on 7 L high flow nasal cannula Titrate the FiO2 as tolerated Discontinue Decadron Remains on TPN, currently tolerating clear liquids GI series revealed no evidence of gastric leak Currently on Zosyn and fluconazole Follow-up chest x-ray in a.m. We will continue to follow I, the cosigning physician, performed a history & physical examination of the patient. Lungs sounds coarse crackles in the posterior bases Maintaining O2 saturations in the 90s on 7 L high flow nasal cannula. I discussed the assessment and plan of care with my nurse practitioner, Julee Salazar. I attest to the above note as dictated by her.
[2021-11-09 12:13] LABS: Glucose,Whole Blood 135 mg/dL (75-99)
--- NOTE | 2021-11-09 14:31 | P.PN ---
Subjective Progress Note Date: 11/09/21 Principal diagnosis: Covid pneumonia Patient is feeling well today. Denies shortness of breath or pain. No nausea or vomiting. He was started on oral feedings by surgery, tolerated well. Objective - Vital Signs Vital signs: Vital Signs Temp 97.9 F 11/09/21 12:00 Pulse 72 11/09/21 12:00 Resp 20 11/09/21 12:00 BP 133/82 11/09/21 12:00 Pulse Ox 94 L 11/09/21 12:00 Intake & Output 11/08/21 11/09/21 11/09/21 18:59 06:59 18:59 Intake Total 730 520 118 Output Total 2250 350 Balance -1520 170 118 Weight 105.5 kg 105.5 kg Intake: IV 100 Piperacillin-Tazobactam 3 100 .375 gm In Sodium Chloride 0.9% 100 ml @ 25 mls/hr IVPB Q8H [facility] Rx#: [id number] Intake, IV Titration 250 300 Amount Heparin Sod,Pork in 0.45% 250 NaCl 25,000 unit In 0.45 % NaCl 1 250ml.bag @ 9. 009 UNITS/KG/HR 10 mls/hr IV .Q24H [facility] Rx#: [id number] Parenteral Electrolytes 300 20 ml Potassium Chloride 10 meq In Amino Acids 5 % /Dextrose 20 % 1,000 ml @ 75 mls/hr IV .BY DURATION [facility] Rx#: [id number] Oral 480 120 118 Output: Urine 2250 350 Other: Voiding Method Indwelling Catheter Urinal # Voids 1 # Bowel Movements 1 ABP, PAP, CO, CI - Last Documented Arterial Blood Pressure 152/67 - Exam Constitutional: No acute distress, conversant, pleasant Eyes: Anicteric sclerae, moist conjunctiva, no lid-lag PERRLA ENMT: NC/AT Oropharynx clear, no erythema, exudates Neck: Supple, FROM, no masses, or JVD No carotid bruits No thyromegaly Lungs: C no major accessory muscle use Cardiovascular: Heart regular in rate and rhythm, No murmurs, gallops, or rubs No peripheral edema Abdominal: Soft Nontender, no guarding, rebound or rigidity Abdomen moving with respiration Normoactive bowel sounds No hepatomegaly, No splenomegaly No palpable mass No abdominal wall hernia noted Skin: Normal temperature, tone, texture, turgor No induration No subcutaneous nodules No rash, lesions No ulcers Extremities: No digital cyanosis No clubbing Pedal pulses intact and symmetrical Radial pulses intact and symmetrical Normal gait and station No calf tenderness Psychiatric:Alert a Neuro: Muscles Strength 5/5 in all 4 extremities Sensation to light touch grossly present throughout Cranial nerves II-XII grossly intact No focal sensory deficits - Labs CBC & Chem 7: 11/08/21 05:40 11/09/21 04:52 Labs: Abnormal Lab Results - Last 24 Hours (Table) 11/08/21 11/08/21 11/09/21 Range/Units 16:56 23:45 04:52 Sodium 135 L (137-145) mmol/L Carbon Dioxide 32 H (22-30) mmol/L BUN 27 H (9-20) mg/dL Glucose 151 H (74-99) mg/dL POC Glucose (mg/dL) 172 H 148 H (75-99) mg/dL Calcium 8.1 L (8.4-10.2) mg/dL 11/09/21 11/09/21 Range/Units 06:06 12:12 Sodium (137-145) mmol/L Carbon Dioxide (22-30) mmol/L BUN (9-20) mg/dL Glucose (74-99) mg/dL POC Glucose (mg/dL) 153 H 135 H (75-99) mg/dL Calcium (8.4-10.2) mg/dL Microbiology - Last 24 Hours (Table) 11/05/21 05:00 Blood Culture - Preliminary Blood No Growth after 96 hours Assessment and Plan Plan: COVID-19 pneumonia with acute hypoxic respiratory failure -O2 weaned down to 3L NC. -Was on mechanical ventilation currently extubated -Continue Decadron -Pulm following Sepsis secondary to Perforated gastric ulcer status post expiratory laparotomy and gastrectomy -Being followed by surgical service -Abdominal cx with ila, on zosyn and diflucan per ID. -Upper GI series 11/07 showed no leaks -Was on TPN until 11/08, currently on full liquid diet per surgery, tolerating well. Urinary retention -S/p person, which was d/betito on 11/08 Elevated INR -Suspected due to sepsis upon presentation -Resolved Anticipated discharge: 2-3 days Disposition: Likely will need rehab
--- NOTE | 2021-11-09 15:26 | PN ---
PROGRESS NOTE DATE OF SERVICE: 11/09/2021 REASON FOR FOLLOWUP: Secondary peritonitis from perforated peptic ulcer disease. INTERVAL HISTORY: The patient is afebrile. The patient is breathing comfortably. The patient denies having any chest pain, shortness of breath or cough. Abdominal pain is currently controlled. He is able to tolerate his diet. No vomiting or diarrhea. PHYSICAL EXAMINATION: Blood pressure 133/82 with a pulse of 72, temperature 97.9. He is 94% on 3 L nasal cannula. General description is an elderly male up in the bed in no distress. Respiratory system: Unlabored breathing, decreased intensity of breath sounds. No wheeze. Heart S1, S2. Regular rate and rhythm. Abdomen soft, no tenderness. LABS: BUN of 27, creatinine 0.75. DIAGNOSTIC IMPRESSION AND PLAN: Patient with secondary peritonitis from perforated peptic ulcer disease, status post operative repair. Abdominal culture with Annia. Patient is covered with fluconazole and Zosyn. Will transition to oral antibiotic once his oral intake improves. Family at the bedside; questions were answered. MMODL / IJN: [id number] /
[2021-11-09] MEDS: PANTOPRAZOLE 40 MG TABLET PO SCH (16:14)
[2021-11-09] MEDS: 1: AMINO ACID 5%-D20W+LYTES*E* 1,000 ML 2: MVI, ADULT NO.4 WITH VIT K 10 ML, TRACE (CON IV SCH ×12 (16:47→20:09)
[2021-11-09 18:17] LABS: Glucose,Whole Blood 217 mg/dL (75-99)
[2021-11-09] MEDS: HYDROmorphone 0.5 MG/0.5 ML SYRINGE IVP PRN (20:44)
[2021-11-10] MEDS: INSULIN ASPART (NovoLOG) 100 UNIT/ML VIAL SQ SCH ×5 (00:02→23:45)
[2021-11-10 00:06] LABS: Glucose,Whole Blood 89 mg/dL (75-99)
[2021-11-10] MEDS: PIPERACILLIN-TAZOBACTAM 3.375 GM in SODIUM CHLORIDE 0.9% 100 ML IVPB SCH ×3 (03:50→21:13)
[2021-11-10 05:42] LABS: Glucose,Whole Blood 125 mg/dL (75-99)
[2021-11-10] MEDS: PANTOPRAZOLE 40 MG TABLET PO SCH ×2 (06:08→18:11)
[2021-11-10 06:54] LABS: African American GFR (CKD) >90 (>60 ml/min/1.73 sqM); Anion Gap 8 mmol/L; Blood Urea Nitrogen 27 mg/dL (9-20); Carbon Dioxide 29 mmol/L (22-30); Chloride 99 mmol/L (98-107); Glucose 140 mg/dL (74-99); Magnesium 1.9 mg/dL (1.6-2.3); Non-African American GFR(CKD) >90 (>60 ml/min/1.73 sqM); Potassium 3.8 mmol/L (3.5-5.1); Sodium 136 mmol/L (137-145)
[2021-11-10] MEDS: 1: AMINO ACID 5%-D20W+LYTES*E* 1,000 ML 2: MVI, ADULT NO.4 WITH VIT K 10 ML, TRACE (CON IV SCH ×12 (08:20→21:12)
[2021-11-10] MEDS: APIXABAN 5 MG TAB PO SCH ×2 (08:20→21:12)
[2021-11-10] MEDS: FUROSEMIDE 10 MG/ML 4 ML VIAL IV SCH (08:20)
[2021-11-10] MEDS: FLUCONAZOLE IN NACL,ISO-OSM 200 MG in SALINE 1 100ML.BAG IVPB SCH (08:20)
--- NOTE | 2021-11-10 10:57 | P.PN ---
Subjective Progress Note Date: 11/10/21 Principal diagnosis: Covid pneumonia Feeling well. No complaints. Starting to eat. Having BMs. Objective - Vital Signs Vital signs: Vital Signs Temp 98.9 F 11/10/21 08:00 Pulse 71 11/10/21 08:00 Resp 19 11/10/21 08:00 BP 118/69 11/10/21 08:00 Pulse Ox 94 L 11/10/21 08:00 Intake & Output 11/09/21 11/10/21 11/10/21 18:59 06:59 18:59 Intake Total 236 118 Output Total 100 300 975 Balance 136 300 857 Weight 105.5 kg 91.5 kg Intake: Oral 236 118 Output: Urine 100 300 975 Other: Voiding Method Urinal Urinal # Voids 1 1 # Bowel Movements 1 2 ABP, PAP, CO, CI - Last Documented Arterial Blood Pressure 152/67 - Exam Constitutional: No acute distress, conversant, pleasant Eyes: Anicteric sclerae, moist conjunctiva, no lid-lag PERRLA ENMT: NC/AT Oropharynx clear, no erythema, exudates Neck: Supple, FROM, no masses, or JVD No carotid bruits No thyromegaly Lungs: C no major accessory muscle use Cardiovascular: Heart regular in rate and rhythm, No murmurs, gallops, or rubs No peripheral edema Abdominal: Soft Nontender, no guarding, rebound or rigidity Abdomen moving with respiration Normoactive bowel sounds No hepatomegaly, No splenomegaly No palpable mass No abdominal wall hernia noted Skin: Normal temperature, tone, texture, turgor No induration No subcutaneous nodules No rash, lesions No ulcers Extremities: No digital cyanosis No clubbing Pedal pulses intact and symmetrical Radial pulses intact and symmetrical Normal gait and station No calf tenderness Psychiatric:Alert a Neuro: Muscles Strength 5/5 in all 4 extremities Sensation to light touch grossly present throughout Cranial nerves II-XII grossly intact No focal sensory deficits - Labs CBC & Chem 7: 11/08/21 05:40 11/10/21 05:37 Labs: Abnormal Lab Results - Last 24 Hours (Table) 11/09/21 11/09/21 11/10/21 Range/Units 12:12 18:15 05:27 Sodium (137-145) mmol/L BUN (9-20) mg/dL Glucose (74-99) mg/dL POC Glucose (mg/dL) 135 H 217 H 125 H (75-99) mg/dL Calcium (8.4-10.2) mg/dL 11/10/21 Range/Units 05:37 Sodium 136 L (137-145) mmol/L BUN 27 H (9-20) mg/dL Glucose 140 H (74-99) mg/dL POC Glucose (mg/dL) (75-99) mg/dL Calcium 8.0 L (8.4-10.2) mg/dL Microbiology - Last 24 Hours (Table) 11/05/21 05:00 Blood Culture - Preliminary Blood No Growth after 120 hours Assessment and Plan Plan: COVID-19 pneumonia with acute hypoxic respiratory failure -O2 weaned down to 3L NC. -Was on mechanical ventilation earlier in the admission, currently extubated -Decadron d/betito on 11/09 -Pulm following Sepsis secondary to Perforated gastric ulcer status post expiratory laparotomy and gastrectomy -Being followed by surgical service -Abdominal cx with ila, on zosyn and diflucan per ID. -Upper GI series 11/07 showed no leaks -Was on TPN until 11/08, currently on full liquid diet per surgery, tolerating well. Urinary retention -S/p person, which was d/betito on 11/08 Elevated INR -Suspected due to sepsis upon presentation -Resolved A-fib -Resume eliquis. Anticipated discharge: 2-3 days Disposition: Likely will need rehab
[2021-11-10] MEDS: HYDROmorphone 0.5 MG/0.5 ML SYRINGE IVP PRN ×2 (11:36→23:46)
[2021-11-10 12:12] LABS: Glucose,Whole Blood 167 mg/dL (75-99)
--- NOTE | 2021-11-10 13:25 | P.PN ---
Subjective Progress Note Date: 11/10/21 The patient is status post partial gastrectomy for perforated ulcer. He is doing well. Tolerating a regular diet. No nausea or vomiting. Pain is controlled. Objective - Vital Signs Vital signs: Vital Signs Temp 99.2 F 11/10/21 11:21 Pulse 70 11/10/21 11:21 Resp 18 11/10/21 11:21 BP 133/69 11/10/21 11:21 Pulse Ox 92 L 11/10/21 11:21 Intake & Output 11/09/21 11/10/21 11/10/21 18:59 06:59 18:59 Intake Total 236 236 Output Total 100 300 975 Balance 136 300 -739 Weight 105.5 kg 91.5 kg Intake: Oral 236 236 Output: Urine 100 300 975 Other: Voiding Method Urinal Urinal # Voids 1 1 # Bowel Movements 1 2 ABP, PAP, CO, CI - Last Documented Arterial Blood Pressure 152/67 - Constitutional General appearance: Present: cooperative, no acute distress - Respiratory Respiratory: bilateral: diminished (Slightly bilaterally) - Gastrointestinal General gastrointestinal: Present: normal bowel sounds, soft. Absent: distended Localized gastrointestinal: surgical scar: diffuse (Incision is healing well) - Labs CBC & Chem 7: 11/08/21 05:40 11/10/21 05:37 Labs: Abnormal Lab Results - Last 24 Hours (Table) 11/09/21 11/10/21 11/10/21 Range/Units 18:15 05:27 05:37 Sodium 136 L (137-145) mmol/L BUN 27 H (9-20) mg/dL Glucose 140 H (74-99) mg/dL POC Glucose (mg/dL) 217 H 125 H (75-99) mg/dL Calcium 8.0 L (8.4-10.2) mg/dL 11/10/21 Range/Units 12:11 Sodium (137-145) mmol/L BUN (9-20) mg/dL Glucose (74-99) mg/dL POC Glucose (mg/dL) 167 H (75-99) mg/dL Calcium (8.4-10.2) mg/dL Microbiology - Last 24 Hours (Table) 11/05/21 05:00 Blood Culture - Preliminary Blood No Growth after 120 hours Assessment and Plan (1) Perforated gastric ulcer Current Visit: Yes Status: Acute Code(s): K25.5 - CHRONIC OR UNSPECIFIED GA STRIC ULCER WITH PERFORATION SNOMED Code(s): 4999784 (2) Pneumonia due to COVID-19 virus Current Visit: Yes Status: Acute Code(s): U07.1 - COVID-19; J12.82 - PNEUMONIA DUE TO CORONAVIRUS DISEASE 2018 SNOMED Code(s): 572214133302593970 Plan: The patient is surgically stable. Increase activity as tolerated. Continue med ical therapy
[2021-11-10 18:02] LABS: Glucose,Whole Blood 176 mg/dL (75-99)
[2021-11-10 20:00] LABS: Glucose,Whole Blood 142 mg/dL (75-99)
--- NOTE | 2021-11-10 20:00 | PN ---
PROGRESS NOTE DATE OF SERVICE: 11/10/2021 REASON FOR FOLLOWUP: Secondary peritonitis from perforated peptic ulcer disease. INTERVAL HISTORY: The patient is afebrile. The patient is breathing comfortably. The patient denies having any chest pain or shortness of breath. Occasional cough. Abdominal pain is currently controlled. No vomiting or diarrhea. PHYSICAL EXAMINATION: Blood pressure 129/71 with a pulse of 71, temperature 99.3. He is 96% on 3 L nasal cannula. General description is an elderly male lying in bed in no distress. Respiratory system: Unlabored breathing, decreased intensity of breath sounds. No wheeze. Heart S1, S2. Regular rate and rhythm. Abdomen soft, no tenderness. LABS: BUN of 27, creatinine 0.68. DIAGNOSTIC IMPRESSION AND PLAN: Patient with secondary peritonitis from perforated peptic ulcer disease, status post operative repair . Abdominal culture has been Annia albicans. Patient on Zosyn and Diflucan. Will consider a short course of oral antibiotic on discharge. Continue with supportive care. MMODL / IJN: [id number] /
[2021-11-10 23:43] LABS: Glucose,Whole Blood 140 mg/dL (75-99)
[2021-11-11 06:15] LABS: Glucose,Whole Blood 100 mg/dL (75-99)
[2021-11-11] MEDS: INSULIN ASPART (NovoLOG) 100 UNIT/ML VIAL SQ SCH ×4 (06:29→21:14)
[2021-11-11] MEDS: PIPERACILLIN-TAZOBACTAM 3.375 GM in SODIUM CHLORIDE 0.9% 100 ML IVPB SCH ×3 (06:31→21:15)
[2021-11-11] MEDS: PANTOPRAZOLE 40 MG TABLET PO SCH ×2 (06:31→17:28)
[2021-11-11 07:54] LABS: African American GFR (CKD) >90 (>60 ml/min/1.73 sqM); Anion Gap 2 mmol/L; Blood Urea Nitrogen 21 mg/dL (9-20); Calcium 7.8 mg/dL (8.4-10.2); Carbon Dioxide 32 mmol/L (22-30); Chloride 99 mmol/L (98-107); Glucose 137 mg/dL (74-99); Magnesium 1.9 mg/dL (1.6-2.3); Non-African American GFR(CKD) >90 (>60 ml/min/1.73 sqM); Phosphorus 3.7 mg/dL (2.5-4.5); Potassium 3.5 mmol/L (3.5-5.1); Sodium 133 mmol/L (137-145)
[2021-11-11] MEDS: APIXABAN 5 MG TAB PO SCH ×2 (08:13→21:14)
[2021-11-11] MEDS ORDERED: SIMETHICONE 80 MG CHEWABLE PO PRN (08:28)
--- NOTE | 2021-11-11 09:42 | P.PN ---
Subjective Progress Note Date: 11/11/21 Principal diagnosis: Status post gastric resection for perforated ulcer The patient is seen. He is ambulating in the morales this morning. He is using oxygen and is short of breath. Denies any abdominal pain, nausea or vomiting. Tolerating a diet. Objective - Vital Signs Vital signs: Vital Signs Temp 98.4 F 11/11/21 07:47 Pulse 77 11/11/21 08:00 Resp 19 11/11/21 08:00 BP 130/67 11/11/21 07:47 Pulse Ox 93 L 11/11/21 07:47 Intake & Output 11/10/21 11/11/21 11/11/21 18:59 06:59 18:59 Intake Total 1172 Output Total 1275 685 Balance -103 -685 Intake: IV 100 Piperacillin-Tazobactam 3 100 .375 gm In Sodium Chloride 0.9% 100 ml @ 25 mls/hr IVPB Q8H [facility] Rx#: [id number] Intake, IV Titration 600 Amount Parenteral Electrolytes 600 20 ml Potassium Chloride 10 meq In Amino Acids 5 % /Dextrose 20 % 1,000 ml @ 75 mls/hr IV .BY DURATION [facility] Rx#: [id number] Oral 472 Output: Urine 1275 685 Other: Voiding Method Urinal Urinal Urinal # Voids 1 # Bowel Movements 1 ABP, PAP, CO, CI - Last Documented Arterial Blood Pressure 152/67 - Constitutional General appearance: Present: cooperative, no acute distress - Gastrointestinal General gastrointestinal: Present: soft - Labs CBC & Chem 7: 11/08/21 05:40 11/11/21 07:11 Labs: Abnormal Lab Results - Last 24 Hours (Table) 11/10/21 11/10/21 11/10/21 Range/Units 12:11 18:00 19:58 Sodium (137-145) mmol/L Carbon Dioxide (22-30) mmol/L BUN (9-20) mg/dL Glucose (74-99) mg/dL POC Glucose (mg/dL) 167 H 176 H 142 H (75-99) mg/dL Calcium (8.4-10.2) mg/dL 11/10/21 11/11/21 11/11/21 Range/Units 23:42 06:13 07:11 Sodium 133 L (137-145) mmol/L Carbon Dioxide 32 H (22-30) mmol/L BUN 21 H (9-20) mg/dL Glucose 137 H (74-99) mg/dL POC Glucose (mg/dL) 140 H 100 H (75-99) mg/dL Calcium 7.8 L (8.4-10.2) mg/dL Microbiology - Last 24 Hours (Table) 11/05/21 05:00 Blood Culture - Final Blood No Growth after 144 hours Assessment and Plan (1) Perforated gastric ulcer Current Visit: Yes Status: Acute Code(s): K25.5 - CHRONIC OR UNSPECIFIED GASTRIC ULCER WITH PERFORATION SNOMED Code(s): 2103232 (2) Pneumonia due to COVID-19 virus Current Visit: Yes Status: Acute Code(s): U07.1 - COVID-19; J12.82 - PNEUMONIA DUE TO CORONAVIRUS DISEASE 2019 SNOMED Code(s): 248280089648792354 Plan: Continue medical therapy for the SIRS pneumonia. Surgically stable
[2021-11-11] MEDS: FLUCONAZOLE IN NACL,ISO-OSM 200 MG in SALINE 1 100ML.BAG IVPB SCH (10:35)
[2021-11-11 11:54] LABS: Glucose,Whole Blood 125 mg/dL (75-99)
--- NOTE | 2021-11-11 12:44 | P.PN ---
Subjective Progress Note Date: 11/11/21 Principal diagnosis: Covid pneumonia Brief hx: 66-year-old male came to the hospital on 10/26/2021 for sudden onset of abdominal pain on the right side. Patient has been vaccinated against Covid and he started having cold-like symptoms on 10/16/2021 and tested positive for Gene na virus. Patient received monoclonal antibodies. He was doing better, but all of a sudden on the day of admission, he started having severe right-sided abdominal pain. No vomiting or diarrhea. CTA of the chest showed extensive bilateral pulmonary infiltrates consistent with multifocal pneumonia. No evidence of pulmonary embolism. Patient also had perforated gastric ulcer, status post surgical intervention with exploratory laparotomy Billroth type II and reconstruction of a gastric perforation on 10/26/2021. Patient had subsequently developed lactic acidosis secondary to abdominal sepsis, acute kidney injury, which now resolved. He briefly required mechanical ventilation but later he was extubated to HFNC. O2 is currently weaned to 3L. He was fed with TPN initially and now he is tolerating oral intake. He is being followed by surgery. Objective - Vital Signs Vital signs: Vital Signs Temp 98.3 F 11/11/21 12:39 Pulse 70 11/11/21 12:39 Resp 17 11/11/21 12:39 BP 130/67 11/11/21 07:47 Pulse Ox 96 11/11/21 12:39 Intake & Output 11/10/21 11/11/21 11/11/21 18:59 06:59 18:59 Intake Total 1172 Output Total 1275 685 Balance -103 -685 Intake: IV 100 Piperacillin-Tazobactam 3 100 .375 gm In Sodium Chloride 0.9% 100 ml @ 25 mls/hr IVPB Q8H [facility] Rx#: [id number] Intake, IV Titration 600 Amount Parenteral Electrolytes 600 20 ml Potassium Chloride 10 meq In Amino Acids 5 % /Dextrose 20 % 1,000 ml @ 75 mls/hr IV .BY DURATION [facility] Rx#: [id number] Oral 472 Output: Urine 1275 685 Other: Voiding Method Urinal Urinal Urinal # Voids 1 # Bowel Movements 1 ABP, PAP, CO, CI - Last Documented Arterial Blood Pressure 152/67 - Exam Constitutional: No acute distress, conversant, pleasant Eyes: Anicteric sclerae, moist conjunctiva, no lid-lag PERRLA ENMT: NC/AT Oropharynx clear, no erythema, exudates Neck: Supple, FROM, no masses, or JVD No carotid bruits No thyromegaly Lungs: C no major accessory muscle use Cardiovascular: Heart regular in rate and rhythm, No murmurs, gallops, or rubs No peripheral edema Abdominal: Soft Nontender, no guarding, rebound or rigidity Abdomen moving with respiration Normoactive bowel sounds No hepatomegaly, No splenomegaly No palpable mass No abdominal wall hernia noted Skin: Normal temperature, tone, texture, turgor No induration No subcutaneous nodules No rash, lesions No ulcers Extremities: No digital cyanosis No clubbing Pedal pulses intact and symmetrical Radial pulses intact and symmetrical Normal gait and station No calf tenderness Psychiatric:Alert a Neuro: Muscles Strength 5/5 in all 4 extremities Sensation to light touch grossly present throughout Cranial nerves II-XII grossly intact No focal sensory deficits - Labs CBC & Chem 7: 11/08/21 05:40 11/11/21 07:11 Labs: Abnormal Lab Results - Last 24 Hours (Table) 11/10/21 11/10/21 11/10/21 Range/Units 18:00 19:58 23:42 Sodium (137-145) mmol/L Carbon Dioxide (22-30) mmol/L BUN (9-20) mg/dL Glucose (74-99) mg/dL POC Glucose (mg/dL) 176 H 142 H 140 H (75-99) mg/dL Calcium (8.4-10.2) mg/dL 11/11/21 11/11/21 11/11/21 Range/Units 06:13 07:11 11:48 Sodium 133 L (137-145) mmol/L Carbon Dioxide 32 H (22-30) mmol/L BUN 21 H (9-20) mg/dL Glucose 137 H (74-99) mg/dL POC Glucose (mg/dL) 100 H 125 H (75-99) mg/dL Calcium 7.8 L (8.4-10.2) mg/dL Microbiology - Last 24 Hours (Table) 11/05/21 05:00 Blood Culture - Final Blood No Growth after 144 hours Assessment and Plan Plan: COVID-19 pneumonia with acute hypoxic respiratory failure -O2 weaned down to 3L NC. -Was on mechanical ventilation earlier in the admission, currently extubated -Decadron d/betito on 11/09 -Pulm following Sepsis secondary to Perforated gastric ulcer status post expiratory laparotomy and gastrectomy -Being followed by surgical service -Abdominal cx with ila, on zosyn and diflucan per ID. -Upper GI series 11/07 showed no leaks -Was on TPN until 11/08, currently on full liquid diet per surgery, tolerating well. Urinary retention -S/p person, which was d/betito on 11/08 Elevated INR -Suspected due to sepsis upon presentation -Resolved A-fib -Resume eliquis. General weakness -PT Anticipated discharge: 1-2 days Disposition: Likely will need rehab
[2021-11-11 17:00] LABS: Glucose,Whole Blood 107 mg/dL (75-99)
[2021-11-11 20:43] LABS: Glucose,Whole Blood 124 mg/dL (75-99)
[2021-11-11] MEDS: HYDROmorphone 0.5 MG/0.5 ML SYRINGE IVP PRN (21:21)
--- NOTE | 2021-11-12 00:07 | PN ---
PROGRESS NOTE DATE OF SERVICE: 11/11/2021 REASON FOR FOLLOWUP: Abdominal abscess, perforated peptic ulcer disease. INTERVAL HISTORY: Patient is afebrile. Patient is breathing comfortably. Mentioned feeling slightly sick, nausea but no vomiting. Denies having any chest pain. No shortness of breath. No cough. Abdominal pain is currently controlled. No diarrhea. PHYSICAL EXAMINATION: Blood pressure 155/73 with a pulse of 75, temperature 98.1, he is 95% on 3 L nasal cannula. General description is an elderly male lying in bed in no distress. Respiratory system: Unlabored breathing, decreased intensity of breath sounds. No wheeze. Heart S1, S2. Regular rate and rhythm. Abdomen soft, no tenderness. LABS: BUN of 21, creatinine 0.82. DIAGNOSTIC IMPRESSION AND PLAN: Patient with secondary peritonitis from perforated peptic ulcer disease status post repair. Has received about 2 weeks of antibiotic with Zosyn and Diflucan. Will consider a short course of oral Augmentin and Diflucan on discharge and close outpatient followup. MMODL / IJN: [id number] /
[2021-11-12] MEDS: PIPERACILLIN-TAZOBACTAM 3.375 GM in SODIUM CHLORIDE 0.9% 100 ML IVPB SCH ×2 (05:52→13:45)
[2021-11-12 07:03] LABS: Glucose,Whole Blood 90 mg/dL (75-99)
[2021-11-12 07:19] LABS: African American GFR (CKD) >90 (>60 ml/min/1.73 sqM); Anion Gap 2 mmol/L; Blood Urea Nitrogen 19 mg/dL (9-20); Carbon Dioxide 35 mmol/L (22-30); Chloride 99 mmol/L (98-107); Glucose 96 mg/dL (74-99); Magnesium 2.1 mg/dL (1.6-2.3); Non-African American GFR(CKD) 87 (>60 ml/min/1.73 sqM); Phosphorus 4.3 mg/dL (2.5-4.5); Potassium 4.5 mmol/L (3.5-5.1); Sodium 136 mmol/L (137-145)
[2021-11-12] MEDS: INSULIN ASPART (NovoLOG) 100 UNIT/ML VIAL SQ SCH ×2 (08:04→11:24)
[2021-11-12] MEDS: APIXABAN 5 MG TAB PO SCH (08:11)
[2021-11-12] MEDS: PANTOPRAZOLE 40 MG TABLET PO SCH (08:11)
[2021-11-12] MEDS ORDERED: CALCIUM CARBONATE 500 MG CHEWABLE PO PRN (09:26)
[2021-11-12] MEDS: FLUCONAZOLE IN NACL,ISO-OSM 200 MG in SALINE 1 100ML.BAG IVPB SCH (09:32)
[2021-11-12 11:22] LABS: Glucose,Whole Blood 120 mg/dL (75-99)
--- NOTE | 2021-11-12 12:10 | P.PN ---
Subjective Progress Note Date: 11/12/21 Principal diagnosis: abdominal pain Patient is a 66-year-old male with osteoarthritis who presented to the ER with complaints of abdominal pain. In the emergency room he was noted to have pneumoperitoneum on abdominal CT and a CT of the chest showed multifocal pneumonia. He was admitted to surgery and was immediately taken to the OR and underwent exploratory laparotomy where he was found to have a perforated gastric ulcer. He underwent a partial gastrectomy and was admitted to the ICU. We are consulted for medical management. He was started on Zosyn and Diflucan. Nilda ent has been followed by pulmonary and infectious disease. He is also found to have COVID-19 pneumonia. He was started on Decadron and TPN. They attempted weaning patient was not responding and neurology was subsequently consulted. Neuro imaging showed chronic small vessel ischemic changes. self extubated on 11/01 at 2030. He did require BiPAP. On 11/03 he developed A. fib with RVR and necessitated heparin drip and amiodarone. He did convert back to normal sinus rhythm. He did undergo an upper GI series which showed no evidence of gastric leak. He was then weaned to High Flow nasal canula. He was tolerating a clear liquid diet and was slowly advance to a pureed deit and tolerated well. His TPN was weaned. Procedures: Arterial line placement Intubation Exploratory laparotomy with gastric ulcer repair Right IJ central venous catheter PICC line Microbiology: Annia Imaging: Echo- EF 5-60%, possible LVOT obstruction CTA- b/l pulmonary infiltrates CT ABd/pelvis- mild pneumoperitineum CT Head- Mild diffuse age- related atrophy, chronic small vessle ischemic changes Patient seen and examined at bedside. Having some acid reflux after orange juice. No chest pain, no shortness of breath. Wants to go home with home health. + passing gas, not having much in BM. General: Ill-appearing, no distress, appears at stated age Derm: warm, dry Head: atraumatic, normocephalic, symmetric Eyes: EOMI, no lid lag, anicteric sclera Mouth: no lip lesion, mucus membranes moist Cardiovascular: S1S2 reg, no murmur, positive posterior tibial pulse bilateral, Lungs: Decreased bs bilateral, no rhonchi, no rales , no accessory muscle use Abdominal: soft, +tender to palpation RLQ, no guarding, no appreciable organomegaly Ext: no gross muscle atrophy, trace pedal edema, no contractures Neuro: CN II-XI grossly intact, no focal neuro deficits Psych: Alert, oriented, appropriate affect Assessment/Plan: COVID-19 pneumonia- requiring home O2 / Acute hypoxic respiratory failure Perforated gastric ulcer status post splurge. Laparotomy, Billroth type II with reconstruction of gastric perforation Sepsis Coagulopathy Lactic acidosis Acute kidney injury Metabolic encephalopathy Hypertension Paroxysmal A. fib with RVR Bradycardia Urinary retention Gait instability requiring ambulation aid with walker. Per ID Can complete a short course of oral augment and diflucan on discharge. Acuna has been removed. On eliquis. Discharge planning in place. F/U outpatient with cardio (signed off). anticipate discharge soon. Active Medications Generic Name Dose Route Start Last Admin Trade Name Freq PRN Reason Stop Dose Admin Apixaban 5 mg 11/08/21 21:00 11/12/21 08:11 Apixaban 5 Mg Tab PO 5 mg BID RIANNA Administration Protocol Hydromorphone HCl 0.5 mg 11/02/21 08:48 11/11/21 21:21 Hydromorphone 0.5 Mg/0.5 Ml Syringe IVP 0.5 mg Q4HR PRN Administration Pain Piperacillin Sod/Tazobactam 100 mls @ 25 mls/hr 10/27/21 05:00 11/12/21 05:52 Sod 3.375 gm/ Sodium Chloride IVPB 25 mls/hr Q8H RIANNA Administration Fluconazole/Sodium Chloride 100 mls @ 100 mls/hr 10/27/21 09:00 11/11/21 10:35 200 mg/ IV Solution IVPB 100 mls/hr DAILY RIANNA Administration Insulin Aspart 0 unit 11/11/21 12:30 11/12/21 08:04 Insulin Aspart (Novolog) 100 Unit/Ml Vial SQ Not Given ACHS RIANNA Protocol Miscellaneous Information 1 each 11/02/21 05:36 Magnesium Replacement Protocol 1 Each Misc MISCELLANE DAILY PRN Per Protocol Protocol Miscellaneous Information 1 each 11/05/21 07:26 Potassium Replacement Protocol 1 Each Misc MISCELLANE DAILY PRN Per Protocol Protocol Naloxone HCl 0.2 mg 10/27/21 00:01 Naloxone 0.4 Mg/Ml 1 Ml Vial IV Q2M PRN Opioid Reversal Ondansetron HCl 4 mg 10/27/21 00:01 Ondansetron 4 Mg/2 Ml Vial IVP Q6HR PRN Nausea And Vomiting Pantoprazole Sodium 40 mg 11/09/21 17:30 11/12/21 08:11 Pantoprazole 40 Mg Tablet PO 40 mg AC-BID RIANNA Administration Simethicone 80 mg 11/11/21 08:28 Simethicone 80 Mg Chewable PO QID PRN Bloating Objective - Vital Signs Vital signs: Vital Signs Temp 97.5 F L 11/12/21 07:46 Pulse 64 11/12/21 07:46 Resp 18 11/12/21 07:46 BP 133/61 11/12/21 07:46 Pulse Ox 90 L 11/12/21 07:46 Intake & Output 11/11/21 11/12/21 11/12/21 18:59 06:59 18:59 Intake Total 600 Balance 600 Intake: Oral 600 Other: Voiding Method Urinal # Voids 3 ABP, PAP, CO, CI - Last Documented Arterial Blood Pressure 152/67 - Labs CBC & Chem 7: 11/08/21 05:40 11/12/21 06:00 Labs: Abnormal Lab Results - Last 24 Hours (Table) 11/11/21 11/11/21 11/11/21 Range/Units 07:11 11:48 17:00 Sodium 133 L (137-145) mmol/L Carbon Dioxide 32 H (22-30) mmol/L BUN 21 H (9-20) mg/dL Glucose 137 H (74-99) mg/dL POC Glucose (mg/dL) 125 H 107 H (75-99) mg/dL Calcium 7.8 L (8.4-10.2) mg/dL 11/11/21 11/12/21 Range/Units 20:43 06:00 Sodium 136 L (137-145) mmol/L Carbon Dioxide 35 H (22-30) mmol/L BUN (9-20) mg/dL Glucose (74-99) mg/dL POC Glucose (mg/dL) 124 H (75-99) mg/dL Calcium 8.0 L (8.4-10.2) mg/dL Microbiology - Last 24 Hours (Table) 11/05/21 05:00 Blood Culture - Final Blood No Growth after 144 hours
[2021-11-12 14:00] VITALS: BMI 29.7
--- NOTE | 2021-11-12 14:06 | P.DS ---
Providers Date of admission: 10/26/21 21:15 Attending physician: Sidney Hutton DO Consults: 10/26/21 21:16 Consult Physician Urgent Consulting Provider: Jamel Stallings Consult Reason/Comments: Medical management Do you want consulting provider notified?: Yes 10/27/21 00:01 Consult Physician Routine Consulting Provider: Mara Nichols Consult Reason/Comments: ICU Mgmt Do you want consulting provider notified?: Already Contacted 10/27/21 00:05 Consult Physician Routine Consulting Provider: Rhys Partida Consult Reason/Comments: Perforated gastric ulcer, covid pneumonia Do you want consulting provider notified?: Yes, Notify in am 10/31/21 10:55 Consult Physician Stat Consulting Provider: Prince Sifuentes Consult Reason/Comments: failed sedation holiday Do you want consulting provider notified?: Yes 11/04/21 02:04 Consult Physician Stat Consulting Provider: Ariel Salgado Consult Reason/Comments: New onset afib RVR Do you want consulting provider notified?: Yes 11/07/21 13:39 Consult Physician Routine Consulting Provider: Sterling Chaudhari Consult Reason/Comments: eval for ipr Do you want consulting provider notified?: Yes [facility] Hospital Course: 66-year-old male presented to the emergency department with significant abdominal pain and sepsis. On work-up, he was found to have perforated viscus. Secondary to this, he was taken to the operating room for exploratory laparotomy and was found to have a perforated gastric ulcer. He did undergo repair with antrectomy and gastrojejunostomy and Billroth II form. He also was noted to be Covid positive and had concern of Covid pneumonia. He had a prolonged hospital stay due to prolonged intubation secondary to pneumonia. After patient self extubated, patient was continued on TPN for nutrition until upper GI was passed. He was then started on a oral diet that was advanced as tolerated. Currently, he is surgically stable for discharge. During his admission, he was followed [facility] internal medicine, pulmonology and infectious disease. They are all clearing him for discharge at this point. He will be discharged with home antibiotics and home health care with home oxygen. Procedures: Exploratory laparotomy, partial gastrectomy with Billroth II reconstruction Patient Condition at Discharge: Fair Plan - Discharge Summary Discharge Rx Participant: No New Discharge Prescriptions: New Apixaban [Eliquis] 5 mg PO BID 30 Days #60 tab Apixaban [Eliquis] 5 mg PO BID tab Pantoprazole [Protonix] 40 mg PO DAILY #30 tab Calcium Carbonate [Tums] 500 mg PO TID PRN tab PRN Reason: Heartburn Amoxicillin/Potassium Clav [Augmentin 875-125 Tablet] 1 tab PO Q12HR 7 Days #14 tab Fluconazole [Diflucan] 200 mg PO DAILY #7 tab Continue Cholecalciferol [Vitamin D3 (25 Mcg = 1000 Iu)] 25 mcg PO DAILY Ascorbic Acid [Vitamin C] 500 mg PO DAILY guaiFENesin [Mucinex] 600 mg PO BID PRN PRN Reason: Cold Symptoms HYDROcodone/APAP 5-325MG [Lincoln 5-325] 1 tab PO BID PRN #15 tab PRN Reason: Pain Discontinued Celecoxib [CeleBREX] 200 mg PO BID Discharge Medication List Ascorbic Acid [Vitamin C] 500 mg PO DAILY 10/26/21 [History] Cholecalciferol [Vitamin D3 (25 Mcg = 1000 Iu)] 25 mcg PO DAILY 10/26/21 [History] guaiFENesin [Mucinex] 600 mg PO BID PRN 10/26/21 [History] Apixaban [Eliquis] 5 mg PO BID 30 Days #60 tab 11/07/21 [Rx] Amoxicillin/Potassium Clav [Augmentin 875-125 Tablet] 1 tab PO Q12HR 7 Days #14 tab 11/12/21 [Rx] Apixaban [Eliquis] 5 mg PO BID tab 11/12/21 [Rx] Calcium Carbonate [Tums] 500 mg PO TID PRN tab 11/12/21 [Rx] Fluconazole [Diflucan] 200 mg PO DAILY #7 tab 11/12/21 [Rx] HYDROcodone/APAP 5-325MG [Lincoln 5-325] 1 tab PO BID PRN #15 tab 11/12/21 [Rx] Pantoprazole [Protonix] 40 mg PO DAILY #30 tab 11/12/21 [Rx] Follow up Appointment(s)/Referral(s): Mara Nichols MD [STAFF PHYSICIAN] - 2 Weeks Ariel Salgado MD [STAFF PHYSICIAN] - 3 Weeks [facility] [NON-STAFF] - As Needed [facility] [NON-STAFF] - As Needed (oxygen and walker) Robin Alegria MD [Primary Care Provider] - 1-2 days Sidney Hutton DO [Doctor of Osteopathic Medicine] - 11/21/21 Patient Instructions/Handouts: Exploratory Laparotomy (DC) Activity/Diet/Wound Care/Special Instructions: Stay on soft food diet Take Medications as prescribed No lifting until cleared by physician OK to shower, do not scrub on incision Discharge Disposition: HOME WITH HOME HEALTH SERVICES
[2021-11-12 15:05] VITALS: BP 127/68; PULSE 75; RESP 17; TEMP 97.6
--- NOTE | 2021-11-12 17:35 | PN ---
PROGRESS NOTE DATE OF SERVICE: 11/12/2021 REASON FOR FOLLOWUP: Secondary peritonitis from perforated peptic ulcer disease. INTERVAL HISTORY: Patient is afebrile. The patient is breathing comfortably. Denies having any chest pain. No shortness of breath or cough. Abdominal pain is currently controlled. No nausea, no vomiting or diarrhea. PHYSICAL EXAMINATION: Blood pressure 127/68 with a pulse of 75, temperature 97.6. He is 96% on 3 L nasal cannula. General description is an elderly male up in the chair in no distress. Respiratory system: Unlabored breathing, clear to auscultation anteriorly. Heart S1, S2. Regular rate and rhythm. Abdomen: Soft. Mildly distended. No guarding. No rigidity. LABS: Creatinine 0.91. DIAGNOSTIC IMPRESSION AND PLAN: Patient with secondary peritonitis from perforated peptic ulcer disease status post repair. Abdominal culture with Annia, finishing therapy with oral Augmentin and Diflucan. Prescription sent to pharmacy. Close outpatient followup. Family at the bedside. Questions answered. MMODL / IJN: [id number] /
== END 2021-11-12 16:23 | disposition home health service (06) | DRG 853 ==
LOC: EC 19:01 → 2SICU 21:15 → 3SCARD 11-06 21:14 → 4SSUR 11-11 10:56
PROVIDERS: ADMIT Surgery; ATTEND Surgery
PROC: 0DB60ZZ Excision of Stomach, Open Approach (ICD-10-PCS; 2021-10-27)
PROC: 0D160ZA Bypass Stomach to Jejunum, Open Approach (ICD-10-PCS; 2021-10-27)
PROC: 03HY32Z Insertion of Monitoring Device into Upper Artery, Percutaneous Approach (ICD-10-PCS; 2021-10-27)
PROC: 02HV33Z Insertion of Infusion Device into Superior Vena Cava, Percutaneous Approach (ICD-10-PCS; principal; 2021-11-01 12:55)
PROC: 5A0955A Assistance with Respiratory Ventilation, Greater than 96 Consecutive Hours, High Flow/Velocity Cannula (ICD-10-PCS; 2021-11-02)
DX: A41.89 Other specified sepsis (principal); G93.41 Metabolic encephalopathy; K25.5 Chronic or unspecified gastric ulcer with perforation; J96.01 Acute respiratory failure with hypoxia; U07.1 COVID-19; J12.82 Pneumonia due to coronavirus disease 2019; N17.0 Acute kidney failure with tubular necrosis; K65.1 Peritoneal abscess; K65.8 Other peritonitis; D68.9 Coagulation defect, unspecified; E87.2 Acidosis; J44.0 Chronic obstructive pulmonary disease with (acute) lower respiratory infection; I48.19 Other persistent atrial fibrillation; B37.89 Other sites of candidiasis; I11.0 Hypertensive heart disease with heart failure; M19.90 Unspecified osteoarthritis, unspecified site; I49.3 Ventricular premature depolarization; D75.1 Secondary polycythemia; Z87.891 Personal history of nicotine dependence; Z86.73 Personal history of transient ischemic attack (TIA), and cerebral infarction without residual deficits; Z80.0 Family history of malignant neoplasm of digestive organs; Z79.2 Long term (current) use of antibiotics; Z79.1 Long term (current) use of non-steroidal anti-inflammatories (NSAID); Z79.01 Long term (current) use of anticoagulants; Z23 Encounter for immunization; M54.9 Dorsalgia, unspecified; R00.1 Bradycardia, unspecified
CPT/HCPCS: 36415; 36573; 36600; 70450; 71045; 71275; 74177; 74240; 80048; 80053; 80076; 81001; 82040; 82150; 82330; 82805; 83605; 83615; 83690; 83735; 84100; 84132; 84145; 84443; 84478; 85025; 85027; 85610; 85730; 86140; 86850; 86900; 86901; 87040; 87070; 87075; 87086; 87205; 88307; 93005; 93306; 94002; 94003; 94660; 96361; 96374; 96375; 99291